=== PATIENT | male | born 1950 | race Caucasian/White ===

== ENCOUNTER → 2016-12-14 | Outpatient (CLI) | payer MEDICARE ==
[2016-12-14 09:12] LABS: ABSOLUTE EOSINOPHILS # (AUTO) 0.2 10^3/uL (0.0-0.6); ABSOLUTE LYMPHOCYTES (AUTO) 0.8 10^3/uL (0.5-4.7); ABSOLUTE MONOCYTES (AUTO) 0.4 10^3/uL (0.1-1.4); ABSOLUTE NEUT (AUTO) 3.1 10^3/uL (1.7-8.2); BASOPHILS % (AUTO) 0.7 % (0-2); EOSINOPHILS % (AUTO) 3.4 % (0-6); HEMATOCRIT 29.7 % (37.9-51.0); HGB HCT DIFFERENCE 0.3; LYMPHOCYTES % (AUTO) 17.4 % (13-45); MEAN CORPUSCULAR HEMOGLOBIN 31.4 pg (27.0-33.4); MEAN CORPUSCULAR HGB CONC 33.8 g/dL (32.0-36.0); MEAN CORPUSCULAR VOLUME 93 fl (80-97); RED BLOOD COUNT 3.19 10^6/uL (4.35-5.55); RED CELL DISTRIBUTION WIDTH 13.6 % (11.5-14.0); SEGMENTED NEUTROPHILS % (AUTO) 69.5 % (42-78); WHITE BLOOD COUNT 4.5 10^3/uL (4.0-10.5)
[2016-12-14 09:20] LABS: APPEARANCE,URINE CLEAR; BILIRUBIN,URINE NEGATIVE (NEGATIVE); GLUCOSE, URINE NEGATIVE (NEGATIVE); KETONES,URINE NEGATIVE (NEGATIVE); LEUKOCYTE ESTERASE,URINE NEGATIVE (NEGATIVE); NITRITE,URINE NEGATIVE (NEGATIVE); PROTEIN,URINE NEGATIVE (NEGATIVE); UROBILINOGEN,URINE NEGATIVE mg/dL (<2.0)
[2016-12-14 09:33] LABS: ANION GAP 12 (5-19); BLOOD UREA NITROGEN 55 mg/dL (7-20); CALCIUM 9.4 mg/dL (8.4-10.2); CARBON DIOXIDE 21 mmol/L (22-30); CHLORIDE 114 mmol/L (98-107); CREATININE RESULT 4.13 mg/dL (0.52-1.25); GLUCOSE 103 mg/dL (75-110); SODIUM 147.1 mmol/L (137-145)
[2016-12-14 10:25] LABS: POTASSIUM 6.1 mmol/L (3.6-5.0)
[2016-12-15 09:39] LABS: CREATININE URINE 65.1 mg/dL (Not Estab.); MICROALBUMIN URINE 61.4 ug/mL (Not Estab.)
[2016-12-15 11:25] LABS: VITAMIN D 25-HYDROXY 45.8 ng/mL (30.0-100.0)
== END ==
LOC: OD 07:45
PROVIDERS: ATTEND Internal Medicine Nephrology
DX: N18.4 Chronic kidney disease, stage 4 (severe) (principal); R80.9 Proteinuria, unspecified; D50.9 Iron deficiency anemia, unspecified; N25.81 Secondary hyperparathyroidism of renal origin
CPT/HCPCS: 36415; 80048; 81001; 82040; 82043; 82306; 82570; 82728; 83540; 83550; 83970; 84100; 85025

== ENCOUNTER → 2016-12-20 | Outpatient (CLI) | payer MEDICARE | LOC: OD 08:23 | PROVIDERS: ATTEND Internal Medicine Nephrology | DX: E87.5 Hyperkalemia (principal) | CPT/HCPCS: 36415; 84132 ==

== ENCOUNTER → 2017-03-02 | Outpatient (CLI) | payer MEDICARE ==
[2017-03-02 08:32] LABS: ANION GAP 14 (5-19); BLOOD UREA NITROGEN 47 mg/dL (7-20); CARBON DIOXIDE 23 mmol/L (22-30); CHLORIDE 112 mmol/L (98-107); CREATININE RESULT 4.22 mg/dL (0.52-1.25); GLUCOSE 111 mg/dL (75-110); POTASSIUM 5.4 mmol/L (3.6-5.0); SODIUM 149.2 mmol/L (137-145)
[2017-03-02 11:01] LABS: ABSOLUTE EOSINOPHILS # (AUTO) 0.1 10^3/uL (0.0-0.6); ABSOLUTE LYMPHOCYTES (AUTO) 0.9 10^3/uL (0.5-4.7); ABSOLUTE MONOCYTES (AUTO) 0.5 10^3/uL (0.1-1.4); ABSOLUTE NEUT (AUTO) 3.3 10^3/uL (1.7-8.2); BASOPHILS % (AUTO) 0.7 % (0-2); EOSINOPHILS % (AUTO) 2.9 % (0-6); HEMATOCRIT 32.5 % (37.9-51.0); HEMOGLOBIN 10.7 g/dL (13.5-17.0); HGB HCT DIFFERENCE -0.4; LYMPHOCYTES % (AUTO) 18.9 % (13-45); MEAN CORPUSCULAR HEMOGLOBIN 31.3 pg (27.0-33.4); MEAN CORPUSCULAR VOLUME 95 fl (80-97); MONOCYTES % (AUTO) 9.9 % (3-13); RED BLOOD COUNT 3.43 10^6/uL (4.35-5.55); RED CELL DISTRIBUTION WIDTH 13.7 % (11.5-14.0); SEGMENTED NEUTROPHILS % (AUTO) 67.6 % (42-78); WHITE BLOOD COUNT 4.9 10^3/uL (4.0-10.5)
== END ==
LOC: OD 07:40
PROVIDERS: ATTEND Internal Medicine Nephrology
DX: N18.4 Chronic kidney disease, stage 4 (severe) (principal); D50.9 Iron deficiency anemia, unspecified; N25.81 Secondary hyperparathyroidism of renal origin
CPT/HCPCS: 36415; 80048; 82728; 83540; 83550; 83970; 84100; 85025

== ENCOUNTER 2017-05-10 07:31 | Day surgery (SDC) | payer MEDICARE ==
[~2017-05-10 07:31] MED LIST: EPINEPHRINE INJ 1 MG/10 ML DISP.SYRIN ONE; FLUMAZENIL INJ 0.5 MG/5 ML VIAL ONE; GLUCAGON,HUMAN RECOMB 1 MG INJ ONE; GLYCOPYRROLATE INJ 0.4 MG/2 ML VIAL ONE; MIDAZOLAM 2 MG/2 ML INJ ONE; NALOXONE HCL INJ/PF 0.4 MG/1 ML SDV ONE; ONDANSETRON HCL INJ/PF 4 MG/2 ML SDV ONE
[2017-05-10] MEDS: MIDAZOLAM 2 MG/2 ML INJ ONE ×3 (08:36→08:51)
[2017-05-10] MEDS: FENTANYL CITRATE INJ/PF 100 MCG/2 ML AMPUL ONE ×2 (08:38→08:46)
--- NOTE | 2017-05-10 09:33 | PDOC DISCHARGE SUMMARY ---
Discharge Summary (SDC) - Discharge Final Diagnosis: colon polyps; diverticuloses Date of Surgery: 05/10/17 Discharge Date: 05/10/17 Condition: Good Treatment or Instructions: [facility] [place] [id number] POST ENDOSCOPY DISCHARGE INSTRUCTIONS 1. Diet: Start clear liquids that a regular diet as tolerated. 2. Resume all preoperative medications. All oral anticoagulants and aspirins can be resumed 24 hours after procedure. 3. If a polypectomy was performed some bleeding per rectum may occur. This should stop within 3 days. If not, please contact the office. 4. If you had a colonoscopy you may experience some bloating and delayed return of normal bowel function for several days, your regular bowel movement pattern should resume within a week. 5. Please contact [facility] at to make an appointment with Dr. Randle for 1 to 3 weeks following procedure. 6. If you have any questions or concerns regarding your care,treatment plan or follow up, please contact our office. 7. Per clinical guidelines we recommend you undergo a repeat colonoscopy in three years. Referrals: ANIRUDH PAINTING MD [Primary Care Provider] - Discharge Diet: As Tolerated Discharge Activity: Activity As Tolerated Home Care Assistance: None Needed Report the Following to Your Physician Immediately: Shortness of Breath, Increase in Pain, Fever over 101 Degrees
[2017-05-10 10:40] VITALS: BP 145/79
--- NOTE | 2017-05-10 11:02 | OPERATIVE REPORT E ---
Operative Report NAME: KATHY BURRELL : 1950 AGE: 67Y DATE OF SURGERY: 05/10/2017 ROOM: PREOPERATIVE DIAGNOSIS: Personal history of colon polyps. POSTOPERATIVE DIAGNOSES: 1. Polyps of the cecum and right colon. 2. Sigmoid and left colon diverticulosis. 3. Prostatic enlargement. PROCEDURE: 1. Total colonoscopy to the cecum with photo documentation. 2. Cecal and right colon polypectomy. SURGEON: JUNIOR VELASQUEZ M.D. ANESTHESIA: Conscious sedation. COMPLICATIONS: None. ESTIMATED BLOOD LOSS: Scant. DRAINS: None. TISSUE REMOVED OR ALTERED: Colon polyps x2. FINDINGS: See below. SUMMARY OF PROCEDURE: The patient was brought from the fifth floor endoscopy waiting area to the endoscopy suite where conscious sedation was induced. The patient was placed in a left lateral decubitus position. Surgical plan and surgical timeout were conducted. Rectal exam revealed no perianal pathology. The posterior surface of the prostate gland was enlarged. The flexible adult colonoscope was advanced through the anorectal canal all the way to the cecum. This was an excellent study on a well prepped bowel. Transillumination of the anterior abdominal wall, the right lower quadrant, and visualization of the ileocecal valve confirmed cecal intubation. Along the wall of the cecum was a sessile polyp photographed and removed with the cold forceps device with 2 bites. Bleeding was minimal. Specimen was sent as cecal polyp. We withdrew the scope further through the right colon and there was another smaller sessile polyp, photographed and retrieved with the cold forceps device. Bleeding was minimal. The remainder of the colon was unremarkable except for a moderate of diverticulosis of the left and sigmoid colon. Photographs were taken. There was no evidence of stenosis or stricture. Scope was withdrawn from the patient's anus. He tolerated the procedure well. He was taken to the recovery room in stable condition. Per surveillance guidelines, patient will be an appropriate candidate for followup colonoscopy in approximately 3 years, or sooner if any symptoms develop. DICTATING PHYSICIAN: JUNIOR VELASQUEZ M.D. [id number] PHY#: [id number] ID: [id number] JOB#: [id number] ACCT: [id number] cc:JUNIOR VELASQUEZ M.D. >
== END 2017-05-10 10:30 | disposition home or self-care (01) ==
LOC: END 07:31
PROVIDERS: ATTEND Surgery
PROC: 0DBF8ZX Excision of Right Large Intestine, Via Natural or Artificial Opening Endoscopic, Diagnostic (ICD-10-PCS; 2017-05-10)
PROC: 0DBH8ZX Excision of Cecum, Via Natural or Artificial Opening Endoscopic, Diagnostic (ICD-10-PCS; principal; 2017-05-10 08:15)
DX: Z12.11 Encounter for screening for malignant neoplasm of colon (principal); D12.0 Benign neoplasm of cecum; D12.2 Benign neoplasm of ascending colon; K57.30 Diverticulosis of large intestine without perforation or abscess without bleeding; N40.0 Benign prostatic hyperplasia without lower urinary tract symptoms; I10 Essential (primary) hypertension; E78.00 Pure hypercholesterolemia, unspecified; E78.1 Pure hyperglyceridemia; M19.90 Unspecified osteoarthritis, unspecified site; D64.9 Anemia, unspecified; Z86.73 Personal history of transient ischemic attack (TIA), and cerebral infarction without residual deficits; Q61.3 Polycystic kidney, unspecified; Z88.0 Allergy status to penicillin
CPT/HCPCS: 45380; 88305 ×2; J2250; J3010; J0171; J1610; J2310; J2405; J3490

== ENCOUNTER → 2017-05-14 | Outpatient (CLI) | payer MEDICARE ==
[2017-05-14 08:36] LABS: ABSOLUTE EOSINOPHILS # (AUTO) 0.2 10^3/uL (0.0-0.6); ABSOLUTE LYMPHOCYTES (AUTO) 0.8 10^3/uL (0.5-4.7); ABSOLUTE MONOCYTES (AUTO) 0.4 10^3/uL (0.1-1.4); ABSOLUTE NEUT (AUTO) 3.5 10^3/uL (1.7-8.2); BASOPHILS % (AUTO) 0.5 % (0-2); EOSINOPHILS % (AUTO) 3.3 % (0-6); HEMATOCRIT 29.5 % (37.9-51.0); HGB HCT DIFFERENCE 0.5; LYMPHOCYTES % (AUTO) 16.3 % (13-45); MEAN CORPUSCULAR HEMOGLOBIN 32.2 pg (27.0-33.4); MEAN CORPUSCULAR HGB CONC 33.8 g/dL (32.0-36.0); MEAN CORPUSCULAR VOLUME 95 fl (80-97); MONOCYTES % (AUTO) 7.6 % (3-13); RED CELL DISTRIBUTION WIDTH 13.1 % (11.5-14.0); SEGMENTED NEUTROPHILS % (AUTO) 72.3 % (42-78); WHITE BLOOD COUNT 4.8 10^3/uL (4.0-10.5)
[2017-05-14 09:17] LABS: ANION GAP 16 (5-19); BLOOD UREA NITROGEN 50 mg/dL (7-20); CALCIUM 9.3 mg/dL (8.4-10.2); CARBON DIOXIDE 19 mmol/L (22-30); CHLORIDE 111 mmol/L (98-107); CREATININE RESULT 4.34 mg/dL (0.52-1.25); GLUCOSE 102 mg/dL (75-110); POTASSIUM 4.5 mmol/L (3.6-5.0); SODIUM 145.8 mmol/L (137-145)
== END ==
LOC: OD 07:52
PROVIDERS: ATTEND Internal Medicine Nephrology
DX: N18.5 Chronic kidney disease, stage 5 (principal); D63.1 Anemia in chronic kidney disease; N25.81 Secondary hyperparathyroidism of renal origin
CPT/HCPCS: 36415; 80048; 83970; 85025

== ENCOUNTER → 2017-07-11 | Outpatient (CLI) | payer MEDICARE ==
[2017-07-11 09:24] LABS: ABSOLUTE EOSINOPHILS # (AUTO) 0.1 10^3/uL (0.0-0.6); ABSOLUTE LYMPHOCYTES (AUTO) 0.8 10^3/uL (0.5-4.7); ABSOLUTE MONOCYTES (AUTO) 0.4 10^3/uL (0.1-1.4); ABSOLUTE NEUT (AUTO) 3.2 10^3/uL (1.7-8.2); BASOPHILS % (AUTO) 0.7 % (0-2); EOSINOPHILS % (AUTO) 2.6 % (0-6); HEMATOCRIT 29.4 % (37.9-51.0); HEMOGLOBIN 10.1 g/dL (13.5-17.0); HGB HCT DIFFERENCE 0.9; MEAN CORPUSCULAR HEMOGLOBIN 32.1 pg (27.0-33.4); MEAN CORPUSCULAR HGB CONC 34.4 g/dL (32.0-36.0); MEAN CORPUSCULAR VOLUME 93 fl (80-97); MONOCYTES % (AUTO) 7.8 % (3-13); RED BLOOD COUNT 3.16 10^6/uL (4.35-5.55); RED CELL DISTRIBUTION WIDTH 12.8 % (11.5-14.0); SEGMENTED NEUTROPHILS % (AUTO) 70.9 % (42-78); WHITE BLOOD COUNT 4.5 10^3/uL (4.0-10.5)
[2017-07-11 09:33] LABS: APPEARANCE,URINE CLEAR; BILIRUBIN,URINE NEGATIVE (NEGATIVE); GLUCOSE, URINE NEGATIVE (NEGATIVE); KETONES,URINE NEGATIVE (NEGATIVE); LEUKOCYTE ESTERASE,URINE NEGATIVE (NEGATIVE); NITRITE,URINE NEGATIVE (NEGATIVE); PROTEIN,URINE NEGATIVE (NEGATIVE); URINE SPECIFIC GRAVITY 1.011; UROBILINOGEN,URINE NEGATIVE mg/dL (<2.0)
[2017-07-11 09:44] LABS: ALBUMIN 4.1 g/dL (3.5-5.0); ANION GAP 16 (5-19); BLOOD UREA NITROGEN 57 mg/dL (7-20); CALCIUM 9.3 mg/dL (8.4-10.2); CARBON DIOXIDE 19 mmol/L (22-30); CHLORIDE 112 mmol/L (98-107); CREATININE RESULT 4.79 mg/dL (0.52-1.25); GLUCOSE 105 mg/dL (75-110); PHOSPHORUS 5.1 mg/dL (2.5-4.5); POTASSIUM 4.9 mmol/L (3.6-5.0); SODIUM 147.1 mmol/L (137-145)
[2017-07-12 11:39] LABS: CREATININE URINE 79.2 mg/dL (Not Estab.); MICROALBUMIN URINE 55.9 ug/mL (Not Estab.)
== END ==
LOC: OD 08:19
PROVIDERS: ATTEND Internal Medicine Nephrology
DX: N18.5 Chronic kidney disease, stage 5 (principal); D50.9 Iron deficiency anemia, unspecified; E83.39 Other disorders of phosphorus metabolism; R80.9 Proteinuria, unspecified
CPT/HCPCS: 36415; 80048; 81001; 82040; 82043; 82306; 82570; 82728; 83540; 83550; 84100; 85025

== ENCOUNTER 2017-08-19 02:12 | Emergency (ER) | payer MEDICARE ==
[2017-08-19] MEDS ORDERED: CALCIUM ACETATE 667 MG CAPSULE PO ONE (04:00)
--- NOTE | 2017-08-19 04:00 | ER Document Report ---
ED Extremity Problem, Lower - General Chief Complaint: Leg Swelling Stated Complaint: LEG SWELLING Time Seen by Provider: 08/19/17 03:43 Notes: The patient is a 67-year-old male, past medical history Stage 5 CKD, Polycystic Kidney Disease, hypertension, peripheral edema, presents with 1 week of increased bilateral lower leg swelling. In addition, he noticed a pruritic erythematous rash over his left ankle. He saw Dr. Ahumada and started on doxycycline 4 days ago. He thinks that it is not getting much better and is slightly enlarged. Patient also has had a diffuse pruritic rash for several weeks and he has tried calamine lotion with only mild relief of his symptoms. Patient is due to have a dialysis graft placed this week and start dialysis next week. He follows with Dr. Painting. Patient denies chest pain, shortness of breath, fevers, nausea, vomiting, numbness, tingling, difficulty walking or headache. TRAVEL OUTSIDE OF THE [place] IN LAST 30 DAYS: No - Related Data Allergies/Adverse Reactions: Penicillins Allergy (Verified 08/19/17 02:15) RASH Past Medical History - General Information source: Patient - Social History Smoking Status: Never Smoker Family History: Reviewed & Not Pertinent Patient has suicidal ideation: No Patient has homicidal ideation: No - Past Medical History Cardiac Medical History: Reports: Hx Hypertension Denies: Hx Coronary Artery Disease, Hx Heart Attack Pulmonary Medical History: Denies: Hx Asthma, Hx Bronchitis, Hx COPD, Hx Pneumonia Neurological Medical History: Denies: Hx Cerebrovascular Accident, Hx Seizures Renal/ Medical History: Denies: Hx Peritoneal Dialysis GI Medical History: Denies: Hx Hepatitis, Hx Hiatal Hernia, Hx Ulcer Musculoskeltal Medical History: Reports Hx Arthritis - RIGHT HAND Infectious Medical History: Denies: Hx Hepatitis Past Surgical History: Denies: Hx Open Heart Surgery, Hx Pacemaker - Immunizations Hx Diphtheria, Pertussis, Tetanus Vaccination: Yes Review of Systems - Review of Systems Notes: REVIEW OF SYSTEMS: CONSTITUTIONAL: -fevers, -chills EENT: -eye pain, -difficulty swallowing, -nasal congestion CARDIOVASCULAR: -chest pain, -syncope. RESPIRATORY: -cough, -SOB GASTROINTESTINAL: -abdominal pain, - nausea, -vomiting, -diarrhea GENITOURINARY: -dysuria, -hematuria MUSCULOSKELETAL: -back pain, -neck pain SKIN: +rash HEMATOLOGIC: -easy bruising or bleeding. LYMPHATIC: -swollen, enlarged glands. NEUROLOGICAL: -altered mental status or loss of consciousness, -headache, - neurologic symptoms PSYCHIATRIC: -anxiety, -depression. ALL OTHER SYSTEMS REVIEWED AND NEGATIVE. Physical Exam - Vital signs Vitals: Temp Pulse Resp BP Pulse Ox 97.6 F 102 H 20 126/84 H 100 08/19/17 02:22 08/19/17 02:22 08/19/17 02:22 08/19/17 02:22 08/19/17 02:22 - Notes Notes: PHYSICAL EXAMINATION: GENERAL: Well-appearing, well-nourished and in no acute distress. HEAD: Atraumatic, normocephalic. EYES: Pupils equal round and reactive to light, extraocular movements intact, sclera anicteric, conjunctiva are normal. ENT: nares patent, oropharynx clear without exudates. Moist mucous membranes. NECK: Normal range of motion, supple without lymphadenopathy LUNGS: Breath sounds clear to auscultation bilaterally and equal. No wheezes rales or rhonchi. HEART: Regular rate and rhythm without murmurs ABDOMEN: Soft, nontender, normoactive bowel sounds. No guarding, no rebound. No masses appreciated. EXTREMITIES: 2+ pitting edema in bilateral lower extremities. No painful ROM of left ankle. NEUROLOGICAL: Cranial nerves grossly intact. Normal speech, normal gait. Normal sensory and motor exams. PSYCH: Normal mood, normal affect. SKIN: Diffuse urticarial rash. Erythematous area in medial left ankle. Course - Re-evaluation Re-evalutation: Pt with B/L lower extremity edema. No calf tenderness or history of blood clots. Suspect peripheral edema from his CKD. No respiratory distress and lungs are clear. His diffuse pruritic rash is most likely from hyperphosphatemia. Will begin low-dose PhosLo and Atarax to help with his pruritus. We will switch his doxycycline over to clindamycin to help with his left medial ankle cellulitis. No fevers or leukocytosis. Also, he is having no painful left ankle range of motion to suggest a septic joint. 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 Given very strict return precautions and he understands. - Vital Signs Vital signs: Temp Pulse Resp BP Pulse Ox 97.6 F 102 H 20 126/84 H 100 08/19/17 02:22 08/19/17 02:22 08/19/17 02:22 08/19/17 02:22 08/19/17 02:22 - Laboratory Result Diagrams: 08/19/17 04:02 08/19/17 04:02 Laboratory results interpreted by me: 08/19/17 08/19/17 04:02 04:02 RBC 3.21 L Hgb 10.5 L Hct 30.2 L Lymphocytes % 10.4 L Eosinophils % 11.7 H Absolute Eosinophils 1.0 H Sodium 148.0 H Chloride 111 H Carbon Dioxide 19 L BUN 55 H Creatinine 5.36 H Est GFR ( Amer) 13 L Est GFR (Non-Af Amer) 11 L Phosphorus 4.8 H AST 14 L Discharge - Discharge Clinical Impression: Urticarial rash Cellulitis Qualifiers: Site of cellulitis: extremity Site of cellulitis of extremity: lower extremity Laterality: left Qualified Code(s): L03.116 - Cellulitis of left lower limb Condition: Stable Disposition: HOME, SELF-CARE Additional Instructions: ANTIHISTAMINES: An antihistamine has been given and/or prescribed to control your symptoms. Antihistamines are used for many reasons, including itching, watering eyes, runny nose, allergic swelling, hives, and insect stings. Antihistamines may cause drowsiness, especially with the first dose. Do not operate machinery or drive while under the effects of the medication. Other common side effects include dry mouth and eyes. In older persons, antihistamines can occasionally cause urinary retention, constipation, and trouble focusing the eyes. Do not combine the medication with alcohol, or with any other medication without talking to your doctor. FOLLOW-UP CARE: If you have been referred to a physician for follow-up care, call the physician s office for an appointment as you were instructed or within the next two days. If you experience worsening or a significant change in your symptoms, notify the physician immediately or return to the Emergency Department at any time for re-evaluation. CELLULITIS: You have an infection of your skin and underlying soft tissues called cellulitis. This is due to bacteria, which can enter through any break in the skin, or even through an irritated hair follicle. Untreated, cellulitis will usually worsen. Antibiotics are required. Usually, warm packs or warm soaks, and elevation of the infected area are recommended. You should start getting better within 24 to 36 hours. Most infections respond quickly to the right medication. Follow-up care is important, however, to check for abscess (boil) formation, unsuspected foreign body, or resistant infection. If you develop fever, chills, or if the area of infection is becoming rapidly more swollen or painful, call the doctor at once. MRSA CELLULITIS: You have an infection of your skin and underlying soft tissues called cellulitis. This is due to bacteria, which can enter through any break in the skin, or even through an irritated hair follicle. Untreated, cellulitis will usually worsen and may form an abscess which requires draining. Although many bacterial organisms can cause cellulitis and abscess formations, the most likely bacteria is Methicillin-Resistant Staph Aureus, or MRSA for short. Antibiotics are required. Usually, warm packs or warm soaks, and elevation of the infected area are recommended. You should start getting better within 24 to 36 hours. Most infections respond quickly to the right medication. Follow-up care is important, however, to check for abscess (boil) formation, unsuspected foreign body, or resistant infection. If you develop fever, chills, or if the area of infection is becoming rapidly more swollen or painful, call the doctor at once. ANTIBIOTIC THERAPY: You have been given an antibiotic prescription. It's important that you take all the medication, unless instructed otherwise by your physician. Failure to complete the entire course can result in relapse of your condition. Common side effects of antibiotics include nausea, intestinal cramping, or diarrhea. Women may develop vaginal yeast infections, and babies can get yeast (thrush) in the mouth following the use of antibiotics. Contact your physician if you develop significant side effects from this medication. Allergy to this antibiotic can result in hives, wheezing, faintness, or itching. If symptoms of allergy occur, stop the medication and call the doctor. CLINDAMYCIN: You have been given a prescription for the antibiotic clindamycin. It is often prescribed for infections in the mouth, such as dental infections or abscesses, and for skin infections due to MRSA. It's important that you take all the medication, unless instructed otherwise by your physician. Failure to complete the entire course can result in relapse of your condition. Common side effects of antibiotics include nausea, intestinal cramping, or diarrhea. Women may develop vaginal yeast infections, and babies can get yeast (thrush) in the mouth following the use of antibiotics. Contact your physician if you develop significant side effects from this medication. Allergy to this antibiotic can result in hives, wheezing, faintness, or itching. If symptoms of allergy occur, stop the medication and call the doctor. FOLLOW-UP CARE: If you have been referred to a physician for follow-up care, call the physician s office for an appointment as you were instructed or within the next two days. If you experience worsening or a significant change in your symptoms, notify the physician immediately or return to the Emergency Department at any time for re-evaluation. Prescriptions: Clindamycin HCl 300 mg PO Q8H #21 capsule Hydroxyzine HCl [Atarax 10 mg Tablet] 10 mg PO TID PRN #30 tablet PRN Reason: Referrals: ALEJANDRO CHIN MD [Primary Care Provider] - Follow up as needed ANIRUDH PAINTING MD [ACTIVE STAFF] - Follow up as needed
[2017-08-19] MEDS ORDERED: HYDROXYZINE HCL 10 MG TABLET PO ONE (04:02)
[2017-08-19] MEDS ORDERED: CLINDAMYCIN HCL 150 MG CAPSULE PO ONE (04:21)
[2017-08-19 04:22] LABS: ABSOLUTE LYMPHOCYTES (AUTO) 0.9 10^3/uL (0.5-4.7); ABSOLUTE MONOCYTES (AUTO) 0.5 10^3/uL (0.1-1.4); ABSOLUTE NEUT (AUTO) 5.9 10^3/uL (1.7-8.2); BASOPHILS % (AUTO) 0.2 % (0-2); EOSINOPHILS % (AUTO) 11.7 % (0-6); HEMATOCRIT 30.2 % (37.9-51.0); HEMOGLOBIN 10.5 g/dL (13.5-17.0); HGB HCT DIFFERENCE 1.3; LYMPHOCYTES % (AUTO) 10.4 % (13-45); MEAN CORPUSCULAR HEMOGLOBIN 32.5 pg (27.0-33.4); MEAN CORPUSCULAR HGB CONC 34.6 g/dL (32.0-36.0); MEAN CORPUSCULAR VOLUME 94 fl (80-97); MONOCYTES % (AUTO) 6.5 % (3-13); RED BLOOD COUNT 3.21 10^6/uL (4.35-5.55); RED CELL DISTRIBUTION WIDTH 13.8 % (11.5-14.0); SEGMENTED NEUTROPHILS % (AUTO) 71.2 % (42-78); WHITE BLOOD COUNT 8.2 10^3/uL (4.0-10.5)
[2017-08-19 04:39] LABS: ALANINE AMINOTRANSFERASE 29 U/L (21-72); ALBUMIN 4.1 g/dL (3.5-5.0); ALKALINE PHOSPHATASE 68 U/L (38-126); ANION GAP 18 (5-19); ASPARTATE AMINO TRANSFERASE 14 U/L (17-59); BILIRUBIN,DIRECT 0.3 mg/dL (0.0-0.4); BILIRUBIN,TOTAL 0.3 mg/dL (0.2-1.3); BLOOD UREA NITROGEN 55 mg/dL (7-20); CARBON DIOXIDE 19 mmol/L (22-30); CHLORIDE 111 mmol/L (98-107); CREATINE KINASE 86 U/L (55-170); CREATININE RESULT 5.36 mg/dL (0.52-1.25); GLUCOSE 106 mg/dL (75-110); PHOSPHORUS 4.8 mg/dL (2.5-4.5); POTASSIUM 4.6 mmol/L (3.6-5.0); TOTAL PROTEIN 6.5 g/dL (6.3-8.2)
--- NOTE | 2017-08-19 05:18 | RADIOLOGY REPORT (SQ) ---
EXAM DESCRIPTION: CHEST SINGLE VIEW COMPLETED DATE/TIME: 08/19/2017 5:06 am REASON FOR STUDY: cough COMPARISON: 11/19/2015. EXAM PARAMETERS: NUMBER OF VIEWS: One view. TECHNIQUE: Single frontal radiographic view of the chest acquired. RADIATION DOSE: NA LIMITATIONS: None. FINDINGS: LUNGS AND PLEURA: No opacities, masses or pneumothorax. No pleural effusion. MEDIASTINUM AND HILAR STRUCTURES: No masses. Contour normal. HEART AND VASCULAR STRUCTURES: Heart normal in size. Normal vasculature. BONES: No acute findings. HARDWARE: None in the chest. OTHER: No other significant finding. IMPRESSION: NO ACUTE RADIOGRAPHIC FINDING IN THE CHEST. TECHNICAL DOCUMENTATION: JOB ID: [id number] [employer]- All Rights Reserved
[2017-08-19] MEDS ORDERED: CALCIUM ACETATE 667 MG CAPSULE ONE (05:25)
[2017-08-19 06:34] VITALS: BP 159/84
== END 2017-08-19 06:20 | disposition home or self-care (01) ==
LOC: ER 02:12
DX: L03.116 Cellulitis of left lower limb (principal); L50.9 Urticaria, unspecified; R21 Rash and other nonspecific skin eruption; Q61.3 Polycystic kidney, unspecified; N18.5 Chronic kidney disease, stage 5; M79.89 Other specified soft tissue disorders
CPT/HCPCS: 99283; 36415; 82550; 84100; 85025; 80053; 83880; 71010; A9270 ×3

== ENCOUNTER 2017-08-20 17:11 | Inpatient (IN) | payer MEDICARE ==
[2017-08-20] MEDS ORDERED: VANCOMYCIN HCL INJ 1000 MG VIAL IV ONE ×2 (19:03→22:15)
[2017-08-20] MEDS ORDERED: NORMAL SALINE 1000 ML 1,000 ML IV ONE (19:03)
--- NOTE | 2017-08-20 19:05 | ER Document Report ---
ED Medical Screen (RME) - General Chief Complaint: Leg Swelling Stated Complaint: KIDNEY PROBLEMS Time Seen by Provider: 08/20/17 19:03 Notes: Patient was sent from the request that the patient be admitted to the hospital. She states she will consult on the patient. She also asked that Dr. Ballard or the hospitalist do the admission. Patient has cellulitis on his leg she stated. She has an IV antibiotics be started for this. She also request that IV fluids be initiated. TRAVEL OUTSIDE OF THE [place] IN LAST 30 DAYS: No - Related Data Allergies/Adverse Reactions: Penicillins Allergy (Verified 08/20/17 17:12) RASH Past Medical History - Social History Chew tobacco use (# tins/day): No Frequency of alcohol use: None Drug Abuse: None - Past Medical History Cardiac Medical History: Reports: Hx Hypertension Denies: Hx Coronary Artery Disease, Hx Heart Attack Pulmonary Medical History: Denies: Hx Asthma, Hx Bronchitis, Hx COPD, Hx Pneumonia Neurological Medical History: Denies: Hx Cerebrovascular Accident, Hx Seizures Renal/ Medical History: Denies: Hx Peritoneal Dialysis GI Medical History: Denies: Hx Hepatitis, Hx Hiatal Hernia, Hx Ulcer Musculoskeltal Medical History: Reports Hx Arthritis - RIGHT HAND Infectious Medical History: Denies: Hx Hepatitis Past Surgical History: Denies: Hx Open Heart Surgery, Hx Pacemaker - Immunizations Hx Diphtheria, Pertussis, Tetanus Vaccination: Yes Physical Exam - Vital signs Vitals: Temp Pulse Resp BP Pulse Ox 97.8 F 105 H 19 150/91 H 100 08/20/17 17:16 08/20/17 17:16 08/20/17 17:16 08/20/17 17:16 08/20/17 17:16 Course - Vital Signs Vital signs: Temp Pulse Resp BP Pulse Ox 97.8 F 105 H 19 150/91 H 100 08/20/17 17:16 08/20/17 17:16 08/20/17 17:16 08/20/17 17:16 08/20/17 17:16
[2017-08-20 20:17] LABS: VENOUS BLOOD BASE EXCESS -5.3 mmol/L; VENOUS BLOOD HCO3 19.9 mmol/L (20-32); VENOUS BLOOD PCO2 37.9 mmHg (35-63); VENOUS BLOOD PH 7.34 (7.30-7.42)
[2017-08-20 20:18] LABS: ABSOLUTE EOSINOPHILS # (AUTO) 1.5 10^3/uL (0.0-0.6); ABSOLUTE LYMPHOCYTES (AUTO) 1.4 10^3/uL (0.5-4.7); ABSOLUTE MONOCYTES (AUTO) 0.6 10^3/uL (0.1-1.4); ABSOLUTE NEUT (AUTO) 5.5 10^3/uL (1.7-8.2); BASOPHILS % (AUTO) 0.4 % (0-2); EOSINOPHILS % (AUTO) 16.1 % (0-6); HEMATOCRIT 32.2 % (37.9-51.0); HGB HCT DIFFERENCE 0.8; LYMPHOCYTES % (AUTO) 15.6 % (13-45); MEAN CORPUSCULAR HEMOGLOBIN 32.4 pg (27.0-33.4); MEAN CORPUSCULAR HGB CONC 34.2 g/dL (32.0-36.0); MEAN CORPUSCULAR VOLUME 95 fl (80-97); MONOCYTES % (AUTO) 7.1 % (3-13); RED BLOOD COUNT 3.41 10^6/uL (4.35-5.55); RED CELL DISTRIBUTION WIDTH 13.9 % (11.5-14.0); SEGMENTED NEUTROPHILS % (AUTO) 60.8 % (42-78); WHITE BLOOD COUNT 9.1 10^3/uL (4.0-10.5)
[2017-08-20 20:37] LABS: ALANINE AMINOTRANSFERASE 25 U/L (21-72); ALBUMIN 4.2 g/dL (3.5-5.0); ALKALINE PHOSPHATASE 73 U/L (38-126); ANION GAP 17 (5-19); ASPARTATE AMINO TRANSFERASE 15 U/L (17-59); BILIRUBIN,DIRECT 0.3 mg/dL (0.0-0.4); BILIRUBIN,TOTAL 0.3 mg/dL (0.2-1.3); BLOOD UREA NITROGEN 53 mg/dL (7-20); CALCIUM 8.9 mg/dL (8.4-10.2); CARBON DIOXIDE 17 mmol/L (22-30); CHLORIDE 109 mmol/L (98-107); CREATININE RESULT 5.16 mg/dL (0.52-1.25); GLUCOSE 97 mg/dL (75-110); POTASSIUM 4.7 mmol/L (3.6-5.0); SODIUM 143.2 mmol/L (137-145); TOTAL PROTEIN 6.5 g/dL (6.3-8.2)
[2017-08-20 20:45] LABS: APPEARANCE,URINE CLEAR; BILIRUBIN,URINE NEGATIVE (NEGATIVE); GLUCOSE, URINE NEGATIVE (NEGATIVE); KETONES,URINE NEGATIVE (NEGATIVE); LEUKOCYTE ESTERASE,URINE NEGATIVE (NEGATIVE); NITRITE,URINE NEGATIVE (NEGATIVE); PROTEIN,URINE 30 mg/dL (NEGATIVE); URINE SPECIFIC GRAVITY 1.013; UROBILINOGEN,URINE NEGATIVE mg/dL (<2.0)
[2017-08-20 20:49] LABS: WBC,URINE 0-1 /HPF
[2017-08-20] MEDS ORDERED: VANCOMYCIN HCL INJ 1000 MG VIAL ONE (22:15)
[2017-08-20] MEDS ORDERED: CEFTRIAXONE 1 GM/D5W RTU 1 GM/50 ML RTUPB IV ONE (22:16)
--- NOTE | 2017-08-20 23:08 | ER Document Report ---
ED General - General Chief Complaint: Leg Swelling Stated Complaint: KIDNEY PROBLEMS Time Seen by Provider: 08/20/17 19:03 Notes: Patient is a 67-year-old male with a past medical history of polycystic kidney disease, plan to start dialysis next week who presents with 4 days of progressive worsening rash over his bilateral lower extremities, bilateral upper extremities and abdomen. He was seen in the emergency department yesterday and informed this may be related to his chronic kidney disease and the need for dialysis. He will follow-up with his electric blanket packer today who referred him back to the emergency department with concerns that this may be an acute cellulitis. Patient was started on doxycycline recently for an area of cellulitis on the left back medial malleolus and states that the rash started shortly thereafter. He does describe it as a dull, constant, burning pain to the affected areas. Nothing improves or worsens the symptoms. He denies any shortness of breath, vomiting, or syncope. No history of similar symptoms in the past. He has not had any fever or constitutional symptoms. TRAVEL OUTSIDE OF THE [place] IN LAST 30 DAYS: No - Related Data Allergies/Adverse Reactions: Penicillins Allergy (Verified 08/20/17 17:12) RASH Past Medical History - General Information source: Patient - Social History Smoking Status: Former Smoker Chew tobacco use (# tins/day): No Frequency of alcohol use: None Drug Abuse: None Family History: Reviewed & Not Pertinent Patient has suicidal ideation: No Patient has homicidal ideation: No - Past Medical History Cardiac Medical History: Reports: Hx Hypercholesterolemia, Hx Hypertension Denies: Hx Coronary Artery Disease, Hx Heart Attack Pulmonary Medical History: Denies: Hx Asthma, Hx Bronchitis, Hx COPD, Hx Pneumonia Neurological Medical History: Denies: Hx Cerebrovascular Accident, Hx Seizures Renal/ Medical History: Denies: Hx Peritoneal Dialysis GI Medical History: Denies: Hx Hepatitis, Hx Hiatal Hernia, Hx Ulcer Musculoskeltal Medical History: Reports Hx Arthritis - RIGHT HAND Infectious Medical History: Denies: Hx Hepatitis Past Surgical History: Denies: Hx Open Heart Surgery, Hx Pacemaker - Immunizations Hx Diphtheria, Pertussis, Tetanus Vaccination: Yes Review of Systems - Review of Systems Notes: Constitutional: Negative for fever. HENT: Negative for sore throat. Eyes: Negative for visual changes. Cardiovascular: Negative for chest pain. Respiratory: Negative for shortness of breath. Gastrointestinal: Negative for abdominal pain, vomiting or diarrhea. Genitourinary: Negative for dysuria. Musculoskeletal: Positive for bilateral lower extremity pain Skin: Positive for rash. Neurological: Negative for headaches, weakness or numbness. 10 point ROS negative except as marked above and in HPI. Physical Exam - Vital signs Vitals: Temp Pulse Resp BP Pulse Ox 97.8 F 105 H 19 150/91 H 100 08/20/17 17:16 08/20/17 17:16 08/20/17 17:16 08/20/17 17:16 08/20/17 17:16 Interpretation: Hypertensive, Tachycardic Notes: PHYSICAL EXAMINATION: GENERAL: Well-appearing, well-nourished and in no acute distress. HEAD: Atraumatic, normocephalic. EYES: Pupils equal round and reactive to light, extraocular movements intact, sclera anicteric, conjunctiva are normal. ENT: nares patent, oropharynx clear without exudates. Moist mucous membranes. NECK: Normal range of motion, supple without lymphadenopathy LUNGS: Breath sounds clear to auscultation bilaterally and equal. No wheezes rales or rhonchi. HEART: Regular rate and rhythm without murmurs ABDOMEN: Soft, nontender, normoactive bowel sounds. No guarding, no rebound. No masses appreciated. EXTREMITIES: Normal range of motion, 1+ pitting edema that is equal and symmetric in the bilateral lower extremities. NEUROLOGICAL: No focal neurological deficits. Moves all extremities spontaneously and on command. PSYCH: Normal mood, normal affect. SKIN: Warm, Dry, normal turgor, diffuse scaling, erythematous rash in the bilateral lower extremity. There is a macular rash over the abdomen. Course - Re-evaluation Re-evalutation: 08/20/17 23:05 Patient presents with bilateral lower extremity plaques, erythema, more consistent with calciphylaxis and hyperphosphatemia as opposed to an acute area of cellulitis although there is a distinct area of silence over the medial malleolus the left lower extremity. Patient was referred by his electric blanket packer for IV antibiotics and admission. No significant leukocytosis although he was mildly tachycardic at time of presentation. Patient is otherwise nontoxic in appearance. I discussed this case with the hospitalist who is agreed to accept the patient for admission given outpatient providers requests and IV vancomycin and itself ceftriaxone have been started. - Vital Signs Vital signs: Temp Pulse Resp BP Pulse Ox 98.2 F 105 H 17 150/95 H 100 08/20/17 22:30 08/20/17 17:16 08/21/17 01:31 08/21/17 01:31 08/21/17 01:31 - Laboratory Result Diagrams: 08/20/17 19:45 08/20/17 19:45 Laboratory results interpreted by me: 08/20/17 08/20/17 08/20/17 19:45 19:45 19:45 RBC 3.41 L Hgb 11.0 L Hct 32.2 L Eosinophils % 16.1 H Absolute Eosinophils 1.5 H VBG HCO3 19.9 L Chloride 109 H Carbon Dioxide 17 L BUN 53 H Creatinine 5.16 H Est GFR ( Amer) 14 L Est GFR (Non-Af Amer) 11 L AST 15 L Urine Protein Urine Ascorbic Acid 08/20/17 19:45 RBC Hgb Hct Eosinophils % Absolute Eosinophils VBG HCO3 Chloride Carbon Dioxide BUN Creatinine Est GFR ( Amer) Est GFR (Non-Af Amer) AST Urine Protein 30 H Urine Ascorbic Acid 20 H Discharge - Discharge Clinical Impression: Cellulitis of left lower extremity Condition: Fair Disposition: ADMITTED OBSERVATION Admitting Provider: Hospitalist - [facility] Unit Admitted: Medical Floor
[2017-08-21] MEDS ORDERED: PREDNISONE 20 MG TABLET PO ONE (00:21)
[2017-08-21] MEDS ORDERED: CALCITRIOL 0.25 MCG CAPSULE PO PRN ×2 (00:24→00:44)
[2017-08-21] MEDS ORDERED: VANCOMYCIN HCL 0 MG in DEXTROSE 5%-WATER 250 ML IV NR (00:45)
[2017-08-21] MEDS ORDERED: PHARMACY COMMUNICATION ORDER MC NR (00:45)
[2017-08-21] MEDS ORDERED: ACETAMINOPHEN 325 MG TABLET PO PRN (00:51)
--- NOTE | 2017-08-21 02:51 | PDOC H&P ---
History of Present Illness Admission Date/PCP: 08/20/17 23:28 History of Present Illness: KATHY BURRELL is a 67 year old male with past medical history of polycystic kidney disease, hypertension, end-stage renal disease not yet on hemodialysis, left ear basal cell carcinoma who presents to the emergency department with complaints of lower extremity rash. Patient reports that he had a small what he thought was a bite on his ankle approximately 2 days after being in the [employer] stands. He reported put Neosporin on it and 2 days later it was 1 from the size of a dime to the size of 11. He denied any central clearing of this lesion. He denied any eschar. Patient reports that he was then started on doxycycline by his primary care provider and subsequently did not improve. He reported the emergency department here and his doxycycline was stopped and he was started on clindamycin and Atarax. He reports that the rash is intensely pruritic. He has a area on the medial aspect of his left ankle that is swollen and erythematous for which patient is to be admitted for IV antibiotics. Past Medical History Cardiac Medical History: Reports: Hyperlipidema, Hypertension Denies: Coronary Artery Disease, Myocardial Infarction Pulmonary Medical History: Denies: Asthma, Bronchitis, Chronic Obstructive Pulmonary Disease (COPD), Pneumonia Neurological Medical History: Denies: Seizures Endocrine Medical History: Reports: Obesity Renal/ Medical History: Reports: Chronic Kidney Disease, End Stage Renal Disease, Other - Polycystic kidney disease GI Medical History: Denies: Hepatitis, Hiatal Hernia Musculoskeltal Medical History: Reports: Arthritis - RIGHT HAND Hematology: Reports: Anemia Denies: Sickle Cell Disease Past Surgical History Past Surgical History: Reports: Orthopedic Surgery - Back surgery Denies: Pacemaker Social History Smoking Status: Former Smoker Cigarettes Packs Per Day: 1.5 Number of Years Smokin Frequency of Alcohol Use: None Hx Recreational Drug Use: No Hx Prescription Drug Abuse: No - Advance Directive Resuscitation Status: Do Not Resuscitate Surrogate healthcare decision maker:: Machelle Gunter, sister Family History Family History: CAD, DM Parental Family History Reviewed: Yes Children Family History Reviewed: Yes Sibling(s) Family History Reviewed.: Yes Medication/Allergy Home Medications: Amlodipine Besylate 1 tab PO DAILY 05/08/17 Aspirin [Ecotrin] 1 tab PO DAILY 05/08/17 Calcitriol 1 tab PO ASDIR PRN 05/08/17 Carvedilol [Coreg] 1 tab PO BID 05/08/17 Fexofenadine/Pseudoephedrine [Anju-D 24 Hour Tablet] 1 tab PO DAILY 05/08/17 Furosemide 1 tab PO DAILY 05/08/17 Iron,Carb/Vit C/Vit B12/Folic [Iron 100 Plus Tablet] 1 tab PO BID 05/08/17 L.acidoph,Paracasei, B.lactis [Probiotic] 1 tab PO DAILY 05/08/17 Lysine 1 tab PO DAILY 05/08/17 Multivit-Min/FA/Lycopen/Lutein [Centrum Silver Men Tablet] 1 tab PO DAILY [place]-3 Fatty Acids/Fish Oil [Fish Oil 1,000 mg Capsule] 1 tab PO DAILY Simvastatin 1 tab PO BID 05/08/17 Sodium Polystyrene Sulfonate [Kalexate] 1 packet PO ASDIR PRN 05/08/17 Clindamycin HCl 300 mg PO Q8H #21 capsule 08/19/17 Hydroxyzine HCl [Atarax 10 mg Tablet] 10 mg PO TID PRN #30 tablet 08/19/17 Allergies/Adverse Reactions: Penicillins Allergy (Verified 08/20/17 17:12) RASH Review of Systems Constitutional: ABSENT: chills, fever(s), headache(s), weight gain, weight loss Eyes: ABSENT: visual disturbances Ears: ABSENT: hearing changes Cardiovascular: ABSENT: chest pain, dyspnea on exertion, edema, orthropnea, palpitations Respiratory: ABSENT: cough, hemoptysis Gastrointestinal: ABSENT: abdominal pain, constipation, diarrhea, hematemesis, hematochezia, nausea, vomiting Genitourinary: ABSENT: dysuria, hematuria Musculoskeletal: ABSENT: joint swelling Integumentary: PRESENT: as per HPI, pruritus, rash. ABSENT: wounds Neurological: ABSENT: abnormal gait, abnormal speech, confusion, dizziness, focal weakness, syncope Psychiatric: ABSENT: anxiety, depression, homidical ideation, suicidal ideation Endocrine: ABSENT: cold intolerance, heat intolerance, polydipsia, polyuria Hematologic/Lymphatic: ABSENT: easy bleeding, easy bruising Physical Exam Vital Signs: Temp Pulse Resp BP Pulse Ox 98.2 F 105 H 17 150/95 H 100 08/20/17 22:30 08/20/17 17:16 08/21/17 01:31 08/21/17 01:31 08/21/17 01:31 General appearance: PRESENT: no acute distress, morbidly obese, well-developed, well-nourished Head exam: PRESENT: atraumatic, normocephalic Eye exam: PRESENT: conjunctiva pink, EOMI, PERRLA. ABSENT: scleral icterus Ear exam: PRESENT: normal external ear exam Mouth exam: PRESENT: moist, tongue midline Neck exam: ABSENT: JVD, lymphadenopathy, thyromegaly, tracheal deviation Respiratory exam: PRESENT: clear to auscultation zander. ABSENT: rales, rhonchi, wheezes Cardiovascular exam: PRESENT: RRR, +S1, +S2. ABSENT: diastolic murmur, rubs, systolic murmur Pulses: PRESENT: normal dorsalis pedis pul Vascular exam: PRESENT: normal capillary refill GI/Abdominal exam: PRESENT: normal bowel sounds, soft. ABSENT: distended, guarding, mass, organolmegaly, rebound, tenderness Rectal exam: PRESENT: deferred Extremities exam: PRESENT: full ROM, +1 edema. ABSENT: calf tenderness, clubbing, pedal edema Neurological exam: PRESENT: alert, awake, oriented to person, oriented to place , oriented to time, oriented to situation, CN II-XII grossly intact. ABSENT: motor sensory deficit Psychiatric exam: PRESENT: appropriate affect, normal mood. ABSENT: homicidal ideation, suicidal ideation Skin exam: PRESENT: dry, rash - 15 cm area of erythema and induration on the medial aspect of his left malleolus, diffuse maculopapular and in some areas petechial rash on his bilateral lower extremities, trunk, and medial aspect of his right forearm, warm. ABSENT: cyanosis Results Laboratory Results: 08/20/17 08/20/17 08/20/17 19:45 19:45 19:45 WBC 9.1 Hgb 11.0 L Eosinophils % 16.1 H Carbon Dioxide 17 L BUN 53 H Creatinine 5.16 H Lactic Acid 1.6 Status: Imported from PACS Assessment & Plan - Diagnosis (1) Cellulitis of left lower extremity Is this a current diagnosis for this admission?: Yes Plan: Place patient on vancomycin and Rocephin pending cultures. (2) Urticarial rash Is this a current diagnosis for this admission?: Yes Plan: Initiate patient on 40 mg of prednisone p.o. daily. He does report adverse reactions in the past as a young man to steroids. (3) Polycystic kidney disease Is this a current diagnosis for this admission?: Yes Plan: Will consult his gamma ray operator as there were apparently preemptive plans to place a dialysis catheter (4) End stage renal disease Is this a current diagnosis for this admission?: Yes Plan: Will consult his gamma ray operator as there were apparently preemptive plans to place a dialysis catheter (5) Hypertension Qualifiers: Hypertension type: essential hypertension Qualified Code(s): I10 - Essential (primary) hypertension Is this a current diagnosis for this admission?: Yes Plan: On Norvasc and Coreg (6) Severe obesity Is this a current diagnosis for this admission?: Yes - Time Time Spent: 50 to 70 Minutes Medications reviewed and adjusted accordingly: Yes Anticipated discharge: Home Within: within 48 hours - Inpatient Certification Based on my medical assessment, after consideration of the patient's comorbidities, presenting symptoms, or acuity I expect that the services needed warrant INPATIENT care.: No I certify that my determination is in accordance with my understanding of Medicare's requirements for reasonable and necessary INPATIENT services [42 CFR 412.3e].: No Medical Necessity: Need for IV Antibiotics Post Hospital Care: D/C Irrigation Pump Installer Documentation
[2017-08-21] MEDS: FAMOTIDINE 20 MG TABLET PO SCH ×2 (09:52→21:49)
[2017-08-21] MEDS: CARVEDILOL 6.25 MG TABLET PO SCH ×2 (09:52→17:43)
[2017-08-21] MEDS: ASPIRIN 81 MG TABLET, ENT COATED PO SCH (09:53)
[2017-08-21] MEDS: MULTIVITAMIN TABLET PO SCH (09:53)
[2017-08-21] MEDS: AMLODIPINE BESYLATE 10 MG TABLET PO SCH (09:54)
[2017-08-21] MEDS: CEFTRIAXONE 1 GM/D5W RTU 1 GM/50 ML RTUPB IV SCH (09:54)
[2017-08-21] MEDS: PREDNISONE 20 MG TABLET PO SCH (09:54)
[2017-08-21] MEDS ORDERED: FATTY ACIDS PO SCH (10:00)
[2017-08-21] MEDS ORDERED: VIT B12 PO SCH (10:00)
[2017-08-21] MEDS ORDERED: OMEGA-3 ACID ETHYL ESTERS 1 GM CAPSULE PO ONE (10:00)
[2017-08-21] MEDS ORDERED: FUROSEMIDE 20 MG TABLET PO SCH ×2 (10:00)
[2017-08-21] MEDS ORDERED: ASPIRIN 81 MG TABLET, ENT COATED PO SCH (10:00)
[2017-08-21] MEDS ORDERED: AMLODIPINE BESYLATE 10 MG TABLET PO SCH (10:00)
[2017-08-21] MEDS ORDERED: CARVEDILOL 6.25 MG TABLET PO SCH (10:00)
[2017-08-21] MEDS ORDERED: FOLIC PO SCH (10:00)
[2017-08-21] MEDS ORDERED: IRON CARB PO SCH (10:00)
[2017-08-21] MEDS ORDERED: (PENDING PHARMACY ID) (Multivit-Min/Fa/Lycopen/Lutein [Centrum Silver Men Tablet] 1 TAB) PO SCH (10:00)
[2017-08-21] MEDS ORDERED: FISH OIL PO SCH (10:00)
[2017-08-21] MEDS ORDERED: OMEGA PO SCH (10:00)
[2017-08-21] MEDS ORDERED: ACIDOPH PARACASEI B LACTIS PO SCH (10:00)
[2017-08-21] MEDS ORDERED: VIT C PO SCH (10:00)
[2017-08-21] MEDS ORDERED: LYSINE PO SCH (10:00)
--- NOTE | 2017-08-21 10:09 | Physician Advisory Note ---
Physician Advisor ProgressNote .: Pursuant to the [facility], I have reviewed the medical record for this patient. Physician Advisor Statement: Please consider documentin. Medical necessity: please specify the ongoing clinical issues requiring continued hospitalization tonight iin this Medicare pt, such as "cellulitis failed outpt tx with doxy, & continues not sufficiently improved for safe d/c, w/continued tachycardia, ..." - if that is accurate, & documented per attending, appropriate to change to Inpatient status. CK
[2017-08-21] MEDS: LACTOBACILLUS ACIDOPHILUS 250 MG TAB PO SCH (10:15)
--- NOTE | 2017-08-21 11:57 | PDOC PROGRESS REPORT ---
Subjective Progress Note for:: 08/21/17 Subjective:: The patient states to feel the same. He still has a diffuse rash on his lower extremities. He states that her hydroxyzine seem to be helping with itching. He is presently awaiting for a PermCath placement for an emergency dialysis to be started. Reason For Visit: CELLULITIS Physical Exam Vital Signs: Temp Pulse Resp BP Pulse Ox 98.9 F 105 H 19 156/82 H 100 08/21/17 07:00 08/20/17 17:16 08/21/17 10:01 08/21/17 10:01 08/21/17 10:01 General appearance: PRESENT: mild distress Head exam: PRESENT: atraumatic Eye exam: PRESENT: conjunctival injection Neck exam: ABSENT: carotid bruit, JVD Respiratory exam: PRESENT: crackles Cardiovascular exam: PRESENT: RRR, +S1, +S2 Pulses: PRESENT: +1 pedal pulses bilateral GI/Abdominal exam: PRESENT: normal bowel sounds, soft Extremities exam: PRESENT: pedal edema, tenderness, other Musculoskeletal exam: PRESENT: full ROM Neurological exam: PRESENT: alert, awake Skin exam: PRESENT: rash Additional comments: Bilateral lower extremities and extending all the way up to the chest Assessment & Plan - Diagnosis (1) End stage renal disease Is this a current diagnosis for this admission?: Yes Plan: An acute worsening of the end-stage renal disease. The patient will require a permacath and an emergency dialysis (2) Hypertension Qualifiers: Hypertension type: essential hypertension Qualified Code(s): I10 - Essential (primary) hypertension Is this a current diagnosis for this admission?: Yes Plan: Continue current medications (3) Polycystic kidney disease Is this a current diagnosis for this admission?: Yes Plan: Patient is in acute on chronic renal failure (4) Cellulitis Qualifiers: Site of cellulitis: extremity Site of cellulitis of extremity: lower extremity Qualified Code(s): L03.116 - Cellulitis of left lower limb Is this a current diagnosis for this admission?: Yes Plan: The patient has failed outpatient treatment. He is requiring 2 IV antibiotics. (5) Urticarial rash Is this a current diagnosis for this admission?: Yes Plan: Possibly related to an acute on chronic renal failure and azothemia
[2017-08-21] MEDS: HEPARIN SOD (PORCINE) 5,000 UNIT/ML 1 ML SYRINGE SUBCUT SCH ×2 (15:05→21:50)
[2017-08-21] MEDS: OMEGA-3 ACID ETHYL ESTERS 1 GM CAPSULE PO SCH (15:05)
--- NOTE | 2017-08-21 15:59 | Operative Report ---
Operative Report DATE OF SURGERY: 08/21/17 PREOPERATIVE DIAGNOSIS: End-stage renal disease. POSTOPERATIVE DIAGNOSIS: End-stage renal disease. OPERATION: 1. Ultrasound evaluation of the right femoral vein. 2. Insertion of temporary hemodialysis catheter via real-time ultrasound access in the right femoral vein. SURGEON: ARTEMIO CARRILLO ELECTRICAL EQUIPMENT TECHNICIAN: None TISSUE REMOVED OR ALTERED: Not applicable. COMPLICATIONS: None. ESTIMATED BLOOD LOSS: 5 mL. INTRAOPERATIVE FINDINGS: Of a satisfactory right femoral vein. Ultrasound of significant benefit in this patient with a thick layer of adiposity. Satisfactory placement with easy egress of blood and ingress of heparinized solution. PROCEDURE: After obtaining informed consent, the patient was positioned supine at bedside. The[ left groin] and adjacent areas were prepared with chlorhexidine and draped out with sterile linen. After the universal timeout the procedure commenced. A steriley sheathed ultrasound probe was used to evaluate the right femoral vein]. Local anesthesia was infiltrated adjacent to the probe. Access into the right femoral was accomplished using a micropuncture needle followed, by micropuncture wire and then with a micropuncture catheter. This was followed by introduction of a 0.035 guidewire, the skin opening was enlarged slightly, serially larger dilators were now placed followed by introduction of a triaysis catheter. All of these transitions were smooth. Each lumen was aspirated of blood and irrigated with heparinized solution. The catheter was now sutured to the skin using 3-0 nylon. A Bio A patch was now applied, followed by sterile dressings. Caps were placed on the end of the each of the lumens. The procedure concluded. Copies dictated operative report to Dr. Artemio Finley MD.
[2017-08-21] MEDS: HYDROXYZINE HCL 10 MG TABLET PO PRN (17:05)
--- NOTE | 2017-08-21 17:18 | PDOC CONSULTATION ---
Consultation Consult Date: 08/21/17 Attending physician:: ALEJANDRO CHIN Consult reason:: I was asked by Dr. Chin to see this patient because of uremic symptoms. History of Present Illness Admission Date/PCP: 08/20/17 23:28 History of Present Illness: KATHY BURRELL is a 67 year old male with past medical history of polycystic kidney disease, hypertension, end-stage renal disease not yet on hemodialysis being evaluated for kidney transplantation, left ear basal cell carcinoma who presents to the emergency department with complaints of lower extremity rash. Patient reports that he had a small what he thought was a bite on his ankle approximately 2 days after being in the [employer]. He reported put Neosporin on it and 2 days later it was 1 from the size of a dime to the size of 11. He denied any central clearing of this lesion. He denied any eschar. Patient reports that he was then started on doxycycline by his primary care provider and subsequently did not improve. He reported the emergency department here and his doxycycline was stopped and he was started on clindamycin and Atarax. He reports that the rash is intensely pruritic. He has a area on the medial aspect of his left ankle that is swollen and erythematous for which patient is to be admitted for IV antibiotics. Patient was sent to my office by Dr. Chin after he had seen him in his office yesterday due to above symptoms and increased swelling. Patient related to me that his rash has just become progressive to involve both lower extremities upper extremities his chest and part of the abdomen. He has also increased lower extremity swelling and upper extremity swelling especially for the last 2 days. He complains of shortness of breath, increasing fatigue, decreased appetite, slight nausea but denies vomiting. He denies any new medications [id number]. I have been preparing the patient for initiation of hemodialysis due to his progressive worsening kidney function for the last few months. In fact he is a scheduled for preop today for AV fistula placement by Dr. Finley. However when I saw him yesterday, considering all the above symptoms which could be a combination of both uremic symptoms and the appearance of his rash, I advised the patient that I think it is time for initiation of renal replacement therapy in the form of hemodialysis. Patient agreed. I then sent him to the emergency room and spoke to the emergency room doctor yesterday. Today the patient said he felt like the swelling is slightly better with decreased redness on his upper and lower extremities after initiation of IV antibiotics. However he is still significantly swollen. I requested consult with Dr. Finley to put a trialysis catheter for initiation of hemodialysis which he had just placed this afternoon. Past Medical History Cardiac Medical History: Reports: Hyperlipidemia, Hypertension-primary Neurological Medical History: Reports: Other - TIA Endocrine Medical History: Reports: Obesity Renal/ Medical History: Reports: End Stage Renal Disease, Hyperkalemia, Hypernatremia, Hyperphosphatemia, Metabolic Acidosis, Proteinuria, Secondary Hyperparathyroidism, Other - Polycystic kidney disease Malignancy Medical History: Reports: Skin Cancer - Left ear basal cell carcinoma GI Medical History: Reports: Other - Diverticulosis Musculoskeltal Medical History: Reports: Arthritis - RIGHT HAND, Other - Spinal stenosis Hematology Medical History: Reports Anemia of Chronic Kidney Disease, Reports Iron Deficiency Anemia Past Surgical History Past Surgical History: Reports: Orthopedic Surgery - Back surgery Social History Information Source: Patient Occupation: Retired Lives with: Alone Smoking Status: Former Smoker Cigarettes Packs Per Day: 1.5 Number of Years Smokin Frequency of Alcohol Use: Rare Hx Recreational Drug Use: No Hx Prescription Drug Abuse: No - Advance Directive Resuscitation Status: Do Not Resuscitate Family History Family History: CAD - Parents and brother, CVA - Monitor, DM - Brother and father Parental Family History Reviewed: Yes Children Family History Reviewed: Yes Sibling(s) Family History Reviewed.: Yes Medication/Allergy Home Medications: Amlodipine Besylate [Norvasc 10 mg Tablet] 10 mg PO DAILY 08/21/17 Aspirin [Ecotrin 81 mg EC Tablet] 81 mg PO DAILY 08/21/17 Calcitriol [Rocaltrol 0.25 mcg Capsule] 0.25 mcg PO .CLARIFY 08/21/17 Carvedilol [Coreg 6.25 mg Tablet] 6.25 mg PO Q12 08/21/17 Doxycycline Hyclate [Vibramycin 100 mg Tablet] 100 mg PO Q12 08/21/17 Ferrous Sulfate [Iron] 325 mg PO DAILY 08/21/17 Fexofenadine/Pseudoephedrine [Anju-D 24 Hour Tablet] 2 tab PO DAILY 08/21/17 Furosemide [Lasix 20 mg Tablet] 20 mg PO DAILY 08/21/17 L.acidoph,Paracasei, B.lactis [Probiotic] 1 cap PO DAILY 08/21/17 Lysine 1 tab PO DAILY 08/21/17 Multivit-Min/FA/Lycopen/Lutein [Centrum Silver Men Tablet] 1 tab PO DAILY [place]-3 Fatty Acids/Fish Oil [[place] 3 Fish Oil Softgel] 1 cap PO DAILY 08/21/17 Allergies/Adverse Reactions: Penicillins Allergy (Verified 08/20/17 17:12) RASH Review of Systems All systems: reviewed and no additional remarkable complaints except as stated Review of Systems: Constitutional: ABSENT: chills, fever(s), headache(s), weight loss; admits fatigue and increased weight gain due to fluid retention Eyes: ABSENT: visual disturbances Ears: ABSENT: hearing changes Cardiovascular: ABSENT: chest pain, dyspnea on exertion, orthropnea, palpitations; admits upper extremity edema and lower extremity edema Respiratory: ABSENT: cough, dyspnea, hemoptysis Gastrointestinal: ABSENT: abdominal pain, constipation, diarrhea, hematemesis, hematochezia, vomiting; admits nausea Genitourinary: ABSENT: dysuria, hematuria Musculoskeletal: ABSENT: joint swelling Integumentary: ABSENT: Wounds; admits diffuse rash with pruritus Neurological: ABSENT: abnormal gait, abnormal speech, confusion, dizziness, focal weakness, numbness, syncope Psychiatric: ABSENT: anxiety, depression Endocrine: ABSENT: cold intolerance, heat intolerance, polydipsia, polyuria Hematologic/Lymphatic: ABSENT: easy bleeding, easy bruising, lymphadenopathy Physical Exam Vital Signs: Temp Pulse Resp BP Pulse Ox 98.1 F 100 18 169/69 H 98 08/21/17 14:34 08/21/17 14:34 08/21/17 14:34 08/21/17 14:34 08/21/17 14:34 Intake & Output 08/20/17 08/21/17 08/22/17 06:59 06:59 06:59 Weight 133.8 kg Exam: General appearance: no acute distress, cooperative, well-developed, well- nourished Head exam: PRESENT: atraumatic, normocephalic Eye exam: PRESENT: Conjunctiva [place], EOMI, PERRLA. ABSENT: conjunctival injection, scleral icterus Mouth exam: PRESENT: moist, neck supple, tongue midline Neck exam: PRESENT: full ROM. ABSENT: carotid bruit, JVD, lymphadenopathy, thyromegaly Respiratory exam: PRESENT: clear to auscultation bilaterally. ABSENT: rales, rhonchi, stridor, wheezes Cardiovascular exam: PRESENT: RRR, +S1, +S2. ABSENT: systolic murmur Pulses: PRESENT: normal radial pulses, normal dorsalis pedis pulses GI/Abdominal exam: PRESENT: normal bowel sounds, soft. ABSENT: guarding, mass, tenderness Rectal exam: deferred Extremities exam: PRESENT: full ROM. ABSENT: calf tenderness, pedal edema Musculoskeletal: PRESENT: full ROM. ABSENT: deformity Neurological exam: PRESENT: alert, Awake, Oriented to person, Oriented to place , Oriented to time, reflexes normal, CN II-XII grossly intact. ABSENT: motor sensory deficit Psychiatric exam: PRESENT: appropriate affect, normal mood. ABSENT: homicidal ideation, suicidal ideation Skin exam: PRESENT: intact, dry, warm. He has diffuse erythematous rash on his lower extremities, upper extremities, chest and upper abdomen there is significant warmth over this lesions, there seems to be also some petechial rash diffusely as well. Results Laboratory Results: Microbiology 08/20/17 19:45 Urine Culture - Preliminary Clean Catch Midstream NO GROWTH IN 1 DAY Laboratory 08/20/17 08/20/17 08/20/17 19:45 19:45 19:45 WBC 9.1 RBC 3.41 L Hgb 11.0 L Hct 32.2 L MCV 95 MCH 32.4 MCHC 34.2 RDW 13.9 Plt Count 318 Seg Neutrophils % 60.8 Lymphocytes % 15.6 Monocytes % 7.1 Eosinophils % 16.1 H Basophils % 0.4 Absolute Neutrophils 5.5 Absolute Lymphocytes 1.4 Absolute Monocytes 0.6 Absolute Eosinophils 1.5 H Absolute Basophils 0.0 VBG pH VBG pCO2 VBG HCO3 VBG Base Excess Sodium 143.2 Potassium 4.7 Chloride 109 H Carbon Dioxide 17 L Anion Gap 17 BUN 53 H Creatinine 5.16 H Est GFR ( Amer) 14 L Est GFR (Non-Af Amer) 11 L Glucose 97 Lactic Acid 1.6 Calcium 8.9 Total Bilirubin 0.3 Direct Bilirubin 0.3 Neonat Total Bilirubin Not Reportable Neonat Direct Bilirubin Not Reportable Neonat Indirect Bili Not Reportable AST 15 L ALT 25 Alkaline Phosphatase 73 Total Protein 6.5 Albumin 4.2 Urine Color Urine Appearance Urine pH Ur Specific [place] Urine Protein Urine Glucose (UA) Urine Ketones Urine Blood Urine Nitrite Urine Bilirubin Urine Urobilinogen Ur Leukocyte Esterase Urine WBC Amorphous Sediment Urine Mucus Urine Ascorbic Acid 08/20/17 08/20/17 19:45 19:45 WBC RBC Hgb Hct MCV MCH MCHC RDW Plt Count Seg Neutrophils % Lymphocytes % Monocytes % Eosinophils % Basophils % Absolute Neutrophils Absolute Lymphocytes Absolute Monocytes Absolute Eosinophils Absolute Basophils VBG pH 7.34 VBG pCO2 37.9 VBG HCO3 19.9 L VBG Base Excess -5.3 Sodium Potassium Chloride Carbon Dioxide Anion Gap BUN Creatinine Est GFR ( Amer) Est GFR (Non-Af Amer) Glucose Lactic Acid Calcium Total Bilirubin Direct Bilirubin Neonat Total Bilirubin Neonat Direct Bilirubin Neonat Indirect Bili AST ALT Alkaline Phosphatase Total Protein Albumin Urine Color STRAW Urine Appearance CLEAR Urine pH 5.0 Ur Specific [place] 1.013 Urine Protein 30 H Urine Glucose (UA) NEGATIVE Urine Ketones NEGATIVE Urine Blood NEGATIVE Urine Nitrite NEGATIVE Urine Bilirubin NEGATIVE Urine Urobilinogen NEGATIVE Ur Leukocyte Esterase NEGATIVE Urine WBC 0-1 Amorphous Sediment TRACE Urine Mucus TRACE Urine Ascorbic Acid 20 H Assessment & Plan - Diagnosis (1) Uremia, acute Is this a current diagnosis for this admission?: Yes Plan: Patient presents with uremic symptoms aside from his diffuse skin rash. I discussed with patient the need for initiation of renal replacement therapy which he agreed. We will initiate renal replacement therapy in the form of hemodialysis using a trialysis catheter tomorrow. Once the patient's rash is improved [place] of plan to have vascular surgeon, Dr. Finley placed PermCath for chronic dialysis treatment. We will ask for case planner consultation to arrange for outpatient hemodialysis once the patient is discharged. (2) End stage renal disease Is this a current diagnosis for this admission?: Yes Plan: Progressively worsening for the last few months and currently now uremic. This is due to polycystic kidney disease. As above we will initiate hemodialysis. For long-term patient will continue evaluation for kidney transplantation. (3) Anemia in chronic kidney disease (CKD) Is this a current diagnosis for this admission?: Yes Plan: We will check iron panel. (4) Hypertension Qualifiers: Hypertension type: essential hypertension Qualified Code(s): I10 - Essential (primary) hypertension Is this a current diagnosis for this admission?: Yes Plan: Resume all home blood pressure medications including diuretics. (5) Polycystic kidney disease Is this a current diagnosis for this admission?: Yes (6) Cellulitis Qualifiers: Site of cellulitis: extremity Site of cellulitis of extremity: lower extremity Laterality: left Qualified Code(s): L03.116 - Cellulitis of left lower limb Is this a current diagnosis for this admission?: Yes Plan: Patient needs IV antibiotics as initiated per primary service. - Notes Notes: Assessment and plan discussed with patient. This is also discussed with Dr. Chin. I will follow the patient with you. Thank you very much for this consultation. - Time Time Spent: Greater than 70 Minutes
[2017-08-21] MEDS ORDERED: FUROSEMIDE 20 MG TABLET PO ONE (18:30)
[2017-08-21] MEDS ORDERED: TUBERCULIN,PURIF.PROT.DERIV. 5 TU/0.1 ML TEST 1 ML VIAL ID ONE (19:00)
[2017-08-21] MEDS ORDERED: FOLIC ACID/VITAMIN B COMP W-C CAPSULE PO ONE (19:00)
[2017-08-22] MEDS ORDERED: NORMAL SALINE 1000 ML 1,000 ML IV PRN (05:00)
[2017-08-22] MEDS ORDERED: HEPARIN SOD (PORCINE) 1,000 UNIT/ML 10 ML VIAL IV PRN (05:00)
[2017-08-22] MEDS: HEPARIN SOD (PORCINE) 5,000 UNIT/ML 1 ML SYRINGE SUBCUT SCH ×2 (05:40→14:45)
[2017-08-22] MEDS: HYDROXYZINE HCL 10 MG TABLET PO PRN ×2 (07:28→14:54)
[2017-08-22] MEDS: OMEGA-3 ACID ETHYL ESTERS 1 GM CAPSULE PO SCH (07:29)
--- NOTE | 2017-08-22 08:08 | PDOC PROGRESS REPORT ---
Subjective Progress Note for:: 08/22/17 Subjective:: The patient states to feel much better. His breathing has improved. The swelling of the lower extremities have improved. He is presently scheduled for hemodialysis. He had a PermCath placed in his right groin. The itching has improved slightly Reason For Visit: CELLULITIS Physical Exam Vital Signs: Temp Pulse Resp BP Pulse Ox 98.1 F 95 18 147/72 H 96 08/22/17 04:14 08/22/17 07:00 08/22/17 04:14 08/22/17 04:14 08/22/17 04:14 Intake & Output 08/21/17 08/22/17 08/23/17 06:59 06:59 06:59 Intake Total 700 Balance 700 Weight 134.2 kg General appearance: PRESENT: mild distress Head exam: PRESENT: atraumatic Eye exam: PRESENT: conjunctiva pink Neck exam: ABSENT: carotid bruit, JVD Respiratory exam: PRESENT: crackles Cardiovascular exam: PRESENT: RRR, +S1, +S2 Pulses: PRESENT: +1 pedal pulses bilateral GI/Abdominal exam: PRESENT: normal bowel sounds, soft Extremities exam: PRESENT: full ROM Musculoskeletal exam: PRESENT: ambulatory Neurological exam: PRESENT: alert, awake Assessment & Plan - Diagnosis (1) End stage renal disease Is this a current diagnosis for this admission?: Yes Plan: PermCath in place. Proceed with hemodialysis (2) Hypertension Qualifiers: Hypertension type: essential hypertension Qualified Code(s): I10 - Essential (primary) hypertension Is this a current diagnosis for this admission?: Yes Plan: Continue current medications (3) Polycystic kidney disease Is this a current diagnosis for this admission?: Yes Plan: Patient is in acute on chronic renal failure (4) Cellulitis Qualifiers: Site of cellulitis: extremity Site of cellulitis of extremity: lower extremity Qualified Code(s): L03.116 - Cellulitis of left lower limb Is this a current diagnosis for this admission?: Yes Plan: The patient has failed outpatient treatment. He is requiring 2 IV antibiotics. (5) Urticarial rash Is this a current diagnosis for this admission?: Yes Plan: Possibly related to an acute on chronic renal failure and azothemia
[2017-08-22 08:11] LABS: HEMOGLOBIN 9.2 g/dL (13.5-17.0); HGB HCT DIFFERENCE 0.6; MEAN CORPUSCULAR VOLUME 94 fl (80-97); RED BLOOD COUNT 2.87 10^6/uL (4.35-5.55); RED CELL DISTRIBUTION WIDTH 14.1 % (11.5-14.0); WHITE BLOOD COUNT 10.4 10^3/uL (4.0-10.5)
[2017-08-22 08:26] LABS: ANION GAP 17 (5-19); BLOOD UREA NITROGEN 57 mg/dL (7-20); CALCIUM 9.1 mg/dL (8.4-10.2); CARBON DIOXIDE 16 mmol/L (22-30); CHLORIDE 111 mmol/L (98-107); CREATININE RESULT 5.23 mg/dL (0.52-1.25); GLUCOSE 133 mg/dL (75-110); PHOSPHORUS 4.7 mg/dL (2.5-4.5); POTASSIUM 4.2 mmol/L (3.6-5.0); SODIUM 144.3 mmol/L (137-145)
[2017-08-22] MEDS: CARVEDILOL 6.25 MG TABLET PO SCH ×2 (11:29→17:40)
[2017-08-22] MEDS: FUROSEMIDE 20 MG TABLET PO SCH (11:30)
[2017-08-22] MEDS: FAMOTIDINE 20 MG TABLET PO SCH (11:30)
[2017-08-22] MEDS: AMLODIPINE BESYLATE 10 MG TABLET PO SCH (11:31)
[2017-08-22] MEDS: MULTIVITAMIN TABLET PO SCH (11:31)
[2017-08-22] MEDS: ASPIRIN 81 MG TABLET, ENT COATED PO SCH (11:31)
[2017-08-22] MEDS: PREDNISONE 20 MG TABLET PO SCH (11:31)
[2017-08-22] MEDS: LACTOBACILLUS ACIDOPHILUS 250 MG TAB PO SCH (11:31)
[2017-08-22] MEDS: CEFTRIAXONE 1 GM/D5W RTU 1 GM/50 ML RTUPB IV SCH (11:32)
--- NOTE | 2017-08-22 17:03 | PDOC PROGRESS REPORT ---
Subjective Progress Note for:: 08/22/17 Subjective:: I saw the patient during dialysis at around 8:30 AM this morning. Patient was tolerating dialysis without any problems or complaints. His blood pressure was initially slightly elevated though. He feels like his rashes and swelling are getting better slowly. He did slept well last night. He denies any other complaints. Reason For Visit: CELLULITIS Physical Exam Vital Signs: Temp Pulse Resp BP Pulse Ox 98.1 F 95 18 147/72 H 96 08/22/17 04:14 08/22/17 07:00 08/22/17 04:14 08/22/17 04:14 08/22/17 04:14 Intake & Output 08/21/17 08/22/17 08/23/17 06:59 06:59 06:59 Intake Total 700 Balance 700 Weight 134.2 kg Vital signs during dialysis: Blood pressure 166/87, heart rate of 80, blood flow rate of 260 mL/min, dialysate flow rate of 500 mL/min. Exam: General appearance: PRESENT: no acute distress, cooperative, well-developed, well-nourished Head exam: PRESENT: atraumatic, normocephalic Eye exam: PRESENT: conjunctiva pale, PERRLA. ABSENT: scleral icterus Neck exam: ABSENT: JVD Respiratory exam: PRESENT: Normal breath sounds. ABSENT: crackles, rales, rhonchi, unlabored, wheezes Cardiovascular exam: PRESENT: Regular rate rhythm -+S1, +S2. ABSENT: diastolic murmur, systolic murmur GI/Abdominal exam: PRESENT: normal bowel sounds, soft. ABSENT: guarding, mass, tenderness Extremities exam: Grade 1 bilateral lower extremity edema and upper extremity edema Neurological exam: PRESENT: alert, awake, oriented to person, place and time. Skin exam: PRESENT: dry, warm, the erythema and warmth over his lower extremities and upper extremities seems to be slowly improving. Results Laboratory Results: 08/22/17 07:37 08/22/17 07:37 08/22/17 08/22/17 08/22/17 07:37 07:37 07:37 WBC 10.4 RBC 2.87 L Hgb 9.2 L Hct 27.0 L MCV 94 MCH 32.0 MCHC 34.0 RDW 14.1 H Plt Count 255 Retic Count (auto) 1.91 Absolute Retic 0.055 Sodium 144.3 Potassium 4.2 Chloride 111 H Carbon Dioxide 16 L Anion Gap 17 BUN 57 H Creatinine 5.23 H Est GFR ( Amer) 13 L Est GFR (Non-Af Amer) 11 L Glucose 133 H Calcium 9.1 Phosphorus 4.7 H Iron 106.5 TIBC 288 % Saturation 37 Ferritin 64.30 Vitamin B12 493.0 Folate 18.80 PTH Intact 175.3 H Assessment & Plan - Diagnosis (1) Uremia, acute Is this a current diagnosis for this admission?: Yes Plan: Patient presents with uremic symptoms aside from his diffuse skin rash. I discussed with patient the need for initiation of renal replacement therapy which he agreed. We will initiate renal replacement therapy in the form of hemodialysis using a trialysis catheter tomorrow. Once the patient's rash is improved we will plan to have vascular surgeon, Dr. Finley placed PermCath for chronic dialysis treatment. We will ask for production control planner consultation to arrange for outpatient hemodialysis once the patient is discharged. We did dialysis today for 2.5 hours, using the patient's right trialysis catheter, with 2 potassium bath, blood flow rate of 250 mL per minute, dialysate flow rate of 500 mL per minute, ultrafiltration 2 L as tolerated, no heparin and no Procrit during dialysis. We will plan to do next dialysis on Sunday. (2) End stage renal disease Is this a current diagnosis for this admission?: Yes Plan: Progressively worsening for the last few months and currently now uremic. This is due to polycystic kidney disease. As above we will initiate hemodialysis. Patient is actually on the da kidney transplant list and potential living donors are being evaluated. (3) Polycystic kidney disease Is this a current diagnosis for this admission?: Yes (4) Anemia in chronic kidney disease (CKD) Is this a current diagnosis for this admission?: Yes Plan: We will check iron panel. His ferritin is mildly low but the rest of the iron indicis are acceptable. (5) Hypertension Qualifiers: Hypertension type: essential hypertension Qualified Code(s): I10 - Essential (primary) hypertension Is this a current diagnosis for this admission?: Yes Plan: Resume all home blood pressure medications including diuretics. (6) Cellulitis Qualifiers: Site of cellulitis: extremity Site of cellulitis of extremity: lower extremity Laterality: left Qualified Code(s): L03.116 - Cellulitis of left lower limb Is this a current diagnosis for this admission?: Yes Plan: Patient needs IV antibiotics as initiated per primary service. This is associated with pruritic rash which could be contributed by acute to uremia. Currently clinically improving. (7) Hyperphosphatemia Is this a current diagnosis for this admission?: Yes Plan: Low phosphorus diet (8) Secondary hyperparathyroidism (of renal origin) Is this a current diagnosis for this admission?: Yes Plan: We will give Zemplar IV during dialysis treatment for the successive dialysis treatments. - Time Time with patient: 15-25 minutes
[2017-08-22] MEDS: FOLIC ACID/VITAMIN B COMP W-C CAPSULE PO SCH (17:39)
[2017-08-22] MEDS: VANCOMYCIN HCL 750 MG in DEXTROSE 5%-WATER 250 ML IV SCH (17:39)
[2017-08-22] MEDS ORDERED: VANCOMYCIN HCL 1,500 MG in DEXTROSE 5%-WATER 250 ML IV SCH (18:00)
[2017-08-23] MEDS: HEPARIN SOD (PORCINE) 5,000 UNIT/ML 1 ML SYRINGE SUBCUT SCH ×4 (00:54→21:50)
[2017-08-23] MEDS: FAMOTIDINE 20 MG TABLET PO SCH ×3 (00:58→21:50)
[2017-08-23] MEDS: HYDROXYZINE HCL 10 MG TABLET PO PRN ×2 (07:15→18:13)
--- NOTE | 2017-08-23 09:27 | PDOC PROGRESS REPORT ---
Subjective Progress Note for:: 08/23/17 Subjective:: The patient states to feel much better. He tolerated hemodialysis well. He is a negative balance of over 2-1/2 L. The rash has improved. The leg swelling has improved Reason For Visit: CELLULITIS Physical Exam Vital Signs: Temp Pulse Resp BP Pulse Ox 98.3 F 79 13 126/72 H 94 08/23/17 04:21 08/23/17 07:00 08/23/17 04:21 08/23/17 04:21 08/23/17 04:21 Intake & Output 08/22/17 08/23/17 08/24/17 06:59 06:59 06:59 Intake Total 700 1044 Output Total 2700 Balance 700 -1656 Weight 134.2 kg 132.8 kg General appearance: PRESENT: mild distress Head exam: PRESENT: atraumatic Eye exam: PRESENT: conjunctiva pink Neck exam: ABSENT: carotid bruit, JVD Respiratory exam: PRESENT: crackles Cardiovascular exam: PRESENT: RRR, +S1, +S2 Pulses: PRESENT: +1 pedal pulses bilateral GI/Abdominal exam: PRESENT: normal bowel sounds, soft Extremities exam: PRESENT: full ROM, pedal edema Musculoskeletal exam: PRESENT: ambulatory Neurological exam: PRESENT: alert, awake Skin exam: PRESENT: rash Results Laboratory Results: 08/22/17 07:37 08/22/17 07:37 08/22/17 07:37 Sodium 144.3 Potassium 4.2 Chloride 111 H Carbon Dioxide 16 L Anion Gap 17 BUN 57 H Creatinine 5.23 H Est GFR ( Amer) 13 L Est GFR (Non-Af Amer) 11 L Glucose 133 H Calcium 9.1 Phosphorus 4.7 H Iron 106.5 TIBC 288 % Saturation 37 Ferritin 64.30 Vitamin B12 493.0 Folate 18.80 Assessment & Plan - Diagnosis (1) End stage renal disease Is this a current diagnosis for this admission?: Yes Plan: PermCath in place. Proceed with hemodialysis (2) Hypertension Qualifiers: Hypertension type: essential hypertension Qualified Code(s): I10 - Essential (primary) hypertension Is this a current diagnosis for this admission?: Yes Plan: Continue current medications (3) Polycystic kidney disease Is this a current diagnosis for this admission?: Yes Plan: Patient is in acute on chronic renal failure (4) Cellulitis Qualifiers: Site of cellulitis: extremity Site of cellulitis of extremity: lower extremity Qualified Code(s): L03.116 - Cellulitis of left lower limb Is this a current diagnosis for this admission?: Yes Plan: Improving we will continue the antibiotics and reevaluate in the morning (5) Urticarial rash Is this a current diagnosis for this admission?: Yes Plan: Improved continue current medications
[2017-08-23 09:47] LABS: TRANSFERRIN 234 mg/dL (200-370)
[2017-08-23] MEDS: PREDNISONE 20 MG TABLET PO SCH (11:11)
[2017-08-23] MEDS: ASPIRIN 81 MG TABLET, ENT COATED PO SCH (11:12)
[2017-08-23] MEDS: FERROUS SULFATE 325 MG TABLET PO SCH (11:12)
[2017-08-23] MEDS: LACTOBACILLUS ACIDOPHILUS 250 MG TAB PO SCH (11:12)
[2017-08-23] MEDS: FUROSEMIDE 20 MG TABLET PO SCH (11:13)
[2017-08-23] MEDS: MULTIVITAMIN TABLET PO SCH (11:13)
[2017-08-23] MEDS: CARVEDILOL 6.25 MG TABLET PO SCH ×2 (11:13→18:13)
[2017-08-23] MEDS: CEFTRIAXONE 1 GM/D5W RTU 1 GM/50 ML RTUPB IV SCH (11:14)
[2017-08-23] MEDS: AMLODIPINE BESYLATE 10 MG TABLET PO SCH (11:14)
[2017-08-23] MEDS: OMEGA-3 ACID ETHYL ESTERS 1 GM CAPSULE PO SCH (11:25)
[2017-08-23] MEDS: FOLIC ACID/VITAMIN B COMP W-C CAPSULE PO SCH (16:02)
--- NOTE | 2017-08-23 21:30 | PDOC PROGRESS REPORT ---
Subjective Progress Note for:: 08/23/17 Subjective:: Patient is doing fine. His rashes are better. He is also less swollen. He tolerated his first hemodialysis yesterday. Reason For Visit: Acute uremia Physical Exam Vital Signs: Temp Pulse Resp BP Pulse Ox 97.8 F 88 20 136/70 H 98 08/23/17 16:31 08/23/17 16:31 08/23/17 16:31 08/23/17 16:31 08/23/17 16:31 Intake & Output 08/22/17 08/23/17 08/24/17 06:59 06:59 06:59 Intake Total 700 1044 480 Output Total 2700 500 Balance 700 -8686 -20 Weight 134.2 kg 132.8 kg Exam: General appearance: PRESENT: no acute distress, cooperative, well-developed, well-nourished Head exam: PRESENT: atraumatic, normocephalic Eye exam: PRESENT: conjunctiva slightly pale, PERRLA. ABSENT: scleral icterus Neck exam: ABSENT: JVD Respiratory exam: PRESENT: Normal breath sounds. ABSENT: crackles, rales, rhonchi, unlabored, wheezes Cardiovascular exam: PRESENT: Regular rate rhythm -+S1, +S2. ABSENT: diastolic murmur, systolic murmur GI/Abdominal exam: PRESENT: normal bowel sounds, soft. ABSENT: guarding, mass, tenderness Extremities exam: Decreased grade 1 bilateral lower extremity edema and bilateral upper extremity edema Neurological exam: PRESENT: alert, awake, oriented to person, place and time. Skin exam: PRESENT: dry, warm, decreased erythema over his bilateral lower extremities and upper extremities, there are some scaling and sloughing of a portion of dry skin in his right inner part of the leg and left foot Results Laboratory Results: 08/22/17 07:37 08/22/17 07:37 08/22/17 07:37 Transferrin 234 Assessment & Plan - Diagnosis (1) Uremia, acute Is this a current diagnosis for this admission?: Yes Plan: Patient presented with uremic symptoms aside from his diffuse skin rash. We will ask for paraplanner consultation to arrange for outpatient hemodialysis once the patient is discharged. We will plan for another hemodialysis treatment tomorrow morning. We will also plan for PermCath placement care of Dr. Finley sometime early part of next week since the patient's rashes is improving. (2) End stage renal disease Is this a current diagnosis for this admission?: Yes Plan: Progressively worsening for the last few months and currently now uremic. This is due to polycystic kidney disease. As above we will initiate hemodialysis. Patient is actually on the [facility] kidney transplant list and potential living donors are being evaluated. (3) Polycystic kidney disease Is this a current diagnosis for this admission?: Yes (4) Anemia in chronic kidney disease (CKD) Is this a current diagnosis for this admission?: Yes Plan: We will check iron panel. His ferritin is mildly low but the rest of the iron indices are acceptable. (5) Hypertension Qualifiers: Hypertension type: essential hypertension Qualified Code(s): I10 - Essential (primary) hypertension Is this a current diagnosis for this admission?: Yes Plan: Resume all home blood pressure medications including diuretics. (6) Cellulitis Qualifiers: Site of cellulitis: extremity Site of cellulitis of extremity: lower extremity Laterality: left Qualified Code(s): L03.116 - Cellulitis of left lower limb Is this a current diagnosis for this admission?: Yes Plan: Patient needs IV antibiotics as initiated per primary service. This is associated with pruritic rash which could be contributed by acute to uremia. Currently clinically improving. (7) Hyperphosphatemia Is this a current diagnosis for this admission?: Yes Plan: Low phosphorus diet (8) Secondary hyperparathyroidism (of renal origin) Is this a current diagnosis for this admission?: Yes Plan: We will give Zemplar IV during dialysis treatment for the successive dialysis treatments. For now we will continue oral calcitriol. - Time Time with patient: 15-25 minutes
[2017-08-24 03:37] LABS: HEPATITIS C QUANTITATION HCV Not Detected IU/mL (.)
[2017-08-24] MEDS ORDERED: NORMAL SALINE 1000 ML 1,000 ML IV PRN (05:00)
[2017-08-24] MEDS ORDERED: EPOETIN ALFA INJ 20000 UNIT/1 ML VIAL (RENAL) IV PRN ×2 (05:00→10:00)
[2017-08-24] MEDS ORDERED: HEPARIN SOD (PORCINE) 1,000 UNIT/ML 10 ML VIAL IV PRN (05:00)
[2017-08-24] MEDS ORDERED: EPOETIN ALFA 10,000 UNIT in SYRINGE, DISPOSABLE, 1 EACH IV PRN (05:00)
[2017-08-24] MEDS: HEPARIN SOD (PORCINE) 5,000 UNIT/ML 1 ML SYRINGE SUBCUT SCH ×3 (05:10→23:03)
[2017-08-24] MEDS: HYDROXYZINE HCL 10 MG TABLET PO PRN (05:11)
[2017-08-24 06:07] LABS: ABSOLUTE EOSINOPHILS # (AUTO) 0.1 10^3/uL (0.0-0.6); ABSOLUTE LYMPHOCYTES (AUTO) 0.9 10^3/uL (0.5-4.7); ABSOLUTE MONOCYTES (AUTO) 0.7 10^3/uL (0.1-1.4); ABSOLUTE NEUT (AUTO) 7.7 10^3/uL (1.7-8.2); BASOPHILS % (AUTO) 0.3 % (0-2); EOSINOPHILS % (AUTO) 1.2 % (0-6); HEMATOCRIT 24.8 % (37.9-51.0); HEMOGLOBIN 8.4 g/dL (13.5-17.0); HGB HCT DIFFERENCE 0.4; LYMPHOCYTES % (AUTO) 9.8 % (13-45); MEAN CORPUSCULAR VOLUME 94 fl (80-97); MONOCYTES % (AUTO) 7.4 % (3-13); RED BLOOD COUNT 2.63 10^6/uL (4.35-5.55); SEGMENTED NEUTROPHILS % (AUTO) 81.3 % (42-78); WHITE BLOOD COUNT 9.5 10^3/uL (4.0-10.5)
[2017-08-24 06:24] LABS: ANION GAP 12 (5-19); BLOOD UREA NITROGEN 59 mg/dL (7-20); CALCIUM 8.6 mg/dL (8.4-10.2); CARBON DIOXIDE 22 mmol/L (22-30); CHLORIDE 106 mmol/L (98-107); CREATININE RESULT 4.62 mg/dL (0.52-1.25); GLUCOSE 105 mg/dL (75-110); POTASSIUM 4.3 mmol/L (3.6-5.0); SODIUM 140.4 mmol/L (137-145)
--- NOTE | 2017-08-24 08:45 | PDOC PROGRESS REPORT ---
Subjective Progress Note for:: 08/24/17 Subjective:: The patient seen today on the rounds. He is in hemodialysis. He is tolerating hemodialysis well. He is going to receive the Procrit. He is scheduled for a PermCath next week. Reason For Visit: CELLULITIS Physical Exam Vital Signs: Temp Pulse Resp BP Pulse Ox 97.7 F 52 L 16 145/72 H 97 08/24/17 04:00 08/24/17 04:00 08/24/17 04:00 08/24/17 04:00 08/24/17 04:00 Intake & Output 08/23/17 08/24/17 08/25/17 06:59 06:59 06:59 Intake Total 1044 921 Output Total 2700 1800 Balance -0736 -879 Weight 132.8 kg 133.2 kg General appearance: PRESENT: no acute distress Head exam: PRESENT: atraumatic Eye exam: PRESENT: conjunctival injection Neck exam: ABSENT: carotid bruit, JVD Respiratory exam: PRESENT: crackles Cardiovascular exam: PRESENT: RRR, +S1, +S2 Pulses: PRESENT: +1 pedal pulses bilateral GI/Abdominal exam: PRESENT: normal bowel sounds, soft Extremities exam: PRESENT: pedal edema Musculoskeletal exam: PRESENT: ambulatory Neurological exam: PRESENT: alert, awake Skin exam: PRESENT: rash Results Laboratory Results: 08/24/17 05:10 08/24/17 05:10 08/22/17 08/24/17 08/24/17 07:37 05:10 05:10 WBC 9.5 RBC 2.63 L Hgb 8.4 L Hct 24.8 L MCV 94 MCH 32.0 MCHC 34.0 RDW 14.0 Plt Count 227 Seg Neutrophils % 81.3 H Lymphocytes % 9.8 L Monocytes % 7.4 Eosinophils % 1.2 Basophils % 0.3 Absolute Neutrophils 7.7 Absolute Lymphocytes 0.9 Absolute Monocytes 0.7 Absolute Eosinophils 0.1 Absolute Basophils 0.0 Sodium 140.4 Potassium 4.3 Chloride 106 Carbon Dioxide 22 Anion Gap 12 BUN 59 H Creatinine 4.62 H Est GFR ( Amer) 15 L Est GFR (Non-Af Amer) 13 L Glucose 105 Calcium 8.6 Transferrin 234 Assessment & Plan - Diagnosis (1) End stage renal disease Is this a current diagnosis for this admission?: Yes Plan: PermCath in place. Proceed with hemodialysis Receiving dialysis. Patient is scheduled for PermCath placement on Sunday (2) Hypertension Qualifiers: Hypertension type: essential hypertension Qualified Code(s): I10 - Essential (primary) hypertension Is this a current diagnosis for this admission?: Yes Plan: Continue current medications (3) Polycystic kidney disease Is this a current diagnosis for this admission?: Yes Plan: Presently being evaluated by the transplant team at [facility] (4) Cellulitis Qualifiers: Site of cellulitis: extremity Site of cellulitis of extremity: lower extremity Qualified Code(s): L03.116 - Cellulitis of left lower limb Is this a current diagnosis for this admission?: Yes Plan: Improving we will continue the antibiotics and reevaluate in the morning (5) Urticarial rash Is this a current diagnosis for this admission?: Yes Plan: Improved continue current medications
[2017-08-24] MEDS: PREDNISONE 20 MG TABLET PO SCH (12:10)
[2017-08-24] MEDS: FERROUS SULFATE 325 MG TABLET PO SCH (12:11)
[2017-08-24] MEDS: LACTOBACILLUS ACIDOPHILUS 250 MG TAB PO SCH (12:11)
[2017-08-24] MEDS: MULTIVITAMIN TABLET PO SCH (12:11)
[2017-08-24] MEDS: CARVEDILOL 6.25 MG TABLET PO SCH ×2 (12:11→17:38)
[2017-08-24] MEDS: ASPIRIN 81 MG TABLET, ENT COATED PO SCH (12:11)
[2017-08-24] MEDS: AMLODIPINE BESYLATE 10 MG TABLET PO SCH (12:12)
[2017-08-24] MEDS: FUROSEMIDE 20 MG TABLET PO SCH (12:12)
[2017-08-24] MEDS: FAMOTIDINE 20 MG TABLET PO SCH ×2 (12:12→23:03)
[2017-08-24] MEDS: CEFTRIAXONE 1 GM/D5W RTU 1 GM/50 ML RTUPB IV SCH (12:13)
[2017-08-24] MEDS: OMEGA-3 ACID ETHYL ESTERS 1 GM CAPSULE PO SCH (12:14)
[2017-08-24] MEDS: FOLIC ACID/VITAMIN B COMP W-C CAPSULE PO SCH (15:20)
[2017-08-24] MEDS: VANCOMYCIN HCL 750 MG in DEXTROSE 5%-WATER 250 ML IV SCH (18:37)
--- NOTE | 2017-08-24 19:57 | PDOC PROGRESS REPORT ---
Subjective Progress Note for:: 08/24/17 Subjective:: I saw the patient during dialysis this morning at around 8:50 AM. He was tolerating dialysis well without any complaints. He admits feeling much better with improvement of lower extremity swelling and rashes. Reason For Visit: CELLULITIS/ NEED FOR VASCULAR ACCESS Physical Exam Vital Signs: Temp Pulse Resp BP Pulse Ox 98.1 F 80 16 138/69 H 97 08/24/17 15:52 08/24/17 15:52 08/24/17 15:52 08/24/17 15:52 08/24/17 15:52 Intake & Output 08/23/17 08/24/17 08/25/17 06:59 06:59 06:59 Intake Total 1044 921 535 Output Total 2700 1800 3000 Balance -9245 -538 -6077 Weight 132.8 kg 133.2 kg Vital signs during dialysis: Blood pressure 197/94, heart rate 72, blood flow rate of 250 mL/min, dialysate flow rate of 500 mL/min. Exam: General appearance: PRESENT: no acute distress, cooperative, well-developed, well-nourished Head exam: PRESENT: atraumatic, normocephalic Eye exam: PRESENT: conjunctiva slightly pale, PERRLA. ABSENT: scleral icterus Neck exam: ABSENT: JVD Respiratory exam: PRESENT: Normal breath sounds. ABSENT: crackles, rales, rhonchi, unlabored, wheezes Cardiovascular exam: PRESENT: Regular rate rhythm -+S1, +S2. ABSENT: diastolic murmur, systolic murmur GI/Abdominal exam: PRESENT: normal bowel sounds, soft. ABSENT: guarding, mass, tenderness Extremities exam: Improved grade 1 lower extremity bilateral edema Neurological exam: PRESENT: alert, awake, oriented to person, place and time. Skin exam: PRESENT: dry, warm, resolving erythema and warmth over the lower extremity and upper extremities. Skin has been peeling off on his legs and foot. No new open lesions. Results Laboratory Results: 08/24/17 05:10 08/24/17 05:10 08/24/17 08/24/17 05:10 05:10 WBC 9.5 RBC 2.63 L Hgb 8.4 L Hct 24.8 L MCV 94 MCH 32.0 MCHC 34.0 RDW 14.0 Plt Count 227 Seg Neutrophils % 81.3 H Lymphocytes % 9.8 L Monocytes % 7.4 Eosinophils % 1.2 Basophils % 0.3 Absolute Neutrophils 7.7 Absolute Lymphocytes 0.9 Absolute Monocytes 0.7 Absolute Eosinophils 0.1 Absolute Basophils 0.0 Sodium 140.4 Potassium 4.3 Chloride 106 Carbon Dioxide 22 Anion Gap 12 BUN 59 H Creatinine 4.62 H Est GFR ( Amer) 15 L Est GFR (Non-Af Amer) 13 L Glucose 105 Calcium 8.6 Assessment & Plan - Diagnosis (1) Uremia, acute Is this a current diagnosis for this admission?: Yes Plan: Patient presented with uremic symptoms aside from his diffuse skin rash. We will ask for material planner consultation to arrange for outpatient hemodialysis once the patient is discharged. Patient symptoms has improved with initiation of hemodialysis. (2) End stage renal disease Is this a current diagnosis for this admission?: Yes Plan: Progressively worsening for the last few months and currently now uremic. This is due to polycystic kidney disease. Patient is actually on the [facility] kidney transplant list and potential living donors are being evaluated. We did dialysis today for 3 hours, using the patient's trialysis catheter, with 2 potassium bath, blood flow rate of 250 mL per minute, dialysate flow rate of 500 mL per minute, ultrafiltration 2 L as tolerated, no heparin and Procrit with 20,000 units during dialysis intravenously. I spoke to Dr. Kathie Finley today and he will schedule the patient for PermCath placement on Sunday. If everything is okay and [facility] accepted the patient he can probably go home midweek next week. (3) Polycystic kidney disease Is this a current diagnosis for this admission?: Yes (4) Anemia in chronic kidney disease (CKD) Is this a current diagnosis for this admission?: Yes Plan: We will check iron panel. His ferritin is mildly low but the rest of the iron indices are acceptable. We will give Procrit during dialysis. (5) Hypertension Qualifiers: Hypertension type: essential hypertension Qualified Code(s): I10 - Essential (primary) hypertension Is this a current diagnosis for this admission?: Yes Plan: Resume all home blood pressure medications including diuretics. (6) Cellulitis Qualifiers: Site of cellulitis: extremity Site of cellulitis of extremity: lower extremity Laterality: left Qualified Code(s): L03.116 - Cellulitis of left lower limb Is this a current diagnosis for this admission?: Yes Plan: Patient needs IV antibiotics as initiated per primary service. This is associated with pruritic rash which could be contributed by acute to uremia. Currently clinically improving. (7) Hyperphosphatemia Is this a current diagnosis for this admission?: Yes Plan: Low phosphorus diet (8) Secondary hyperparathyroidism (of renal origin) Is this a current diagnosis for this admission?: Yes Plan: We will give Zemplar IV during dialysis treatment for the successive dialysis treatments. For now we will continue oral calcitriol. - Time Time with patient: 15-25 minutes
[2017-08-25] MEDS: HEPARIN SOD (PORCINE) 5,000 UNIT/ML 1 ML SYRINGE SUBCUT SCH ×3 (06:05→22:09)
[2017-08-25] MEDS: OMEGA-3 ACID ETHYL ESTERS 1 GM CAPSULE PO SCH (07:49)
[2017-08-25] MEDS: ASPIRIN 81 MG TABLET, ENT COATED PO SCH (09:58)
[2017-08-25] MEDS: AMLODIPINE BESYLATE 10 MG TABLET PO SCH (09:58)
[2017-08-25] MEDS: CARVEDILOL 6.25 MG TABLET PO SCH ×2 (09:58→17:43)
[2017-08-25] MEDS: CEFTRIAXONE 1 GM/D5W RTU 1 GM/50 ML RTUPB IV SCH (09:59)
[2017-08-25] MEDS: FAMOTIDINE 20 MG TABLET PO SCH ×2 (09:59→22:09)
[2017-08-25] MEDS: FUROSEMIDE 20 MG TABLET PO SCH (10:02)
[2017-08-25] MEDS: MULTIVITAMIN TABLET PO SCH (10:02)
[2017-08-25] MEDS: LACTOBACILLUS ACIDOPHILUS 250 MG TAB PO SCH (10:02)
[2017-08-25] MEDS: FERROUS SULFATE 325 MG TABLET PO SCH (10:03)
[2017-08-25] MEDS: PREDNISONE 20 MG TABLET PO SCH (10:03)
--- NOTE | 2017-08-25 12:43 | PDOC PROGRESS REPORT ---
Subjective Progress Note for:: 08/25/17 Subjective:: Patient denies any complaints. Reason For Visit: CELLULITIS/ NEED FOR VASCULAR ACCESS Physical Exam Vital Signs: Temp Pulse Resp BP Pulse Ox 97.7 F 64 18 139/72 H 99 08/25/17 11:36 08/25/17 11:36 08/25/17 11:36 08/25/17 11:36 08/25/17 11:36 Intake & Output 08/24/17 08/25/17 08/26/17 06:59 06:59 06:59 Intake Total 921 535 Output Total 1800 3000 Balance -639 -2619 Weight 133.2 kg 133.2 kg General appearance: PRESENT: no acute distress Eye exam: PRESENT: conjunctiva pink. ABSENT: scleral icterus Mouth exam: PRESENT: moist, tongue midline Neck exam: ABSENT: JVD Respiratory exam: PRESENT: clear to auscultation zander. ABSENT: rales, rhonchi, wheezes Cardiovascular exam: PRESENT: RRR. ABSENT: diastolic murmur, rubs, systolic murmur GI/Abdominal exam: PRESENT: normal bowel sounds, soft. ABSENT: distended, guarding, mass, organolmegaly, rebound, tenderness Extremities exam: ABSENT: calf tenderness, clubbing, pedal edema Neurological exam: PRESENT: alert, awake, oriented to person, oriented to place , oriented to time, oriented to situation, CN II-XII grossly intact. ABSENT: motor sensory deficit Psychiatric exam: PRESENT: appropriate affect Skin exam: PRESENT: dry, intact, warm. ABSENT: cyanosis, rash Results Laboratory Results: 08/24/17 05:10 08/24/17 05:10 Assessment & Plan - Diagnosis (1) End stage renal disease Is this a current diagnosis for this admission?: Yes Plan: Patient has been tolerating dialysis well. Patient will get a PermCath placed on Sunday and hopefully be discharged home after dialysis. (2) Polycystic kidney disease Is this a current diagnosis for this admission?: Yes Plan: This is the cause for his chronic renal failure. (3) Anemia in chronic kidney disease (CKD) Is this a current diagnosis for this admission?: Yes Plan: Patient has received Procrit. (4) Cellulitis of left lower extremity Is this a current diagnosis for this admission?: Yes Plan: This has improved with vancomycin and Rocephin. Cultures are negative so far. - Time Time Spent with patient: 25-34 minutes - Inpatient Certification Medical Necessity: Need Close Monitoring Due to Risk of Patient Decompensation, Need for IV Antibiotics
[2017-08-25] MEDS: FOLIC ACID/VITAMIN B COMP W-C CAPSULE PO SCH (15:58)
[2017-08-26] MEDS: HEPARIN SOD (PORCINE) 5,000 UNIT/ML 1 ML SYRINGE SUBCUT SCH ×3 (06:03→22:14)
[2017-08-26] MEDS: OMEGA-3 ACID ETHYL ESTERS 1 GM CAPSULE PO SCH (07:42)
[2017-08-26] MEDS: ASPIRIN 81 MG TABLET, ENT COATED PO SCH (10:00)
[2017-08-26] MEDS: LACTOBACILLUS ACIDOPHILUS 250 MG TAB PO SCH (10:00)
[2017-08-26] MEDS: FERROUS SULFATE 325 MG TABLET PO SCH (10:01)
[2017-08-26] MEDS: AMLODIPINE BESYLATE 10 MG TABLET PO SCH (10:01)
[2017-08-26] MEDS: MULTIVITAMIN TABLET PO SCH (10:01)
[2017-08-26] MEDS: PREDNISONE 20 MG TABLET PO SCH (10:01)
[2017-08-26] MEDS: FUROSEMIDE 20 MG TABLET PO SCH (10:01)
[2017-08-26] MEDS: FAMOTIDINE 20 MG TABLET PO SCH ×2 (10:02→22:27)
[2017-08-26] MEDS: CARVEDILOL 6.25 MG TABLET PO SCH ×2 (10:02→17:25)
[2017-08-26] MEDS: CEFTRIAXONE 1 GM/D5W RTU 1 GM/50 ML RTUPB IV SCH (10:02)
--- NOTE | 2017-08-26 11:37 | PDOC PROGRESS REPORT ---
Subjective Progress Note for:: 08/26/17 Subjective:: Patient denies any complaints. Reason For Visit: CELLULITIS/ NEED FOR VASCULAR ACCESS Physical Exam Vital Signs: Temp Pulse Resp BP Pulse Ox 98.2 F 83 18 114/74 99 08/26/17 08:13 08/26/17 08:13 08/26/17 08:13 08/26/17 08:13 08/26/17 08:13 Intake & Output 08/25/17 08/26/17 08/27/17 06:59 06:59 06:59 Intake Total 535 1660 Output Total 3000 1600 Balance -2465 60 Weight 133.2 kg 133.4 kg General appearance: PRESENT: no acute distress Eye exam: PRESENT: conjunctiva pink. ABSENT: scleral icterus Mouth exam: PRESENT: moist, tongue midline Neck exam: ABSENT: JVD Respiratory exam: PRESENT: clear to auscultation zander. ABSENT: rales, rhonchi, wheezes Cardiovascular exam: PRESENT: RRR. ABSENT: diastolic murmur, rubs, systolic murmur GI/Abdominal exam: PRESENT: normal bowel sounds, soft. ABSENT: distended, guarding, mass, organolmegaly, rebound, tenderness Extremities exam: ABSENT: calf tenderness, clubbing, pedal edema Neurological exam: PRESENT: alert, awake, oriented to person, oriented to place , oriented to time, oriented to situation, CN II-XII grossly intact. ABSENT: motor sensory deficit Psychiatric exam: PRESENT: appropriate affect Skin exam: PRESENT: dry, intact, warm. ABSENT: cyanosis, rash Results Laboratory Results: 08/24/17 05:10 08/24/17 05:10 Assessment & Plan - Diagnosis (1) End stage renal disease Is this a current diagnosis for this admission?: Yes Plan: Patient has been tolerating dialysis well. Patient will get a PermCath placed on Sunday and hopefully be discharged home after dialysis. (2) Polycystic kidney disease Is this a current diagnosis for this admission?: Yes Plan: This is the cause for his chronic renal failure. (3) Anemia in chronic kidney disease (CKD) Is this a current diagnosis for this admission?: Yes Plan: Patient has received Procrit. (4) Cellulitis of left lower extremity Is this a current diagnosis for this admission?: Yes Plan: This has improved with vancomycin and Rocephin. Cultures are negative so far. - Time Time Spent with patient: 15-24 minutes - Inpatient Certification Medical Necessity: Need Close Monitoring Due to Risk of Patient Decompensation
[2017-08-26] MEDS: FOLIC ACID/VITAMIN B COMP W-C CAPSULE PO SCH (16:28)
[2017-08-27] MEDS ORDERED: HEPARIN SOD (PORCINE) 1,000 UNIT/ML 10 ML VIAL IV PRN ×2 (05:00→17:00)
[2017-08-27] MEDS: HEPARIN SOD (PORCINE) 5,000 UNIT/ML 1 ML SYRINGE SUBCUT SCH ×3 (05:45→21:34)
[2017-08-27] MEDS ORDERED: ACETAMINOPHEN 325 MG TABLET PO PRN (07:17)
[2017-08-27] MEDS ORDERED: HYDROXYZINE HCL 10 MG TABLET PO PRN (07:30)
[2017-08-27 07:41] LABS: HEMATOCRIT 28.8 % (37.9-51.0); HEMOGLOBIN 9.8 g/dL (13.5-17.0); HGB HCT DIFFERENCE 0.6; MEAN CORPUSCULAR HEMOGLOBIN 32.7 pg (27.0-33.4); MEAN CORPUSCULAR VOLUME 96 fl (80-97); WHITE BLOOD COUNT 11.3 10^3/uL (4.0-10.5)
[2017-08-27] MEDS ORDERED: LIDOCAINE 0.5% INJ-PF (5 MG/ML) 50 ML SDV ONE (07:57)
[2017-08-27 08:02] LABS: BASOPHILS % (MANUAL) 0 % (0-2); EOSINOPHILS % (MANUAL) 0 % (0-6); LYMPHOCYTES % (MANUAL) 14 % (13-45); NUCLEATED RED BLOOD CELLS 1 /100 WBC (0); TOTAL CELLS COUNTED 100
[2017-08-27 08:03] LABS: HYPOCHROMASIA 1+; OVALOCYTES 1+; PLATELET CLUMPS PRESENT; POIKILOCYTOSIS 1+; POLYCHROMASIA 2+; TOXIC VACUOLATION PRESENT
[2017-08-27 08:06] LABS: ANION GAP 18 (5-19); BLOOD UREA NITROGEN 73 mg/dL (7-20); CALCIUM 8.8 mg/dL (8.4-10.2); CARBON DIOXIDE 22 mmol/L (22-30); CHLORIDE 103 mmol/L (98-107); CREATININE RESULT 5.29 mg/dL (0.52-1.25); GLUCOSE 95 mg/dL (75-110); POTASSIUM 4.2 mmol/L (3.6-5.0); SODIUM 143.1 mmol/L (137-145)
[2017-08-27] MEDS ORDERED: BACITRACIN INJ 50,000 UNIT VIAL ONE (08:07)
[2017-08-27] MEDS ORDERED: FENTANYL CITRATE INJ/PF 100 MCG/2 ML AMPUL ONE (08:07)
[2017-08-27] MEDS ORDERED: MIDAZOLAM 2 MG/2 ML INJ ONE (08:07)
[2017-08-27] MEDS ORDERED: VANCOMYCIN HCL 500 MG in DEXTROSE 5%-WATER 100 ML IV ONE ×4 (09:00)
--- NOTE | 2017-08-27 09:40 | Operative Report ---
Operative Report DATE OF SURGERY: 08/21/17 PREOPERATIVE DIAGNOSIS: End-stage renal disease. POSTOPERATIVE DIAGNOSIS: End-stage renal disease. OPERATION: 1. Ultrasound evaluation of the right Internal Jugular vein. 2. Insertion of Perm cath hemodialysis catheter via real-time ultrasound access in the right internal jugular vein. 3. Angiogram and interpretation. SURGEON: ARTEMIO CARRILLO NET REPAIRER: None ANESTHESIA: Moderate Sedation TISSUE REMOVED OR ALTERED: Not applicable. ESTIMATED BLOOD LOSS: 5 mL. INTRAOPERATIVE FINDINGS: Of a satisfactory right internal jugular vein. Estimated size about 1.5 cm. Quite deep in this large body habitus patient. Satisfactory placement with easy egress of blood and ingress of heparinized solution. Satisfactory angiogram with tip of the catheter in about the middle of the right atrial pool. Satisfactory flow of contrast through the right atrium, ventricle and pulmonary outflow tract. PROCEDURE: After obtaining informed consent, the patient was taken to the [[facility]] and positioned supine. The [right neck] and chest were prepared with chlorhexidine and draped out with sterile linen. After the " universal timeout", in which it was verified that the patient continued to receive antibiotic, the procedure commenced. A steriley sheathed ultrasound probe was used to evaluate the [ right internal jugular] vein. Local anesthesia was infiltrated adjacent to the probe. Access into the [right internal jugular] vein was obtained using a micropuncture needle, followed by micropuncture wire and then a micropuncture catheter. This was followed by introduction of a 0.035 guidewire the tip of which was placed down into the inferior vena cava . A 27 cm long [Perm catheter ] was now positioned over the chest and an exit site marked and locally anesthetized ,the catheter was placed between the 2 incisions. Proximally, the catheter was now positioned using a peel-away sheath, after dilation. Easy ingress of heparinized solution and egress of blood obtained through both ports. A completion angiogram was done by injecting contrast. The findings were as dictated. The neck incision was now closed using interrupted 3-0 PDS to the subcutaneous tissues, the catheter was anchored at the exit site using 3- 0 PDS. A Biopatch device was now placed adjacent to the catheter. Dressings were applied and the procedure concluded. Exposure time: [0.6 minutes]. Exposure: 15.8 mg/cm. Per centimeters squared. Contrast amount: [5 mL] of [id number] low osmolality. Copies of the dictated operative report for Dr. Artemio Finley MD.concluded. Copies of the dictated operative report for Dr. Artemio Finley MD.
[2017-08-27] MEDS ORDERED: EPOETIN ALFA INJ 20000 UNIT/1 ML VIAL (RENAL) IV SCH (10:00)
[2017-08-27] MEDS ORDERED: IRON SUCROSE COMPLEX INJ/PF 100 MG/5 ML SDV IV SCH (10:00)
[2017-08-27] MEDS ORDERED: NORMAL SALINE 1000 ML 1,000 ML IV SCH (10:00)
[2017-08-27] MEDS: OMEGA-3 ACID ETHYL ESTERS 1 GM CAPSULE PO SCH (10:22)
[2017-08-27] MEDS: PREDNISONE 20 MG TABLET PO SCH (10:22)
[2017-08-27] MEDS: FERROUS SULFATE 325 MG TABLET PO SCH (10:22)
[2017-08-27] MEDS: ASPIRIN 81 MG TABLET, ENT COATED PO SCH (10:22)
[2017-08-27] MEDS: LACTOBACILLUS ACIDOPHILUS 250 MG TAB PO SCH (10:22)
[2017-08-27] MEDS: MULTIVITAMIN TABLET PO SCH (10:22)
[2017-08-27] MEDS: OXYCODONE-ACETAMINOPHEN 5-325 MG TABLET PO PRN ×2 (10:25→21:38)
[2017-08-27] MEDS: CEFTRIAXONE 1 GM/D5W RTU 1 GM/50 ML RTUPB IV SCH (12:24)
[2017-08-27] MEDS: AMLODIPINE BESYLATE 10 MG TABLET PO SCH (12:29)
[2017-08-27] MEDS: FUROSEMIDE 20 MG TABLET PO SCH (12:29)
[2017-08-27] MEDS: CARVEDILOL 6.25 MG TABLET PO SCH ×2 (12:29→21:34)
--- NOTE | 2017-08-27 16:09 | RADIOLOGY REPORT (SQ) ---
EXAM DESCRIPTION: TUNNELED CENTRAL LINE; GUIDANCE FLUOROSCOPIC COMPLETED DATE/TIME: 08/27/2017 3:43 pm; 08/27/2017 3:46 pm REASON FOR STUDY: T82.858A K12.2 CELLULITIS AND ABSCESS OF MOUTH COMPARISON: Chest films 08/19/2017 FLUOROSCOPY TIME: 0.6 minutes 14 images saved to PACS. TECHNIQUE: Intra-operative images acquired during surgical procedure to evaluate progress. NUMBER OF IMAGES: 14 C-arm images saved to pac's LIMITATIONS: None. FINDINGS: Intra procedural imaging and fluoro during placement of a right-sided tunneled central rosy ous dialysis catheter with the tip in the right atrium. Please see Dr. Deniz Finley operative rep ort for further details IMPRESSION: Intra procedural imaging and fluoro COMMENT: Quality ID [id number]: Final reports for procedures using fluoroscopy that document radiation exp osure indices, or exposure time and number of fluorographic images (if radiation exposure indices are not available) Please consult full operative report of the attending physician for description of the procedure. TECHNICAL DOCUMENTATION: JOB ID: [id number] [employer]- All Rights Reserved
--- NOTE | 2017-08-27 17:22 | PDOC PROGRESS REPORT ---
Subjective Progress Note for:: 08/27/17 Subjective:: The patient states to feel better. He is presently scheduled for a PermCath placement. Reason For Visit: CELLULITIS/ NEED FOR VASCULAR ACCESS Physical Exam Vital Signs: Temp Pulse Resp BP Pulse Ox 97.7 F 64 14 121/67 99 08/27/17 12:00 08/27/17 14:00 08/27/17 12:00 08/27/17 12:00 08/27/17 12:00 Intake & Output 08/26/17 08/27/17 08/28/17 06:59 06:59 06:59 Intake Total 1660 890 Output Total 1600 700 Balance 60 190 Weight 133.4 kg 133.1 kg General appearance: PRESENT: no acute distress Head exam: PRESENT: atraumatic Eye exam: PRESENT: conjunctiva pink Neck exam: ABSENT: carotid bruit, JVD Respiratory exam: PRESENT: crackles Cardiovascular exam: PRESENT: RRR, +S1, +S2 Pulses: PRESENT: +1 pedal pulses bilateral GI/Abdominal exam: PRESENT: normal bowel sounds, soft Extremities exam: PRESENT: full ROM Musculoskeletal exam: PRESENT: ambulatory Neurological exam: PRESENT: alert, awake Results Laboratory Results: 08/27/17 07:06 08/27/17 07:06 08/27/17 08/27/17 07:06 07:06 WBC 11.3 H RBC 3.00 L Hgb 9.8 L Hct 28.8 L MCV 96 MCH 32.7 MCHC 34.0 RDW 14.0 Plt Count 227 Seg Neutrophils % Not Reportable Lymphocytes % Not Reportable Monocytes % Not Reportable Eosinophils % Not Reportable Basophils % Not Reportable Absolute Neutrophils Not Reportable Absolute Lymphocytes Not Reportable Absolute Monocytes Not Reportable Absolute Eosinophils Not Reportable Absolute Basophils Not Reportable Sodium 143.1 Potassium 4.2 Chloride 103 Carbon Dioxide 22 Anion Gap 18 BUN 73 H Creatinine 5.29 H Est GFR ( Amer) 13 L Est GFR (Non-Af Amer) 11 L Glucose 95 Calcium 8.8 Impressions: Central Venous Line 08/27/17 00:00 IMPRESSION: Intra procedural imaging and fluoro Guidance Fluoroscopy 08/27/17 00:00 IMPRESSION: Intra procedural imaging and fluoro Assessment & Plan - Diagnosis (1) End stage renal disease Is this a current diagnosis for this admission?: Yes Plan: PermCath in place. Proceed with hemodialysis Receiving dialysis. Patient is scheduled for PermCath placement on Sunday (2) Hypertension Qualifiers: Hypertension type: essential hypertension Qualified Code(s): I10 - Essential (primary) hypertension Is this a current diagnosis for this admission?: Yes Plan: Continue current medications (3) Polycystic kidney disease Is this a current diagnosis for this admission?: Yes Plan: Presently being evaluated by the transplant team at [facility] (4) Cellulitis of left lower extremity Is this a current diagnosis for this admission?: Yes Plan: Continue current medications (5) Uremia, acute Is this a current diagnosis for this admission?: Yes Plan: We will attempt dialysis through a new PermCath
[2017-08-27] MEDS: VANCOMYCIN HCL 750 MG in DEXTROSE 5%-WATER 250 ML IV SCH (19:05)
--- NOTE | 2017-08-27 20:58 | PDOC PROGRESS REPORT ---
Subjective Progress Note for:: 08/27/17 Subjective:: I saw the patient on dialysis at around 6 PM tonight. He underwent right IJ PermCath placement this morning care of Dr. Finley. He was feeling a little bit of soreness because he said that plastic bandage over it is a little bit too tight other than that the procedure went well. He was tolerating dialysis very well when I saw him. His rashes and lower extremity swelling is resolving. Reason For Visit: ESRD Physical Exam Vital Signs: Temp Pulse Resp BP Pulse Ox 97.7 F 73 14 121/67 99 08/27/17 12:00 08/27/17 19:00 08/27/17 12:00 08/27/17 12:00 08/27/17 12:00 Intake & Output 08/26/17 08/27/17 08/28/17 06:59 06:59 06:59 Intake Total 1660 890 638 Output Total 1600 700 Balance 60 190 638 Weight 133.4 kg 133.1 kg Vitals during dialysis: Blood pressure 172/100, heart rate of 75, blood flow rate of 350 mL/min dialysate flow rate of 500 mL/min. Exam: General appearance: PRESENT: no acute distress, cooperative, well-developed, well-nourished Head exam: PRESENT: atraumatic, normocephalic Eye exam: PRESENT: conjunctiva slightly pale, PERRLA. ABSENT: scleral icterus Neck exam: ABSENT: JVD; right IJ PermCath in place and is being used Respiratory exam: PRESENT: Normal breath sounds. ABSENT: crackles, rales, rhonchi, unlabored, wheezes Cardiovascular exam: PRESENT: Regular rate rhythm -+S1, +S2. ABSENT: diastolic murmur, systolic murmur GI/Abdominal exam: PRESENT: normal bowel sounds, soft. ABSENT: guarding, mass, tenderness Extremities exam: Improved trace bilateral lower extremity edema and almost resolved upper extremity edema Neurological exam: PRESENT: alert, awake, oriented to person, place and time. Skin exam: PRESENT: dry, warm,; they are with him and warmth over his bilateral lower extremities is been resolving. There is some peeling of skin. Results Laboratory Results: 08/27/17 07:06 08/27/17 07:06 08/27/17 08/27/17 07:06 07:06 WBC 11.3 H RBC 3.00 L Hgb 9.8 L Hct 28.8 L MCV 96 MCH 32.7 MCHC 34.0 RDW 14.0 Plt Count 227 Seg Neutrophils % Not Reportable Lymphocytes % Not Reportable Monocytes % Not Reportable Eosinophils % Not Reportable Basophils % Not Reportable Absolute Neutrophils Not Reportable Absolute Lymphocytes Not Reportable Absolute Monocytes Not Reportable Absolute Eosinophils Not Reportable Absolute Basophils Not Reportable Sodium 143.1 Potassium 4.2 Chloride 103 Carbon Dioxide 22 Anion Gap 18 BUN 73 H Creatinine 5.29 H Est GFR ( Amer) 13 L Est GFR (Non-Af Amer) 11 L Glucose 95 Calcium 8.8 Impressions: Central Venous Line 08/27/17 00:00 IMPRESSION: Intra procedural imaging and fluoro Guidance Fluoroscopy 08/27/17 00:00 IMPRESSION: Intra procedural imaging and fluoro Assessment & Plan - Diagnosis (1) Uremia, acute Is this a current diagnosis for this admission?: Yes Plan: Patient presented with uremic symptoms aside from his diffuse skin rash. Patient symptoms has improved with initiation of hemodialysis. (2) End stage renal disease Is this a current diagnosis for this admission?: Yes Plan: Progressively worsening for the last few months and currently now uremic. This is due to polycystic kidney disease. Patient is actually on the [facility] kidney transplant list and potential living donors are being evaluated. We did dialysis today for 3 hours, using the patient's trialysis catheter, with 2 potassium bath, blood flow rate of 350 mL per minute, dialysate flow rate of 500 mL per minute, ultrafiltration 2 L as tolerated, no heparin and Procrit with 20,000 units during dialysis intravenously. Patient has been accepted as a patient at [facility] dialysis unit. From nephrology standpoint I think he can be safely discharged home tomorrow morning. Patient's next dialysis will be on Sunday at [facility] unit at [facility]. Patient instructed to be there at 10 AM on Sunday for consents and dialysis afterwards. (3) Polycystic kidney disease Is this a current diagnosis for this admission?: Yes (4) Anemia in chronic kidney disease (CKD) Is this a current diagnosis for this admission?: Yes Plan: We will check iron panel. His ferritin is mildly low but the rest of the iron indices are acceptable. We will give Procrit during dialysis. (5) Hypertension Qualifiers: Hypertension type: essential hypertension Qualified Code(s): I10 - Essential (primary) hypertension Is this a current diagnosis for this admission?: Yes Plan: Resume all home blood pressure medications including diuretics. (6) Cellulitis Qualifiers: Site of cellulitis: extremity Site of cellulitis of extremity: lower extremity Laterality: left Qualified Code(s): L03.116 - Cellulitis of left lower limb Is this a current diagnosis for this admission?: Yes Plan: Patient needs IV antibiotics as initiated per primary service. This is associated with pruritic rash which could be contributed by acute to uremia. Currently clinically improving. Since cultures are negative I would discontinue vancomycin. (7) Hyperphosphatemia Is this a current diagnosis for this admission?: Yes Plan: Low phosphorus diet (8) Secondary hyperparathyroidism (of renal origin) Is this a current diagnosis for this admission?: Yes Plan: We will give Zemplar IV during dialysis treatment for the successive dialysis treatments. For now we will continue oral calcitriol. - Time Time with patient: 15-25 minutes
[2017-08-27] MEDS: FOLIC ACID/VITAMIN B COMP W-C CAPSULE PO SCH (21:28)
[2017-08-27] MEDS ORDERED: FAMOTIDINE 20 MG TABLET PO SCH (22:00)
[2017-08-28] MEDS: HEPARIN SOD (PORCINE) 5,000 UNIT/ML 1 ML SYRINGE SUBCUT SCH ×2 (05:42→14:37)
[2017-08-28] MEDS: OMEGA-3 ACID ETHYL ESTERS 1 GM CAPSULE PO SCH (07:33)
--- NOTE | 2017-08-28 08:05 | PDOC DISCHARGE SUMMARY ---
General - Admit/Disc Date/PCP Admission Date/Primary Care Provider: 08/20/17 23:28 Discharge Date: 08/28/17 - Discharge Diagnosis (1) End stage renal disease Is this a current diagnosis for this admission?: Yes Summary: We will start dialysis as an outpatient (2) Hypertension Is this a current diagnosis for this admission?: Yes Summary: Continue current medications (3) Polycystic kidney disease Is this a current diagnosis for this admission?: Yes Summary: Follow-up with the transplant team in [place] (4) Cellulitis of left lower extremity Is this a current diagnosis for this admission?: Yes Summary: Stop the antibiotics (5) Uremia, acute Is this a current diagnosis for this admission?: Yes Summary: Proceed with dialysis as an outpatient. - Additional Information Resuscitation Status: Do Not Resuscitate Discharge Diet: As Tolerated Discharge Activity: Activity As Tolerated Home Medications: Amlodipine Besylate [Norvasc 10 mg Tablet] 10 mg PO DAILY 08/21/17 Aspirin [Ecotrin 81 mg EC Tablet] 81 mg PO DAILY 08/21/17 Calcitriol [Rocaltrol 0.25 mcg Capsule] 0.25 mcg PO .CLARIFY 08/21/17 Carvedilol [Coreg 6.25 mg Tablet] 6.25 mg PO Q12 08/21/17 Ferrous Sulfate [Iron] 325 mg PO DAILY 08/21/17 Fexofenadine/Pseudoephedrine [Anju-D 24 Hour Tablet] 2 tab PO DAILY 08/21/17 L.acidoph,Paracasei, B.lactis [Probiotic] 1 cap PO DAILY 08/21/17 Lysine 1 tab PO DAILY 08/21/17 Multivit-Min/FA/Lycopen/Lutein [Centrum Silver Men Tablet] 1 tab PO DAILY Meridian-3 Fatty Acids/Fish Oil [Meridian 3 Fish Oil Softgel] 1 cap PO DAILY 08/21/17 History of Present Illness History of Present Illness: KATHY BURRELL is a 67 year old male Hospital Course Hospital Course: The patient was admitted with a uremic syndrome and end-stage renal disease. He had a femoral catheter placed and underwent 3 courses of hemodialysis. He is tolerating antibiotics well. He had a PermCath placed by Dr. Finley which he tolerated well. Is presently scheduled for dialysis as an outpatient. Physical Exam Vital Signs: Temp Pulse Resp BP Pulse Ox 98.2 F 67 17 125/70 96 08/28/17 03:27 08/28/17 03:27 08/28/17 03:27 08/28/17 03:27 08/28/17 03:27 Intake & Output 08/27/17 08/28/17 08/29/17 06:59 06:59 06:59 Intake Total 890 988 Output Total 700 2100 Balance 190 -1112 Weight 133.1 kg 129.2 kg General appearance: PRESENT: no acute distress Head exam: PRESENT: atraumatic Eye exam: PRESENT: conjunctiva pink Neck exam: ABSENT: carotid bruit, JVD Respiratory exam: PRESENT: crackles Cardiovascular exam: PRESENT: RRR, +S1, +S2 Pulses: PRESENT: +1 pedal pulses bilateral GI/Abdominal exam: PRESENT: normal bowel sounds, soft Extremities exam: PRESENT: full ROM Musculoskeletal exam: PRESENT: ambulatory Neurological exam: PRESENT: alert, awake Results Laboratory Results: 08/27/17 07:06 08/27/17 07:06 08/27/17 08/27/17 07:06 07:06 WBC 11.3 H RBC 3.00 L Hgb 9.8 L Hct 28.8 L MCV 96 MCH 32.7 MCHC 34.0 RDW 14.0 Plt Count 227 Sodium 143.1 Potassium 4.2 Chloride 103 Carbon Dioxide 22 Anion Gap 18 BUN 73 H Creatinine 5.29 H Est GFR ( Amer) 13 L Est GFR (Non-Af Amer) 11 L Glucose 95 Calcium 8.8 Impressions: Central Venous Line 08/27/17 00:00 IMPRESSION: Intra procedural imaging and fluoro Guidance Fluoroscopy 08/27/17 00:00
[2017-08-28 09:16] VITALS: BP 131/67
[2017-08-28] MEDS: ASPIRIN 81 MG TABLET, ENT COATED PO SCH (11:35)
[2017-08-28] MEDS: CARVEDILOL 6.25 MG TABLET PO SCH (11:35)
[2017-08-28] MEDS: PREDNISONE 20 MG TABLET PO SCH (11:36)
[2017-08-28] MEDS: LACTOBACILLUS ACIDOPHILUS 250 MG TAB PO SCH (11:36)
[2017-08-28] MEDS: FERROUS SULFATE 325 MG TABLET PO SCH (11:36)
[2017-08-28] MEDS: MULTIVITAMIN TABLET PO SCH (11:37)
[2017-08-28] MEDS: AMLODIPINE BESYLATE 10 MG TABLET PO SCH (11:37)
[2017-08-28] MEDS: FUROSEMIDE 20 MG TABLET PO SCH (11:38)
[2017-08-28] MEDS: FOLIC ACID/VITAMIN B COMP W-C CAPSULE PO SCH (16:18)
== END 2017-08-28 16:26 | disposition home or self-care (01) | DRG 602 ==
LOC: ER 17:11 → EH 23:28 → OBSVTOIN 23:28 → EH 08-21 13:09 → 4S 08-21 14:24
PROVIDERS: ADMIT Internal Medicine; ATTEND Family Medicine
PROC: 06HM33Z Insertion of Infusion Device into Right Femoral Vein, Percutaneous Approach (ICD-10-PCS; 2017-08-21)
PROC: B54BZZA Ultrasonography of Right Lower Extremity Veins, Guidance (ICD-10-PCS; 2017-08-21)
PROC: 5A1D70Z Performance of Urinary Filtration, Intermittent, Less than 6 Hours Per Day (ICD-10-PCS; 2017-08-22)
PROC: 5A1D70Z Performance of Urinary Filtration, Intermittent, Less than 6 Hours Per Day (ICD-10-PCS; 2017-08-24)
PROC: 06H033Z Insertion of Infusion Device into Inferior Vena Cava, Percutaneous Approach (ICD-10-PCS; principal; 2017-08-27)
PROC: B549ZZA Ultrasonography of Inferior Vena Cava, Guidance (ICD-10-PCS; 2017-08-27)
PROC: 5A1D70Z Performance of Urinary Filtration, Intermittent, Less than 6 Hours Per Day (ICD-10-PCS; 2017-08-27)
DX: L03.116 Cellulitis of left lower limb (principal); N18.6 End stage renal disease; Q61.3 Polycystic kidney, unspecified; I12.0 Hypertensive chronic kidney disease with stage 5 chronic kidney disease or end stage renal disease; N25.81 Secondary hyperparathyroidism of renal origin; D63.1 Anemia in chronic kidney disease; L50.9 Urticaria, unspecified; E83.39 Other disorders of phosphorus metabolism; Z66 Do not resuscitate; M19.041 Primary osteoarthritis, right hand; E78.5 Hyperlipidemia, unspecified; Z79.82 Long term (current) use of aspirin; Z79.899 Other long term (current) drug therapy; Z86.73 Personal history of transient ischemic attack (TIA), and cerebral infarction without residual deficits; Z85.828 Personal history of other malignant neoplasm of skin; Z87.891 Personal history of nicotine dependence; Z88.0 Allergy status to penicillin
CPT/HCPCS: 36415; 36558; 71010; 76937; 77001; 80048; 80053; 80202; 81001; 82550; 82607; 82728; 82746; 82803; 83540; 83550; 83605; 83880; 83970; 84100; 84466; 85025; 85027; 85045; 86317; 86704; 87040; 87086; 87340; 87522; 99283; 99284; C1713; C1752; J0696; J1642; J1644; J1756; J2250; J3010; J3370; J3490; J7060; J7512; Q4081

== ENCOUNTER 2017-10-02 05:39 | Day surgery (SDC) | payer MEDICARE ==
[~2017-10-02 05:39] MED LIST changes: -EPINEPHRINE INJ 1 MG/10 ML DISP.SYRIN ONE; -FLUMAZENIL INJ 0.5 MG/5 ML VIAL ONE; -GLUCAGON,HUMAN RECOMB 1 MG INJ ONE; -GLYCOPYRROLATE INJ 0.4 MG/2 ML VIAL ONE; -MIDAZOLAM 2 MG/2 ML INJ ONE; -NALOXONE HCL INJ/PF 0.4 MG/1 ML SDV ONE; -ONDANSETRON HCL INJ/PF 4 MG/2 ML SDV ONE; +VANCOMYCIN HCL 500 MG in DEXTROSE 5%-WATER 100 ML IV SCH
[2017-10-02 06:39] LABS: ABSOLUTE BASOPHILS # (AUTO) 0.1 10^3/uL (0.0-0.2); ABSOLUTE EOSINOPHILS # (AUTO) 0.4 10^3/uL (0.0-0.6); ABSOLUTE LYMPHOCYTES (AUTO) 0.9 10^3/uL (0.5-4.7); ABSOLUTE MONOCYTES (AUTO) 0.6 10^3/uL (0.1-1.4); ABSOLUTE NEUT (AUTO) 2.4 10^3/uL (1.7-8.2); BASOPHILS % (AUTO) 1.5 % (0-2); EOSINOPHILS % (AUTO) 8.8 % (0-6); HEMOGLOBIN 11.4 g/dL (13.5-17.0); LYMPHOCYTES % (AUTO) 21.1 % (13-45); MEAN CORPUSCULAR HEMOGLOBIN 32.3 pg (27.0-33.4); MEAN CORPUSCULAR HGB CONC 33.5 g/dL (32.0-36.0); MEAN CORPUSCULAR VOLUME 97 fl (80-97); MONOCYTES % (AUTO) 14.1 % (3-13); PLATELET COUNT 264 10^3/uL (150-450); RED BLOOD COUNT 3.53 10^6/uL (4.35-5.55); RED CELL DISTRIBUTION WIDTH 15.2 % (11.5-14.0); SEGMENTED NEUTROPHILS % (AUTO) 54.5 % (42-78); TOTAL CELLS COUNTED % (AUTO) 100 %; WHITE BLOOD COUNT 4.3 10^3/uL (4.0-10.5)
[2017-10-02] MEDS ORDERED: LIDOCAINE 0.5% INJ-PF (5 MG/ML) 50 ML SDV ONE (06:45)
[2017-10-02] MEDS ORDERED: HEPARIN SOD (PORCINE) 1,000 UNIT/ML 1 ML VIAL ONE (06:45)
[2017-10-02] MEDS ORDERED: BACITRACIN INJ 50,000 UNIT VIAL ONE (06:45)
[2017-10-02] MEDS ORDERED: BUPIVACAINE HCL 0.25 % INJ/PF (2.5 MG/1 ML) 30 ML VIAL ONE (06:45)
[2017-10-02 06:53] LABS: ANION GAP 14 (5-19); BLOOD UREA NITROGEN 26 mg/dL (7-20); CALCIUM 9.6 mg/dL (8.4-10.2); CARBON DIOXIDE 27 mmol/L (22-30); CHLORIDE 107 mmol/L (98-107); GLUCOSE 106 mg/dL (75-110); POTASSIUM 5.9 mmol/L (3.6-5.0); SODIUM 147.5 mmol/L (137-145)
[2017-10-02] MEDS ORDERED: FENTANYL CITRATE INJ/PF 100 MCG/2 ML AMPUL ONE ×2 (06:57→06:58)
[2017-10-02] MEDS ORDERED: PROPOFOL INJ 200 MG/20 ML VIAL IV ONE (06:58)
[2017-10-02] MEDS ORDERED: MIDAZOLAM 2 MG/2 ML INJ ONE (06:58)
[2017-10-02] MEDS ORDERED: ALBUTEROL SULFATE 0.083% NEB 2.5 MG/3 ML AMPUL NEB ONE (07:43)
[2017-10-02] MEDS ORDERED: INSULIN REG, HUMAN 100 UNIT/ML 3 ML VIAL (PYX) ONE (07:51)
[2017-10-02] MEDS ORDERED: GLYCOPYRROLATE INJ 0.4 MG/2 ML VIAL ONE (08:18)
[2017-10-02] MEDS ORDERED: ONDANSETRON HCL INJ/PF 4 MG/2 ML SDV ONE (08:18)
[2017-10-02] MEDS ORDERED: LIDOCAINE 2% INJ-PF (20 MG/ML) 2 ML AMPUL ONE (08:18)
[2017-10-02] MEDS ORDERED: ROCURONIUM BROMIDE INJ 50 MG/5 ML VIAL IV ONE (08:18)
[2017-10-02] MEDS ORDERED: DEXTROSE 50%-WATER 25 GM/50 ML DISP.SYRIN IV ONE (08:48)
[2017-10-02] MEDS ORDERED: PROMETHAZINE HCL INJ 25 MG/1 ML VIAL IV PRN (09:32)
[2017-10-02] MEDS ORDERED: FENTANYL CITRATE INJ/PF 100 MCG/2 ML AMPUL IV PRN ×3 (09:32)
[2017-10-02] MEDS ORDERED: DIPHENHYDRAMINE HCL 50 MG/ML VIAL IV PRN (09:32)
--- NOTE | 2017-10-02 09:48 | EKG REPORT ---
SEVERITY:- ABNORMAL ECG - SINUS RHYTHM RBBB AND LAFB : Confirmed by: Ольга Son 02-Oct-2017 09:48:05
--- NOTE | 2017-10-02 10:30 | PDOC DISCHARGE SUMMARY ---
Discharge Summary (SDC) - Discharge Final Diagnosis: #1 end-stage renal disease on hemodialysis. 2. PermCath in place. 3. Increased body mass index. 4. History of TIA. 5. Secondary hyperparathyroidism. Date of Surgery: 10/02/17 Discharge Date: 10/02/17 Condition: Good Treatment or Instructions: Discharge home [after recovery per ASU criteria]. Diet , [renal],as tolerated, when fully awake advance as tolerated. Activities within moderation encouraged. Follow up in my office by appointment in about [1 week]. Call for appointment. Leave wounds [covered], [keep clean and dry, until office visit in 1 week]. Meds per med rec. Percocet prescription. Hold of on school/work [until evaluation in office]. May shower [in 48 hrs], [try to keep operated area as dry as possible]. Prescriptions: Oxycodone HCl/Acetaminophen [Percocet 5-325 mg Tablet] 1 tab PO ASDIR PRN #15 tab PRN Reason: Referrals: ALEJANDRO CHIN MD [Primary Care Provider] -
[2017-10-02] MEDS ORDERED: EPHEDRINE SULFATE INJ 50 MG/1 ML AMPULE ONE (10:37)
[2017-10-02 12:25] VITALS: BP 414/80
--- NOTE | 2017-10-02 14:16 | Operative Report ---
Operative Report DATE OF SURGERY: 10/02/17 PREOPERATIVE DIAGNOSIS: #1 end-stage renal disease on hemodialysis. 2. PermCath in place. 3. Increased body mass index. 4. History of TIA. 5. Secondary hyperparathyroidism. POSTOPERATIVE DIAGNOSIS: #1 end-stage renal disease on hemodialysis. 2. PermCath in place. 3. Increased body mass index. 4. History of TIA. 5. Secondary hyperparathyroidism. OPERATION: Laparoscopic insertion of peritoneal dialysis catheter. SURGEON: [employer] SUPERVISOR: JOSE ARMANDO BROCK ANESTHESIA: GA TISSUE REMOVED OR ALTERED: Not applicable. COMPLICATIONS: None. ESTIMATED BLOOD LOSS: 10 mL. INTRAOPERATIVE FINDINGS: Of a satisfactory abdominal cavity no significant adhesions, no obvious hernia. The peritoneal dialysis catheter was placed well down in the pelvis, at about the level of the sigmoid rectum junction. The omentum in this case was not intrusive. 1000 L of heparinized saline were instilled easily and 500 retrieved. The catheter function seems satisfactory and appropriate. PROCEDURE: After obtaining informed consent and going over the procedure with [the patient ], he was taken to the operating room, [he was] anesthetized and intubated. The abdomen was prepped and draped in the usual sterile fashion. After the universal timeout, in which it was verified that the patient received IV antibiotic, the procedure commenced. The topographical location for the peritoneal dialysis catheter was sketched by applying it to the anterior abdominal wall. The reference point was the pubic symphysis the coil of the catheter, just beneath this level. In this way the position for the cuffs and the external catheter exit were ascertained and marked. The catheter was now replaced in antibiotic containing solution. An entry into the abdomen was sketched just to the right of the midline and transversely in the epigastrium. Local anesthesia was infiltrated. A 1 cm, transverse incision was made with a [15 blade scalpel]. Dissection now proceeded to the medial aspect of the right rectus sheath. This was opened and the muscle gently reflected. The posterior rectus sheath and peritoneum were opened between hemostats and entry was gained to the peritoneal cavity. This allowed introduction of a 5 mm laparoscopic port. The abdomen was now insufflated with carbon dioxide up to a maximum pressure of 12 mm of mercury. The camera was inserted and a good view gained of the abdomen. Photographs were taken. Local anesthesia was now infiltrated and an incision made in respect to the curve of the catheter. A 1 cm transverse incision was made at this point and dissection proceeded down to the rectus sheath. This was opened and a Veress needle on a reducing sleeve were were now introduced through the rectus muscle and the manipulated down to about 4 cm inferior to the incision. The peritoneum was now entered and the Veress needle removed. The internal cannula was now placed under direct vision. A swan neck peritoneal dialysis catheter was now placed on a stylette. Great care was taken to keep the orientation in reference to the white line on the catheter. It was now inserted into the peritoneal cavity under direct vision, through the introducer. As the catheter entered the abdomen the stylette was slowly withdrawn allowing it to assume its normal orientation and shape within the peritoneal cavity. Both the stylet and introducer were removed so as to place the internal cuff about 3 cm from the entry point of the peritoneal cavity, and within the rectus sheath. This was verified with respect to the incision. The external curve of the catheter was allowed to form precisely at the level of the incision. Externally the catheter was affixed to a Gwen stylette which was now used to tunnel the catheter in the subcutaneous tissues to its exit site where it was now used to exit the skin. The catheter orientation and position and, particularly the 2 cuffs of the catheter were verified. Once this was done the external portion of the catheter was affixed to a Leur lock adapter and connected to a sterile IV tubing. This allowed introduction of 1 L of heparinized saline into the peritoneal cavity via the catheter. This occurred with brisk and free flow of fluid into the peritoneal cavity. Once the entire liter had been infused, the bag was now placed beneath the level of the patient and very satisfactory outflow was observed. With this in place, the camera and the catheter were removed and abdomen desufflated. The subcutaneous tissue in each incision was closed with interrupted 3-0 PDS. The skin in each incision was closed using interrupted and continuous sutures of 4-0 Monocryl. Once about 800 mils of the Infusaid had been passively removed from the abdomen, the catheter was flushed with 10 mL of heparinized solution and capped. The bio a patch was applied at the exit site. Benzoin was applied and Steri-Strips used to reinforce each of the wounds. It was also used to help anchor the Biopatch. It was also used to anchor the main catheter so that any external pressure would not dislodge the catheter. Dry gauze and tape applied and the procedure concluded The senior executive assistant provided retraction, thus facilitating the operative view. Controlled bleeding. The senior executive assistant also followed the suturing, thus facilitating accurate suture placement. Sutured skin and applied dressings.
== END 2017-10-02 12:40 | disposition home or self-care (01) ==
LOC: OROUT 05:39
PROVIDERS: ATTEND Surgery
PROC: 0WHG43Z Insertion of Infusion Device into Peritoneal Cavity, Percutaneous Endoscopic Approach (ICD-10-PCS; principal; 2017-10-02 08:00)
DX: I12.0 Hypertensive chronic kidney disease with stage 5 chronic kidney disease or end stage renal disease (principal); N18.6 End stage renal disease; Z99.2 Dependence on renal dialysis; Q61.2 Polycystic kidney, adult type; E21.3 Hyperparathyroidism, unspecified; E87.5 Hyperkalemia; E78.5 Hyperlipidemia, unspecified; E87.0 Hyperosmolality and hypernatremia; E87.2 Acidosis; R80.9 Proteinuria, unspecified; N25.81 Secondary hyperparathyroidism of renal origin; E78.1 Pure hyperglyceridemia; E78.00 Pure hypercholesterolemia, unspecified; D63.1 Anemia in chronic kidney disease; M19.90 Unspecified osteoarthritis, unspecified site; C44.91 Basal cell carcinoma of skin, unspecified; Z88.0 Allergy status to penicillin; Z86.73 Personal history of transient ischemic attack (TIA), and cerebral infarction without residual deficits; Z79.82 Long term (current) use of aspirin; Z79.899 Other long term (current) drug therapy
CPT/HCPCS: 36415; 84132; 85025; 80048; 93005; 93010; 94640; 49324; J2250; J3490 ×6; J3010; J1644; A9270 ×2; J2405; J3370 ×2; J2704; J1642; 840; J1815

== ENCOUNTER 2017-10-22 11:13 | Day surgery (SDC) | payer MEDICARE ==
[~2017-10-22 11:13] MED LIST changes: +DIAZEPAM 5 MG TABLET PO PRN; +OXYCODONE-ACETAMINOPHEN 5-325 MG TABLET PO PRN; +VANCOMYCIN HCL 500 MG in DEXTROSE 5%-WATER 100 ML IV PRN; -VANCOMYCIN HCL 500 MG in DEXTROSE 5%-WATER 100 ML IV SCH
--- NOTE | 2017-10-22 12:17 | RADIOLOGY REPORT (SQ) ---
EXAM DESCRIPTION: CHEST SINGLE VIEW COMPLETED DATE/TIME: 10/22/2017 12:08 pm REASON FOR STUDY: PREOP COMPARISON: AP chest 08/19/2017 EXAM PARAMETERS: NUMBER OF VIEWS: One view. TECHNIQUE: Single frontal radiographic view of the chest acquired. RADIATION DOSE: NA LIMITATIONS: None. FINDINGS: LUNGS AND PLEURA: No opacities, masses or pneumothorax. No pleural effusion. MEDIASTINUM AND HILAR STRUCTURES: No masses. Contour normal. HEART AND VASCULAR STRUCTURES: Heart normal in size. Normal vasculature. BONES: No acute findings. HARDWARE: None in the chest. OTHER: No other significant finding. IMPRESSION: NO ACUTE RADIOGRAPHIC FINDING IN THE CHEST. TECHNICAL DOCUMENTATION: JOB ID: [id number] [employer]- All Rights Reserved
[2017-10-22 12:21] LABS: HEMATOCRIT 36.7 % (37.9-51.0); HEMOGLOBIN 12.3 g/dL (13.5-17.0); MEAN CORPUSCULAR HGB CONC 33.4 g/dL (32.0-36.0); MEAN CORPUSCULAR VOLUME 96 fl (80-97); PLATELET COUNT 300 10^3/uL (150-450); RED BLOOD COUNT 3.83 10^6/uL (4.35-5.55); RED CELL DISTRIBUTION WIDTH 14.9 % (11.5-14.0); WHITE BLOOD COUNT 5.5 10^3/uL (4.0-10.5)
[2017-10-22] MEDS ORDERED: LIDOCAINE 0.5% INJ-PF (5 MG/ML) 50 ML SDV ONE ×2 (12:30→13:43)
[2017-10-22] MEDS ORDERED: MIDAZOLAM 2 MG/2 ML INJ ONE (12:30)
[2017-10-22] MEDS ORDERED: BACITRACIN INJ 50,000 UNIT VIAL ONE (12:30)
[2017-10-22] MEDS ORDERED: FENTANYL CITRATE INJ/PF 100 MCG/2 ML AMPUL ONE (12:30)
[2017-10-22 12:49] LABS: ANION GAP 13 (5-19); BLOOD UREA NITROGEN 51 mg/dL (7-20); CALCIUM 10.2 mg/dL (8.4-10.2); CARBON DIOXIDE 22 mmol/L (22-30); CHLORIDE 114 mmol/L (98-107); GLUCOSE 90 mg/dL (75-110); POTASSIUM 5.5 mmol/L (3.6-5.0); SODIUM 149.3 mmol/L (137-145)
--- NOTE | 2017-10-22 13:56 | PDOC DISCHARGE SUMMARY ---
Discharge Summary (SDC) - Discharge Final Diagnosis: #1 end-stage renal disease on hemodialysis. 2. Increased body mass index. 3. Hypertension. Date of Surgery: 10/22/17 Discharge Date: 10/22/17 Condition: Good Treatment or Instructions: Discharge home [after recovery per ASU criteria]. Diet , [renal],as tolerated, when fully awake advance as tolerated. Activities within moderation encouraged. Follow up in my office by appointment in about [1 week]. Call for appointment. Leave wounds [covered], [keep clean and dry, until office visit in 1 week]. Hold of on school/work [until evaluation in office]. Meds per med rec. May shower [in 48 hrs], [try to keep operated area as dry as possible]. Referrals: ALEJANDRO CHIN MD [Primary Care Provider] - Discharge Diet: Other (Comments) - Renal. Respiratory Treatments at Home: Deep Breathing/Coughing Discharge Activity: Activity As Tolerated Report the Following to Your Physician Immediately: Shortness of Breath, Unusual Bleeding
--- NOTE | 2017-10-22 13:59 | Operative Report ---
Operative Report DATE OF SURGERY: 10/22/17 PREOPERATIVE DIAGNOSIS: #1 end-stage renal disease on hemodialysis. 2. Increased body mass index. 3. Hypertension. POSTOPERATIVE DIAGNOSIS: #1 end-stage renal disease on hemodialysis. 2. Increased body mass index. 3. Hypertension. OPERATION: 1. Ultrasound evaluation of the left internal jugular vein. 2. Insertion of PermCath via real-time access in the left internal jugular vein. 3. Angiogram and interpretation. SURGEON: ARTEMIO CARRILLO ASSOCIATE PROFESSOR OF CHEMISTRY: None ANESTHESIA: Moderate Sedation TISSUE REMOVED OR ALTERED: Not applicable. COMPLICATIONS: None. ESTIMATED BLOOD LOSS: 5 mL. INTRAOPERATIVE FINDINGS: Of a satisfactory left internal jugular vein. The angles somewhat challenging in this patient. Satisfactory position with the tip of the catheter just down in the right atrium. Easy egress of blood and ingress of heparinized solution. Smooth flow of contrast through the right atrium ventricle. PROCEDURE: After obtaining informed consent, the patient was taken to the [Bromination Equipment Operator] and positioned supine. The left neck and chest were prepared with chlorhexidine and draped out with sterile linen. After the " universal timeout", in which it was verified that the patient continued to receive antibiotic, the procedure commenced. A steriley sheathed ultrasound probe was used to evaluate the [ right internal jugular] vein. Local anesthesia was infiltrated adjacent to the probe. Access into the [right internal jugular] vein was obtained using a micropuncture needle, followed by micropuncture wire and then a micropuncture catheter. This was followed by introduction of a 0.035 guidewire the tip of which was placed down into the inferior vena cava . A 27 cm long [split catheter] was now positioned over the chest and an exit site marked and locally anesthetized ,the catheter was placed between the 2 incisions. Proximally, the catheter was now positioned using a peel-away sheath, after dilation. Easy ingress of heparinized solution and egress of blood obtained through both ports. A completion angiogram was done by injecting contrast. The findings were as dictated. The neck incision was now closed using interrupted 3-0 PDS to the subcutaneous tissues, the catheter was anchored at the exit site using 3- 0 PDS. A Biopatch device was now placed adjacent to the catheter. Dressings were applied and the procedure concluded. Exposure time: [1.3 minutes]. Exposure: 27.4 Naye khan. Contrast amount: [5 mL] of [id number] low osmolality. Copies of the dictated operative report for Dr. Artemio Finley MD.concluded. Copies of the dictated operative report for Dr. Artemio Finley MD.
--- NOTE | 2017-10-22 15:07 | RADIOLOGY REPORT (SQ) ---
EXAM DESCRIPTION: TUNNELED CENTRAL LINE COMPLETED DATE/TIME: 10/22/2017 1:56 pm REASON FOR STUDY: T82.858A T82.858A STENOSIS OF OTHER VASCULAR PROSTH DEV/GRFT, INIT COMPARISON: 10/22/2017, 08/27/2017, 08/19/2017 FLUOROSCOPY TIME: 1.3 minutes 17 series of digital images saved to PACS. TECHNIQUE: Intra-operative images acquired during surgical procedure to evaluate progress. NUMBER OF IMAGES: 17 series of digital images LIMITATIONS: None. FINDINGS: Intra procedural imaging and fluoro during placement left-sided central venous dialysis ca theter with the tip in the right atrium. Please see operative report for further details IMPRESSION: Intra procedural imaging and fluoro COMMENT: Quality ID [id number]: Final reports for procedures using fluoroscopy that document radiation exp osure indices, or exposure time and number of fluorographic images (if radiation exposure indices are not available) Please consult full operative report of the attending physician for description of the procedure. TECHNICAL DOCUMENTATION: JOB ID: [id number] [employer]- All Rights Reserved
[2017-10-22 15:54] VITALS: BP 142/90
== END 2017-10-22 15:55 | disposition home or self-care (01) ==
LOC: CCL 11:13
PROVIDERS: ATTEND Surgery
PROC: 05HN33Z Insertion of Infusion Device into Left Internal Jugular Vein, Percutaneous Approach (ICD-10-PCS; principal; 2017-10-22)
DX: T82.858A Stenosis of other vascular prosthetic devices, implants and grafts, initial encounter (principal); Y83.2 Surgical operation with anastomosis, bypass or graft as the cause of abnormal reaction of the patient, or of later complication, without mention of misadventure at the time of the procedure; I12.0 Hypertensive chronic kidney disease with stage 5 chronic kidney disease or end stage renal disease; N18.6 End stage renal disease; Z99.2 Dependence on renal dialysis; Z88.0 Allergy status to penicillin; Q61.2 Polycystic kidney, adult type; E87.5 Hyperkalemia; E78.5 Hyperlipidemia, unspecified; E87.0 Hyperosmolality and hypernatremia; E83.39 Other disorders of phosphorus metabolism; E87.2 Acidosis; R80.9 Proteinuria, unspecified; N25.81 Secondary hyperparathyroidism of renal origin; Z86.73 Personal history of transient ischemic attack (TIA), and cerebral infarction without residual deficits; E78.00 Pure hypercholesterolemia, unspecified; M19.90 Unspecified osteoarthritis, unspecified site; D63.1 Anemia in chronic kidney disease; E78.1 Pure hyperglyceridemia; Z85.828 Personal history of other malignant neoplasm of skin; Z79.82 Long term (current) use of aspirin
CPT/HCPCS: 36415; 85027; 80048; 36558; 76937; 77001; 71045; C1752; C1769; Q9967; J2250; J3490 ×2; A9270 ×2; J3010; J3370; J1644

== ENCOUNTER → 2017-11-15 | Outpatient (CLI) | payer MEDICARE ==
--- NOTE | 2017-11-15 13:06 | EKG REPORT ---
SEVERITY:- ABNORMAL ECG - SINUS RHYTHM RBBB AND LAFB : Confirmed by: Gustabo Berumen MD 15-Nov-2017 13:05:09
== END ==
LOC: OD 10:05
PROVIDERS: ATTEND Internal Medicine Nephrology
DX: R07.9 Chest pain, unspecified (principal)
CPT/HCPCS: 93005; 93010

== ENCOUNTER → 2018-05-27 | Outpatient (CLI) | payer MEDICARE ==
--- NOTE | 2018-05-28 08:22 | XCELERA REPORT ---
[address] [address] Lower Extremity Arterial Evaluation Name: KATHY BURRELL Age: 68 yrs Gender: Male : 1950 Patient Status: Outpatient Patient Location: [facility] Study Date: 05/27/2018 03:01 PM Procedure: A color flow and duplex scan of the lower extremity arteries was performed bilaterally with velocity and waveform analysis. Ankle brachial indicies performed. Reason For Study: BLE PAIN Ordering Physician: ANIRUDH PAINTING Performed By: Compa Puri Measurements and Calculations Right Left ASSISTANT GM OF CONTENT & DELIVERY PSV 130.4 157.1 cm/sec Prox PFA PSV -110.3 -102.7cm/sec Prox SFA PSV 115.2 134.4 cm/sec Mid SFA PSV -88.0 -101.3cm/sec Dist SFA PSV -92.6 -85.5 cm/sec Prox Pop A PSV 75.1 91.0 cm/sec Dist SHAUN PSV 91.5 78.1 cm/sec Dist VOICE INTERCEPT TECHNICIAN PSV 96.5 99.8 cm/sec Odilon Pedis PSV -222.3 -243.6cm/sec Right Side Arterial Evaluation Normal velocity and triphasic waveforms noted from the Common Femoral artery to the infrageniculate vessels. Increased velocity, very normal waveform at the Dorsalis Pedis. 0-19% stenosis at the Dorsalis Pedis. or variant of normal. Ankle Brachial index is 1.19. Left Side Arterial Evaluation Normal velocity and triphasic waveforms noted from the Common Femoral artery to the infrageniculate vessels. Increased velocity, very normal waveform at the Dorsalis Pedis. 0-19% stenosis at the Dorsalis Pedis. or variant of normal. Ankle Brachial index is 1.16. Interpretation Summary Mild hemodynamically significant lesions in the bilateral lower extremities, on duplex imaging, at rest. Findings in Dorsalis Pedis may be a variant of normal. : ANIRUDH PAINTING > Deniz Finley
== END ==
LOC: SP 15:19
PROVIDERS: ATTEND Internal Medicine Nephrology
DX: M79.604 Pain in right leg (principal); M79.605 Pain in left leg
CPT/HCPCS: 93925

== ENCOUNTER → 2018-10-28 | Outpatient (CLI) | payer MEDICARE | LOC: DAVITANR 10:02 | PROVIDERS: ATTEND Internal Medicine Nephrology | DX: E87.5 Hyperkalemia (principal) | CPT/HCPCS: 84132 ==

== ENCOUNTER → 2018-11-05 | Outpatient (CLI) | payer MEDICARE ==
--- NOTE | 2018-11-05 10:31 | RADIOLOGY REPORT (SQ) ---
EXAM DESCRIPTION: CHEST PA/LATERAL COMPLETED DATE/TIME: 11/05/2018 10:06 am REASON FOR STUDY: ENCNTR FOR GENERAL ADULT MEDICAL EXAM W/O ABNORMAL FINDINGS COMPARISON: 10/22/2017. EXAM PARAMETERS: NUMBER OF VIEWS: two views TECHNIQUE: Digital Frontal and Lateral radiographic views of the chest acquired. RADIATION DOSE: NA LIMITATIONS: none FINDINGS: LUNGS AND PLEURA: No opacities, masses or pneumothorax. No pleural effusion. MEDIASTINUM AND HILAR STRUCTURES: No masses or contour abnormalities. HEART AND VASCULAR STRUCTURES: Heart normal size. No evidence for failure. BONES: No acute findings. HARDWARE: None in the chest. OTHER: No other significant finding. IMPRESSION: NO SIGNIFICANT RADIOGRAPHIC FINDING IN THE CHEST. TECHNICAL DOCUMENTATION: JOB ID: [id number] [employer]- All Rights Reserved Reading location - IP/workstation name: [email or web address]
== END ==
LOC: OD 09:44
PROVIDERS: ATTEND Internal Medicine
DX: R05 Cough (principal); R06.02 Shortness of breath
CPT/HCPCS: 71046

== ENCOUNTER 2019-07-31 09:27 | Observation (INO) | payer MEDICARE ==
[~2019-07-31 09:27] MED LIST changes: -DIAZEPAM 5 MG TABLET PO PRN; -OXYCODONE-ACETAMINOPHEN 5-325 MG TABLET PO PRN; +PROPOFOL INJ 200 MG/20 ML VIAL IV ONE; -VANCOMYCIN HCL 500 MG in DEXTROSE 5%-WATER 100 ML IV PRN
[2019-07-31 09:46] LABS: HEMATOCRIT 34.2 % (37.9-51.0); HEMOGLOBIN 11.3 g/dL (13.5-17.0); MEAN CORPUSCULAR HEMOGLOBIN 32.7 pg (27.0-33.4); MEAN CORPUSCULAR HGB CONC 33.2 g/dL (32.0-36.0); MEAN CORPUSCULAR VOLUME 99 fl (80-97); PLATELET COUNT 364 10^3/uL (150-450); RED BLOOD COUNT 3.47 10^6/uL (4.35-5.55); RED CELL DISTRIBUTION WIDTH 16.1 % (11.5-14.0)
--- NOTE | 2019-07-31 09:49 | RADIOLOGY REPORT (SQ) ---
EXAM DESCRIPTION: CHEST SINGLE VIEW COMPLETED DATE/TIME: 07/31/2019 9:37 am REASON FOR STUDY: preop COMPARISON: 11/05/2018 EXAM PARAMETERS: NUMBER OF VIEWS: One view. TECHNIQUE: Single frontal radiographic view of the chest acquired. RADIATION DOSE: NA LIMITATIONS: None. FINDINGS: LUNGS AND PLEURA: No opacities, masses or pneumothorax. No pleural effusion. MEDIASTINUM AND HILAR STRUCTURES: No masses. Contour normal. HEART AND VASCULAR STRUCTURES: Heart normal in size. Normal vasculature. BONES: No acute findings. HARDWARE: None in the chest. OTHER: No other significant finding. IMPRESSION: NO ACUTE RADIOGRAPHIC FINDING IN THE CHEST. TECHNICAL DOCUMENTATION: JOB ID: [id number] [employer]- All Rights Reserved Reading location - IP/workstation name: [email or web address]
[2019-07-31 10:03] LABS: ANION GAP 19 (5-19); BLOOD UREA NITROGEN 41 mg/dL (7-20); CALCIUM 9.8 mg/dL (8.4-10.2); CARBON DIOXIDE 22 mmol/L (22-30); CHLORIDE 103 mmol/L (98-107); GLUCOSE 115 mg/dL (75-110); POTASSIUM 5.7 mmol/L (3.6-5.0)
[2019-07-31] MEDS ORDERED: ONDANSETRON HCL INJ/PF 4 MG/2 ML SDV IV PRN ×2 (12:43→15:21)
[2019-07-31] MEDS ORDERED: ONDANSETRON HCL INJ/PF 4 MG/2 ML SDV ONE (13:54)
[2019-07-31] MEDS ORDERED: PROMETHAZINE HCL INJ 25 MG/1 ML VIAL IV PRN (15:21)
[2019-07-31] MEDS ORDERED: NORMAL SALINE 1000 ML 1,000 ML IV PRN (15:21)
[2019-07-31] MEDS ORDERED: ONDANSETRON 4 MG TAB.RAPDIS PO PRN (15:21)
[2019-07-31] MEDS ORDERED: ZOLPIDEM TARTRATE 5 MG TABLET PO PRN (15:21)
[2019-07-31] MEDS ORDERED: ACETAMINOPHEN 325 MG TABLET PO PRN (15:21)
[2019-07-31] MEDS ORDERED: MAG HYDROX/AL HYDROX/SIMETH SUSP 30 ML UDCUP PO PRN ×2 (15:21→20:43)
[2019-07-31] MEDS ORDERED: OXYCODONE-ACETAMINOPHEN 5-325 MG TABLET PO PRN (15:21)
[2019-07-31] MEDS ORDERED: HYDRALAZINE HCL INJ/PF 20 MG/1 ML SDV IV PRN (15:41)
[2019-07-31] MEDS ORDERED: MORPHINE SULFATE 10 MG/ML INJ IV PRN (15:42)
--- NOTE | 2019-07-31 16:08 | PDOC H&P ---
History of Present Illness Admission Date/PCP: ALEJANDRO CHIN MD History of Present Illness: KATHY BURRELL is a 69 year old male we were asked to see for medical management turning persistent vomiting, dehydration, and hypertension. Patient was up in the endoscopy suite when I was consulted, he was initially scheduled for a colonoscopy and EGD however they had difficulty starting an IV on him. This morning around 0 400 he vomited 3 times and then this afternoon he is vom ited 3 times. Also last night during his usual peritoneal dialysis he said he [place] off about 1400 cc of fluid it is felt as though he may be dehydrated this time.. Currently patient's vital signs are stable blood pressure 139/76 O2 sat 100% on 2 L nasal cannula heart rate of 90. Patient appears to be hemodynamically stable. Patient will be put on IMCU, observation status. I think the safest thing for the patient at this time is to postpone the procedure today, putting him in the hospital overnight observation status, hydrate the patient and give him antiemetics. Reschedule the patient for tomorrow morning in the main OR, hopefully discharge the patient following the procedure. I have called Dr. Randle and discussed this with him. He is agreeable to this treatment plan will handle the patient's diet tonight prior to procedure tomorrow morning. We will also reschedule the procedure in the main OR tomorrow morning. I have also called Dr. Chinchilla, who manages the patient's peritoneal dialysis treatments. She is in agreement to assisting with the management. She also feels it would be prudent for the patient to take 1 of his Septra's tonight as prophylaxis the invasive procedure tomorrow morning. Patient took these last night and this morning but due to the peritoneal dialysis last night as well as vomiting today medication is probably no longer effective. Past Medical History Cardiac Medical History: Reports: Hyperlipidema, Hypertension Denies: Coronary Artery Disease, Myocardial Infarction Pulmonary Medical History: Denies: Asthma, Bronchitis, Chronic Obstructive Pulmonary Disease (COPD) - SOB, Pneumonia Neurological Medical History: Denies: Seizures Renal/ Medical History: Reports: End Stage Renal Disease Malignancy Medical History: Reports: Skin Cancer - Left ear basal cell carcinoma GI Medical History: Denies: Hepatitis, Hiatal Hernia Musculoskeltal Medical History: Reports: Other - Back surgery x1 Denies: Arthritis Hematology: Reports: Anemia - HGB 9.3 Denies: Sickle Cell Disease Past Surgical History Past Surgical History: Reports: Orthopedic Surgery - Back surgery Denies: Pacemaker Social History Smoking Status: Unknown if Ever Smoked Frequency of Alcohol Use: Rare Hx Recreational Drug Use: No Hx Prescription Drug Abuse: No - Advance Directive Resuscitation Status: Full Code Family History Family History: Reviewed & Not Pertinent Parental Family History Reviewed: No Children Family History Reviewed: No Sibling(s) Family History Reviewed.: No Medication/Allergy Home Medications: Amlodipine Besylate [Norvasc 10 mg Tablet] 10 mg PO DAILY 08/21/17 Aspirin [Ecotrin 81 mg EC Tablet] 81 mg PO DAILY 08/21/17 Calcitriol [Rocaltrol 0.25 mcg Capsule] 0.25 mcg PO DAILY 08/21/17 Carvedilol [Coreg 6.25 mg Tablet] 6.25 mg PO Q12 08/21/17 L.acidoph,Paracasei, B.lactis [Probiotic] 1 cap PO DAILY 08/21/17 [place]-3 Fatty Acids/Fish Oil [[place] 3 Fish Oil Softgel] 1 cap PO DAILY 08/21/17 Ferric Citrate [Auryxia] 210 mg PO TID 07/31/19 Furosemide [Lasix 40 mg Tablet] 1 tab PO BID 07/31/19 Lysine 1 tab PO DAILY 07/31/19 Magnesium Oxide [Mag-Ox 400 mg Tablet] 400 mg PO DAILY 07/31/19 Simvastatin 20 mg PO DAILY 07/31/19 Allergies/Adverse Reactions: Penicillins Allergy (Verified 08/23/17 11:20) RASH Review of Systems Constitutional: ABSENT: chills, fever(s), headache(s), weight gain, weight loss Respiratory: ABSENT: cough, hemoptysis Gastrointestinal: PRESENT: vomiting. ABSENT: abdominal pain, constipation, diarrhea, hematemesis, hematochezia, nausea Neurological: ABSENT: abnormal gait, abnormal speech, confusion, dizziness, focal weakness, syncope Psychiatric: ABSENT: anxiety, depression, homidical ideation, suicidal ideation Physical Exam Vital Signs: Temp Pulse Resp BP Pulse Ox 97.5 F 78 17 135/78 H 100 07/31/19 08:47 07/31/19 08:47 07/31/19 08:47 07/31/19 08:47 07/31/19 08:47 Intake & Output 11/07/31/19 08/01/19 06:59 06:59 06:59 Weight 132.45 kg 132.45 kg General appearance: PRESENT: no acute distress, other - She had Zofran 1 hour prior to my arrival no further vomiting Respiratory exam: PRESENT: clear to auscultation zander. ABSENT: rales, rhonchi, wheezes Cardiovascular exam: PRESENT: RRR. ABSENT: diastolic murmur, rubs, systolic murmur GI/Abdominal exam: PRESENT: normal bowel sounds, soft. ABSENT: distended, guarding, mass, organolmegaly, rebound, tenderness Neurological exam: PRESENT: alert, awake, oriented to person, oriented to place, oriented to time, oriented to situation, CN II-XII grossly intact. ABSENT: motor sensory deficit Psychiatric exam: PRESENT: appropriate affect, normal mood. ABSENT: homicidal ideation, suicidal ideation Results Laboratory Results: 07/31/19 09:29 07/31/19 09:29 07/31/19 07/31/19 09:29 09:29 WBC 7.0 RBC 3.47 L Hgb 11.3 L Hct 34.2 L MCV 99 H MCH 32.7 MCHC 33.2 RDW 16.1 H Plt Count 364 Sodium 144.1 Potassium 5.7 H Chloride 103 Carbon Dioxide 22 Anion Gap 19 BUN 41 H Creatinine 9.99 H Est GFR ( Amer) 6 L Glucose 115 H Calcium 9.8 Impressions: Chest X-Ray 07/31/19 00:00 IMPRESSION: NO ACUTE RADIOGRAPHIC FINDING IN THE CHEST. Assessment and Plan - Diagnosis (1) Anemia in chronic kidney disease (CKD) Is this a current diagnosis for this admission?: Yes (2) End stage renal disease Is this a current diagnosis for this admission?: Yes (3) Hypertension Qualifiers: Hypertension type: essential hypertension Qualified Code(s): I10 - Essential (primary) hypertension Is this a current diagnosis for this admission?: Yes (4) Polycystic kidney disease Is this a current diagnosis for this admission?: Yes - Plan Summary Summary: Patient will be put in the IMCU, overnight, observation status. Patient will be hydrated given supportive treatment. Patient will be rescheduled for his procedures tomorrow morning. Patient will be maintained with ice chips further direction by general surgery. Patient appears to be medically stable - Time Time Spent with patient: 35 or more minutes
--- NOTE | 2019-07-31 16:32 | RADIOLOGY REPORT (SQ) ---
EXAM DESCRIPTION: CHEST SINGLE VIEW COMPLETED DATE/TIME: 07/31/2019 4:22 pm REASON FOR STUDY: pre op COMPARISON: 07/31/2019 EXAM PARAMETERS: NUMBER OF VIEWS: One view. TECHNIQUE: Single frontal radiographic view of the chest acquired. RADIATION DOSE: NA LIMITATIONS: None. FINDINGS: LUNGS AND PLEURA: No opacities, masses or pneumothorax. No pleural effusion. MEDIASTINUM AND HILAR STRUCTURES: No masses. Contour normal. HEART AND VASCULAR STRUCTURES: Heart normal in size. Normal vasculature. BONES: No acute findings. HARDWARE: None in the chest. OTHER: No other significant finding. IMPRESSION: NO ACUTE RADIOGRAPHIC FINDING IN THE CHEST. TECHNICAL DOCUMENTATION: JOB ID: [id number] [employer]- All Rights Reserved Reading location - IP/workstation name: [email or web address]
[2019-07-31 16:49] LABS: INTERNATIONAL RATION (INR) 1.11; PROTHROMBIN TIME 14.3 SEC (11.4-15.4)
[2019-07-31] MEDS: NORMAL SALINE 1000 ML 1,000 ML IV PRN (18:23)
[2019-07-31] MEDS ORDERED: SULFAMETHOXAZOLE/TRIMETHOPRIM 800-160 MG TABLET PO ONE (19:00)
[2019-07-31] MEDS ORDERED: PANTOPRAZOLE SODIUM 40 MG VIAL IV ONE (21:30)
[2019-07-31] MEDS ORDERED: FAMOTIDINE INJ/PF 20 MG/2 ML SDV IV SCH (22:00)
[2019-08-01 00:32] LABS: APPEARANCE,URINE CLEAR; BILIRUBIN,URINE NEGATIVE (NEGATIVE); COLOR,URINE YELLOW; GLUCOSE, URINE 50 mg/dL (NEGATIVE); KETONES,URINE NEGATIVE (NEGATIVE); LEUKOCYTE ESTERASE,URINE NEGATIVE (NEGATIVE); NITRITE,URINE NEGATIVE (NEGATIVE); PROTEIN,URINE 100 mg/dL (NEGATIVE); URINE SPECIFIC GRAVITY 1.018; UROBILINOGEN,URINE NEGATIVE mg/dL (<2.0)
[2019-08-01 03:24] LABS: C DIFFICILE GDH NEGATIVE (NEGATIVE)
[2019-08-01 07:26] LABS: ABSOLUTE LYMPHOCYTES (AUTO) 0.6 10^3/uL (0.5-4.7); ABSOLUTE MONOCYTES (AUTO) 0.9 10^3/uL (0.1-1.4); ABSOLUTE NEUT (AUTO) 7.3 10^3/uL (1.7-8.2); BASOPHILS % (AUTO) 0.5 % (0-2); EOSINOPHILS % (AUTO) 0.4 % (0-6); HEMATOCRIT 32.4 % (37.9-51.0); HEMOGLOBIN 10.8 g/dL (13.5-17.0); LYMPHOCYTES % (AUTO) 6.4 % (13-45); MEAN CORPUSCULAR HEMOGLOBIN 32.9 pg (27.0-33.4); MEAN CORPUSCULAR HGB CONC 33.4 g/dL (32.0-36.0); MEAN CORPUSCULAR VOLUME 99 fl (80-97); MONOCYTES % (AUTO) 9.7 % (3-13); PLATELET COUNT 329 10^3/uL (150-450); RED BLOOD COUNT 3.28 10^6/uL (4.35-5.55); RED CELL DISTRIBUTION WIDTH 15.7 % (11.5-14.0); TOTAL CELLS COUNTED % (AUTO) 100 %; WHITE BLOOD COUNT 8.8 10^3/uL (4.0-10.5)
[2019-08-01] MEDS: NORMAL SALINE 1000 ML 1,000 ML IV PRN (07:28)
[2019-08-01 07:58] LABS: ALBUMIN 3.9 g/dL (3.5-5.0); ALKALINE PHOSPHATASE 66 U/L (38-126); ANION GAP 18 (5-19); ASPARTATE AMINO TRANSFERASE 16 U/L (17-59); BILIRUBIN,DIRECT 0.2 mg/dL (0.0-0.4); BILIRUBIN,TOTAL 0.3 mg/dL (0.2-1.3); BLOOD UREA NITROGEN 44 mg/dL (7-20); CALCIUM 9.3 mg/dL (8.4-10.2); CARBON DIOXIDE 22 mmol/L (22-30); CHLORIDE 107 mmol/L (98-107); GLUCOSE 109 mg/dL (75-110); PHOSPHORUS 8.4 mg/dL (2.5-4.5); POTASSIUM 5.2 mmol/L (3.6-5.0); TOTAL PROTEIN 6.7 g/dL (6.3-8.2)
[2019-08-01] MEDS ORDERED: PANTOPRAZOLE SODIUM 40 MG VIAL IV SCH (10:00)
[2019-08-01] MEDS ORDERED: FAMOTIDINE INJ/PF 20 MG/2 ML SDV IV SCH (10:00)
[2019-08-01] MEDS ORDERED: DOCUSATE SODIUM 100 MG CAPSULE PO SCH (10:00)
[2019-08-01] MEDS ORDERED: FUROSEMIDE INJ/PF 20 MG/2 ML SDV IV SCH (10:00)
--- NOTE | 2019-08-01 10:20 | PDOC PROGRESS REPORT ---
Subjective Progress Note for:: 08/01/19 Reason For Visit: PERITONEAL DIALYSIS, VOMITING, HYPERTENSION 08/01/2019 Scheduled for upper endoscopy and colonoscopy today Physical Exam Vital Signs: Temp Pulse Resp BP Pulse Ox 97.8 F 94 20 127/68 H 99 08/01/19 08:10 08/01/19 08:10 08/01/19 08:10 08/01/19 08:10 08/01/19 08:10 Intake & Output 07/31/19 08/01/19 08/02/19 06:59 06:59 06:59 Intake Total 5350 3592 Output Total 2630 2650 Balance 2720 942 Weight 125.3 kg 125.3 kg General appearance: PRESENT: no acute distress, other - No further vomiting, patient on ice chips Respiratory exam: PRESENT: clear to auscultation zander. ABSENT: rales, rhonchi, wheezes Cardiovascular exam: PRESENT: RRR. ABSENT: diastolic murmur, rubs, systolic mu rmur Neurological exam: PRESENT: alert, awake, oriented to person, oriented to place, oriented to time, oriented to situation, CN II-XII grossly intact. ABSENT: motor sensory deficit Psychiatric exam: PRESENT: appropriate affect, normal mood. ABSENT: homicidal ideation, suicidal ideation Results Laboratory Results: 08/01/19 07:06 08/01/19 07:06 07/31/19 08/01/19 08/01/19 23:31 07:06 07:06 WBC 8.8 RBC 3.28 L Hgb 10.8 L Hct 32.4 L MCV 99 H MCH 32.9 MCHC 33.4 RDW 15.7 H Plt Count 329 Seg Neutrophils % 83.0 H Sodium 147.2 H Potassium 5.2 H Chloride 107 Carbon Dioxide 22 Anion Gap 18 BUN 44 H Creatinine 10.21 H Est GFR ( Amer) 6 L Glucose 109 Calcium 9.3 Phosphorus 8.4 H Magnesium 2.7 H Total Bilirubin 0.3 AST 16 L Alkaline Phosphatase 66 Total Protein 6.7 Albumin 3.9 Urine Color YELLOW Urine Appearance CLEAR Urine pH 7.0 Ur Specific [place] 1.018 Urine Protein 100 H Urine Glucose (UA) 50 H Urine Ketones NEGATIVE Urine Blood NEGATIVE Urine Nitrite NEGATIVE Ur Leukocyte Esterase NEGATIVE Urine WBC (Auto) 1 Impressions: Chest X-Ray 07/31/19 00:00 IMPRESSION: NO ACUTE RADIOGRAPHIC FINDING IN THE CHEST. Assessment and Plan - Diagnosis (1) Anemia in chronic kidney disease (CKD) Is this a current diagnosis for this admission?: Yes (2) End stage renal disease Is this a current diagnosis for this admission?: Yes (3) Hypertension Qualifiers: Hypertension type: essential hypertension Qualified Code(s): I10 - Essential (primary) hypertension Is this a current diagnosis for this admission?: Yes (4) Polycystic kidney disease Is this a current diagnosis for this admission?: Yes (5) Hyperkalemia Is this a current diagnosis for this admission?: Yes (6) ESRD on peritoneal dialysis Is this a current diagnosis for this admission?: Yes - Plan Summary Summary: Patient will be put in the IMCU, overnight, observation status. Patient will be hydrated given supportive treatment. Patient will be rescheduled for his procedures tomorrow morning. Patient will be maintained with ice chips further direction by general surgery. Patient appears to be medically stable 08/01/2019 Patient's vital signs through the night were good O2 sat 99% on 2 L nasal cannula patient was afebrile Yesterday's potassium was slightly elevated at 5.7 today is 5.2 Recent is on peritoneal dialysis Patient will take necessary medications with a sip of water, meds that are absolutely not necessary will be held until following his procedure No further vomiting, IVF running 75ml/hour NaCl - Time Time Spent with patient: 15-24 minutes
[2019-08-01] MEDS ORDERED: PROPOFOL INJ 200 MG/20 ML VIAL IV ONE (14:14)
[2019-08-01] MEDS ORDERED: FENTANYL CITRATE INJ/PF 100 MCG/2 ML AMPUL ONE (14:19)
[2019-08-01] MEDS ORDERED: MIDAZOLAM 2 MG/2 ML INJ ONE (14:19)
--- NOTE | 2019-08-01 15:21 | Operative Report ---
Nonrecallable Operative Report DATE OF SURGERY: 08/01/19 PREOPERATIVE DIAGNOSIS: Anemia Hemoccult positive stools POSTOPERATIVE DIAGNOSIS: Anemia and Hemoccult-positive stools OPERATION: Esophagogastroduodenoscopy and colonoscopy SURGEON: VENKATESH ALMEIDA ANESTHESIA: LMAC TISSUE REMOVED OR ALTERED: Gastric biopsy COMPLICATIONS: None ESTIMATED BLOOD LOSS: 0 INTRAOPERATIVE FINDINGS: See dictation PROCEDURE: Brought to the operating room and awake alert stable condition given LMAC anesthesia he was placed in a left lateral decubitus position after appropriate timeout and site verification the procedure commenced The Olympus gastroscope was utilized passed into the posterior pharynx past the upper constrictor muscles into the proximal esophagus as we traversed the esophagus we took note of whitish exudate along the abbasi esophagus consistent with candidiasis which the GE junction and passed the scope into the stomach the scope was then passed through the stomach past the antrum through the pylorus into the duodenum. We reached the second portion of the duodenum. As we slowly withdrew the scope we noted that there was some mild duodenitis there is no evidence of any duodenal ulcerations or prepyloric or duodenal bulb ulcerations Examination of the antrum revealed a granular appearance to the body the stomach and this was biopsied. There was some mild to moderate gastritis. We slowly then withdrew the scope to the body the stomach we retroflexed the scope did not note a significant hiatal hernia no mucosal abnormalities of the fundus or the cardia of the stomach the scope was then slowly withdrawn past the GE junction again noted with some mild distal esophagitis candidiasis of the of the esophagus the scope was slowly withdrawn. Then using the Olympus colonoscope the second portion of the procedure commenced. The Olympus colonoscope was passed into the rectum and easily traversed the sigmoid colon into the descending colon there was a moderate amount of firm dry appearing stool that somewhat obscured view but this was eventually washed away we then passed the scope up the descending colon to the splenic flexure transverse colon hepatic flexure ascending colon and then finally reaching the cecum we slowly withdrew the scope as we withdrew the scope we took note of normal mucosa of the ascending colon hepatic flexure transverse colon splenic flexure as the scope came down the descending colon we noted moderate to severe diverticulosis with a number of what appeared to be old blood clots within the diverticula as the scope was slowly withdrawn we noted more severe diverticulosis of the sigmoid colon on retroflexion the scope we noted grade 3 hemorrhoids but no evidence of any bleeding there were no polyps or masses to speak of the entire colonoscopy. Findings 1. Ivonne esophagitis 2. Distal esophagitis 3. Granular appearance of the gastric mucosa biopsies obtained 4. Mild esophagitis 5. Moderate to severe sigmoid diverticulosis 6. Grade 3 hemorrhoids. Patient can be discharged home today and he can follow-up in surgical clinic for the discussion
--- NOTE | 2019-08-01 15:23 | PDOC DISCHARGE SUMMARY ---
General - Admit/Disc Date/PCP Admission Date/Primary Care Provider: 07/31/19 15:21 ALEJANDRO CHIN MD Discharge Date: 08/01/19 - Discharge Diagnosis Final Diagnosis: Anemia and heme positive stools, dehydration - Assessment Summary: Patient will be put in the IMCU, overnight, observation status. Patient will be hydrated given supportive treatment. Patient will be rescheduled for his procedures tomorrow morning. Patient will be maintained with ice chips further direction by general surgery. Patient appears to be medically stable 08/01/2019 Patient's vital signs through the night were good O2 sat 99% on 2 L nasal cannula patient was afebrile Yesterday's potassium was slightly elevated at 5.7 today is 5.2 Recent is on peritoneal dialysis Patient will take necessary medications with a sip of water, meds that are absolutely not necessary will be held until following his procedure No further vomiting, IVF running 75ml/hour NaCl - Additional Information Resuscitation Status: Full Code Discharge Diet: As Tolerated Discharge Activity: Activity As Tolerated - Patient to be given a follow-up appointment in surgery clinic in 10 to 14 days Referrals: ALEJANDRO CHIN MD [Primary Care Provider] - Home Medications: Amlodipine Besylate [Norvasc 10 mg Tablet] 10 mg PO DAILY 08/21/17 Aspirin [Ecotrin 81 mg EC Tablet] 81 mg PO DAILY 08/21/17 Calcitriol [Rocaltrol 0.25 mcg Capsule] 0.25 mcg PO DAILY 08/21/17 Carvedilol [Coreg 6.25 mg Tablet] 6.25 mg PO Q12 08/21/17 L.acidoph,Paracasei, B.lactis [Probiotic] 1 cap PO DAILY 08/21/17 [place]-3 Fatty Acids/Fish Oil [[place] 3 Fish Oil Softgel] 1 cap PO DAILY 08/21/17 Ferric Citrate [Auryxia] 210 mg PO TID 07/31/19 Furosemide [Lasix 40 mg Tablet] 1 tab PO BID 07/31/19 Lysine 1 tab PO DAILY 07/31/19 Magnesium Oxide [Mag-Ox 400 mg Tablet] 400 mg PO DAILY 07/31/19 Simvastatin 20 mg PO DAILY 07/31/19 History of Present Illiness History of Present Illness: KATHY BURRELL is a 69 year old male Physical Exam Vital Signs: Temp Pulse Resp BP Pulse Ox 98.4 F 87 18 134/68 H 99 08/01/19 13:36 08/01/19 13:36 08/01/19 13:36 08/01/19 13:36 08/01/19 13:36 Intake & Output 07/31/19 08/01/19 08/02/19 06:59 06:59 06:59 Intake Total 5350 3592 Output Total 2630 2650 Balance 2720 942 Weight 125.3 kg 125.3 kg Results Laboratory Results: WBC 8.8 10^3/uL (4.0-10.5) 08/01/19 07:06 RBC 3.28 10^6/uL (4.35-5.55) L 08/01/19 07:06 Hgb 10.8 g/dL (13.5-17.0) L 08/01/19 07:06 Hct 32.4 % (37.9-51.0) L 08/01/19 07:06 MCV 99 fl (80-97) H 08/01/19 07:06 MCH 32.9 pg (27.0-33.4) 08/01/19 07:06 MCHC 33.4 g/dL (32.0-36.0) 08/01/19 07:06 RDW 15.7 % (11.5-14.0) H 08/01/19 07:06 Plt Count 329 10^3/uL (150-450) 08/01/19 07:06 Lymph % (Auto) 6.4 % (13-45) L 08/01/19 07:06 [place] % (Auto) 9.7 % (3-13) 08/01/19 07:06 Eos % (Auto) 0.4 % (0-6) 08/01/19 07:06 Baso % (Auto) 0.5 % (0-2) 08/01/19 07:06 Absolute Neuts (auto) 7.3 10^3/uL (1.7-8.2) 08/01/19 07:06 Absolute Lymphs (auto) 0.6 10^3/uL (0.5-4.7) 08/01/19 07:06 Absolute Monos (auto) 0.9 10^3/uL (0.1-1.4) 08/01/19 07:06 Absolute Eos (auto) 0.0 10^3/uL (0.0-0.6) 08/01/19 07:06 Absolute Basos (auto) 0.0 10^3/uL (0.0-0.2) 08/01/19 07:06 Seg Neutrophils % 83.0 % (42-78) H 08/01/19 07:06 PT 14.3 SEC (11.4-15.4) 07/31/19 16:31 INR 1.11 07/31/19 16:31 APTT 36.6 SEC (23.5-35.8) H 08/01/19 07:06 Sodium 147.2 mmol/L (137-145) H 08/01/19 07:06 Potassium 5.2 mmol/L (3.6-5.0) H 08/01/19 07:06 Chloride 107 mmol/L (98-107) 08/01/19 07:06 Carbon Dioxide 22 mmol/L (22-30) 08/01/19 07:06 Anion Gap 18 (5-19) 08/01/19 07:06 BUN 44 mg/dL (7-20) H 08/01/19 07:06 Creatinine 10.21 mg/dL (0.52-1.25) H 08/01/19 07:06 Est GFR ( Amer) 6 (>60) L 08/01/19 07:06 Est GFR (MDRD) Non-Af 5 (>60) L 08/01/19 07:06 Glucose 109 mg/dL (75-110) 08/01/19 07:06 POC Glucose 113 mg/dL (70-110) H 07/31/19 09:59 Calcium 9.3 mg/dL (8.4-10.2) 08/01/19 07:06 Phosphorus 8.4 mg/dL (2.5-4.5) H 08/01/19 07:06 Magnesium 2.7 mg/dL (1.6-2.3) H 08/01/19 07:06 Total Bilirubin 0.3 mg/dL (0.2-1.3) 08/01/19 07:06 Direct Bilirubin 0.2 mg/dL (0.0-0.4) 08/01/19 07:06 Neonat Total Bilirubin Not Reportable 08/01/19 07:06 Neonat Direct Bilirubin Not Reportable 08/01/19 07:06 Neonat Indirect Bili Not Reportable 08/01/19 07:06 AST 16 U/L (17-59) L 08/01/19 07:06 ALT 13 U/L (<50) 08/01/19 07:06 Alkaline Phosphatase 66 U/L (38-126) 08/01/19 07:06 Total Protein 6.7 g/dL (6.3-8.2) 08/01/19 07:06 Albumin 3.9 g/dL (3.5-5.0) 08/01/19 07:06 Urine Color YELLOW 07/31/19 23:31 Urine Appearance CLEAR 07/31/19 23:31 Urine pH 7.0 (5.0-9.0) 07/31/19 23:31 Ur Specific [place] 1.018 07/31/19 23:31 Urine Protein 100 mg/dL (NEGATIVE) H 07/31/19 23:31 Urine Glucose (UA) 50 mg/dL (NEGATIVE) H 07/31/19 23:31 Urine Ketones NEGATIVE mg/dL (NEGATIVE) 07/31/19 23:31 Urine Blood NEGATIVE (NEGATIVE) 07/31/19 23:31 Urine Nitrite NEGATIVE (NEGATIVE) 07/31/19 23:31 Urine Bilirubin NEGATIVE (NEGATIVE) 07/31/19 23:31 Urine Urobilinogen NEGATIVE mg/dL (<2.0) 07/31/19 23:31 Ur Leukocyte Esterase NEGATIVE (NEGATIVE) 07/31/19 23:31 Urine WBC (Auto) 1 /HPF 07/31/19 23:31 Squamous Epi Cells Auto <1 /HPF 07/31/19 23:31 Urine Ascorbic Acid 40 (NEGATIVE) H 07/31/19 23:31 Stl C. Difficile GDH Ag NEGATIVE (NEGATIVE) 08/01/19 01:00 Stl C.difficile Tox A&B NEGATIVE (NEGATIVE) 08/01/19 01:00 Impressions: Chest X-Ray 07/31/19 00:00 IMPRESSION: NO ACUTE RADIOGRAPHIC FINDING IN THE CHEST. Chest X-Ray 07/31/19 00:00
--- NOTE | 2019-08-01 16:56 | PDOC CONSULTATION ---
Consultation Consult Date: 08/01/19 Provider Consulted: ANIRUDH PAINTING Consult reason:: I was asked to see the patient to supervise peritoneal dialysis well patient was admitted for observation. 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 Patient presented yesterday morning for his EGD and colonoscopy, however when he came in he was vomiting and was just fe eling sick. Patient states that he did his prep for his procedure Sunday night. He hooked himself on the cycler machine for his peritoneal dialysis at around 9 PM on Sunday. At around 4 AM he woke up and started vomiting 3 times. He was just not feeling good at that time. He got off about 1400 mL of ultrafiltration from his peritoneal dialysis. However he did still came for his procedure but he did not look good nor did he feel good at that time. He vomited again 3 times while he was in the endoscopy suite. At that time he was deemed to be not at the good condition to do the procedure so he was admitted for observation to have the procedure done today instead. I was then called to manage his peritoneal dialysis while he is here overnight. Since we do not have the cycler machine I started him on CAPD with 2500 fill volume, and using only 1.5% dialysis solution considering possible dehydration. He was also started on very cautious IV fluid hydration with normal saline at 75 mL an hour until the procedure. He has had 2 exchanges prior to the EGD and colonoscopy today and has acceptable ultrafiltration. He underwent his procedure and it seems to be uneventful. When I saw him this afternoon he seems to be pretty stable. He does not feel nauseated and vomiting anymore. He does not have any other complaints otherwise. Past Medical History Cardiac Medical History: Reports: Hyperlipidemia, Hypertension-primary Renal/ Medical History: Reports: End Stage Renal Disease, Hyperphosphatemia, Secondary Hyperparathyroidism, Other - ADPKD Malignancy Medical History: Reports: Skin Cancer - Left ear basal cell carcinoma Hematology Medical History: Reports Anemia of Chronic Kidney Disease Past Surgical History Past Surgical History: Reports: Orthopedic Surgery - Back surgery Social History Information Source: Patient, [facility] Records Smoking Status: Former Smoker Electronic Cigarette use?: No Last Time Smoked: 10 years ago Frequency of Alcohol Use: None Hx Recreational Drug Use: No Drugs: None Hx Prescription Drug Abuse: No - Advance Directive Resuscitation Status: Full Code Family History Family History: CAD - Father and brother, CVA - Mother, DM - Brother and father Parental Family History Reviewed: Yes Children Family History Reviewed: Yes Sibling(s) Family History Reviewed.: Yes Medication/Allergy Home Medications: Amlodipine Besylate [Norvasc 10 mg Tablet] 10 mg PO DAILY 08/21/17 Aspirin [Ecotrin 81 mg EC Tablet] 81 mg PO DAILY 08/21/17 Calcitriol [Rocaltrol 0.25 mcg Capsule] 0.25 mcg PO DAILY 08/21/17 Carvedilol [Coreg 6.25 mg Tablet] 6.25 mg PO Q12 08/21/17 L.acidoph,Paracasei, B.lactis [Probiotic] 1 cap PO DAILY 08/21/17 [place]-3 Fatty Acids/Fish Oil [[place] 3 Fish Oil Softgel] 1 cap PO DAILY 08/21/17 Ferric Citrate [Auryxia] 210 mg PO TID 07/31/19 Furosemide [Lasix 40 mg Tablet] 1 tab PO BID 07/31/19 Lysine 1 tab PO DAILY 07/31/19 Magnesium Oxide [Mag-Ox 400 mg Tablet] 400 mg PO DAILY 07/31/19 Simvastatin 20 mg PO DAILY 07/31/19 Allergies/Adverse Reactions: Penicillins Allergy (Verified 08/23/17 11:20) RASH Review of Systems All systems: reviewed and no additional remarkable complaints except as stated Review of Systems: Constitutional: ABSENT: chills, fatigue, fever(s), headache(s), weight gain, weight loss Eyes: ABSENT: visual disturbances Ears: ABSENT: hearing changes Cardiovascular: ABSENT: chest pain, dyspnea on exertion, edema, orthropnea, palpitations Respiratory: ABSENT: cough, dyspnea, hemoptysis Gastrointestinal: ABSENT: abdominal pain, constipation, diarrhea, hematemesis, hematochezia; admits nausea, and vomiting Genitourinary: ABSENT: dysuria, hematuria Musculoskeletal: ABSENT: joint swelling Integumentary: ABSENT: rash, wounds Neurological: ABSENT: abnormal gait, abnormal speech, confusion, dizziness, focal weakness, numbness, syncope Psychiatric: ABSENT: anxiety, depression Endocrine: ABSENT: cold intolerance, heat intolerance, polydipsia, polyuria Hematologic/Lymphatic: ABSENT: easy bleeding, easy bruising, lymphadenopathy Physical Exam Vital Signs: Temp Pulse Resp BP Pulse Ox 98.3 F 81 16 155/59 H 92 08/01/19 15:14 08/01/19 15:14 08/01/19 15:14 08/01/19 15:14 08/01/19 15:14 Intake & Output 07/31/19 08/01/19 08/02/19 06:59 06:59 06:59 Intake Total 5350 4092 Output Total 2630 2650 Balance 2720 1442 Weight 125.3 kg 125.3 kg Exam: General appearance: No acute distress, cooperative, well-developed, well- nourished Head exam: PRESENT: atraumatic, normocephalic Eye exam: PRESENT: Conjunctiva [place]ora, EOMI, PERRLA. ABSENT: conjunctival injection, scleral icterus Mouth exam: PRESENT: moist, neck supple, tongue midline Neck exam: PRESENT: full ROM. ABSENT: carotid bruit, JVD, lymphadenopathy, thyromegaly Respiratory exam: PRESENT: clear to auscultation bilaterally. ABSENT: rales, rhonchi, stridor, wheezes Cardiovascular exam: PRESENT: RRR, +S1, +S2. ABSENT: systolic murmur Pulses: PRESENT: normal radial pulses, normal dorsalis pedis pulses GI/Abdominal exam: PRESENT: normal bowel sounds, soft. ABSENT: guarding, mass, tenderness Rectal exam: Deferred Extremities exam: PRESENT: full ROM. ABSENT: calf tenderness, pedal edema Musculoskeletal: PRESENT: full ROM. ABSENT: deformity Neurological exam: PRESENT: alert, Awake, Oriented to person, Oriented to place, Oriented to time, reflexes normal, CN II-XII grossly intact. ABSENT: motor sensory deficit Psychiatric exam: PRESENT: appropriate affect, normal mood. ABSENT: homicidal ideation, suicidal ideation Skin exam: PRESENT: intact, dry, warm. ABSENT: rash Results Laboratory Results: 08/01/19 07:06 08/01/19 07:06 07/31/19 08/01/19 08/01/19 23:31 07:06 07:06 WBC 8.8 RBC 3.28 L Hgb 10.8 L Hct 32.4 L MCV 99 H MCH 32.9 MCHC 33.4 RDW 15.7 H Plt Count 329 Seg Neutrophils % 83.0 H Sodium 147.2 H Potassium 5.2 H Chloride 107 Carbon Dioxide 22 Anion Gap 18 BUN 44 H Creatinine 10.21 H Est GFR ( Amer) 6 L Glucose 109 Calcium 9.3 Phosphorus 8.4 H Magnesium 2.7 H Total Bilirubin 0.3 AST 16 L Alkaline Phosphatase 66 Total Protein 6.7 Albumin 3.9 Urine Color YELLOW Urine Appearance CLEAR Urine pH 7.0 Ur Specific [place] 1.018 Urine Protein 100 H Urine Glucose (UA) 50 H Urine Ketones NEGATIVE Urine Blood NEGATIVE Urine Nitrite NEGATIVE Ur Leukocyte Esterase NEGATIVE Urine WBC (Auto) 1 Impressions: Chest X-Ray 07/31/19 00:00 IMPRESSION: NO ACUTE RADIOGRAPHIC FINDING IN THE CHEST. Assessment & Plan - Diagnosis (1) ESRD on peritoneal dialysis Is this a current diagnosis for this admission?: Yes Plan: Patient had CAPD while in the hospital. We used 2500 fill volume using 1.5% dialysis solution. Upon discharge today patient will be drained here in the hospital and will go home without any fluid in. Instructed patient to just use 1.5% solution when he looks himself and that the cycler machine tonight and continue with his usual regimen tomorrow once he is feeling much better. (2) Hypertension Qualifiers: Hypertension type: essential hypertension Qualified Code(s): I10 - Essential (primary) hypertension Is this a current diagnosis for this admission?: Yes (3) Hyperkalemia Is this a current diagnosis for this admission?: Yes Plan: Mild and borderline which could be taken cared of by his peritoneal dialysis. (4) Hyperphosphatemia Is this a current diagnosis for this admission?: Yes - Notes Notes: Thank you very much for this consultation. - Time Time Spent: 50 to 70 Minutes
[2019-08-01 17:16] VITALS: BP 150/79
--- NOTE | 2019-08-02 11:49 | EKG REPORT ---
SEVERITY:- ABNORMAL ECG - SINUS RHYTHM RBBB AND LAFB PROBABLE LEFT VENTRICULAR HYPERTROPHY : Confirmed by: Vandana Cordero MD 02-Aug-2019 11:48:14
== END 2019-08-01 17:00 | disposition home or self-care (01) ==
LOC: END 09:27 → 3S 15:21
PROVIDERS: ADMIT Surgery; ATTEND Surgery
DX: I12.0 Hypertensive chronic kidney disease with stage 5 chronic kidney disease or end stage renal disease (principal); N18.6 End stage renal disease; D63.1 Anemia in chronic kidney disease; R19.5 Other fecal abnormalities; E86.0 Dehydration; E87.5 Hyperkalemia; E83.39 Other disorders of phosphorus metabolism; Z99.2 Dependence on renal dialysis; E78.5 Hyperlipidemia, unspecified; Q61.2 Polycystic kidney, adult type; K29.80 Duodenitis without bleeding; Z01.818 Encounter for other preprocedural examination; K29.50 Unspecified chronic gastritis without bleeding; B37.81 Candidal esophagitis; K20.8 Other esophagitis; K57.10 Diverticulosis of small intestine without perforation or abscess without bleeding; K64.2 Third degree hemorrhoids; K31.7 Polyp of stomach and duodenum; I51.89 Other ill-defined heart diseases; Z86.010 Personal history of colon polyps; N25.81 Secondary hyperparathyroidism of renal origin; K44.9 Diaphragmatic hernia without obstruction or gangrene; Z86.73 Personal history of transient ischemic attack (TIA), and cerebral infarction without residual deficits; Z85.828 Personal history of other malignant neoplasm of skin; Z87.891 Personal history of nicotine dependence; Z79.899 Other long term (current) drug therapy; Z79.82 Long term (current) use of aspirin; Z82.49 Family history of ischemic heart disease and other diseases of the circulatory system
CPT/HCPCS: 43239; 45378; 36415 ×2; 82962; 83735; 84100; 85025; 85027; 85610; 85730; 80048; 80053; 81001; 87324; 87449; 88305 ×2; 71045; 93005; 93010; 00813; 90947; 90945 ×2; J2250; J3010; J1940; A9270 ×3; C9113 ×2; J2405 ×2; J7030 ×2; J2704; S0028; 813

== ENCOUNTER → 2019-08-27 | Outpatient (CLI) | payer MEDICARE | LOC: DAVITANR 14:21 | PROVIDERS: ATTEND Internal Medicine Nephrology | DX: E87.5 Hyperkalemia (principal) | CPT/HCPCS: 84132 ==

== ENCOUNTER 2020-07-25 08:43 | Inpatient (IN) | payer MEDICARE ==
[2020-07-25 09:43] LABS: ABSOLUTE LYMPHOCYTES (AUTO) 0.6 10^3/uL (0.5-4.7); ABSOLUTE MONOCYTES (AUTO) 0.6 10^3/uL (0.1-1.4); BASOPHILS % (AUTO) 0.3 % (0-2); EOSINOPHILS % (AUTO) 0.1 % (0-6); HEMATOCRIT 31.7 % (37.9-51.0); LYMPHOCYTES % (AUTO) 14.2 % (13-45); MEAN CORPUSCULAR HEMOGLOBIN 33.7 pg (27.0-33.4); MEAN CORPUSCULAR HGB CONC 34.8 g/dL (32.0-36.0); MEAN CORPUSCULAR VOLUME 97 fl (80-97); MONOCYTES % (AUTO) 14.6 % (3-13); PLATELET COUNT 468 10^3/uL (150-450); RED BLOOD COUNT 3.27 10^6/uL (4.35-5.55); RED CELL DISTRIBUTION WIDTH 15.1 % (11.5-14.0); SEGMENTED NEUTROPHILS % (AUTO) 70.8 % (42-78); TOTAL CELLS COUNTED % (AUTO) 100 %; WHITE BLOOD COUNT 4.2 10^3/uL (4.0-10.5)
[2020-07-25 09:50] LABS: ALBUMIN 5.2 g/dL (3.5-5.0); ALKALINE PHOSPHATASE 73 U/L (38-126); ASPARTATE AMINO TRANSFERASE 76 U/L (17-59); BILIRUBIN,DIRECT 0.4 mg/dL (0.0-0.4); BILIRUBIN,TOTAL 0.5 mg/dL (0.2-1.3); BLOOD UREA NITROGEN 98 mg/dL (7-20); CALCIUM 9.9 mg/dL (8.4-10.2); GLUCOSE 199 mg/dL (75-110); TOTAL PROTEIN 8.5 g/dL (6.3-8.2)
[2020-07-25 10:05] LABS: CHLORIDE 66 mmol/L (98-107); POTASSIUM 4.9 mmol/L (3.6-5.0)
[2020-07-25 10:06] LABS: CARBON DIOXIDE 32 mmol/L (22-30)
[2020-07-25 10:07] LABS: ANION GAP 45 (5-19)
[2020-07-25] MEDS ORDERED: NORMAL SALINE 500 ML IV ONE (10:25)
--- NOTE | 2020-07-25 10:27 | ER Document Report ---
ED General - General Chief Complaint: Other Stated Complaint: DEHYDRATION Time Seen by Provider: 07/25/20 10:05 Primary Care Provider: ALEJANDRO CHIN MD [Primary Care Provider] - Follow up as needed Notes: 70-year-old man presenting to the emergency department with a history of home peritoneal dialysis. Presents now with complaint of weakness, feeling dehydrated and having some periumbilical and supra pubic abdominal pain. Patient notes he has had some nausea and vomiting denies diarrhea and has felt very fatigued. He perform peritoneal dialysis last night and denies a change in the fluid. He still makes urine, however, has not been able to supply a urine specimen. He denies fever and chills, denies diarrhea. TRAVEL OUTSIDE OF THE [place] IN LAST 30 DAYS: No - Related Data Allergies/Adverse Reactions: Penicillins Allergy (Verified 07/25/20 09:06) RASH Past Medical History - Social History Smoking Status: Former Smoker Chew tobacco use (# tins/day): No Frequency of alcohol use: None Drug Abuse: None Family History: Reviewed & Not Pertinent Patient has homicidal ideation: No - Past Medical History Cardiac Medical History: Reports: Hx Hypercholesterolemia, Hx Hypertension Denies: Hx Coronary Artery Disease, Hx Heart Attack Pulmonary Medical History: Denies: Hx Asthma, Hx Bronchitis, Hx COPD - SOB, Hx Pneumonia Neurological Medical History: Denies: Hx Cerebrovascular Accident, Hx Seizures Renal/ Medical History: Reports: Hx End Stage Renal Disease. Denies: Hx Peritoneal Dialysis Malignancy Medical History: Reports Hx Skin Cancer - Left ear basal cell carcinoma GI Medical History: Denies: Hx Hepatitis, Hx Hiatal Hernia, Hx Ulcer Musculoskeletal Medical History: Denies Hx Arthritis Infectious Medical History: Denies: Hx Hepatitis Past Surgical History: Reports: Hx Orthopedic Surgery - Back surgery. Denies: Hx Open Heart Surgery, Hx Pacemaker - Immunizations Hx Diphtheria, Pertussis, Tetanus Vaccination: No Review of Systems - Review of Systems Notes: Constitutional: See HPI HENT: Negative for sore throat. Eyes: Negative for visual changes. Cardiovascular: Negative for chest pain. Respiratory: Negative for shortness of breath. Gastrointestinal: See HPI Genitourinary: Negative for dysuria. Musculoskeletal: Negative for back pain. Skin: Negative for rash. Neurological: Negative for headaches, weakness or numbness. 10 point ROS negative except as marked above and in HPI. Physical Exam - Vital signs Vitals: Temp 97.5 F 07/25/20 08:49 - Notes Notes: GENERAL: No acute distress, non-toxic appearance. HEAD: Normal with no signs of head trauma. EYES: PERRLA, EOMI, conjunctiva normal, no discharge. EARS: Hearing grossly intact. NOSE: Normal. THROAT: Oropharynx is normal. NECK: Normal range of motion, no tenderness, supple, no lymphadenopathy, No adenopathy, no JVD. CHEST: Clear breath sounds bilaterally. No wheezes, rales, or rhonchi. CARDIAC: Regular rate and rhythm. S1 and S2, without murmurs, gallops, or rubs. VASCULAR: No Edema. Peripheral pulses normal and equal in all extremities. ABDOMEN: Normal and soft with supraumbilical hernia, + tenderness, + reducible, suprapubic tenderness, no guarding, no rebound, no masses or pulsatile masses. GENITOURINARY: + Suprapubic tenderness LYMPATHTIC: No lymphadenopathy noted. MUSCULOSKELETAL: Good range of motion of all major joints. Extremities without clubbing, cyanosis or edema. NEUROLOGICAL: Alert and oriented x 3. No focal sensory or strength deficits. Speech normal. Follows commands appropriately. SKIN: Normal appearance with no rashes or lesions. Course - Re-evaluation Re-evalutation: 07/25/20 13:59 Review of the labs and imaging reveals that patient has a small bowel infarction secondary to incarcerated umbilical hernia. He has a lactic 8.9. I have contacted the general surgeon Dr. Wakefield, he will see the patient in the emergency department and will be taking the patient to the OR this afternoon. I have also informed the patient of the findings and he is aware that he will need to go to the operating suite. - Vital Signs Vital signs: Temp Pulse Resp BP Pulse Ox 97.5 F 110 H 25 H 98/64 L 93 07/25/20 08:49 07/25/20 12:24 07/25/20 12:24 07/25/20 12:24 07/25/20 12:24 - Laboratory Result Diagrams: 07/25/20 08:55 07/25/20 08:55 Laboratory results interpreted by me: 07/25/20 07/25/20 07/25/20 08:55 08:55 08:55 RBC 3.27 L Hgb 11.0 L Hct 31.7 L MCH 33.7 H RDW 15.1 H Plt Count 468 H [place] % (Auto) 14.6 H Carbonic Acid ABG pH ABG pCO2 ABG pO2 ABG HCO3 ABG Total CO2 ABG O2 Saturation Chloride 66 L Carbon Dioxide 32 H Anion Gap 45 H BUN 98 H Creatinine 17.65 H Est GFR ( Amer) 3 L Est GFR (MDRD) Non-Af 3 L Glucose 199 H Lactic Acid 8.3 H AST 76 H Total Protein 8.5 H Albumin 5.2 H 07/25/20 11:00 RBC Hgb Hct MCH RDW Plt Count [place] % (Auto) Carbonic Acid 1.02 L ABG pH 7.54 H ABG pCO2 33.8 L ABG pO2 58.1 L ABG HCO3 28.4 H ABG Total CO2 29.4 H ABG O2 Saturation 93.3 L Chloride Carbon Dioxide Anion Gap BUN Creatinine Est GFR ( Amer) Est GFR (MDRD) Non-Af Glucose Lactic Acid AST Total Protein Albumin I have reviewed laboratory data and used this information for the treatment decisions regarding the patient. 07/25/20 13:57 - Diagnostic Test Radiology reviewed: Image reviewed, Reports reviewed Radiology results interpreted by me: 07/25/20 13:57 Abdomen/Pelvis CT 07/25/20 10:23 IMPRESSION: Small bowel infarction secondary to incarcerated hernia at the umbilicus and proximal dilatation of small bowel loops. Gas in the SMV and portal venous system in the liver. Discharge - Discharge Clinical Impression: Incarcerated umbilical hernia, Small bowel obstruction with strangulation or infarction, Severe obesity, ESRD on peritoneal dialysis Condition: Good Disposition: ADMITTED INPATIENT Admitting Provider: Surgicalist - Dr. Wakefield Unit Admitted: Surgical Floor Referrals: ALEJANDRO CHIN MD [Primary Care Provider] - Follow up as needed
[2020-07-25 11:14] LABS: ARTERIAL BLOOD BASE EXCESS 5.9 mmol/L; ARTERIAL BLOOD H2CO3 1.02 mmol/L (1.05-1.35); ARTERIAL BLOOD HCO3 28.4 mmol/L (20-24); ARTERIAL BLOOD O2 SATURATION 93.3 % (94-98); ARTERIAL BLOOD PCO2 33.8 mmHg (35-45); ARTERIAL BLOOD PH 7.54 (7.35-7.45); ARTERIAL BLOOD PO2 58.1 mmHg (80-100); ARTERIAL BLOOD TOTAL CO2 29.4 mmol/L (23-27)
[2020-07-25 11:27] LABS: ARTERIAL BLOOD FIO2 ROOM AIR
[2020-07-25] MEDS ORDERED: SUCCINYLCHOLINE CHLORIDE INJ 200 MG/10 ML VIAL ONE (11:34)
[2020-07-25] MEDS ORDERED: ONDANSETRON HCL INJ/PF 4 MG/2 ML SDV ONE (11:34)
[2020-07-25] MEDS ORDERED: GLYCOPYRROLATE 1 MG/5 ML VIAL ONE (11:34)
[2020-07-25] MEDS ORDERED: PHENYLEPHRINE HCL INJ/PF 10 MG/1 ML SDV ONE (11:34)
[2020-07-25] MEDS ORDERED: VECURONIUM BROMIDE INJ 10 MG VIAL IV ONE (11:34)
[2020-07-25] MEDS ORDERED: LIDOCAINE 2% INJ-PF (20 MG/ML) 2 ML AMPUL ONE (11:34)
[2020-07-25] MEDS ORDERED: DEXAMETHASONE SOD PHOSPHATE INJ 4 MG/1 ML VIAL ONE (11:34)
[2020-07-25] MEDS ORDERED: NEOSTIGMINE METHYLSULFATE 10 MG/10 ML VIAL ONE (11:34)
[2020-07-25] MEDS ORDERED: ROCURONIUM BROMIDE INJ 50 MG/5 ML VIAL IV ONE (11:34)
[2020-07-25] MEDS ORDERED: NORMAL SALINE INJ/PF 0.9% 10 ML SDV ONE (11:34)
--- NOTE | 2020-07-25 13:55 | RADIOLOGY REPORT (SQ) ---
EXAM DESCRIPTION: CT ABD/PELVIS ORAL ONLY IMAGES COMPLETED DATE/TIME: 07/25/2020 1:16 pm REASON FOR STUDY: abdominal pain COMPARISON: None. TECHNIQUE: CT scan of the abdomen and pelvis performed without intravenous or oral contrast. Images reviewed with lung, soft tissue, and bone windows. Reconstructed coronal and sagittal MPR images revi ewed. All images stored on PACS. All CT scanners at this facility use dose modulation, iterative reconstruction, and/or weight based d osing when appropriate to reduce radiation dose to as low as reasonably achievable (ALARA). [facility]: Dose Right [facility]: CareDose [facility]: Dose Right [facility]: Teradose 4D [facility]: Smart [employer] RADIATION DOSE: CT Rad equipment meets quality standard of care and radiation dose reduction techniq ues were employed. CTDIvol: 16.9 mGy. DLP: 1023 mGy-cm.mGy. LIMITATIONS: None. FINDINGS: LOWER CHEST: No significant findings. No nodules or infiltrates. NON-CONTRASTED LIVER, SPLEEN, ADRENALS: Extensive gas in the portal venous system. No masses. Adren al glands unremarkable. PANCREAS: No masses. No peripancreatic inflammatory changes. GALLBLADDER: No identified stones by CT criteria. No inflammatory changes to suggest cholecystitis. RIGHT KIDNEY AND URETER: Polycystic renal disease No significant calcifications. No hydronephrosi s or hydroureter. LEFT KIDNEY AND URETER: Polycystic renal disease No significant calcifications. No hydronephrosis or hydroureter. AORTA AND RETROPERITONEUM: No aneurysm. No retroperitoneal masses or adenopathy. BOWEL AND PERITONEAL CAVITY: Dilated small bowel loops secondary to a strangulated hernia at the umbi licus. Gas in the small bowel wall proximally. Small bowel infarction. APPENDIX: Not visualized. PELVIS, BLADDER, AND ABDOMINAL WALL:No abnormal masses. No free fluid. Bladder normal. BONES: No significant findings. OTHER: Peritoneal dialysis catheter. IMPRESSION: Small bowel infarction secondary to incarcerated hernia at the umbilicus and proximal di latation of small bowel loops. Gas in the SMV and portal venous system in the liver. COMMENT: Pertinent findings on the imaging study reported as a CRITICAL RESULT to YE MENENDEZ MD at13:43 on 07/25/2020. Category of Critical Result: Small bowel infarction with portal venous gas Quality ID # [id number]: Final reports with documentation of one or more dose reduction techniques (e.g., Au tomated exposure control, adjustment of the mA and/or kV according to patient size, use of iterative reconstruction technique) TECHNICAL DOCUMENTATION: JOB ID: [id number] 2010 [employer]- All Rights Reserved Reading location - IP/workstation name: [email or web address]
[2020-07-25] MEDS ORDERED: METRONIDAZOLE 500 MG/NS RTU 500 MG/100 ML RTUPB IV ONE ×2 (14:00→14:41)
[2020-07-25] MEDS ORDERED: CIPROFLOXACIN 400 MG/D5W RTU 400 MG/200 ML RTUPB IV SCH (14:00)
[2020-07-25] MEDS ORDERED: NORMAL SALINE 1000 ML 1,000 ML IV ONE ×2 (14:01→19:27)
--- NOTE | 2020-07-25 14:23 | PDOC H&P ---
History of Present Illness Admission Date/PCP: ALEJANDRO CHIN MD Patient complains of: Abdominal pain for 1 day History of Present Illness: KATHY BURRELL is a 70 year old male, with history of end-stage renal disease on peritoneal dialysis (last session last night), Hx Hypercholesterolemia, Hx Hypertension, history of back surgery who has a 1 day complaining of mid abdominal pain around the umbilicus. The patient has a known umbilical hernia that he has been following conservatively. A CT scan abdomen pelvis has been done upon arrival in the emergency room today and this is significant for a strangulated umbilical hernia with infarcted small bowel and gas in the portal vein system. Past Medical History Cardiac Medical History: Reports: Hyperlipidema, Hypertension Denies: Coronary Artery Disease, Myocardial Infarction Pulmonary Medical History: Denies: Asthma, Bronchitis, Chronic Obstructive Pulmonary Disease (COPD) - SOB, Pneumonia Neurological Medical History: Denies: Seizures Renal/ Medical History: Reports: End Stage Renal Disease Malignancy Medical History: Reports: Skin Cancer - Left ear basal cell carcinoma GI Medical History: Denies: Hepatitis, Hiatal Hernia Musculoskeltal Medical History: Denies: Arthritis Hematology: Reports: Anemia - HGB 9.3 Denies: Sickle Cell Disease Past Surgical History Past Surgical History: Reports: Orthopedic Surgery - Back surgery Denies: Pacemaker Social History Smoking Status: Former Smoker Electronic Cigarette use?: No Frequency of Alcohol Use: None Hx Recreational Drug Use: No Drugs: None Hx Prescription Drug Abuse: No Family History Family History: Reviewed & Not Pertinent Parental Family History Reviewed: No Children Family History Reviewed: No Sibling(s) Family History Reviewed.: No Medication/Allergy Home Medications: Amlodipine Besylate [Norvasc 10 mg Tablet] 10 mg PO DAILY 08/21/17 Aspirin [Ecotrin 81 mg EC Tablet] 81 mg PO DAILY 08/21/17 Calcitriol [Rocaltrol 0.25 mcg Capsule] 0.25 mcg PO DAILY 08/21/17 Carvedilol [Coreg 6.25 mg Tablet] 6.25 mg PO Q12 08/21/17 L.acidoph,Paracasei, B.lactis [Probiotic] 1 cap PO DAILY 08/21/17 [place]-3 Fatty Acids/Fish Oil [[place] 3 Fish Oil Softgel] 1 cap PO DAILY 08/21/17 Ferric Citrate [Auryxia] 210 mg PO TID 07/31/19 Furosemide [Lasix 40 mg Tablet] 1 tab PO BID 07/31/19 Lysine 1 tab PO DAILY 07/31/19 Magnesium Oxide [Mag-Ox 400 mg Tablet] 400 mg PO DAILY 07/31/19 Simvastatin 20 mg PO DAILY 07/31/19 Allergies/Adverse Reactions: Penicillins Allergy (Verified 07/25/20 09:06) RASH Physical Exam Vital Signs: Temp Pulse Resp BP Pulse Ox 97.5 F 110 H 25 H 98/64 L 93 07/25/20 08:49 07/25/20 12:24 07/25/20 12:24 07/25/20 12:24 07/25/20 12:24 Intake & Output 07/24/20 07/25/20 07/26/20 06:59 06:59 06:59 Intake Total 500 Balance 500 Weight 174.633 kg General appearance: PRESENT: mild distress, obese, well-developed, well- nourished Head exam: PRESENT: atraumatic, normocephalic Eye exam: PRESENT: EOMI Mouth exam: PRESENT: dry mucosa, neck supple Neck exam: PRESENT: full ROM Respiratory exam: PRESENT: clear to auscultation zander Cardiovascular exam: PRESENT: RRR GI/Abdominal exam: PRESENT: distended, hypoactive bowel sounds, rebound - Diffuse, tenderness - Diffuse tenderness, other - Umbilical mass tender measuring approximately 3 inches in diameter appreciated on deep palpation Rectal exam: PRESENT: deferred Extremities exam: PRESENT: full ROM Musculoskeletal exam: PRESENT: full ROM Neurological exam: PRESENT: alert, awake, oriented to situation, CN II-XII grossly intact Psychiatric exam: PRESENT: appropriate affect Skin exam: PRESENT: warm Results Laboratory Results: 07/25/20 08:55 07/25/20 08:55 07/25/20 07/25/20 07/25/20 08:55 08:55 08:55 WBC 4.2 RBC 3.27 L Hgb 11.0 L Hct 31.7 L MCV 97 MCH 33.7 H MCHC 34.8 RDW 15.1 H Plt Count 468 H Seg Neutrophils % 70.8 Carbonic Acid HCO3/H2CO3 Ratio ABG pH ABG pCO2 ABG pO2 ABG HCO3 ABG O2 Saturation ABG Base Excess FiO2 Sodium 143.3 Potassium 4.9 Chloride 66 L Carbon Dioxide 32 H Anion Gap 45 H BUN 98 H Creatinine 17.65 H Est GFR ( Amer) 3 L Glucose 199 H Lactic Acid 8.3 H Calcium 9.9 Total Bilirubin 0.5 AST 76 H Alkaline Phosphatase 73 Total Protein 8.5 H Albumin 5.2 H Lipase 85.8 07/25/20 11:00 WBC RBC Hgb Hct MCV MCH MCHC RDW Plt Count Seg Neutrophils % Carbonic Acid 1.02 L HCO3/H2CO3 Ratio 27:1 ABG pH 7.54 H ABG pCO2 33.8 L ABG pO2 58.1 L ABG HCO3 28.4 H ABG O2 Saturation 93.3 L ABG Base Excess 5.9 FiO2 ROOM AIR Sodium Potassium Chloride Carbon Dioxide Anion Gap BUN Creatinine Est GFR ( Amer) Glucose Lactic Acid Calcium Total Bilirubin AST Alkaline Phosphatase Total Protein Albumin Lipase Impressions: Abdomen/Pelvis CT 07/25/20 10:23 IMPRESSION: Small bowel infarction secondary to incarcerated hernia at the umbilicus and proximal dilatation of small bowel loops. Gas in the SMV and portal venous system in the liver. Assessment & Plan - Diagnosis (1) Strangulated umbilical hernia Is this a current diagnosis for this admission?: Yes (2) ESRD on peritoneal dialysis Is this a current diagnosis for this admission?: Yes (3) Small bowel obstruction with strangulation or infarction Is this a current diagnosis for this admission?: Yes (4) Hypertension Qualifiers: Is this a current diagnosis for this admission?: Yes - Time Anticipated Discharge Disposition: Home with Home Health Anticipated Discharge Timeframe: When medically stable - Plan Summary Plan Summary: Assessment: History of mid abdominal pain at the umbilicus for about [address] scan abdomen pelvis done today which demonstrates a strangulated umbilical hernia with small bowel infarct gas in the portal vein Normal white blood cell count with an H&H of , respectively End-stage renal disease on peritoneal dialysis daily, last session yesterday BUN/creatinine 98 and 17, respectively Lactic acid 8.3 with venous blood pH 7.5 Plan: Plan urgent laparotomy, possible bowel resection, possible ostomy, repair of umbilical hernia with mesh; procedure, risks, benefits, complications, including infection, bleeding, bowel injury, anastomosis leak, removal of peritoneal dialysis catheter, and have been discussed with the patient, he understands all the above, his questions were answered to his satisfaction, and he desires to proceed. N.p.o. EKG Cipro/Flagyl IV preoperatively Rapid COVID-19 test to determine whether the patient was to be transferred to regular floor or to the Covid unit
[2020-07-25] MEDS ORDERED: BUPIVACAINE HCL 0.5%-EPI 1:200000 INJ/PF 30 ML VIAL ONE (14:29)
[2020-07-25] MEDS ORDERED: KETAMINE HCL INJ 500 MG/10 ML VIAL ONE (14:31)
[2020-07-25] MEDS ORDERED: FENTANYL CITRATE INJ/PF 100 MCG/2 ML AMPUL ONE (14:31)
[2020-07-25] MEDS ORDERED: EPHEDRINE SULFATE INJ 50 MG/1 ML AMPULE ONE (14:32)
[2020-07-25] MEDS ORDERED: PROPOFOL INJ 200 MG/20 ML VIAL IV ONE (14:32)
[2020-07-25] MEDS ORDERED: HYDROMORPHONE HCL INJ/PF 2 MG/ML AMPULE ONE (14:32)
[2020-07-25] MEDS ORDERED: DEXMEDETOMIDINE INJ 80 MCG/20 ML VIAL IV ONE (14:32)
[2020-07-25] MEDS ORDERED: MIDAZOLAM 2 MG/2 ML INJ ONE (14:32)
--- NOTE | 2020-07-25 18:09 | EKG REPORT ---
SEVERITY:- ABNORMAL ECG - SINUS TACHYCARDIA RBBB AND LAFB LEFT VENTRICULAR HYPERTROPHY : Confirmed by: Mika Alonzo MD 25-Jul-2020 18:08:47
--- NOTE | 2020-07-25 18:09 | EKG REPORT ---
SEVERITY:- ABNORMAL ECG - SINUS RHYTHM RBBB AND LAFB LEFT VENTRICULAR HYPERTROPHY : Confirmed by: Mika Alonzo MD 25-Jul-2020 18:08:56
[2020-07-25] MEDS ORDERED: MORPHINE SULFATE 10 MG/ML INJ IV PRN ×2 (18:37→19:39)
[2020-07-25] MEDS ORDERED: ONDANSETRON HCL INJ/PF 4 MG/2 ML SDV IV PRN ×2 (18:37→19:18)
[2020-07-25] MEDS ORDERED: FENTANYL CITRATE INJ/PF 100 MCG/2 ML AMPUL IV PRN ×3 (18:37)
[2020-07-25] MEDS ORDERED: OXYCODONE-ACETAMINOPHEN 5-325 MG TABLET PO PRN ×2 (18:37)
[2020-07-25] MEDS ORDERED: ACETAMINOPHEN 1,000 MG/100 ML RTUPB IV ONE ×2 (18:38→19:30)
--- NOTE | 2020-07-25 18:55 | Operative Report ---
Operative Report DATE OF SURGERY: 07/25/20 PREOPERATIVE DIAGNOSIS: Strangulated umbilical hernia POSTOPERATIVE DIAGNOSIS: Same OPERATION: Umbilical herniorrhaphy with absorbable mesh SURGEON: STELLA ALEX ANESTHESIA: GA - 30 mL's of 0.25% Marcaine without epinephrine TISSUE REMOVED OR ALTERED: Plical hernia sac, umbilical skin, umbilical scar COMPLICATIONS: None ESTIMATED BLOOD LOSS: Negligible less than 5 mL INTRAOPERATIVE FINDINGS: Small bowel loop incarcerated and strangulated inside the umbilical hernia sac PROCEDURE: The procedure was done in the operating room, the patient was placed in a supine position, the abdomen prepped and draped in usual fashion. After standard timeo ut, a small incision was made just below the umbilicus, the upper skin flap of the incision was then dissected with Bovie and sharply from the anterior rectus sheath until the umbilicus in the umbilical hernia sac were identified. The dissection was continued laterally on either side of the umbilical sac until this was circumferentially dissected. The skin of the umbilicus was sharply dissected off the hernia sac which was completely identified, circumferential dissection of the neck of the umbilical hernia sac was accomplished with Bovie. The hernia sac was then opened sharply with scissors and the contents were inspected. A single loop of small bowel was identified inside the hernia sac. The ring of the hernia defect was sharply opened with scissors so to allow the content to be further mobilized. The bowel loop was inspected and found to be ischemic. The ischemic loop of bowel underwent warming with laparotomy pads soaked in warm normal saline until the blood flow was restored as proven with the use of handheld Doppler probe. After this was accomplished, the loop of bowel was replaced within the peritoneal cavity. A large piece of biologic absorbable mesh was then sutured in an inlay technique using interrupted 0- Prolene horizontal mattress sutures which were tied against the parietal peritoneum and the posterior rectus sheath. The edges of the absorbable mesh were overlapping the defect for about 1 inches circumferentially. The edges of the hernia defect where sutured together with interrupted [id number] Prolene sutures. The area was irrigated with normal saline until clear. A separate wound was made with a #15 blade and a 10 Japanese Manohar drain was threaded subcutaneously and laid on the surgical field and secured to the skin with a 3-0 nylon suture. This was connected to bulb suction. The deep subcutaneous tissue was closed with running 2-0 PDS/2-0 Vicryl suture, followed by the approximation of the superficial subcutaneous tissue with 3-0 Vicryl running suture, followed by skin closure with 4-0 running PDS subcuticular suture. Dermabond and sterile dressings were applied. The patient tolerated procedure well, the count of instruments and sponges was correct x3, he was then extubated and transferred to recovery room in satisfactory conditions.
[2020-07-25] MEDS ORDERED: DEXTROSE 40% GEL 15 GM TUBE PO PRN ×2 (19:00)
[2020-07-25] MEDS ORDERED: GLUCAGON,HUMAN RECOMB 1 MG INJ SUBCUT PRN (19:00)
[2020-07-25] MEDS ORDERED: DEXTROSE 50%-WATER 25 GM/50 ML DISP.SYRIN IV PRN ×2 (19:00)
[2020-07-25] MEDS ORDERED: OXYCODONE-ACETAMINOPHEN 5-325 MG TABLET ONE (19:15)
[2020-07-25] MEDS ORDERED: NORMAL SALINE 1000 ML 1,000 ML IV PRN (19:18)
[2020-07-25] MEDS ORDERED: PHARMACY COMMUNICATION ORDER MC NR (19:45)
--- NOTE | 2020-07-25 20:17 | PDOC CONSULTATION ---
Consultation Consult Date: 07/25/20 Attending physician:: STELLA ALEX Provider Consulted: SHYANNE RIVERA Consult reason:: ESRD. Hypertension History of Present Illness Admission Date/PCP: 07/25/20 14:09 ALEJANDRO CHIN MD Patient complains of: Abdominal pain History of Present Illness: KATHY BURRELL is a 70 year old male with a history of end-stage renal disease on peritoneal dialysis (last session was last night), hypertension and hyperlipidemia is now admitted to surgical service for strangulated umbilical hernia after he presented with a 1 day duration of abdominal pain around his umbilical area. CT of his abdomen showed small bowel infarction secondary to incarcerated umbilical hernia with dilation of proximal small bowel loops and gas in the portal venous system. Currently he is in immediate postop state after undergoing umbilical herniorrhaphy. Currently apart from mild pain at the surgical wound site patient has no new complaints. He denies shortness of breath, chest pain, palpitation, dizziness, nausea or vomiting. Past Medical History Cardiac Medical History: Reports: Hyperlipidema, Hypertension Denies: Coronary Artery Disease, Myocardial Infarction Pulmonary Medical History: Denies: Asthma, Bronchitis, Chronic Obstructive Pulmonary Disease (COPD) - SOB, Pneumonia Neurological Medical History: Denies: Seizures Renal/ Medical History: Reports: End Stage Renal Disease Malignancy Medical History: Reports: Skin Cancer - Left ear basal cell carcinoma GI Medical History: Denies: Hepatitis, Hiatal Hernia Musculoskeltal Medical History: Denies: Arthritis Hematology: Reports: Anemia - HGB 9.3 Denies: Sickle Cell Disease Past Surgical History Past Surgical History: Reports: Orthopedic Surgery - Back surgery Denies: Pacemaker Social History Information Source: Patient Smoking Status: Former Smoker Electronic Cigarette use?: No Frequency of Alcohol Use: None Hx Recreational Drug Use: No Drugs: None Hx Prescription Drug Abuse: No - Advance Directive Resuscitation Status: Full Code Family History Family History: Reviewed & Not Pertinent Parental Family History Reviewed: Yes Children Family History Reviewed: Yes Sibling(s) Family History Reviewed.: Yes Medication/Allergy Home Medications: Aspirin [Ecotrin 81 mg EC Tablet] 81 mg PO DAILY 08/21/17 L.acidoph,Paracasei, B.lactis [Probiotic] 1 cap PO DAILY 08/21/17 [place]-3 Fatty Acids/Fish Oil [[place] 3 Fish Oil Softgel] 1 cap PO DAILY 08/21/17 Furosemide [Lasix 40 mg Tablet] 40 mg PO BID 07/31/19 Lysine 1 tab PO DAILY 07/31/19 Magnesium Oxide [Mag-Ox 400 mg Tablet] 400 mg PO DAILY 07/31/19 Simvastatin 20 mg PO DAILY 07/31/19 Amlodipine Besylate [Norvasc 5 mg Tablet] 5 mg PO DAILY 07/26/20 Carvedilol [Coreg 3.125 mg Tablet] 3.125 mg PO Q12 07/26/20 Fluticasone Propionate [Flonase Nasal Graham 50 Mcg/Graham 16 gm] 1 spray NAREB DAILY 07/26/20 Hydroxyzine HCl [Atarax 10 mg Tablet] 25 mg PO TIDP PRN 07/26/20 Allergies/Adverse Reactions: Penicillins Allergy (Verified 07/25/20 09:06) RASH Review of Systems Constitutional: PRESENT: as per HPI Eyes: ABSENT: visual disturbances Ears: ABSENT: hearing changes Nose, Mouth, and Throat: ABSENT: as per HPI, headache(s), mouth pain, sore throat, vertigo, other Cardiovascular: ABSENT: chest pain, dyspnea on exertion, edema, orthropnea, palpitations Respiratory: ABSENT: cough, hemoptysis Gastrointestinal: PRESENT: as per HPI Genitourinary: ABSENT: dysuria, hematuria Musculoskeletal: ABSENT: joint swelling Integumentary: ABSENT: rash, wounds Neurological: ABSENT: abnormal gait, abnormal speech, confusion, dizziness, focal weakness, syncope Psychiatric: ABSENT: anxiety, depression, homidical ideation, suicidal ideation Endocrine: ABSENT: cold intolerance, heat intolerance, polydipsia, polyuria Hematologic/Lymphatic: ABSENT: easy bleeding, easy bruising Physical Exam Vital Signs: Temp Pulse Resp BP Pulse Ox 98.2 F 94 25 H 129/53 H 94 07/25/20 17:57 07/25/20 18:12 07/25/20 18:12 07/25/20 18:12 07/25/20 18:12 Intake & Output 07/24/20 07/25/20 07/26/20 06:59 06:59 06:59 Intake Total 600 Output Total 100 Balance 500 Weight 174.633 kg Additional comments: GENERAL APPEARANCE: Alert and oriented x3, no acute distress HEENT: Normocephalic and atraumatic. No scleral icterus. Dry oral mucosa NECK: Supple. No lymphadenopathy or tenderness. No carotid bruit. No JVD CHEST: Symmetric. Nontender to palpation. LUNGS: Has faint scattered wheezes bilaterally HEART: Regular rate and rhythm with normal S1 and S2. No murmurs, gallops, or rubs. ABDOMEN: There is dressing over the surgical wound site Hypoactive bowel sound, mild tenderness around the wound EXTREMITIES: No cyanosis, clubbing, or edema. MUSCULOSKELETAL: No deformity, atrophy or swelling noted PSYCHIATRIC: Recent and remote memory is intact. Appropriate mood and affect. SKIN: Warm, dry, and well perfused. No lesions or rashes are noted. NEUROLOGIC: No focal sensory or motor deficits are noted. Results Laboratory Results: 07/25/20 08:55 07/25/20 08:55 07/25/20 07/25/20 07/25/20 08:55 08:55 08:55 WBC 4.2 RBC 3.27 L Hgb 11.0 L Hct 31.7 L MCV 97 MCH 33.7 H MCHC 34.8 RDW 15.1 H Plt Count 468 H Seg Neutrophils % 70.8 Carbonic Acid HCO3/H2CO3 Ratio ABG pH ABG pCO2 ABG pO2 ABG HCO3 ABG O2 Saturation ABG Base Excess FiO2 Sodium 143.3 Potassium 4.9 Chloride 66 L Carbon Dioxide 32 H Anion Gap 45 H BUN 98 H Creatinine 17.65 H Est GFR ( Amer) 3 L Glucose 199 H Lactic Acid 8.3 H Calcium 9.9 Total Bilirubin 0.5 AST 76 H Alkaline Phosphatase 73 Total Protein 8.5 H Albumin 5.2 H Lipase 85.8 07/25/20 11:00 WBC RBC Hgb Hct MCV MCH MCHC RDW Plt Count Seg Neutrophils % Carbonic Acid 1.02 L HCO3/H2CO3 Ratio 27:1 ABG pH 7.54 H ABG pCO2 33.8 L ABG pO2 58.1 L ABG HCO3 28.4 H ABG O2 Saturation 93.3 L ABG Base Excess 5.9 FiO2 ROOM AIR Sodium Potassium Chloride Carbon Dioxide Anion Gap BUN Creatinine Est GFR ( Amer) Glucose Lactic Acid Calcium Total Bilirubin AST Alkaline Phosphatase Total Protein Albumin Lipase Impressions: Abdomen/Pelvis CT 07/25/20 10:23 IMPRESSION: Small bowel infarction secondary to incarcerated hernia at the umbilicus and proximal dilatation of small bowel loops. Gas in the SMV and portal venous system in the liver. Assessment and Plan - Diagnosis (1) Strangulated umbilical hernia Is this a current diagnosis for this admission?: Yes Plan: Immediately postop period Status post surgery Further care and management to be formulated by surgical team (2) End stage renal disease Is this a current diagnosis for this admission?: Yes Plan: Currently alert and oriented x3 and has no signs of uremia Serum potassium level within the normal limit Patient has anion gap metabolic acidosis with metabolic alkalosis Has no signs of volume overload Currently has no emergent indication for dialysis Per surgery, not peritoneal dialysis for the next 6 weeks Permacath to be inserted by surgical team in the morning Nephrology has been consulted by surgical team Patient to get hemodialysis after obtaining access (3) Hypertension Qualifiers: Is this a current diagnosis for this admission?: Yes Plan: Currently patient has soft blood pressures Likely from anesthetic and sedatives he received during surgery Hold antihypertensive medications for now Closely monitor vital signs (4) Elevated lactic acid level Is this a current diagnosis for this admission?: Yes Plan: Likely due to ischemic bowel from strangulated hernia Per surgery note, strangulated bowel part was viable which was confirmed by Doppler during surgery Continue gentle IV hydration Repeat lactic acid level - Time Time Spent with patient: 35 or more minutes Total Critical Time (Minutes): 40 Medications reviewed and adjusted accordingly: Yes Anticipated Discharge Disposition: Home, Self Care Anticipated Discharge Timeframe: within 72 hours - Inpatient Certification Based on my medical assessment, after consideration of the patient's comorbidities, presenting symptoms, or acuity I expect that the services needed warrant INPATIENT care.: Yes I certify that my determination is in accordance with my understanding of Medicare's requirements for reasonable and necessary INPATIENT services [42 CFR 412.3e].: Yes Medical Necessity: Need Close Monitoring Due to Risk of Patient Decompensation, Need for IV Antibiotics, Need for Surgery, Risk of Complication if Not Cared For in Hospital Post Hospital Care: D/C or Transfer Summary
--- NOTE | 2020-07-25 20:57 | RADIOLOGY REPORT (SQ) ---
EXAM DESCRIPTION: XR CHEST 1 VIEW COMPLETED DATE/TME: 07/25/2020 19:34 CLINICAL HISTORY: 70 years, Male, Check Placement of NG Tube/Centeral line placement COMPARISON: Prior study from 07/31/2019 NUMBER OF VIEWS: One TECHNIQUE: Single frontal view of the chest was obtained portably LIMITATIONS: None. FINDINGS: Enteric drainage tube tip curls within the gastric fundus. Right IJ approach central venous catheter tip is located within the SVC. Cardiac and mediastinal contours are stable. Suspect patchy retrocardiac left basilar opacity. No pleural effusion or pneumothorax. IMPRESSION: Right IJ approach central venous catheter tip is located within the SVC. Enteric drainage tube tip curls within the gastric fundus. Suspect patchy retrocardiac left basilar opacity. Consider atelectasis or pneumonia to include aspiration. copyright 2010 [employer]- All Rights Reserved
[2020-07-25] MEDS ORDERED: DEXTROSE 40% GEL 15 GM TUBE NG PRN ×2 (21:00)
[2020-07-25] MEDS: FAMOTIDINE INJ/PF 20 MG/2 ML SDV IV SCH (21:04)
[2020-07-25] MEDS: METRONIDAZOLE 500 MG/NS RTU 500 MG/100 ML RTUPB IV SCH (21:05)
[2020-07-26] MEDS: ACETAMINOPHEN 500 MG/50 ML IV SCH ×5 (00:06→23:39)
[2020-07-26] MEDS ORDERED: ACETAMINOPHEN 2,000 MG/200 ML RTUPB IV ONE (01:41)
[2020-07-26 02:38] LABS: ARTERIAL BLOOD BASE EXCESS 6.7 mmol/L; ARTERIAL BLOOD H2CO3 1.24 mmol/L (1.05-1.35); ARTERIAL BLOOD HCO3 30.6 mmol/L (20-24); ARTERIAL BLOOD O2 SATURATION 95.7 % (94-98); ARTERIAL BLOOD PCO2 41.3 mmHg (35-45); ARTERIAL BLOOD PH 7.49 (7.35-7.45); ARTERIAL BLOOD TOTAL CO2 31.9 mmol/L (23-27)
[2020-07-26 02:43] LABS: ARTERIAL BLOOD FIO2 100%
--- NOTE | 2020-07-26 02:54 | RADIOLOGY REPORT (SQ) ---
CHEST X-RAY 1 VIEW on 07/26/2020 at 1:58 AM CLINICAL INDICATION: NG tube placement COMPARISON: 07/25/2020 FINDINGS: NG tube extends into the upper stomach. Right IJ catheter tip is in the SVC. There is mild bibasilar atelectasis. Heart is within normal limits for size. Vascular calcification is noted in the aorta. A few wires are noted projecting over the chest. Lungs are otherwise clear. IMPRESSION: No significant change in the appearance of the chest.
[2020-07-26] MEDS: METRONIDAZOLE 500 MG/NS RTU 500 MG/100 ML RTUPB IV SCH ×3 (05:32→21:04)
[2020-07-26 05:50] LABS: ABSOLUTE LYMPHOCYTES (AUTO) 0.4 10^3/uL (0.5-4.7); ABSOLUTE MONOCYTES (AUTO) 0.3 10^3/uL (0.1-1.4); ABSOLUTE NEUT (AUTO) 3.4 10^3/uL (1.7-8.2); BASOPHILS % (AUTO) 0.2 % (0-2); EOSINOPHILS % (AUTO) 0.1 % (0-6); HEMOGLOBIN 9.3 g/dL (13.5-17.0); LYMPHOCYTES % (AUTO) 8.5 % (13-45); MEAN CORPUSCULAR HEMOGLOBIN 33.6 pg (27.0-33.4); MEAN CORPUSCULAR HGB CONC 34.3 g/dL (32.0-36.0); MEAN CORPUSCULAR VOLUME 98 fl (80-97); MONOCYTES % (AUTO) 8.1 % (3-13); PLATELET COUNT 331 10^3/uL (150-450); RED BLOOD COUNT 2.75 10^6/uL (4.35-5.55); RED CELL DISTRIBUTION WIDTH 14.7 % (11.5-14.0); SEGMENTED NEUTROPHILS % (AUTO) 83.1 % (42-78); TOTAL CELLS COUNTED % (AUTO) 100 %; WHITE BLOOD COUNT 4.1 10^3/uL (4.0-10.5)
[2020-07-26 06:22] LABS: ALBUMIN 3.7 g/dL (3.5-5.0); ALKALINE PHOSPHATASE 49 U/L (38-126); ASPARTATE AMINO TRANSFERASE 157 U/L (17-59); BILIRUBIN,DIRECT 0.5 mg/dL (0.0-0.4); BILIRUBIN,TOTAL 0.5 mg/dL (0.2-1.3); BLOOD UREA NITROGEN 110 mg/dL (7-20); CALCIUM 7.3 mg/dL (8.4-10.2); CARBON DIOXIDE 29 mmol/L (22-30); CHLORIDE 74 mmol/L (98-107); GLUCOSE 121 mg/dL (75-110); TOTAL PROTEIN 6.2 g/dL (6.3-8.2)
[2020-07-26 06:41] LABS: ANION GAP 34 (5-19)
[2020-07-26 06:42] LABS: POTASSIUM 6.3 mmol/L (3.6-5.0)
[2020-07-26] MEDS ORDERED: INSULIN REG, HUMAN 100 UNIT/ML 3 ML VIAL (PYX) IV ONE (07:00)
[2020-07-26] MEDS ORDERED: LIDOCAINE 1%/EPINEPHRINE INJ 20 ML VIAL ONE (07:17)
[2020-07-26] MEDS ORDERED: LIDOCAINE 2% INJ-PF (20 MG/ML) 10 ML AMPUL ONE (07:31)
[2020-07-26] MEDS ORDERED: FENTANYL CITRATE INJ/PF 100 MCG/2 ML AMPUL ONE (07:31)
[2020-07-26] MEDS ORDERED: MIDAZOLAM 2 MG/2 ML INJ ONE (07:31)
[2020-07-26] MEDS ORDERED: PROPOFOL INJ 200 MG/20 ML VIAL IV ONE (07:32)
--- NOTE | 2020-07-26 07:51 | EKG REPORT ---
SEVERITY:- ABNORMAL ECG - SINUS TACHYCARDIA RBBB AND LAFB : Confirmed by: Ольга Son 26-Jul-2020 07:51:22
[2020-07-26] MEDS ORDERED: EPHEDRINE SULFATE INJ 50 MG/1 ML AMPULE ONE (08:15)
[2020-07-26] MEDS ORDERED: VASOPRESSIN INJ 20 UNIT/1 ML VIAL ONE ×2 (08:15→14:23)
[2020-07-26] MEDS ORDERED: CEFAZOLIN INJ 1 GM VIAL ONE (08:46)
[2020-07-26] MEDS ORDERED: HEPARIN SOD (PORCINE) 1,000 UNIT/ML 10 ML VIAL ONE (09:39)
[2020-07-26] MEDS ORDERED: EPOETIN ALFA-EPBX 10,000 UNIT in SYRINGE, DISPOSABLE, 1 EACH IV PRN (09:39)
--- NOTE | 2020-07-26 09:50 | Operative Report ---
Operative Report DATE OF SURGERY: 07/26/20 PREOPERATIVE DIAGNOSIS: 1. End-stage renal failure. 2. Status post umbilical herniorrhaphy. 3. CHF. 4. Hyperkalemia POSTOPERATIVE DIAGNOSIS: Same OPERATION: 1. Focused ultrasound of the left neck. 2. Attempted insertion of dual split 32 cm tip to cuff catheter into left internal jugular vein and. 3. Intraoperative fluoroscopy with limited venogram. 4. Successful insertion of a dual split 32 cm tip to cuff permacatheter into left subclavian vein SURGEON: JUNIOR VELASQUEZ ANESTHESIA: GA TISSUE REMOVED OR ALTERED: None COMPLICATIONS: None ESTIMATED BLOOD LOSS: Minimal INTRAOPERATIVE FINDINGS: See below PROCEDURE: The patient was taken from the preop holding area while on BiPAP to operating room for orders placed on the operating table, and underwent general endotracheal intubation by the anesthesia staff without difficulty. He was placed in supine position arms tucked, neck rotated to the right, and chest wall prepped and draped in sterile fashion. Hair was clipped prior to prepping. Patient had a right internal jugular vein triple-lumen catheter placed 24 hours prior. The left neck was scanned with a variable frequency linear transducer. Findings are significant for patent, small left internal jugular vein. The overlying skin was anesthetized with 1% plain lidocaine. Ricardo was made in the skin with 11 blade, micro needle and wire threaded into the left internal jugular vein. A suitable site under the left clavicle was chosen for exit of the permacatheter. Skin was anesthetized with 1% plain lidocaine, opening made in the skin with a 15 blade, and a dual-lumen 32 cm tip to cuff catheter was threaded between the 2 lesions. Under fluoroscopic guidance, the micro wire was switched over to a conventional 0.030 inch guidewire uneventfully. Unfortunately the wire which crossed from the left chest to the right chest would not pass more proximally into either the atrium or the IVC. Therefore the conventional guidewire was removed and a Glidewire was inserted. This wire was advanced into the right atrium and/or the IVC, paralleling the right previously placed internal jugular central venous catheter. Now under fluoroscopic guidance, we dilated up the tract with the small, medium, and large dilators and finally the largest dilator with the introducer sheath was threaded over the Glidewire. We then removed the dilator, advanced to the Glidewire through the distal end of the permacatheter, and removed the strip away sheath, leaving the catheter in the left internal jugular vein. Under fluoroscopic guidance, with multiple manipulations of the catheter, requiring extension of the left neck incision in order to manipulate the catheter, I was eventually able to get the 2 tips of the catheter sitting in a vertical orientation parallel to the right internal jugular vein catheter. Attempts were made to aspirate the catheter from either chamber but were unsuccessful. The catheter seems to flushed easily. I now performed intraoperative vein obviously with full-strength contrast approximately 10 cc. This showed no tentative passage into the venous system, with what appeared to be extravasation. At this point the patient made hemodynamically stable, however I felt that this catheter was not in the appropriate position, and removal so it was removed from the patient's chest uneventfully. Patient remained hemodynamically stable with good sats. I felt it was safe to proceed with an alternative approach. We now had a left subclavian incision so I therefore opted to place a left subclavian permacatheter. Patient was placed back in Trendelenburg, 16-gauge needle threaded into the left subclavian vein without difficulty and the conventional guidewire threaded into position. I made a counterincision below the initial subclavian incision for the exit of the subclavian catheter. The catheter was tunneled between the 2 incisions, then under fluoroscopic guidance, the subclavian vein was dilated up using the small, medium, and large dilators. Eventually the largest dilator with the introducer sheath was threaded into the subclavian vein, dilator and wire removed, and the free end of the 32 cm tip to cuff permacatheter was threaded into the left subclavian vein. Strip away sheath was removed. The tip of the catheter appeared to be in the right atrium. There is no kinking of the catheter. It aspirated and flushed without difficulty. I felt the operation was complete. The patient remained hemodynamically stable with good saturations. Catheter secured to the skin at 3 sites with 2-0 Prolene suture and Biopatch. All wounds closed with 3-0 Vicryl, and sterile dressings applied. Patient tolerated procedure well, taken to the intensive care unit in guarded condition, meaning intubated. Portable upright chest x-ray pending at time dictation. Also catheter will be loaded with concentrated heparin upon arrival in the ICU.
[2020-07-26] MEDS ORDERED: DEXMEDETOMIDINE IN 0.9 % NACL 400 MCG/100 ML RTUPB IV ONE (10:15)
[2020-07-26] MEDS: DEXMEDETOMIDINE IN NS 400 MCG/100 ML RTUPB IV PRN ×3 (10:17→22:45)
[2020-07-26] MEDS ORDERED: HYDROMORPHONE HCL INJ/PF 2 MG/ML AMPULE ONE (10:34)
[2020-07-26] MEDS ORDERED: LORAZEPAM INJ 2 MG/1 ML VIAL ONE (10:35)
[2020-07-26] MEDS: LORAZEPAM INJ 2 MG/1 ML VIAL IV PRN ×3 (10:35→19:30)
[2020-07-26] MEDS: HYDROMORPHONE HCL INJ/PF 2 MG/ML AMPULE IV PRN ×4 (10:35→21:33)
[2020-07-26] MEDS: CIPROFLOXACIN 400 MG/D5W RTU 400 MG/200 ML RTUPB IV SCH (11:04)
[2020-07-26] MEDS ORDERED: NOREPINEPHRINE BITARTRATE INJ/PF 4 MG/4 ML SDV IV ONE (11:21)
[2020-07-26] MEDS: DEXTROSE 5%-WATER 250 ML with NOREPINEPHRINE BITARTRATE 4 MG IV PRN ×4 (11:26→16:17)
--- NOTE | 2020-07-26 11:27 | CRITICAL CARE ADMISSION REPORT ---
HPI Date:: 07/26/20 Time:: 10:00 Reason for ICU Reason:: Intubated post-op and needing HD Admission Date/Time & PCP: Admission Date/Time: 07/25/20 14:09 Primary Care Provider: ALEJANDRO CHIN MD HPI: This patient is a 70 yo man who underwent a hernia repair with mesh yesterday. The loop of SB was strangulated but was not necrotic and there was not a need for a resection. He is a peritoneal dialysis patient and today he had a perma- cath placed in his L subclavian v. He was on bipap overnight and went up to 70%. Because of this and concern for his volume status as he needs HD now, he was left intubated and brought to the ICU. History obtained from:: Old records, Dr. Colmenares and anesthesia - Diagnosis/Plan (1) Hypotension after procedure Is this a current diagnosis for this admission?: Yes Plan: After his perma-cath he will be started on levephed for a MAP , 65. His need for HD also merits this. I anticipate he will be off levophed soon. (2) ESRD on peritoneal dialysis Is this a current diagnosis for this admission?: Yes Plan: His PD catheter will not be used as he recovers from abdominal surgery. (3) Incarcerated umbilical hernia Is this a current diagnosis for this admission?: Yes Plan: Resolved with surgery. No evidence of continued ischemia. (4) Hyperkalemia, diminished renal excretion Is this a current diagnosis for this admission?: Yes Plan: Potassium of 6.3 today requires HD. Plan Summary: After HD we will see if he is extubatable. Past Medical History Cardiac Medical History: Reports: Hyperlipidema, Hypertension Denies: Coronary Artery Disease, Myocardial Infarction Pulmonary Medical History: Denies: Asthma, Bronchitis, Chronic Obstructive Pulmonary Disease (COPD) - SOB, Pneumonia Neurological Medical History: Denies: Seizures Renal/ Medical History: Reports: End Stage Renal Disease Malignancy Medical History: Reports: Skin Cancer - Left ear basal cell carcinoma GI Medical History: Denies: Hepatitis, Hiatal Hernia Musculoskeltal Medical History: Denies: Arthritis Psychiatric Medical History: Denies: Depression Hematology: Reports: Anemia - HGB 9.3 Denies: Sickle Cell Disease Past Surgical History Past Surgical History: Reports: Orthopedic Surgery - Back surgery Denies: Pacemaker Social/Family History - Social History Smoking Status: Former Smoker Frequency of Alcohol Use: None Hx Recreational Drug Use: No Drugs: None Hx Prescription Drug Abuse: No - Medication/Allergies Home Medications: Aspirin [Ecotrin 81 mg EC Tablet] 81 mg PO DAILY 08/21/17 L.acidoph,Paracasei, B.lactis [Probiotic] 1 cap PO DAILY 08/21/17 Perley-3 Fatty Acids/Fish Oil [Perley 3 Fish Oil Softgel] 1 cap PO DAILY 08/21/17 Furosemide [Lasix 40 mg Tablet] 40 mg PO BID 07/31/19 Lysine 1 tab PO DAILY 07/31/19 Magnesium Oxide [Mag-Ox 400 mg Tablet] 400 mg PO DAILY 07/31/19 Simvastatin 20 mg PO DAILY 07/31/19 Amlodipine Besylate [Norvasc 5 mg Tablet] 5 mg PO DAILY 07/26/20 Carvedilol [Coreg 3.125 mg Tablet] 3.125 mg PO Q12 07/26/20 Fluticasone Propionate [Flonase Nasal [place] 50 Mcg/[place] 16 gm] 1 spray NAREB DAILY 07/26/20 Hydroxyzine HCl [Atarax 10 mg Tablet] 25 mg PO TIDP PRN 07/26/20 Allergies/Adverse Reactions: Penicillins Allergy (Verified 07/25/20 09:06) RASH Review of Systems ROS unobtainable: Due to endotracheal tube Physical Exam Vital Signs: Temp Pulse Resp BP Pulse Ox 98.0 F 105 H 22 H 117/49 L 95 07/26/20 07:55 07/26/20 07:55 07/26/20 08:22 07/26/20 07:55 07/26/20 08:22 Intake & Output 07/25/20 07/26/20 07/27/20 06:59 06:59 06:59 Intake Total 3975 Output Total 1994 Balance 1979 Weight 121.3 kg Weight/Height Weight 121.3 kg Height 6 ft 2 in General appearance: PRESENT: no acute distress, obese Head exam: PRESENT: atraumatic, normocephalic Eye exam: PRESENT: conjunctiva pink, EOMI, PERRLA. ABSENT: scleral icterus Ear exam: PRESENT: normal external ear exam Mouth exam: PRESENT: moist, tongue midline Neck exam: ABSENT: carotid bruit, JVD, lymphadenopathy, thyromegaly Respiratory exam: PRESENT: clear to auscultation zander, decreased breath sounds. ABSENT: rales, rhonchi, wheezes Cardiovascular exam: PRESENT: RRR. ABSENT: diastolic murmur, rubs, systolic murmur GI/Abdominal exam: PRESENT: normal bowel sounds, soft, other - PD catheter site clean. ABSENT: distended, guarding, mass, organolmegaly, rebound, tenderness Rectal exam: PRESENT: deferred Gentrourinary exam: PRESENT: indwelling catheter Extremities exam: PRESENT: full ROM. ABSENT: calf tenderness, clubbing, pedal edema Musculoskeletal exam: PRESENT: normal inspection Neurological exam: PRESENT: other - Sedated Tubes/Lines: PRESENT: Endotracheal Tube, Central Line, Dialysis catheter, Nasogastic Tube Laboratory/Radiographs Laboratory Results: 07/26/20 05:00 07/26/20 05:00 07/25/20 07/26/20 07/26/20 11:00 02:05 05:00 WBC 4.1 RBC 2.75 L Hgb 9.3 L Hct 27.0 L MCV 98 H MCH 33.6 H MCHC 34.3 RDW 14.7 H Plt Count 331 Seg Neutrophils % 83.1 H Carbonic Acid 1.02 L 1.24 HCO3/H2CO3 Ratio 27:1 24:1 ABG pH 7.54 H 7.49 H ABG pCO2 33.8 L 41.3 ABG pO2 58.1 L 73.0 L ABG HCO3 28.4 H 30.6 H ABG O2 Saturation 93.3 L 95.7 ABG Base Excess 5.9 6.7 FiO2 ROOM AIR 100% Sodium Potassium Chloride Carbon Dioxide Anion Gap BUN Creatinine Est GFR ( Amer) Glucose Lactic Acid Calcium Total Bilirubin AST Alkaline Phosphatase Total Protein Albumin 07/26/20 07/26/20 05:00 07:52 WBC RBC Hgb Hct MCV MCH MCHC RDW Plt Count Seg Neutrophils % Carbonic Acid HCO3/H2CO3 Ratio ABG pH ABG pCO2 ABG pO2 ABG HCO3 ABG O2 Saturation ABG Base Excess FiO2 Sodium 136.7 L Potassium 6.3 H* D Chloride 74 L Carbon Dioxide 29 Anion Gap 34 H BUN 110 H Creatinine 17.08 H Est GFR ( Amer) 3 L Glucose 121 H Lactic Acid 3.0 H Calcium 7.3 L Total Bilirubin 0.5 AST 157 H Alkaline Phosphatase 49 Total Protein 6.2 L Albumin 3.7 Impressions: Abdomen/Pelvis CT 07/25/20 10:23 IMPRESSION: Small bowel infarction secondary to incarcerated hernia at the umbilicus and proximal dilatation of small bowel loops. Gas in the SMV and portal venous system in the liver. All labs, radiographs, diagnostic studies and EKGs were personally reviewed: Yes In addition, reports of radiographic and diagnostic studies were read: Yes Critical Time Critical Time (minutes): 45 -: The care of a critically ill patient is dynamic. This note represents a static moment in the admission process. Orders and treatments may be given simultaneously and urgently, and time is not territory service representative of the treatment process. This patient requires Critical Care secondary to life threatening organ or limb dysfunction. Without Critical Care services, the patient is at risk for increased mortality and morbidity.
[2020-07-26] MEDS ORDERED: PHENYLEPHRINE HCL INJ/PF 10 MG/1 ML SDV ONE (12:16)
[2020-07-26] MEDS ORDERED: NORMAL SALINE 1000 ML 1,000 ML IV PRN (12:18)
[2020-07-26] MEDS ORDERED: HEPARIN SOD (PORCINE) 1,000 UNIT/ML 10 ML VIAL IV PRN (12:18)
[2020-07-26] MEDS: HEPARIN SOD (PORCINE) 5,000 UNIT/ML 1 ML VIAL SUBCUT SCH ×2 (13:14→21:04)
--- NOTE | 2020-07-26 13:29 | RADIOLOGY REPORT (SQ) ---
EXAM DESCRIPTION: CHEST SINGLE VIEW IMAGES COMPLETED DATE/TIME: 07/26/2020 10:33 am REASON FOR STUDY: Post intubation and line insertion COMPARISON: Chest radiograph 07/26/2020 at 0158 hours EXAM PARAMETERS: NUMBER OF VIEWS: One view. TECHNIQUE: Single frontal radiographic view of the chest acquired. RADIATION DOSE: NA LIMITATIONS: None. FINDINGS: LUNGS AND PLEURA: Trace bilateral pleural effusions with fluid in the right fissure and at the left lung base. No pneumothorax. No focal consolidation. MEDIASTINUM AND HILAR STRUCTURES: No masses. Contour normal. HEART AND VASCULAR STRUCTURES: Heart normal in size. Normal vasculature. BONES: No acute findings. HARDWARE: Esophagogastric tube tip is below the diaphragm unchanged from prior. Endotracheal tube is in the upper trachea about 7.6 cm above the tamela new from prior. Right IJ central venous catheter is unchanged. New left large-bore central venous catheter with tip in the SVC near the cavoatrial j unction. OTHER: No other significant finding. IMPRESSION: Interval placement of an endotracheal tube and left large-bore central venous catheter. Tubes and lines in good position. Trace bilateral pleural effusions. TECHNICAL DOCUMENTATION: JOB ID: [id number] 2010 [employer]- All Rights Reserved Reading location - IP/workstation name: [email or web address]
[2020-07-26 14:11] LABS: ARTERIAL BLOOD BASE EXCESS 2.9 mmol/L; ARTERIAL BLOOD FIO2 60%; ARTERIAL BLOOD H2CO3 1.36 mmol/L (1.05-1.35); ARTERIAL BLOOD HCO3 27.9 mmol/L (20-24); ARTERIAL BLOOD PCO2 45.2 mmHg (35-45); ARTERIAL BLOOD PH 7.41 (7.35-7.45); ARTERIAL BLOOD PO2 74.7 mmHg (80-100); ARTERIAL BLOOD TOTAL CO2 29.3 mmol/L (23-27)
[2020-07-26] MEDS: DEXTROSE 5%-WATER 250 ML with VASOPRESSIN 100 UNIT IV PRN ×2 (14:25)
--- NOTE | 2020-07-26 16:12 | RADIOLOGY REPORT (SQ) ---
EXAM DESCRIPTION: FLUORO/CV PLACEMENT IMAGES COMPLETED DATE/TIME: 07/26/2020 11:33 am REASON FOR STUDY: PERMCATH PLCMT LEFT SIDE ASSISTED WITH FLUORO IN OR COMPARISON: None. FLUOROSCOPY TIME: 6.4 minutes 4 images saved to PACS. TECHNIQUE: Intra-operative images acquired during surgical procedure to evaluate progress. NUMBER OF IMAGES: 4.0 LIMITATIONS: None. FINDINGS: Fluoroscopic images centered over left side central line. Tip overlies SVC. IMPRESSION: IMAGE(S) OBTAINED DURING PROCEDURE. COMMENT: Quality ID [id number]: Final reports for procedures using fluoroscopy that document radiation exp osure indices, or exposure time and number of fluorographic images (if radiation exposure indices are not available) Please consult full operative report of the attending physician for description of the procedure. TECHNICAL DOCUMENTATION: JOB ID: [id number] 2010 [employer]- All Rights Reserved Reading location - IP/workstation name: [email or web address]
[2020-07-26] MEDS: FAMOTIDINE INJ/PF 20 MG/2 ML SDV IV SCH (17:06)
[2020-07-26 22:02] LABS: ARTERIAL BLOOD BASE EXCESS 3.6 mmol/L; ARTERIAL BLOOD H2CO3 1.21 mmol/L (1.05-1.35); ARTERIAL BLOOD HCO3 27.8 mmol/L (20-24); ARTERIAL BLOOD O2 SATURATION 94.7 % (94-98); ARTERIAL BLOOD PCO2 40.2 mmHg (35-45); ARTERIAL BLOOD PH 7.46 (7.35-7.45)
[2020-07-26 22:05] LABS: ARTERIAL BLOOD FIO2 50%
[2020-07-26 22:07] LABS: HEMATOCRIT 23.1 % (37.9-51.0); MEAN CORPUSCULAR HEMOGLOBIN 33.5 pg (27.0-33.4); MEAN CORPUSCULAR HGB CONC 33.7 g/dL (32.0-36.0); MEAN CORPUSCULAR VOLUME 100 fl (80-97); PLATELET COUNT 285 10^3/uL (150-450); RED BLOOD COUNT 2.33 10^6/uL (4.35-5.55); RED CELL DISTRIBUTION WIDTH 14.7 % (11.5-14.0); WHITE BLOOD COUNT 5.8 10^3/uL (4.0-10.5)
[2020-07-26 22:14] LABS: ANION GAP 17 (5-19); CALCIUM 7.5 mg/dL (8.4-10.2); CARBON DIOXIDE 29 mmol/L (22-30); CHLORIDE 88 mmol/L (98-107); GLUCOSE 134 mg/dL (75-110); POTASSIUM 5.9 mmol/L (3.6-5.0)
[2020-07-26 22:35] LABS: ABSOLUTE LYMPHOCYTES# (MANUAL) 0.4 10^3/uL (0.5-4.7); ABSOLUTE MONOCYTES # (MANUAL) 0.3 10^3/uL (0.1-1.4); ANISOCYTOSIS SLIGHT; BAND NEUTROPHILS % (MANUAL) 5 % (3-5); BASOPHILS % (MANUAL) 0 % (0-2); EOSINOPHILS % (MANUAL) 0 % (0-6); LYMPHOCYTES % (MANUAL) 7 % (13-45); METAMYELOCYTES % (MANUAL) 2 % (0-1); MONOCYTES % (MANUAL) 5 % (3-13); OVALOCYTES SLIGHT; PLATELET COMMENT ADEQUATE; POIKILOCYTOSIS SLIGHT; POLYCHROMASIA SLIGHT; SEGMENTED NEUTROPHILS % (MAN) 81 % (42-78); TOTAL CELLS COUNTED 100
[2020-07-26 22:37] LABS: HEMOGLOBIN 7.8 g/dL (13.5-17.0)
--- NOTE | 2020-07-26 22:39 | PDOC CONSULTATION ---
Consultation Consult Date: 07/26/20 Provider Consulted: ANIRUDH PAINTING Consult reason:: ESRD History of Present Illness Admission Date/PCP: 07/25/20 14:09 ALEJANDRO CHIN MD History of Present Illness: KATHY BURRELL is a 70 year old gentleman known to me with history of end-stage renal disease on peritoneal dialysis secondary to polycystic kidney disease, hypertension, hyperlipidemia, and anemia who presented to the ED yesterday with acute 1 day history of abdominal pain. CT scan was done in the ED which showed strangulated umbilical hernia with infarcted small bowel and gas in the portal vein system. Surgery was consulted and Dr. Wakefield immediately brought the patient to the operating room yesterday and he underwent umbilical herniorrhaphy with absorbable mesh. No bowel resection was done and according to Dr. Wakefield who I spoke to yesterday there was immediate perfusion of the bowel after herniorrhaphy. Dr. Wakefield also told me that there was no evidence of infection so we talked about leaving the PD catheter if it is not compromised which is what he did. Nevertheless the patient needs bowel rest and will not be able to do peritoneal dialysis so I als o asked Dr. Wakefield to have the patient scheduled for PermCath this morning which was performed by Dr. Randle. Yesterday postoperatively the patient was actually admitted in the regular floor on BiPAP but towards the morning he has increased oxygen requirement. After the PermCath the patient continues to be intubated and he was hypotensive so he was transferred to intensive care unit. This afternoon I am seeing the patient during dialysis in the intensive care unit. He is intubated and is hypotensive on 2 pressors including Levophed and vasopressin. We are holding any ultrafiltration. His chest x-ray did not really show any pulmonary congestion so I do not think the patient is really fluid overloaded at this point. He is being monitored carefully and continuously throughout dialysis treatment. Past Medical History Cardiac Medical History: Reports: Hyperlipidemia, Hypertension-primary Neurological Medical History: Reports: Other - TIA Renal/ Medical History: Reports: End Stage Renal Disease, Hyperkalemia, Hypernatremia, Hyperphosphatemia, Metabolic Acidosis, Proteinuria, Secondary Hy perparathyroidism, Other - Polycystic kidney disease Malignancy Medical History: Reports: Skin Cancer - Left ear basal cell carcinoma GI Medical History: Reports: Other - Diverticulosis Musculoskeltal Medical History: Reports: Arthritis, Other - Spinal stenosis Hematology Medical History: Reports Anemia of Chronic Kidney Disease Past Surgical History Past Surgical History: Reports: Dialysis Access Surgery PD, Orthopedic Surgery - Back surgery Social History Information Source: Dr. Bahena, [facility] Records Lives with: Alone Smoking Status: Former Smoker Electronic Cigarette use?: No Frequency of Alcohol Use: Occasional Hx Recreational Drug Use: No Drugs: None Hx Prescription Drug Abuse: No - Advance Directive Resuscitation Status: Full Code Family History Family History: CAD - Parents and brother, DM - Brother and father Parental Family History Reviewed: Yes Children Family History Reviewed: Yes Sibling(s) Family History Reviewed.: Yes Medication/Allergy Home Medications: Furosemide [Lasix 40 mg Tablet] 40 mg PO BID 07/31/19 Magnesium Oxide [Mag-Ox 400 mg Tablet] 400 mg PO DAILY 07/31/19 Amlodipine Besylate [Norvasc 5 mg Tablet] 5 mg PO DAILY 07/26/20 B Complex W-C No.20/Folic Acid [Virt-Caps Softgel] 1 mg PO DAILY 07/26/20 Carvedilol [Coreg 3.125 mg Tablet] 3.125 mg PO Q12 07/26/20 Ergocalciferol (Vitamin D2) [Drisdol 50,000 Unit (1.25MG) Capsule] 50,000 unit PO .QWEEKLY 07/26/20 Fluticasone Propionate [Flonase Nasal [place] 50 Mcg/[place] 16 gm] 1 spray NAREB DAILY 07/26/20 Hydroxyzine HCl [Atarax 10 mg Tablet] 25 mg PO TIDP PRN 07/26/20 Allergies/Adverse Reactions: Penicillins Allergy (Verified 07/25/20 09:06) RASH Review of Systems ROS unobtainable: Due to endotracheal tube Physical Exam Vital Signs: Temp Pulse Resp BP Pulse Ox 96.6 F L 105 H 15 123/59 L 92 07/26/20 12:00 07/26/20 07:55 07/26/20 14:31 07/26/20 14:31 07/26/20 14:31 Intake & Output 07/25/20 07/26/20 07/27/20 06:59 06:59 06:59 Intake Total 3975 441 Output Total 1994 0 Balance 1979 441 Weight 121.3 kg Vitals during dialysis: Blood pressure 80/50 on Levophed and about to start vasopressin, heart rate of 97, respiration of 16, oxygen saturation 96%, blood flow rate of 350 mL/min and dialysate flow rate of 800 mL/min. Exam: General appearance: Intubated and sedated Head exam: PRESENT: atraumatic, normocephalic Eye exam: PRESENT: Eyes closed Mouth exam: PRESENT: moist, neck supple, tongue midline Neck exam: PRESENT: full ROM. ABSENT: carotid bruit, JVD, lymphadenopathy, thyromegaly Respiratory exam: PRESENT: clear to auscultation bilaterally. ABSENT: rales, rhonchi, stridor, wheezes Cardiovascular exam: PRESENT: RRR, +S1, +S2. ABSENT: systolic murmur Pulses: PRESENT: normal radial pulses, normal dorsalis pedis pulses GI/Abdominal exam: PRESENT: normal bowel sounds, soft. Dressing in place PD catheter transfer set also in place. ABSENT: guarding, mass, tenderness Rectal exam: Deferred Extremities exam: PRESENT: full ROM. ABSENT: calf tenderness, pedal edema Musculoskeletal: ABSENT: deformity Neurological exam: PRESENT: Sedated Psychiatric exam: PRESENT: Cannot be assessed at this time Skin exam: PRESENT: intact, dry, warm. ABSENT: rash Results Laboratory Results: 07/26/20 05:00 07/26/20 05:00 07/26/20 07/26/20 07/26/20 02:05 05:00 05:00 WBC 4.1 RBC 2.75 L Hgb 9.3 L Hct 27.0 L MCV 98 H MCH 33.6 H MCHC 34.3 RDW 14.7 H Plt Count 331 Seg Neutrophils % 83.1 H Carbonic Acid 1.24 HCO3/H2CO3 Ratio 24:1 ABG pH 7.49 H ABG pCO2 41.3 ABG pO2 73.0 L ABG HCO3 30.6 H ABG O2 Saturation 95.7 ABG Base Excess 6.7 FiO2 100% Sodium 136.7 L Potassium 6.3 H* D Chloride 74 L Carbon Dioxide 29 Anion Gap 34 H BUN 110 H Creatinine 17.08 H Est GFR ( Amer) 3 L Glucose 121 H Lactic Acid Calcium 7.3 L Total Bilirubin 0.5 AST 157 H Alkaline Phosphatase 49 Total Protein 6.2 L Albumin 3.7 07/26/20 07/26/20 07:52 13:25 WBC RBC Hgb Hct MCV MCH MCHC RDW Plt Count Seg Neutrophils % Carbonic Acid 1.36 H HCO3/H2CO3 Ratio 20:1 ABG pH 7.41 ABG pCO2 45.2 H ABG pO2 74.7 L ABG HCO3 27.9 H ABG O2 Saturation 95.0 ABG Base Excess 2.9 FiO2 60% Sodium Potassium Chloride Carbon Dioxide Anion Gap BUN Creatinine Est GFR ( Amer) Glucose Lactic Acid 3.0 H Calcium Total Bilirubin AST Alkaline Phosphatase Total Protein Albumin Impressions: Abdomen/Pelvis CT 07/25/20 10:23 IMPRESSION: Small bowel infarction secondary to incarcerated hernia at the umbilicus and proximal dilatation of small bowel loops. Gas in the SMV and portal venous system in the liver. Chest X-Ray 07/26/20 09:40 IMPRESSION: Interval placement of an endotracheal tube and left large-bore central venous catheter. Tubes and lines in good position. Trace bilateral pleural effusions. Assessment & Plan - Diagnosis (1) End stage renal disease Is this a current diagnosis for this admission?: Yes Plan: We will do dialysis today for 3 hours, using the patient's PermCath, with 1 potassium bath for an hour followed by 2 potassium bath, blood flow rate of 350 mL per minute, dialysate flow rate of 800 mL per minute, ultrafiltration 0 to 1 L as tolerated, no heparin and Procrit with 10,000 units during dialysis intravenously. Since the patient is relatively hypotensive, I think he can do away without ultrafiltration if he is unable to tolerate it. He is currently being monitored closely in ICU. (2) Incarcerated umbilical hernia Is this a current diagnosis for this admission?: Yes Plan: Status post umbilical herniorrhaphy with mesh, 07/25/2020. (3) Hypotension Is this a current diagnosis for this admission?: Yes Plan: Post PermCath procedure. It could be due to anesthesia. Currently on Levophed and vasopressin. (4) Hyperkalemia Is this a current diagnosis for this admission?: Yes Plan: Dialysis today as above. (5) Anemia in chronic kidney disease (CKD) Is this a current diagnosis for this admission?: Yes Plan: Retacrit during dialysis. - Notes Notes: Thank you very much for this consultation.
[2020-07-26 22:49] LABS: BLOOD UREA NITROGEN 59 mg/dL (7-20)
--- NOTE | 2020-07-26 23:54 | RADIOLOGY REPORT (SQ) ---
EXAM DESCRIPTION: XR CHEST 1 VIEW COMPLETED DATE/TME: 07/26/2020 23:28 CLINICAL HISTORY: TLC placement COMPARISON: 07/26/2020 FINDINGS: Single frontal view of the chest. Tubes and lines: Endotracheal tube with tip 3 cm above the tamela. NG tube with tip below the diaphragm. Leads overlie the chest. Right IJ central venous catheter with tip in the SVC. Left subclavian temporary hemodialysis catheter with tip in the high right atrium. Cardiomediastinal silhouette: Stable Lungs: Low lung volumes. Patchy left perihilar and left basilar opacities are stable. Possible small bilateral pleural effusions. No pneumothorax. Bones: Stable. Upper abdomen: Stable. IMPRESSION: 1. Stable appearance of the chest.
[2020-07-27] MEDS: LORAZEPAM INJ 2 MG/1 ML VIAL IV PRN ×3 (00:30→18:24)
[2020-07-27] MEDS ORDERED: NORMAL SALINE 250 ML IV PRN ×2 (00:54)
[2020-07-27] MEDS: HYDROMORPHONE HCL INJ/PF 2 MG/ML AMPULE IV PRN ×4 (01:21→22:03)
[2020-07-27] MEDS: DEXMEDETOMIDINE IN NS 400 MCG/100 ML RTUPB IV PRN ×2 (03:52→08:15)
[2020-07-27 03:59] LABS: ANION GAP 17 (5-19); BLOOD UREA NITROGEN 65 mg/dL (7-20); CALCIUM 7.1 mg/dL (8.4-10.2); CARBON DIOXIDE 29 mmol/L (22-30); CHLORIDE 89 mmol/L (98-107); GLUCOSE 142 mg/dL (75-110)
[2020-07-27] MEDS: METRONIDAZOLE 500 MG/NS RTU 500 MG/100 ML RTUPB IV SCH ×3 (05:52→21:56)
[2020-07-27] MEDS: HEPARIN SOD (PORCINE) 5,000 UNIT/ML 1 ML VIAL SUBCUT SCH ×3 (05:52→21:55)
[2020-07-27] MEDS: ACETAMINOPHEN 500 MG/50 ML IV SCH ×3 (05:53→17:53)
[2020-07-27 08:30] LABS: HEMATOCRIT 23.2 % (37.9-51.0); MEAN CORPUSCULAR HEMOGLOBIN 33.8 pg (27.0-33.4); MEAN CORPUSCULAR HGB CONC 34.6 g/dL (32.0-36.0); MEAN CORPUSCULAR VOLUME 98 fl (80-97); PLATELET COUNT 228 10^3/uL (150-450); RED BLOOD COUNT 2.37 10^6/uL (4.35-5.55); RED CELL DISTRIBUTION WIDTH 15.8 % (11.5-14.0); WHITE BLOOD COUNT 4.9 10^3/uL (4.0-10.5)
[2020-07-27 09:01] LABS: ABSOLUTE LYMPHOCYTES# (MANUAL) 0.5 10^3/uL (0.5-4.7); ABSOLUTE MONOCYTES # (MANUAL) 0.3 10^3/uL (0.1-1.4); ANISOCYTOSIS SLIGHT; BASOPHILS % (MANUAL) 0 % (0-2); EOSINOPHILS % (MANUAL) 1 % (0-6); LYMPHOCYTES % (MANUAL) 11 % (13-45); MONOCYTES % (MANUAL) 7 % (3-13); NUCLEATED RED BLOOD CELLS 2 /100 WBC (0); PLATELET COMMENT ADEQUATE; SEGMENTED NEUTROPHILS % (MAN) 81 % (42-78); TOTAL CELLS COUNTED 100
[2020-07-27 09:02] LABS: PLATELET LARGE PRESENT; RBC MORPHOLOGY COMMENT NORMO-CYTIC/CHROMIC
[2020-07-27] MEDS: FLUTICASONE NASAL SPRAY 50 MCG/SPRY 120 SPRAY/16 GM NAREB SCH (09:30)
[2020-07-27] MEDS: CIPROFLOXACIN 400 MG/D5W RTU 400 MG/200 ML RTUPB IV SCH (09:36)
[2020-07-27] MEDS ORDERED: ENOXAPARIN SODIUM INJ 40 MG/0.4 ML DISP.SYRIN SUBCUT SCH (10:00)
[2020-07-27] MEDS ORDERED: NORMAL SALINE 1000 ML 1,000 ML IV PRN (10:19)
[2020-07-27] MEDS ORDERED: HEPARIN SOD (PORCINE) 1,000 UNIT/ML 10 ML VIAL IV PRN (10:19)
--- NOTE | 2020-07-27 10:31 | PDOC CRITICAL CARE PROG REPORT ---
General Date:: 07/27/20 ICU Day:: 2 Hospital Day:: 2 Resuscitation Status: Full Code Events in the past 12 to 24 Hours:: Extubated and received hemodialysis. Review of systems relevant to events:: Renal, GI Reason for ICU Addmission:: Intubated post-op and needing HD - Medications: Medications reviewed and adjusted accordingly: Yes Vasopressors:: Vasopressin Sedation:: None Physical Exam Vital Signs: Temp Pulse Resp BP Pulse Ox 98.4 F 82 21 H 101/62 98 07/27/20 08:00 07/27/20 08:00 07/27/20 08:00 07/27/20 08:00 07/27/20 08:00 Intake & Output 07/26/20 07/27/20 07/28/20 06:59 06:59 06:59 Intake Total 3975 1730 98 Output Total 1995 5 0 Balance 1980 1725 98 Weight 121.3 kg 122.8 kg Weight/Height Weight 122.8 kg Height 6 ft 2 in General appearance: PRESENT: no acute distress Head exam: PRESENT: atraumatic, normocephalic Eye exam: PRESENT: conjunctiva pink, EOMI, PERRLA. ABSENT: scleral icterus Ear exam: PRESENT: normal external ear exam Mouth exam: PRESENT: moist, tongue midline Respiratory exam: PRESENT: clear to auscultation zander. ABSENT: rales, rhonchi, wheezes Cardiovascular exam: PRESENT: RRR. ABSENT: diastolic murmur, rubs, systolic murmur GI/Abdominal exam: PRESENT: normal bowel sounds, soft. ABSENT: distended, guarding, mass, organolmegaly, rebound, tenderness Rectal exam: PRESENT: deferred Gentrourinary exam: PRESENT: indwelling catheter Extremities exam: PRESENT: full ROM. ABSENT: calf tenderness, clubbing, pedal edema Musculoskeletal exam: PRESENT: normal inspection Neurological exam: PRESENT: alert, awake, CN II-XII grossly intact, other - Sleepy from sedation Skin exam: PRESENT: dry, intact, warm. ABSENT: cyanosis, rash Tubes/Lines: PRESENT: Dialysis catheter Laboratory/Radiographs Laboratory Results: 07/27/20 08:17 07/27/20 03:23 07/25/20 07/26/20 07/26/20 14:05 13:25 21:25 WBC 5.8 RBC 2.33 L Hgb 7.8 L Hct 23.1 L MCV 100 H MCH 33.5 H MCHC 33.7 RDW 14.7 H Plt Count 285 Seg Neutrophils % Not Reportable Carbonic Acid 1.36 H HCO3/H2CO3 Ratio 20:1 ABG pH 7.41 ABG pCO2 45.2 H ABG pO2 74.7 L ABG HCO3 27.9 H ABG O2 Saturation 95.0 ABG Base Excess 2.9 FiO2 60% Sodium Potassium Chloride Carbon Dioxide Anion Gap BUN Creatinine Est GFR ( Amer) Glucose Calcium Magnesium Blood Type A POSITIVE Antibody Screen NEGATIVE 07/26/20 07/26/20 07/27/20 21:25 21:25 03:23 WBC RBC Hgb Hct MCV MCH MCHC RDW Plt Count Seg Neutrophils % Carbonic Acid 1.21 HCO3/H2CO3 Ratio 22:1 ABG pH 7.46 H ABG pCO2 40.2 ABG pO2 69.0 L ABG HCO3 27.8 H ABG O2 Saturation 94.7 ABG Base Excess 3.6 FiO2 50% Sodium 134.4 L 135.3 L Potassium 5.9 H 6.0 H* Chloride 88 L 89 L Carbon Dioxide 29 29 Anion Gap 17 17 BUN 59 H D 65 H Creatinine 9.35 H 10.20 H Est GFR ( Amer) 7 L 6 L Glucose 134 H 142 H Calcium 7.5 L 7.1 L Magnesium 2.1 Blood Type Antibody Screen 07/27/20 08:17 WBC 4.9 RBC 2.37 L Hgb 8.0 L Hct 23.2 L MCV 98 H MCH 33.8 H MCHC 34.6 RDW 15.8 H Plt Count 228 Seg Neutrophils % Not Reportable Carbonic Acid HCO3/H2CO3 Ratio ABG pH ABG pCO2 ABG pO2 ABG HCO3 ABG O2 Saturation ABG Base Excess FiO2 Sodium Potassium Chloride Carbon Dioxide Anion Gap BUN Creatinine Est GFR ( Amer) Glucose Calcium Magnesium Blood Type Antibody Screen Impressions: Abdomen/Pelvis CT 07/25/20 10:23 IMPRESSION: Small bowel infarction secondary to incarcerated hernia at the umbilicus and proximal dilatation of small bowel loops. Gas in the SMV and portal venous system in the liver. Guidance Fluoroscopy 07/26/20 00:00 IMPRESSION: IMAGE(S) OBTAINED DURING PROCEDURE. Chest X-Ray 07/26/20 09:40 IMPRESSION: Interval placement of an endotracheal tube and left large-bore central venous catheter. Tubes and lines in good position. Trace bilateral pleural effusions. All labs, radiographs, diagnostic studies and EKGs were personally reviewed: Yes In addition, reports of radiographic and diagnostic studies were read: Yes Assessment and Plan - Diagnosis (1) Hypotension after procedure Is this a current diagnosis for this admission?: Yes Plan: He is off levophed. On small dose of vasopressin. I anticipate this will be weaned off now that he is off positive pressure. (2) ESRD on peritoneal dialysis Is this a current diagnosis for this admission?: Yes Plan: At this time due to abdominal surgery he cannot use PD at this time. (3) Incarcerated umbilical hernia Is this a current diagnosis for this admission?: Yes Plan: Resolved (4) Hyperkalemia, diminished renal excretion Is this a current diagnosis for this admission?: Yes Plan: Level is 6.0. He may need HD today. Plan Summary: Assess for HD and hope to wean off vasopressin. Critical Time Critical Time (minutes): 35 Level of Care: ICU Anticipated discharge: Home Anticipated DC Timeframe: Other -: 1. The care of a critical patient is a dynamic process. This note is a in store marketing representative synopsis but static in nature. The timeframe for treatments given in order is not necessarily the actual time these treatments may have been done. 2. This patient requires critical care secondary to ongoing requirements for therapy not offered or safe outside the critical care environment. Transfer to a lower level of care will result in altered life or limb morbidity and mortality. 3. Multidisciplinary rounds completed. 4. ABCDE bundle addressed.
--- NOTE | 2020-07-27 16:52 | PDOC PROGRESS REPORT ---
Subjective Date:: 07/27/20 Subjective:: I am seeing the patient during dialysis today. He was extubated earlier today. He is currently awake and answering few questions but he indicates that he feels tired and not saying much. He is currently on the face tent and is doing well. His potassium was elevated again today at 6.0 despite dialysis yesterday so we are dialyzing him again for this reason. So far his tolerating dialysis well with good blood pressures. Reason For Visit: HYPOXIC RESPIRATORY FAILURE, NEEDS DIALYSIS, Physical Exam Vital Signs: Temp Pulse Resp BP Pulse Ox 98.4 F 80 18 93/52 L 95 07/27/20 10:00 07/27/20 10:20 07/27/20 10:20 07/27/20 10:20 07/27/20 10:20 Intake & Output 07/26/20 07/27/20 07/28/20 06:59 06:59 06:59 Intake Total 3975 1730 98 Output Total 1995 5 0 Balance 1980 1725 98 Weight 121.3 kg 122.8 kg Vitals during dialysis: Blood pressure 116/60, heart rate of 92, oxygen saturation of 96%, respiration of 24, blood flow rate of 350 mL/min and d ialysate flow rate of 800 mL/min. Exam: General appearance: PRESENT: no acute distress, tolerating face tent, cooperative, well-developed, well-nourished Head exam: PRESENT: atraumatic, normocephalic Eye exam: PRESENT: conjunctiva pale, PERRLA. ABSENT: scleral icterus Neck exam: ABSENT: JVD Respiratory exam: PRESENT: Normal breath sounds. ABSENT: crackles, rales, rhonchi, unlabored, wheezes Cardiovascular exam: PRESENT: Regular rate rhythm -+S1, +S2. ABSENT: diastolic murmur, systolic murmur GI/Abdominal exam: PRESENT: normal bowel sounds, soft. ABSENT: guarding, mass, tenderness Extremities exam: trace edema Neurological exam: PRESENT: alert, awake, oriented to person, place and time. Skin exam: PRESENT: dry, warm, Results Laboratory Results: 07/27/20 08:17 07/27/20 03:23 07/25/20 07/26/20 07/26/20 14:05 13:25 21:25 WBC 5.8 RBC 2.33 L Hgb 7.8 L Hct 23.1 L MCV 100 H MCH 33.5 H MCHC 33.7 RDW 14.7 H Plt Count 285 Seg Neutrophils % Not Reportable Carbonic Acid 1.36 H HCO3/H2CO3 Ratio 20:1 ABG pH 7.41 ABG pCO2 45.2 H ABG pO2 74.7 L ABG HCO3 27.9 H ABG O2 Saturation 95.0 ABG Base Excess 2.9 FiO2 60% Sodium Potassium Chloride Carbon Dioxide Anion Gap BUN Creatinine Est GFR ( Amer) Glucose Calcium Magnesium Blood Type A POSITIVE Antibody Screen NEGATIVE 07/26/20 07/26/20 07/27/20 21:25 21:25 03:23 WBC RBC Hgb Hct MCV MCH MCHC RDW Plt Count Seg Neutrophils % Carbonic Acid 1.21 HCO3/H2CO3 Ratio 22:1 ABG pH 7.46 H ABG pCO2 40.2 ABG pO2 69.0 L ABG HCO3 27.8 H ABG O2 Saturation 94.7 ABG Base Excess 3.6 FiO2 50% Sodium 134.4 L 135.3 L Potassium 5.9 H 6.0 H* Chloride 88 L 89 L Carbon Dioxide 29 29 Anion Gap 17 17 BUN 59 H D 65 H Creatinine 9.35 H 10.20 H Est GFR ( Amer) 7 L 6 L Glucose 134 H 142 H Calcium 7.5 L 7.1 L Magnesium 2.1 Blood Type Antibody Screen 07/27/20 08:17 WBC 4.9 RBC 2.37 L Hgb 8.0 L Hct 23.2 L MCV 98 H MCH 33.8 H MCHC 34.6 RDW 15.8 H Plt Count 228 Seg Neutrophils % Not Reportable Carbonic Acid HCO3/H2CO3 Ratio ABG pH ABG pCO2 ABG pO2 ABG HCO3 ABG O2 Saturation ABG Base Excess FiO2 Sodium Potassium Chloride Carbon Dioxide Anion Gap BUN Creatinine Est GFR ( Amer) Glucose Calcium Magnesium Blood Type Antibody Screen Impressions: Abdomen/Pelvis CT 07/25/20 10:23 IMPRESSION: Small bowel infarction secondary to incarcerated hernia at the umbilicus and proximal dilatation of small bowel loops. Gas in the SMV and portal venous system in the liver. Guidance Fluoroscopy 07/26/20 00:00 IMPRESSION: IMAGE(S) OBTAINED DURING PROCEDURE. Chest X-Ray 07/26/20 09:40 IMPRESSION: Interval placement of an endotracheal tube and left large-bore central venous catheter. Tubes and lines in good position. Trace bilateral pleural effusions. Assessment & Plan - Diagnosis (1) End stage renal disease Is this a current diagnosis for this admission?: Yes Plan: We will do dialysis today for 3 hours, using the patient's PermCath, with 1 potassium bath for 2 hours followed by 2 potassium bath, blood flow rate of 350 mL per minute, dialysate flow rate of 800 mL per minute, ultrafiltration 0-500 MLS tolerated, no heparin and no Procrit. Patient being monitored closely during dialysis. Due to abdominal surgery, we will continue hemodialysis until patient is cleared to do peritoneal dialysis again by surgery. (2) Incarcerated umbilical hernia Is this a current diagnosis for this admission?: Yes Plan: Status post umbilical herniorrhaphy with mesh, 07/25/2020. (3) Hypotension Is this a current diagnosis for this admission?: Yes Plan: Improve blood pressure with very minimal vasopressin drip. (4) Hyperkalemia Is this a current diagnosis for this admission?: Yes Plan: Dialysis today. (5) Anemia in chronic kidney disease (CKD) Is this a current diagnosis for this admission?: Yes Plan: Retacrit during dialysis as needed. - Time Time with patient: 15-25 minutes
[2020-07-27] MEDS: DEXTROSE 5%-WATER 250 ML with VASOPRESSIN 100 UNIT IV PRN ×2 (17:52)
[2020-07-27] MEDS: FAMOTIDINE INJ/PF 20 MG/2 ML SDV IV SCH (17:53)
[2020-07-27] MEDS ORDERED: HYDROXYZINE HCL 10 MG TABLET PO PRN (17:59)
--- NOTE | 2020-07-27 19:43 | PDOC PROGRESS REPORT ---
Subjective Date:: 07/27/20 Subjective:: Extubated, alert, responsive, appears confused at times, failed a swallowing carmen dy post extubation Reason For Visit: HYPOXIC RESPIRATORY FAILURE, NEEDS DIALYSIS, Physical Exam Vital Signs: Temp Pulse Resp BP Pulse Ox 99.1 F 118 H 27 H 172/134 H 96 07/27/20 16:00 07/27/20 18:00 07/27/20 18:00 07/27/20 18:00 07/27/20 18:00 Intake & Output 07/26/20 07/27/20 07/28/20 06:59 06:59 06:59 Intake Total 3975 1880 311 Output Total 1994 5 555 Balance 1979 1875 -244 Weight 121.3 kg 122.8 kg General appearance: PRESENT: mild distress, obese Respiratory exam: PRESENT: clear to auscultation zander Cardiovascular exam: PRESENT: RRR GI/Abdominal exam: PRESENT: distended, hypoactive bowel sounds, soft, other - Midline incision clean, dry, intact; lower abdominal Manohar drain filled with serosanguineous fluid Results Laboratory Results: 07/27/20 08:17 07/27/20 03:23 07/25/20 07/26/20 07/26/20 14:05 21:25 21:25 WBC 5.8 RBC 2.33 L Hgb 7.8 L Hct 23.1 L MCV 100 H MCH 33.5 H MCHC 33.7 RDW 14.7 H Plt Count 285 Seg Neutrophils % Not Reportable Carbonic Acid 1.21 HCO3/H2CO3 Ratio 22:1 ABG pH 7.46 H ABG pCO2 40.2 ABG pO2 69.0 L ABG HCO3 27.8 H ABG O2 Saturation 94.7 ABG Base Excess 3.6 FiO2 50% Sodium Potassium Chloride Carbon Dioxide Anion Gap BUN Creatinine Est GFR ( Amer) Glucose Calcium Magnesium Blood Type A POSITIVE Antibody Screen NEGATIVE 07/26/20 07/27/20 07/27/20 21:25 03:23 08:17 WBC 4.9 RBC 2.37 L Hgb 8.0 L Hct 23.2 L MCV 98 H MCH 33.8 H MCHC 34.6 RDW 15.8 H Plt Count 228 Seg Neutrophils % Not Reportable Carbonic Acid HCO3/H2CO3 Ratio ABG pH ABG pCO2 ABG pO2 ABG HCO3 ABG O2 Saturation ABG Base Excess FiO2 Sodium 134.4 L 135.3 L Potassium 5.9 H 6.0 H* Chloride 88 L 89 L Carbon Dioxide 29 29 Anion Gap 17 17 BUN 59 H D 65 H Creatinine 9.35 H 10.20 H Est GFR ( Amer) 7 L 6 L Glucose 134 H 142 H Calcium 7.5 L 7.1 L Magnesium 2.1 Blood Type Antibody Screen Impressions: Abdomen/Pelvis CT 07/25/20 10:23 IMPRESSION: Small bowel infarction secondary to incarcerated hernia at the umbilicus and proximal dilatation of small bowel loops. Gas in the SMV and portal venous system in the liver. Guidance Fluoroscopy 07/26/20 00:00 IMPRESSION: IMAGE(S) OBTAINED DURING PROCEDURE. Chest X-Ray 07/26/20 09:40 IMPRESSION: Interval placement of an endotracheal tube and left large-bore central venous catheter. Tubes and lines in good position. Trace bilateral pleural effusions. Assessment & Plan - Diagnosis (1) Strangulated umbilical hernia Is this a current diagnosis for this admission?: Yes (2) ESRD on peritoneal dialysis Is this a current diagnosis for this admission?: Yes (3) Small bowel obstruction with strangulation or infarction Is this a current diagnosis for this admission?: Yes (4) Hypertension Qualifiers: Is this a current diagnosis for this admission?: Yes - Time Anticipated Discharge Disposition: Home with Home Health Anticipated Discharge Timeframe: When patient became stable for discharge - Plan Summary Plan Summary: Assessment: Postoperative day #2 following repair of a strangulated umbilical hernia Patient currently extubated Patient confused and has failed a swallowing study process condition Monitor urine output as the patient has end-stage renal disease Abdomen distended, midline incision clean, Manohar drain with serosanguineous fluid Patient is being dialyzed today as per the nephrology service Plan: No acute general surgery issues identified As soon as the patient is able to swallow, sips of clears and diet will be resumed Other management as per nephrology and ICU team Continue IV antibiotics Continue Manohar drain monitoring
[2020-07-27 23:38] LABS: ALBUMIN 3.5 g/dL (3.5-5.0); ALKALINE PHOSPHATASE 60 U/L (38-126); ANION GAP 15 (5-19); ASPARTATE AMINO TRANSFERASE 78 U/L (17-59); BILIRUBIN,DIRECT 0.5 mg/dL (0.0-0.4); BILIRUBIN,TOTAL 0.6 mg/dL (0.2-1.3); CALCIUM 8.9 mg/dL (8.4-10.2); CARBON DIOXIDE 28 mmol/L (22-30); CHLORIDE 92 mmol/L (98-107); GLUCOSE 118 mg/dL (75-110); TOTAL PROTEIN 6.8 g/dL (6.3-8.2)
--- NOTE | 2020-07-27 23:40 | RADIOLOGY REPORT (SQ) ---
EXAM DESCRIPTION: Site: CHEST SINGLE VIEW RP: XR CHEST 1 VIEW CLINICAL HISTORY: 70 years Male; central line placement ; FINDINGS: Since yesterday, endotracheal tube and enteric tube have been removed. Left subclavian line remains in place, tip in the SVC. Right IJ line tip is in the upper SVC. This is higher than on prior exam. Lungs are unchanged. No pneumothorax or pleural effusion. IMPRESSION: Extubated. Lines as described. No pneumothorax.
--- NOTE | 2020-07-27 23:51 | Operative Report ---
Bedside Procedure - History of Present Illness Indication for Procedure: sepsis with shock requiring pressors Date: 07/27/20 Provider: ALEJANDRO COHEN - Central Line Right Internal jugular Time completed: 23:35 Consent obtained: Yes Central line pre-insertion: Sterile PPE donned, Chloraprep applied, Sterile drapes applied Central line size (Fr.): 7 Central line lumen type: Triple Anesthetic type: 1% Lidocaine mL's of anesthesia: 8 Ultrasound guided: Yes - sterile probe cover used Line secured with sutures: Yes Central line post-insertion: Blood return from lumens, Biopatch applied, Sutured, Sterile dressing applied, Position confirmed w/ CXR Number of attempts: 1 Complications: No Notes: 07/27/20 23:47 removed old central line as nurse was unable to flush or draw blood from lumens. Chest xray obtained central line was extracted from original insertion markings and had kinked off. I removed the line and reinserted a new line without difficulty.
[2020-07-27 23:52] LABS: BLOOD UREA NITROGEN 43 mg/dL (7-20); POTASSIUM 4.4 mmol/L (3.6-5.0)
[2020-07-27 23:55] LABS: HEMATOCRIT 25.4 % (37.9-51.0); HEMOGLOBIN 8.8 g/dL (13.5-17.0); MEAN CORPUSCULAR HGB CONC 34.9 g/dL (32.0-36.0); MEAN CORPUSCULAR VOLUME 97 fl (80-97); PLATELET COUNT 252 10^3/uL (150-450); RED CELL DISTRIBUTION WIDTH 15.9 % (11.5-14.0); WHITE BLOOD COUNT 6.6 10^3/uL (4.0-10.5)
[2020-07-28 00:05] LABS: ABSOLUTE MONOCYTES # (MANUAL) 0.5 10^3/uL (0.1-1.4); BAND NEUTROPHILS % (MANUAL) 1 % (3-5); BASOPHILS % (MANUAL) 0 % (0-2); EOSINOPHILS % (MANUAL) 0 % (0-6); LYMPHOCYTES % (MANUAL) 0 % (13-45); MONOCYTES % (MANUAL) 8 % (3-13); SEGMENTED NEUTROPHILS % (MAN) 91 % (42-78); TOTAL CELLS COUNTED 100
[2020-07-28 00:06] LABS: ANISOCYTOSIS SLIGHT; PLATELET COMMENT ADEQUATE
--- NOTE | 2020-07-28 00:15 | RADIOLOGY REPORT (SQ) ---
EXAM DESCRIPTION: XR CHEST 1 VIEW COMPLETED DATE/TME: 07/27/2020 23:51 CLINICAL HISTORY: line placement COMPARISON: 07/26/2020 FINDINGS: Single frontal view of the chest. Tubes and lines: Leads overlie the chest. Right IJ central venous catheter with tip in the SVC. Left subclavian temporary hemodialysis catheter with tip in the high right atrium. Cardiomediastinal silhouette: Stable Lungs: Low lung volumes. Patchy left perihilar and left basilar opacities are stable. Possible small bilateral pleural effusions. No pneumothorax. Bones: Stable. Upper abdomen: Stable. IMPRESSION: 1. Stable appearance of the chest. Electronically signed by: Haris Sparks 07/27/2020 11:14
[2020-07-28] MEDS: ACETAMINOPHEN 500 MG/50 ML IV SCH ×5 (00:23→18:17)
[2020-07-28] MEDS ORDERED: NORMAL SALINE 1000 ML 1,000 ML IV PRN (05:00)
[2020-07-28] MEDS ORDERED: HEPARIN SOD (PORCINE) 1,000 UNIT/ML 10 ML VIAL IV PRN (05:00)
[2020-07-28] MEDS ORDERED: EPOETIN ALFA-EPBX 2,000 UNIT, EPOETIN ALFA-EPBX 3,000 UNIT, EPOETIN ALFA-EPBX 20,000 UN... IV PRN ×4 (05:00)
[2020-07-28 05:16] LABS: HEMATOCRIT 24.1 % (37.9-51.0); HEMOGLOBIN 8.3 g/dL (13.5-17.0); MEAN CORPUSCULAR HEMOGLOBIN 33.7 pg (27.0-33.4); MEAN CORPUSCULAR HGB CONC 34.5 g/dL (32.0-36.0); MEAN CORPUSCULAR VOLUME 98 fl (80-97); PLATELET COUNT 240 10^3/uL (150-450); RED BLOOD COUNT 2.46 10^6/uL (4.35-5.55); RED CELL DISTRIBUTION WIDTH 16.1 % (11.5-14.0); WHITE BLOOD COUNT 6.7 10^3/uL (4.0-10.5)
[2020-07-28 05:23] LABS: ANION GAP 18 (5-19); BLOOD UREA NITROGEN 46 mg/dL (7-20); CALCIUM 8.2 mg/dL (8.4-10.2); CARBON DIOXIDE 24 mmol/L (22-30); CHLORIDE 93 mmol/L (98-107); GLUCOSE 105 mg/dL (75-110); POTASSIUM 4.3 mmol/L (3.6-5.0)
[2020-07-28] MEDS: HYDROMORPHONE HCL INJ/PF 2 MG/ML AMPULE IV PRN ×3 (05:36→18:16)
[2020-07-28] MEDS: METRONIDAZOLE 500 MG/NS RTU 500 MG/100 ML RTUPB IV SCH ×3 (05:36→21:14)
[2020-07-28] MEDS: HEPARIN SOD (PORCINE) 5,000 UNIT/ML 1 ML VIAL SUBCUT SCH ×3 (05:36→21:13)
[2020-07-28 05:49] LABS: ABSOLUTE LYMPHOCYTES# (MANUAL) 0.2 10^3/uL (0.5-4.7); ABSOLUTE MONOCYTES # (MANUAL) 0.6 10^3/uL (0.1-1.4); ANISOCYTOSIS 1+; BASOPHILS % (MANUAL) 0 % (0-2); EOSINOPHILS % (MANUAL) 0 % (0-6); LYMPHOCYTES % (MANUAL) 3 % (13-45); MONOCYTES % (MANUAL) 9 % (3-13); NUCLEATED RED BLOOD CELLS 1 /100 WBC (0); PLATELET COMMENT ADEQUATE; SEGMENTED NEUTROPHILS % (MAN) 88 % (42-78); TOTAL CELLS COUNTED 100; TOXIC GRANULATION SLIGHT; TOXIC VACUOLATION PRESENT
--- NOTE | 2020-07-28 08:17 | PDOC PROGRESS REPORT ---
Subjective Date:: 07/28/20 Subjective:: Patient is sleepy while he is undergoing hemodialysis, arousable Reason For Visit: HYPOXIC RESPIRATORY FAILURE, NEEDS DIALYSIS, Physical Exam Vital Signs: Temp Pulse Resp BP Pulse Ox 98.5 F 102 H 27 H 172/134 H 96 07/28/20 03:42 07/28/20 07:54 07/27/20 18:00 07/27/20 18:00 07/27/20 18:00 Intake & Output 07/27/20 07/28/20 07/29/20 06:59 06:59 06:59 Intake Total 1880 528 Output Total 5 555 Balance 1875 - Weight 122.8 kg 124.5 kg General appearance: PRESENT: no acute distress, obese Respiratory exam: PRESENT: clear to auscultation zander Cardiovascular exam: PRESENT: RRR GI/Abdominal exam: PRESENT: hypoactive bowel sounds, soft, other - Incision clean, dry, and intact; right abdominal Manohar drain = filled with serous fluid Results Laboratory Results: 07/28/20 04:30 07/28/20 04:30 07/27/20 07/27/20 07/27/20 08:17 22:47 22:47 WBC 4.9 6.6 RBC 2.37 L 2.60 L Hgb 8.0 L 8.8 L Hct 23.2 L 25.4 L MCV 98 H 97 MCH 33.8 H 34.0 H MCHC 34.6 34.9 RDW 15.8 H 15.9 H Plt Count 228 252 Seg Neutrophils % Not Reportable Not Reportable Sodium 135.1 L Potassium 4.4 D Chloride 92 L Carbon Dioxide 28 Anion Gap 15 BUN 43 H D Creatinine 6.77 H Est GFR ( Amer) 10 L Glucose 118 H Calcium 8.9 Total Bilirubin 0.6 AST 78 H Alkaline Phosphatase 60 Total Protein 6.8 Albumin 3.5 07/28/20 07/28/20 04:30 04:30 WBC 6.7 RBC 2.46 L Hgb 8.3 L Hct 24.1 L MCV 98 H MCH 33.7 H MCHC 34.5 RDW 16.1 H Plt Count 240 Seg Neutrophils % Not Reportable Sodium 135.4 L Potassium 4.3 Chloride 93 L Carbon Dioxide 24 Anion Gap 18 BUN 46 H Creatinine 7.16 H Est GFR ( Amer) 9 L Glucose 105 Calcium 8.2 L Total Bilirubin AST Alkaline Phosphatase Total Protein Albumin Impressions: Abdomen/Pelvis CT 07/25/20 10:23 IMPRESSION: Small bowel infarction secondary to incarcerated hernia at the umbilicus and proximal dilatation of small bowel loops. Gas in the SMV and portal venous system in the liver. Guidance Fluoroscopy 07/26/20 00:00 IMPRESSION: IMAGE(S) OBTAINED DURING PROCEDURE. Chest X-Ray 07/27/20 00:00 IMPRESSION: 1. Stable appearance of the chest. Assessment & Plan - Diagnosis (1) Strangulated umbilical hernia Is this a current diagnosis for this admission?: Yes (2) ESRD on peritoneal dialysis Is this a current diagnosis for this admission?: Yes (3) Small bowel obstruction with strangulation or infarction Is this a current diagnosis for this admission?: Yes (4) Hypertension Qualifiers: Is this a current diagnosis for this admission?: Yes - Time Anticipated Discharge Disposition: Home with Home Health Anticipated Discharge Timeframe: When medically stable - Plan Summary Plan Summary: Assessment: Postoperative day #3 following repair of strangulated umbilical hernia absorbable mesh Vital signs stable patient afebrile Blood work within normal limits Abdominal physical exam unremarkable Scant output from the Manohar abdominal drain Yesterday, post extubation the patient failed a swallowing study evaluation Plan: Repeat bedside swallowing evaluation If successful, I will start patient on a clear liquid diet and advance as tolerated
[2020-07-28] MEDS: CIPROFLOXACIN 400 MG/D5W RTU 400 MG/200 ML RTUPB IV SCH (09:55)
[2020-07-28] MEDS: FLUTICASONE NASAL SPRAY 50 MCG/SPRY 120 SPRAY/16 GM NAREB SCH (09:55)
--- NOTE | 2020-07-28 11:33 | PDOC PROGRESS REPORT ---
Subjective Date:: 07/28/20 Reason For Visit: Patient seen on dialysis today in the ICU. Mr Reinoso is 70 old gentleman known to me with history of end-stage renal disease on peritoneal dialysis secondary to polycystic kidney disease, hypertension, hyperlipidemia, and anemia who presented to the ED with acute 1 day history of abdominal pain. CT scan was done in the ED which showed strangulated umbilical hernia with infarcted small bowel and gas in the portal vein system. Surgery was consulted and Dr. Wakefield immediately brought the patient to the operating room yesterday and he underwent umbilical herniorrhaphy with absorbable mesh. No bowel resection was done and according to Dr. Wakefield there was immediate perfusion of the bowel after herniorrhaphy. As per Dr. Wakefield, there was no evidence of infection so the PD catheter did not look compromised and so was left alone. Nevertheless the patient needs bowel rest and will not be able to do peritoneal dialysis and so the patient was scheduled for PermCath which was performed by Dr. Randle. Postoperatively the patient was actually admitted in the regular floor on BiPAP but towards the morning he has increased oxygen requirement. After the PermCath the patient continues to be intubated and he was hypotensive so he was transferred to intensive care unit. Today, I am seeing the patient during dialysis in the intensive care unit. He was extubated yesterday and is hypotensive on 2 pressors including Levophed and vasopressin.Patient is rather sleepy and lethargic but easily arousable and denies any new complaints. Labs and medications were reviewed and dialysis orders were reviewed with the treating dialysis nurse. Physical Exam Vital Signs: Temp Pulse Resp BP Pulse Ox 97.2 F 105 H 19 151/77 H 97 07/28/20 09:02 07/28/20 10:00 07/28/20 10:00 07/28/20 10:00 07/28/20 10:00 Intake & Output 07/27/20 07/28/20 07/29/20 06:59 06:59 06:59 Intake Total 0357 713 8501 Output Total 5 189 1345 Balance 1875 173 -345 Weight 122.8 kg 124.5 kg General appearance: PRESENT: no acute distress Respiratory exam: PRESENT: clear to auscultation zander, decreased breath sounds. ABSENT: crackles Cardiovascular exam: PRESENT: +S1, +S2 Extremities exam: PRESENT: pedal edema Neurological exam: PRESENT: altered Skin exam: ABSENT: erythema, mottled, rash Results Laboratory Results: 07/28/20 04:30 07/28/20 04:30 07/27/20 07/27/20 07/28/20 22:47 22:47 04:30 WBC 6.6 RBC 2.60 L Hgb 8.8 L Hct 25.4 L MCV 97 MCH 34.0 H MCHC 34.9 RDW 15.9 H Plt Count 252 Seg Neutrophils % Not Reportable Sodium 135.1 L 135.4 L Potassium 4.4 D 4.3 Chloride 92 L 93 L Carbon Dioxide 28 24 Anion Gap 15 18 BUN 43 H D 46 H Creatinine 6.77 H 7.16 H Est GFR ( Amer) 10 L 9 L Glucose 118 H 105 Calcium 8.9 8.2 L Total Bilirubin 0.6 AST 78 H Alkaline Phosphatase 60 Total Protein 6.8 Albumin 3.5 07/28/20 04:30 WBC 6.7 RBC 2.46 L Hgb 8.3 L Hct 24.1 L MCV 98 H MCH 33.7 H MCHC 34.5 RDW 16.1 H Plt Count 240 Seg Neutrophils % Not Reportable Sodium Potassium Chloride Carbon Dioxide Anion Gap BUN Creatinine Est GFR ( Amer) Glucose Calcium Total Bilirubin AST Alkaline Phosphatase Total Protein Albumin Impressions: Abdomen/Pelvis CT 07/25/20 10:23 IMPRESSION: Small bowel infarction secondary to incarcerated hernia at the umbilicus and proximal dilatation of small bowel loops. Gas in the SMV and portal venous system in the liver. Guidance Fluoroscopy 07/26/20 00:00 IMPRESSION: IMAGE(S) OBTAINED DURING PROCEDURE. Chest X-Ray 07/27/20 00:00 IMPRESSION: 1. Stable appearance of the chest. 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 Currently on pressor agents. Hemodynamically stable. (2) Incarcerated umbilical hernia Is this a current diagnosis for this admission?: Yes Plan: Status post surgery with no untoward complications. Being managed by surgery. (3) End stage renal disease Is this a current diagnosis for this admission?: Yes Plan: Patient initially on peritoneal dialysis but was converted to back up hemodialysis through a permacath for now given his recent abdominal surgery. PD catheter left behind for later usage. Patient currently being dialyzed. Plan no fluid removal/minimal. Dialysis orders were reviewed with the treating dialysis nurse. (4) Hyperkalemia Is this a current diagnosis for this admission?: Yes Plan: Currently normokalemic. Monitor. (5) Polycystic kidney disease Plan: Status quo. (6) Anemia in chronic kidney disease (CKD) Is this a current diagnosis for this admission?: Yes Plan: Adjust erythropoietin. Monitor.
--- NOTE | 2020-07-28 15:58 | PDOC CRITICAL CARE PROG REPORT ---
General Date:: 07/28/20 ICU Day:: 2 Hospital Day:: 2 Resuscitation Status: Full Code Events in the past 12 to 24 Hours:: 07/28/20: No acute events over the past 24 hours. Patient has been weaned off of all vasoactive medications and is receiving dialysis today. Review of systems relevant to events:: ICU day: 2 Neuro: Patient is awake and alert no neurologic deficits. Pain is well controlled with Dilaudid 1 mg IV every 3 hours. We will discontinue Ativan. Pulmonary: Breathing comfortably. SPO2 remains greater than 96%. Incentive spirometry initiated. Patient was unable to get out of bed today however he was placed in upright position to avoid atelectasis and subsequent pneumonia given his recent surgery. Cardiovascular: Dynamically stable weaned off of all vasoactive medications. Heme: H/H within normal limits. Platelets normal. No signs of bleeding. DVT prophylaxis: Patient currently on heparin 5000 units subcu every 8h. Renal: BUN/creatinine remain significantly elevated. CR today: 7.16. Hemodialysis initiated. Repeat renal panel in a.m. Gastrointestinal: Status post strangulated inguinal hernia repair on 07/25/2020. He is recovering well. 30 mL of serosanguineous fluid out of CHRISTINE drain over the past 2 days. No signs of infection or bleeding from surgical site. Moderate pain controlled with Dilaudid. Incentive spirometer initiated. Plan: GI prophylaxis: Continue Pepcid 10 mg IV at bedtime. Diet: Repeat swallow study and start renal diet as indicated. ID: No current sign of infection. Continue prophylactic Flagyl and Cipro. We will speak to surgery in a.m. for recommendations to discontinue. Barriers to discharge from ICU: Patient is appropriate for transfer to floor if HD is available. Reason for ICU Addmission:: Intubated post-op and needing HD - Medications: Medications reviewed and adjusted accordingly: Yes Physical Exam Vital Signs: Temp Pulse Resp BP Pulse Ox 98.9 F 104 H 18 137/76 H 96 07/28/20 12:00 07/28/20 14:00 07/28/20 14:00 07/28/20 14:00 07/28/20 14:00 Intake & Output 07/27/20 07/28/20 07/29/20 06:59 06:59 06:59 Intake Total 7763 890 9319 Output Total 5 555 1345 Balance 1875 273 -45 Weight 122.8 kg 124.5 kg Weight/Height Weight 124.5 kg Height 6 ft 2 in General appearance: PRESENT: no acute distress Head exam: PRESENT: atraumatic Eye exam: PRESENT: EOMI, PERRLA Ear exam: PRESENT: normal external ear exam Mouth exam: PRESENT: moist Neck exam: PRESENT: full ROM. ABSENT: JVD, tenderness Respiratory exam: PRESENT: clear to auscultation zander, symmetrical, unlabored. ABSENT: accessory muscle use, rales, rhonchi, wheezes Cardiovascular exam: PRESENT: RRR, +S1, +S2 Pulses: PRESENT: +2 pedal pulses bilateral Vascular exam: PRESENT: normal capillary refill GI/Abdominal exam: PRESENT: normal bowel sounds, soft, tenderness Extremities exam: PRESENT: full ROM. ABSENT: pedal edema Musculoskeletal exam: PRESENT: full ROM Neurological exam: PRESENT: alert, altered, awake, oriented to person, oriented to place, oriented to time, oriented to situation, CN II-XII grossly intact Psychiatric exam: PRESENT: appropriate affect Skin exam: PRESENT: normal color, warm Laboratory/Radiographs Laboratory Results: 07/28/20 04:30 07/28/20 04:30 07/27/20 07/27/20 07/28/20 22:47 22:47 04:30 WBC 6.6 RBC 2.60 L Hgb 8.8 L Hct 25.4 L MCV 97 MCH 34.0 H MCHC 34.9 RDW 15.9 H Plt Count 252 Seg Neutrophils % Not Reportable Sodium 135.1 L 135.4 L Potassium 4.4 D 4.3 Chloride 92 L 93 L Carbon Dioxide 28 24 Anion Gap 15 18 BUN 43 H D 46 H Creatinine 6.77 H 7.16 H Est GFR ( Amer) 10 L 9 L Glucose 118 H 105 Calcium 8.9 8.2 L Total Bilirubin 0.6 AST 78 H Alkaline Phosphatase 60 Total Protein 6.8 Albumin 3.5 07/28/20 04:30 WBC 6.7 RBC 2.46 L Hgb 8.3 L Hct 24.1 L MCV 98 H MCH 33.7 H MCHC 34.5 RDW 16.1 H Plt Count 240 Seg Neutrophils % Not Reportable Sodium Potassium Chloride Carbon Dioxide Anion Gap BUN Creatinine Est GFR ( Amer) Glucose Calcium Total Bilirubin AST Alkaline Phosphatase Total Protein Albumin Impressions: Abdomen/Pelvis CT 07/25/20 10:23 IMPRESSION: Small bowel infarction secondary to incarcerated hernia at the umbilicus and proximal dilatation of small bowel loops. Gas in the SMV and portal venous system in the liver. Guidance Fluoroscopy 07/26/20 00:00 IMPRESSION: IMAGE(S) OBTAINED DURING PROCEDURE. Chest X-Ray 07/27/20 00:00 IMPRESSION: 1. Stable appearance of the chest. All labs, radiographs, diagnostic studies and EKGs were personally reviewed: Yes In addition, reports of radiographic and diagnostic studies were read: Yes Assessment and Plan - Diagnosis (1) Small bowel obstruction with strangulation or infarction Is this a current diagnosis for this admission?: Yes Plan: Status post hernia repair. Patient is recovering well. Out of bed to chair as tolerated Continue incentive spirometry Can start p.o. feeds if he tolerates a swallow study. (2) End stage renal disease Is this a current diagnosis for this admission?: Yes Plan: HD today. Follow-up renal panel in a.m. Critical Time Critical Time (minutes): 36 Level of Care: ICU Anticipated discharge: Home Anticipated DC Timeframe: within 72 hours -: 1. The care of a critical patient is a dynamic process. This note is a compliance representative synopsis but static in nature. The timeframe for treatments g iven in order is not necessarily the actual time these treatments may have been done. 2. This patient requires critical care secondary to ongoing requirements for therapy not offered or safe outside the critical care environment. Transfer to a lower level of care will result in altered life or limb morbidity and mortality. 3. Multidisciplinary rounds completed. 4. ABCDE bundle addressed.
[2020-07-28] MEDS: FAMOTIDINE INJ/PF 20 MG/2 ML SDV IV SCH (18:17)
[2020-07-29] MEDS ORDERED: CALCIUM CARBONATE 500 MG TAB.CHEW PO ONE (02:24)
[2020-07-29 04:27] LABS: HEMATOCRIT 24.4 % (37.9-51.0); HEMOGLOBIN 8.4 g/dL (13.5-17.0); MEAN CORPUSCULAR HEMOGLOBIN 33.5 pg (27.0-33.4); MEAN CORPUSCULAR HGB CONC 34.3 g/dL (32.0-36.0); MEAN CORPUSCULAR VOLUME 98 fl (80-97); PLATELET COUNT 239 10^3/uL (150-450); RED BLOOD COUNT 2.49 10^6/uL (4.35-5.55); RED CELL DISTRIBUTION WIDTH 15.6 % (11.5-14.0); WHITE BLOOD COUNT 7.3 10^3/uL (4.0-10.5)
[2020-07-29 04:40] LABS: ANION GAP 18 (5-19); BLOOD UREA NITROGEN 43 mg/dL (7-20); CALCIUM 8.4 mg/dL (8.4-10.2); CARBON DIOXIDE 25 mmol/L (22-30); CHLORIDE 92 mmol/L (98-107); GLUCOSE 85 mg/dL (75-110); POTASSIUM 3.9 mmol/L (3.6-5.0)
[2020-07-29 04:53] LABS: ABSOLUTE LYMPHOCYTES# (MANUAL) 0.2 10^3/uL (0.5-4.7); ABSOLUTE MONOCYTES # (MANUAL) 0.5 10^3/uL (0.1-1.4); BASOPHILS % (MANUAL) 0 % (0-2); EOSINOPHILS % (MANUAL) 3 % (0-6); LYMPHOCYTES % (MANUAL) 3 % (13-45); MONOCYTES % (MANUAL) 7 % (3-13); OVALOCYTES SLIGHT; PLATELET COMMENT ADEQUATE; POIKILOCYTOSIS SLIGHT; POLYCHROMASIA SLIGHT; SEGMENTED NEUTROPHILS % (MAN) 87 % (42-78); TOTAL CELLS COUNTED 100; TOXIC GRANULATION SLIGHT
[2020-07-29] MEDS: ACETAMINOPHEN 500 MG/50 ML IV SCH ×5 (06:11→23:05)
[2020-07-29] MEDS: HEPARIN SOD (PORCINE) 5,000 UNIT/ML 1 ML VIAL SUBCUT SCH ×3 (06:16→21:31)
[2020-07-29] MEDS: METRONIDAZOLE 500 MG/NS RTU 500 MG/100 ML RTUPB IV SCH ×3 (07:13→21:31)
[2020-07-29] MEDS: ONDANSETRON HCL INJ/PF 4 MG/2 ML SDV IV PRN (09:10)
[2020-07-29] MEDS: CIPROFLOXACIN 400 MG/D5W RTU 400 MG/200 ML RTUPB IV SCH (09:10)
[2020-07-29] MEDS: FLUTICASONE NASAL SPRAY 50 MCG/SPRY 120 SPRAY/16 GM NAREB SCH (10:41)
--- NOTE | 2020-07-29 13:29 | PDOC CRITICAL CARE PROG REPORT ---
General Date:: 07/29/20 ICU Day:: 3 Hospital Day:: 3 Resuscitation Status: Full Code Events in the past 12 to 24 Hours:: 07/28/20: No acute events over the past 24 hours. Patient has been weaned off of all vasoactive medications and is receiving dialysis today. 07/29/20: Patient had an episode of vomiting this morning. Zofran did not help his nausea. NG tube placed and several liters of fluid was removed. Patient states that he is feeling better and less nauseous however, he continues to feel weak. Review of systems relevant to events:: ICU day: 3 Neuro: Patient is awake and alert no neurologic deficits. Pain is well controlled with Dilaudid 1 mg IV every 3 hours. Pulmonary: Breathing comfortably. SPO2 remains greater than 96%. Incentive spirometry initiated. Patient was unable to get out of bed today however he was placed in upright position to avoid atelectasis and subsequent pneumonia given his recent surgery. Cardiovascular: Dynamically stable weaned off of all vasoactive medications. José Manuel donis complained of dizziness when sitting upright however he had no orthostatic hypotension. Heme: H/H within normal limits. Platelets normal. No signs of bleeding. DVT prophylaxis: Patient currently on heparin 5000 units subcu every 8h. Renal: BUN/creatinine remain significantly elevated. CR today: 4.09 Hemodialysis yesterday with some improvement in Cr. Repeat renal panel in a.m. Gastrointestinal: Status post strangulated inguinal hernia repair on 07/25/2020. He is recovering well. No signs of infection or bleeding from surgical site. Moderate pain controlled with Dilaudid. Nasogastric tube placed today due to vomiting. It seems to have provided some relief. Multiple liters of bilious drainage.` Plan: GI prophylaxis: Continue Pepcid 10 mg IV at bedtime. Diet: We will keep NPO for now given his Nausea and vomiting. ID: No current sign of infection. Continue prophylactic Flagyl and Cipro. We will speak to surgery in a.m. for recommendations to discontinue. Barriers to discharge from ICU: Patient is appropriate for transfer to floor if HD is available. Reason for ICU Addmission:: Intubated post-op and needing HD - Medications: Medications reviewed and adjusted accordingly: Yes Physical Exam Vital Signs: Temp Pulse Resp BP Pulse Ox 98.3 F 110 H 28 H 136/61 H 94 07/29/20 10:00 07/29/20 10:00 07/29/20 10:39 07/29/20 10:39 07/29/20 10:39 Intake & Output 07/28/20 07/29/20 07/30/20 06:59 06:59 06:59 Intake Total 828 1620 100 Output Total 555 1400 5 Balance 273 220 95 Weight 124.5 kg 124.1 kg Weight/Height Weight 124.1 kg Height 6 ft 2 in General appearance: PRESENT: mild distress, well-developed Head exam: PRESENT: atraumatic, normocephalic Eye exam: PRESENT: EOMI, PERRLA Ear exam: PRESENT: normal external ear exam Neck exam: PRESENT: full ROM. ABSENT: carotid bruit, JVD, lymphadenopathy Respiratory exam: PRESENT: clear to auscultation zander. ABSENT: accessory muscle use, rhonchi, wheezes Cardiovascular exam: PRESENT: RRR, +S1, +S2 Pulses: PRESENT: normal carotid pulses, +2 pedal pulses bilateral Vascular exam: PRESENT: normal capillary refill GI/Abdominal exam: PRESENT: hyperactive bowel sounds, soft, tenderness Musculoskeletal exam: PRESENT: full ROM, normal inspection Neurological exam: PRESENT: alert, altered, awake, oriented to person, oriented to place, oriented to time, oriented to situation, CN II-XII grossly intact Psychiatric exam: PRESENT: appropriate affect Skin exam: PRESENT: intact, normal color. ABSENT: skin tears Tubes/Lines: PRESENT: Nasogastic Tube Laboratory/Radiographs Laboratory Results: 07/29/20 03:30 07/29/20 03:30 07/29/20 07/29/20 03:30 03:30 WBC 7.3 RBC 2.49 L Hgb 8.4 L Hct 24.4 L MCV 98 H MCH 33.5 H MCHC 34.3 RDW 15.6 H Plt Count 239 Seg Neutrophils % Not Reportable Sodium 135.4 L Potassium 3.9 Chloride 92 L Carbon Dioxide 25 Anion Gap 18 BUN 43 H Creatinine 6.07 H Est GFR ( Amer) 11 L Glucose 85 Calcium 8.4 Impressions: Abdomen/Pelvis CT 07/25/20 10:23 IMPRESSION: Small bowel infarction secondary to incarcerated hernia at the umbilicus and proximal dilatation of small bowel loops. Gas in the SMV and portal venous system in the liver. Guidance Fluoroscopy 07/26/20 00:00 IMPRESSION: IMAGE(S) OBTAINED DURING PROCEDURE. Chest X-Ray 07/27/20 00:00 IMPRESSION: 1. Stable appearance of the chest. All labs, radiographs, diagnostic studies and EKGs were personally reviewed: Yes In addition, reports of radiographic and diagnostic studies were read: Yes Assessment and Plan - Diagnosis (1) Small bowel obstruction with strangulation or infarction Is this a current diagnosis for this admission?: Yes Plan: Status post hernia repair. Patient is recovering well. Out of bed to chair as tolerated Continue incentive spirometry Will keep NPO for now given his nausea and vomiting. (2) End stage renal disease Is this a current diagnosis for this admission?: Yes Plan: HD again tomorrow. Follow-up renal panel in a.m. Plan Summary: Patient is recovering well. We will await further instructions from surgery, however, from a critical care standpoint, patient is appropriate to transfer to a medical floor. Critical Time Critical Time (minutes): 62 Level of Care: ICU Anticipated discharge: Home Anticipated DC Timeframe: within 36 hours -: 1. The care of a critical patient is a dynamic process. This note is a practice representative synopsis but static in nature. The timeframe for treatments given in order is not necessarily the actual time these treatments may have been done. 2. This patient requires critical care secondary to ongoing requirements for therapy not offered or safe outside the critical care environment. Transfer to a lower level of care will result in altered life or limb morbidity and mortality. 3. Multidisciplinary rounds completed. 4. ABCDE bundle addressed.
[2020-07-29] MEDS ORDERED: PHARMACY COMMUNICATION ORDER MC NR (13:30)
[2020-07-29] MEDS ORDERED: HYDROXYZINE HCL 10 MG TABLET NG PRN (14:00)
[2020-07-29] MEDS: FAMOTIDINE INJ/PF 20 MG/2 ML SDV IV SCH (17:04)
--- NOTE | 2020-07-29 20:30 | PDOC PROGRESS REPORT ---
Subjective Date:: 07/29/20 Reason For Visit: HYPOXIC RESPIRATORY FAILURE, NEEDS DIALYSIS, Physical Exam Vital Signs: Temp Pulse Resp BP Pulse Ox 98.3 F 110 H 21 H 153/78 H 97 07/29/20 17:00 07/29/20 19:32 07/29/20 19:32 07/29/20 19:32 07/29/20 19:32 Intake & Output 07/28/20 07/29/20 07/30/20 06:59 06:59 06:59 Intake Total 828 1620 500 Output Total 555 1400 2325 Balance 273 220 -1825 Weight 124.5 kg 124.1 kg 124.1 kg Results Laboratory Results: 07/29/20 03:30 07/29/20 03:30 07/29/20 07/29/20 03:30 03:30 WBC 7.3 RBC 2.49 L Hgb 8.4 L Hct 24.4 L MCV 98 H MCH 33.5 H MCHC 34.3 RDW 15.6 H Plt Count 239 Seg Neutrophils % Not Reportable Sodium 135.4 L Potassium 3.9 Chloride 92 L Carbon Dioxide 25 Anion Gap 18 BUN 43 H Creatinine 6.07 H Est GFR ( Amer) 11 L Glucose 85 Calcium 8.4 Impressions: Abdomen/Pelvis CT 07/25/20 10:23 IMPRESSION: Small bowel infarction secondary to incarcerated hernia at the umbilicus and proximal dilatation of small bowel loops. Gas in the SMV and portal venous system in the liver. Guidance Fluoroscopy 07/26/20 00:00 IMPRESSION: IMAGE(S) OBTAINED DURING PROCEDURE. Chest X-Ray 07/27/20 00:00 IMPRESSION: 1. Stable appearance of the chest. Assessment & Plan - Diagnosis (1) Small bowel obstruction with strangulation or infarction Is this a current diagnosis for this admission?: Yes - Time Anticipated Discharge Disposition: Home, Self Care Anticipated Discharge Timeframe: unknown - Plan Summary Plan Summary: 70-year-old male status post repair of a strangulated ventral hernia. The patient has no complaints today. Continue with a clear liquid diet. Out of bed. Okay to transfer to floor, when okay with medical team. Surgery will follow. Ambulate. Aggressive pulmonary toilet.
[2020-07-30 03:55] LABS: HEMATOCRIT 23.9 % (37.9-51.0); MEAN CORPUSCULAR HEMOGLOBIN 32.7 pg (27.0-33.4); MEAN CORPUSCULAR HGB CONC 33.7 g/dL (32.0-36.0); MEAN CORPUSCULAR VOLUME 97 fl (80-97); RED BLOOD COUNT 2.46 10^6/uL (4.35-5.55); RED CELL DISTRIBUTION WIDTH 15.3 % (11.5-14.0)
[2020-07-30 04:12] LABS: ABSOLUTE LYMPHOCYTES# (MANUAL) 0.5 10^3/uL (0.5-4.7); ABSOLUTE MONOCYTES # (MANUAL) 0.7 10^3/uL (0.1-1.4); BASOPHILS % (MANUAL) 0 % (0-2); EOSINOPHILS % (MANUAL) 1 % (0-6); LYMPHOCYTES % (MANUAL) 5 % (13-45); MONOCYTES % (MANUAL) 8 % (3-13); SEGMENTED NEUTROPHILS % (MAN) 86 % (42-78); TOTAL CELLS COUNTED 100
[2020-07-30 04:14] LABS: ANISOCYTOSIS SLIGHT
[2020-07-30 04:15] LABS: PLATELET CLUMPS PRESENT; PLATELET COMMENT ADEQUATE; PLATELET COUNT 237 10^3/uL (150-450); POIKILOCYTOSIS SLIGHT
[2020-07-30 04:16] LABS: TOXIC GRANULATION 1+
[2020-07-30 04:20] LABS: BLOOD UREA NITROGEN 67 mg/dL (7-20); CALCIUM 8.3 mg/dL (8.4-10.2); GLUCOSE 105 mg/dL (75-110)
[2020-07-30 04:26] LABS: CARBON DIOXIDE 23 mmol/L (22-30); CHLORIDE 91 mmol/L (98-107)
[2020-07-30] MEDS ORDERED: HEPARIN SOD (PORCINE) 1,000 UNIT/ML 10 ML VIAL IV PRN (05:00)
[2020-07-30 05:13] LABS: ANION GAP 22 (5-19)
[2020-07-30] MEDS: HEPARIN SOD (PORCINE) 5,000 UNIT/ML 1 ML VIAL SUBCUT SCH ×3 (06:00→21:44)
[2020-07-30] MEDS: ACETAMINOPHEN 500 MG/50 ML IV SCH ×3 (06:00→18:11)
[2020-07-30] MEDS: METRONIDAZOLE 500 MG/NS RTU 500 MG/100 ML RTUPB IV SCH ×4 (06:01→21:43)
[2020-07-30] MEDS: EPOETIN ALFA-EPBX 20,000 UNIT in SYRINGE, DISPOSABLE, 1 EACH IV PRN (08:20)
[2020-07-30] MEDS: HYDROMORPHONE HCL INJ/PF 2 MG/ML AMPULE IV PRN (08:49)
[2020-07-30] MEDS: FLUTICASONE NASAL SPRAY 50 MCG/SPRY 120 SPRAY/16 GM NAREB SCH (10:17)
[2020-07-30] MEDS: CIPROFLOXACIN 400 MG/D5W RTU 400 MG/200 ML RTUPB IV SCH (10:18)
--- NOTE | 2020-07-30 11:38 | PDOC PROGRESS REPORT ---
Subjective Date:: 07/30/20 Reason For Visit: Patient seen in the ICU today on dialysis. He is undergoing dialysis without any issues. However patient was sleeping and easily arousable says he is not feeling so well. Still has some mild abdominal pains and also feels bloated. He is not been passing any flatus for the last many hours. At times has intermittent nausea. Labs and medications were reviewed. Dialysis orders were reviewed with the treating dialysis nurse. He had an NG tube yesterday which apparently aspirated about thousand five hundred cc of bilious fluid as per treating RN and then has been discontinued. Physical Exam Vital Signs: Temp Pulse Resp BP Pulse Ox 97.9 F 103 H 18 133/85 H 97 07/30/20 08:00 07/30/20 10:00 07/30/20 10:00 07/30/20 10:00 07/30/20 10:00 Intake & Output 07/29/20 07/30/20 07/31/20 06:59 06:59 06:59 Intake Total 1620 700 Output Total 1400 2345 653 Balance 220 -1645 -653 Weight 124.1 kg 121.2 kg General appearance: PRESENT: no acute distress, disheveled Respiratory exam: PRESENT: clear to auscultation zander, decreased breath sounds. ABSENT: crackles Cardiovascular exam: PRESENT: +S1, +S2 GI/Abdominal exam: PRESENT: distended, tenderness. ABSENT: guarding, normal bowel sounds, organomegaly Neurological exam: PRESENT: alert, awake, oriented to person, oriented to place Psychiatric exam: PRESENT: depressed Results Laboratory Results: 07/30/20 03:45 07/30/20 03:45 07/30/20 07/30/20 03:45 03:45 WBC 9.0 RBC 2.46 L Hgb 8.0 L Hct 23.9 L MCV 97 MCH 32.7 MCHC 33.7 RDW 15.3 H Plt Count 237 Seg Neutrophils % Not Reportable Sodium 136.0 L Potassium 4.0 Chloride 91 L Carbon Dioxide 23 Anion Gap 22 H BUN 67 H Creatinine 7.37 H Est GFR ( Amer) 9 L Glucose 105 Calcium 8.3 L 07/25/20 08:55 Blood Blood Culture - Final NO GROWTH IN 5 DAYS Impressions: Abdomen/Pelvis CT 07/25/20 10:23 IMPRESSION: Small bowel infarction secondary to incarcerated hernia at the umbilicus and proximal dilatation of small bowel loops. Gas in the SMV and portal venous system in the liver. Guidance Fluoroscopy 07/26/20 00:00 IMPRESSION: IMAGE(S) OBTAINED DURING PROCEDURE. Chest X-Ray 07/27/20 00:00 IMPRESSION: 1. Stable appearance of the chest. Assessment & Plan - Diagnosis (1) End stage renal disease Is this a current diagnosis for this admission?: Yes Plan: Patient initially on peritoneal dialysis but was converted to back up hemodialysis through a permacath for now given his recent abdominal surgery. PD catheter left behind for later usage. Patient currently being dialyzed. Plan 500-1 l fluid removal/minimal. Dialysis orders were reviewed with the treating dialysis nurse. (2) Hypotension Is this a current diagnosis for this admission?: Yes Plan: Being managed by [employer]. Currently off pressor agents. Hemodynamically stable. (3) Incarcerated umbilical hernia Is this a current diagnosis for this admission?: Yes Plan: Status post surgery with no untoward complications. Being managed by surgery.Currently however his abdomen looks rather soft-firm with distention and altered bowel sounds.? Ileus. Potassium was 4.0. Discussed with treating nurse. (4) Polycystic kidney disease Plan: Status quo. (5) Anemia in chronic kidney disease (CKD) Is this a current diagnosis for this admission?: Yes Plan: Adjust erythropoietin. Monitor.
--- NOTE | 2020-07-30 13:09 | PDOC PROGRESS REPORT ---
Subjective Date:: 07/30/20 Reason For Visit: HYPOXIC RESPIRATORY FAILURE, NEEDS DIALYSIS, Physical Exam Vital Signs: Temp Pulse Resp BP Pulse Ox 97.9 F 103 H 20 140/90 H 96 07/30/20 10:00 07/30/20 10:00 07/30/20 11:35 07/30/20 12:05 07/30/20 12:05 Intake & Output 07/29/20 07/30/20 07/31/20 06:59 06:59 06:59 Intake Total 1620 700 Output Total 1400 2345 653 Balance 220 -1645 -653 Weight 124.1 kg 121.2 kg Results Laboratory Results: 07/30/20 03:45 07/30/20 03:45 07/30/20 07/30/20 03:45 03:45 WBC 9.0 RBC 2.46 L Hgb 8.0 L Hct 23.9 L MCV 97 MCH 32.7 MCHC 33.7 RDW 15.3 H Plt Count 237 Seg Neutrophils % Not Reportable Sodium 136.0 L Potassium 4.0 Chloride 91 L Carbon Dioxide 23 Anion Gap 22 H BUN 67 H Creatinine 7.37 H Est GFR ( Amer) 9 L Glucose 105 Calcium 8.3 L 07/25/20 08:55 Blood Blood Culture - Final NO GROWTH IN 5 DAYS Impressions: Abdomen/Pelvis CT 07/25/20 10:23 IMPRESSION: Small bowel infarction secondary to incarcerated hernia at the umbilicus and proximal dilatation of small bowel loops. Gas in the SMV and portal venous system in the liver. Guidance Fluoroscopy 07/26/20 00:00 IMPRESSION: IMAGE(S) OBTAINED DURING PROCEDURE. Chest X-Ray 07/27/20 00:00 IMPRESSION: 1. Stable appearance of the chest. Assessment & Plan - Diagnosis (1) Small bowel obstruction with strangulation or infarction Is this a current diagnosis for this admission?: Yes - Time Anticipated Discharge Disposition: unknown Anticipated Discharge Timeframe: unknown - Plan Summary Plan Summary: 70-year-old male status post repair of a strangulated ventral hernia. The patient has no complaints today. He is not yet passed flatus. Continue with a clear liquid diet for now. Out of bed. Transfer to floor. Surgery will follow. Continue Dale catheter. Ambulate. Aggressive pulmonary toilet.
--- NOTE | 2020-07-30 17:57 | PDOC CRITICAL CARE PROG REPORT ---
General Date:: 07/30/20 ICU Day:: 4 Hospital Day:: 4 Resuscitation Status: Full Code Events in the past 12 to 24 Hours:: 07/28/20: No acute events over the past 24 hours. Patient has been weaned off of all vasoactive medications and is receiving dialysis today. 07/29/20: Patient had an episode of vomiting this morning. Zofran did not help his nausea. NG tube placed and several liters of fluid was removed. Patient states that he is feeling better and less nauseous however, he continues to feel weak. 07/30/2020: Patient's nausea and vomiting have subsided today. He has not required replacement of NG tube. Patient is appropriate for transfer to hospitalist care. Review of systems relevant to events:: ICU day: 4 Neuro: Patient is awake and alert no neurologic deficits. Pain is well controlled with Dilaudid 1 mg IV every 3 hours. Pulmonary: Breathing comfortably. SPO2 remains greater than 96%. Incentive spirometry initiated and encouraged. Patient still has difficulty at times with dizziness when sitting at the side of the bed. We have therefore not gotten him out of bed today. Cardiovascular: Dynamically stable weaned off of all vasoactive medications. Patient complained of dizziness when sitting upright however he had no orthostatic hypotension. Heme: H/H within normal limits. Platelets normal. No signs of bleeding. DVT prophylaxis: Patient currently on heparin 5000 units subcu every 8h. Renal: BUN/creatinine remain significantly elevated. CR today: 7.37. Hemodialysis today. Repeat renal panel in a.m. Gastrointestinal: Status post strangulated inguinal hernia repair on 07/25/2020. He is recovering well. No signs of infection or bleeding from surgical site. Moderate pain controlled with Dilaudid. No vomiting today. Plan: GI prophylaxis: Continue Pepcid 10 mg IV at bedtime. Diet: We will follow surgical recommendations for p.o. feeding. ID: No current sign of infection. Continue prophylactic Flagyl and Cipro. Barriers to discharge from ICU: Patient appropriate for transfer out of ICU. Report given to hospitalist. Reason for ICU Addmission:: Intubated post-op and needing HD - Medications: Medications reviewed and adjusted accordingly: Yes Physical Exam Vital Signs: Temp Pulse Resp BP Pulse Ox 97.9 F 103 H 20 149/80 H 96 07/30/20 10:00 07/30/20 10:00 07/30/20 11:35 07/30/20 14:05 07/30/20 14:05 Intake & Output 07/29/20 07/30/20 07/31/20 06:59 06:59 06:59 Intake Total 1620 700 350 Output Total 1400 4549 653 Balance 220 -7366 -303 Weight 124.1 kg 121.2 kg Weight/Height Weight 121.2 kg Height 6 ft 1 in General appearance: PRESENT: no acute distress Head exam: PRESENT: atraumatic, normocephalic Eye exam: PRESENT: EOMI, PERRLA Ear exam: PRESENT: normal external ear exam Mouth exam: PRESENT: moist Neck exam: PRESENT: full ROM. ABSENT: JVD, lymphadenopathy, tenderness Respiratory exam: PRESENT: clear to auscultation zander, symmetrical, unlabored. ABSENT: accessory muscle use, rhonchi, tachypnea, wheezes Cardiovascular exam: PRESENT: RRR Pulses: PRESENT: normal radial pulses, normal femoral pulses, +1 pedal pulses bilateral Vascular exam: PRESENT: normal capillary refill GI/Abdominal exam: PRESENT: normal bowel sounds, soft Extremities exam: PRESENT: full ROM, +1 edema Musculoskeletal exam: PRESENT: full ROM, normal inspection Neurological exam: PRESENT: alert, altered, awake, oriented to person, oriented to place, oriented to time, oriented to situation, CN II-XII grossly intact Psychiatric exam: PRESENT: appropriate affect, normal mood Laboratory/Radiographs Laboratory Results: 07/30/20 03:45 07/30/20 03:45 07/30/20 07/30/20 03:45 03:45 WBC 9.0 RBC 2.46 L Hgb 8.0 L Hct 23.9 L MCV 97 MCH 32.7 MCHC 33.7 RDW 15.3 H Plt Count 237 Seg Neutrophils % Not Reportable Sodium 136.0 L Potassium 4.0 Chloride 91 L Carbon Dioxide 23 Anion Gap 22 H BUN 67 H Creatinine 7.37 H Est GFR ( Amer) 9 L Glucose 105 Calcium 8.3 L 07/25/20 13:02 Blood Blood Culture - Final NO GROWTH IN 5 DAYS 07/25/20 08:55 Blood Blood Culture - Final NO GROWTH IN 5 DAYS Impressions: Abdomen/Pelvis CT 07/25/20 10:23 IMPRESSION: Small bowel infarction secondary to incarcerated hernia at the umbilicus and proximal dilatation of small bowel loops. Gas in the SMV and portal venous system in the liver. Guidance Fluoroscopy 07/26/20 00:00 IMPRESSION: IMAGE(S) OBTAINED DURING PROCEDURE. Chest X-Ray 07/27/20 00:00 IMPRESSION: 1. Stable appearance of the chest. All labs, radiographs, diagnostic studies and EKGs were personally reviewed: Yes In addition, reports of radiographic and diagnostic studies were read: Yes Assessment and Plan - Diagnosis (1) Small bowel obstruction with strangulation or infarction Is this a current diagnosis for this admission?: Yes Plan: Status post hernia repair. Patient is recovering well. Out of bed to chair as tolerated Continue incentive spirometry Follow surgical recommendations for feeding. (2) End stage renal disease Is this a current diagnosis for this admission?: Yes Plan: Chronic renal failure. Converted from peritoneal dialysis in the past to hemodialysis. HD today. Follow-up renal panel in a.m. Critical Time Critical Time (minutes): 36 Level of Care: ICU Anticipated discharge: Home Anticipated DC Timeframe: within 36 hours -: 1. The care of a critical patient is a dynamic process. This note is a employee representative synopsis but static in nature. The timeframe for treatments given in order is not necessarily the actual time these treatments may have been done. 2. This patient requires critical care secondary to ongoing requirements for therapy not offered or safe outside the critical care environment. Transfer to a lower level of care will result in altered life or limb morbidity and mortality. 3. Multidisciplinary rounds completed. 4. ABCDE bundle addressed.
[2020-07-30] MEDS: FAMOTIDINE INJ/PF 20 MG/2 ML SDV IV SCH (18:10)
[2020-07-31 06:06] LABS: HEMATOCRIT 24.2 % (37.9-51.0); HEMOGLOBIN 8.1 g/dL (13.5-17.0); MEAN CORPUSCULAR HEMOGLOBIN 32.6 pg (27.0-33.4); MEAN CORPUSCULAR HGB CONC 33.4 g/dL (32.0-36.0); MEAN CORPUSCULAR VOLUME 98 fl (80-97); PLATELET COUNT 245 10^3/uL (150-450); RED BLOOD COUNT 2.48 10^6/uL (4.35-5.55); RED CELL DISTRIBUTION WIDTH 15.9 % (11.5-14.0); WHITE BLOOD COUNT 10.2 10^3/uL (4.0-10.5)
[2020-07-31] MEDS: ACETAMINOPHEN 500 MG/50 ML IV SCH ×4 (06:17→17:45)
[2020-07-31] MEDS: METRONIDAZOLE 500 MG/NS RTU 500 MG/100 ML RTUPB IV SCH ×3 (06:18→21:57)
[2020-07-31] MEDS: HEPARIN SOD (PORCINE) 5,000 UNIT/ML 1 ML VIAL SUBCUT SCH ×3 (06:18→21:56)
[2020-07-31 06:26] LABS: ANION GAP 16 (5-19); BLOOD UREA NITROGEN 48 mg/dL (7-20); CALCIUM 7.5 mg/dL (8.4-10.2); CARBON DIOXIDE 22 mmol/L (22-30); CHLORIDE 100 mmol/L (98-107); GLUCOSE 91 mg/dL (75-110); POTASSIUM 3.5 mmol/L (3.6-5.0)
[2020-07-31 06:53] LABS: ABSOLUTE LYMPHOCYTES# (MANUAL) 1.4 10^3/uL (0.5-4.7); ABSOLUTE MONOCYTES # (MANUAL) 0.5 10^3/uL (0.1-1.4); BAND NEUTROPHILS % (MANUAL) 2 % (3-5); BASOPHILS % (MANUAL) 0 % (0-2); EOSINOPHILS % (MANUAL) 2 % (0-6); LYMPHOCYTES % (MANUAL) 14 % (13-45); MONOCYTES % (MANUAL) 5 % (3-13); SEGMENTED NEUTROPHILS % (MAN) 77 % (42-78); TOTAL CELLS COUNTED 100
[2020-07-31 06:55] LABS: ANISOCYTOSIS SLIGHT; OVALOCYTES SLIGHT
[2020-07-31 06:56] LABS: PLATELET COMMENT ADEQUATE; POLYCHROMASIA SLIGHT; TEAR DROP CELLS SLIGHT
[2020-07-31] MEDS: CIPROFLOXACIN 400 MG/D5W RTU 400 MG/200 ML RTUPB IV SCH (09:32)
[2020-07-31] MEDS: FLUTICASONE NASAL SPRAY 50 MCG/SPRY 120 SPRAY/16 GM NAREB SCH (09:32)
--- NOTE | 2020-07-31 11:45 | PDOC PROGRESS REPORT ---
Subjective Date:: 07/31/20 Subjective:: Nasogastric tube has been put back in. Green bilious output at this time. Viki ent is complaining of dizziness. It occurs more with change of position. Reason For Visit: HYPOXIC RESPIRATORY FAILURE, NEEDS DIALYSIS, Physical Exam Vital Signs: Temp Pulse Resp BP Pulse Ox 98.9 F 103 H 18 149/71 H 98 07/31/20 10:00 07/30/20 20:08 07/30/20 20:08 07/30/20 20:08 07/30/20 20:08 Intake & Output 07/30/20 07/31/20 08/01/20 06:59 06:59 06:59 Intake Total 700 600 300 Output Total 2345 1453 700 Balance -0645 -833 -400 Weight 121.2 kg 121.6 kg General appearance: PRESENT: cooperative, mild distress Head exam: PRESENT: atraumatic, normocephalic Eye exam: PRESENT: conjunctiva pale. ABSENT: scleral icterus Ear exam: PRESENT: normal external ear exam. ABSENT: bleeding, drainage Mouth exam: PRESENT: other - Nasogastric tube in place Respiratory exam: PRESENT: clear to auscultation zander - Above the abdominal binder. ABSENT: rales, rhonchi, tachypnea, wheezes Cardiovascular exam: PRESENT: RRR, +S1, +S2. ABSENT: bradycardia, diastolic murmur, irregular rhythm, systolic murmur, tachycardia GI/Abdominal exam: PRESENT: hypoactive bowel sounds, other - Abdominal binder in place Rectal exam: PRESENT: deferred Neurological exam: PRESENT: alert, awake, oriented to person, oriented to place, oriented to time, oriented to situation Psychiatric exam: ABSENT: agitated, anxious Results Laboratory Results: 07/31/20 05:35 07/31/20 05:35 07/31/20 07/31/20 05:35 05:35 WBC 10.2 RBC 2.48 L Hgb 8.1 L Hct 24.2 L MCV 98 H MCH 32.6 MCHC 33.4 RDW 15.9 H Plt Count 245 Seg Neutrophils % Not Reportable Sodium 138.4 Potassium 3.5 L Chloride 100 Carbon Dioxide 22 Anion Gap 16 BUN 48 H Creatinine 5.42 H Est GFR ( Amer) 13 L Glucose 91 Calcium 7.5 L 07/25/20 13:02 Blood Blood Culture - Final NO GROWTH IN 5 DAYS 07/25/20 08:55 Blood Blood Culture - Final NO GROWTH IN 5 DAYS Impressions: Abdomen/Pelvis CT 07/25/20 10:23 IMPRESSION: Small bowel infarction secondary to incarcerated hernia at the umbilicus and proximal dilatation of small bowel loops. Gas in the SMV and portal venous system in the liver. Guidance Fluoroscopy 07/26/20 00:00 IMPRESSION: IMAGE(S) OBTAINED DURING PROCEDURE. Chest X-Ray 07/27/20 00:00 IMPRESSION: 1. Stable appearance of the chest. Assessment and Plan - Diagnosis (1) Ileus, postoperative Is this a current diagnosis for this admission?: Yes Plan: Postop day 6. Patient states that nasogastric tube was briefly out but he developed nausea and vomiting and it was placed back in. NG tube in place. Monitoring output. Hypoactive bowel sounds today. (2) Strangulated umbilical hernia Is this a current diagnosis for this admission?: Yes Plan: Surgical repair completed. (3) ESRD on hemodialysis Is this a current diagnosis for this admission?: Yes Plan: Management per nephrology (4) Anemia in chronic kidney disease (CKD) Qualifiers: Chronic kidney disease stage: on chronic dialysis Qualified Code(s): N18.6 - End stage renal disease; D63.1 - Anemia in chronic kidney disease; Z99.2 - Dependence on renal dialysis Is this a current diagnosis for this admission?: Yes Plan: Continue to monitor CBC (5) Hyperkalemia Is this a current diagnosis for this admission?: Yes Plan: Address with dialysis (6) Hypertension Qualifiers: Hypertension type: essential hypertension Is this a current diagnosis for this admission?: Yes Plan: Patient complains of significant lightheadedness. He is not exhibiting extremely high blood pressure. He may be dry intravascularly. I will give 1 L of fluid gently and monitor. Check orthostatic vitals. (7) Polycystic kidney disease Is this a current diagnosis for this admission?: Yes - Time Time Spent with patient: 15-24 minutes Medications reviewed and adjusted accordingly: Yes Anticipated Discharge Disposition: Home with Home Health Anticipated Discharge Timeframe: Unknown
--- NOTE | 2020-07-31 13:05 | PDOC PROGRESS REPORT ---
Subjective Date:: 07/31/20 Subjective:: weak, dizzy when gets up Reason For Visit: HYPOXIC RESPIRATORY FAILURE, NEEDS DIALYSIS, Physical Exam Vital Signs: Temp Pulse Resp BP Pulse Ox 97.5 F 112 H 18 134/66 H 96 07/31/20 11:43 07/31/20 12:04 07/31/20 11:43 07/31/20 12:04 07/31/20 12:15 Intake & Output 07/30/20 07/31/20 08/01/20 06:59 06:59 06:59 Intake Total 700 600 350 Output Total 2345 1453 700 Balance -1645 -853 -350 Weight 121.2 kg 121.6 kg General appearance: PRESENT: obese Head exam: PRESENT: normocephalic Eye exam: PRESENT: EOMI Mouth exam: PRESENT: moist Neck exam: PRESENT: full ROM Respiratory exam: PRESENT: decreased breath sounds, tachypnea Cardiovascular exam: PRESENT: RRR Pulses: PRESENT: normal radial pulses, normal femoral pulses Vascular exam: PRESENT: normal capillary refill GI/Abdominal exam: PRESENT: soft, other - wound clean Rectal exam: PRESENT: deferred Extremities exam: PRESENT: full ROM Neurological exam: PRESENT: alert, awake, oriented to person, oriented to place Psychiatric exam: PRESENT: appropriate affect Skin exam: PRESENT: dry Results Laboratory Results: 07/31/20 05:35 07/31/20 05:35 07/31/20 07/31/20 05:35 05:35 WBC 10.2 RBC 2.48 L Hgb 8.1 L Hct 24.2 L MCV 98 H MCH 32.6 MCHC 33.4 RDW 15.9 H Plt Count 245 Seg Neutrophils % Not Reportable Sodium 138.4 Potassium 3.5 L Chloride 100 Carbon Dioxide 22 Anion Gap 16 BUN 48 H Creatinine 5.42 H Est GFR ( Amer) 13 L Glucose 91 Calcium 7.5 L 07/25/20 13:02 Blood Blood Culture - Final NO GROWTH IN 5 DAYS 07/25/20 08:55 Blood Blood Culture - Final NO GROWTH IN 5 DAYS Impressions: Abdomen/Pelvis CT 07/25/20 10:23 IMPRESSION: Small bowel infarction secondary to incarcerated hernia at the umbilicus and proximal dilatation of small bowel loops. Gas in the SMV and portal venous system in the liver. Guidance Fluoroscopy 07/26/20 00:00 IMPRESSION: IMAGE(S) OBTAINED DURING PROCEDURE. Chest X-Ray 07/27/20 00:00 IMPRESSION: 1. Stable appearance of the chest. Assessment & Plan - Time Anticipated Discharge Disposition: unk Anticipated Discharge Timeframe: unk - Plan Summary Plan Summary: impression, s/p ventral hernia repair due to strangulation doing ok still no flatus or stool has ng in place getting hemodialysis recommed, increasing activity cont ng for now
[2020-07-31] MEDS: FAMOTIDINE INJ/PF 20 MG/2 ML SDV IV SCH (17:42)
[2020-07-31] MEDS ORDERED: RINGERS SOLUTION,LACTATED 1,000 ML IV PRN (19:48)
[2020-08-01] MEDS: ACETAMINOPHEN 500 MG/50 ML IV SCH ×2 (00:15→06:06)
[2020-08-01] MEDS: METRONIDAZOLE 500 MG/NS RTU 500 MG/100 ML RTUPB IV SCH ×2 (05:01→13:07)
[2020-08-01] MEDS: HEPARIN SOD (PORCINE) 5,000 UNIT/ML 1 ML VIAL SUBCUT SCH ×3 (05:01→21:39)
[2020-08-01 07:54] LABS: HEMATOCRIT 25.5 % (37.9-51.0); HEMOGLOBIN 8.7 g/dL (13.5-17.0); MEAN CORPUSCULAR HEMOGLOBIN 32.9 pg (27.0-33.4); MEAN CORPUSCULAR HGB CONC 34.1 g/dL (32.0-36.0); MEAN CORPUSCULAR VOLUME 97 fl (80-97); PLATELET COUNT 272 10^3/uL (150-450); RED BLOOD COUNT 2.63 10^6/uL (4.35-5.55); RED CELL DISTRIBUTION WIDTH 15.4 % (11.5-14.0); WHITE BLOOD COUNT 10.9 10^3/uL (4.0-10.5)
[2020-08-01 07:54] LABS: ALBUMIN 2.9 g/dL (3.5-5.0); BLOOD UREA NITROGEN 71 mg/dL (7-20); CALCIUM 8.7 mg/dL (8.4-10.2); CARBON DIOXIDE 25 mmol/L (22-30); CHLORIDE 90 mmol/L (98-107); GLUCOSE 113 mg/dL (75-110); PHOSPHORUS 9.1 mg/dL (2.5-4.5); POTASSIUM 4.1 mmol/L (3.6-5.0)
[2020-08-01 07:57] LABS: ANION GAP 21 (5-19)
--- NOTE | 2020-08-01 08:05 | PDOC PROGRESS REPORT ---
Subjective Date:: 08/01/20 Reason For Visit: HYPOXIC RESPIRATORY FAILURE, NEEDS DIALYSIS, Physical Exam Vital Signs: Temp Pulse Resp BP Pulse Ox 98.1 F 104 H 18 122/74 96 08/01/20 03:43 08/01/20 03:43 08/01/20 03:43 08/01/20 03:43 08/01/20 03:43 Intake & Output 07/31/20 08/01/20 08/02/20 06:59 06:59 06:59 Intake Total 600 2216 Output Total 1453 4100 Balance -853 -1884 Weight 121.6 kg 122.7 kg General appearance: PRESENT: mild distress Head exam: PRESENT: normocephalic Eye exam: PRESENT: EOMI Ear exam: PRESENT: normal external ear exam Mouth exam: PRESENT: moist Teeth exam: PRESENT: poor dentation Neck exam: PRESENT: full ROM Respiratory exam: PRESENT: clear to auscultation zander Cardiovascular exam: PRESENT: RRR Pulses: PRESENT: normal radial pulses, normal femoral pulses Breast: PRESENT: Normal GI/Abdominal exam: PRESENT: soft, other - no sig abd pain Rectal exam: PRESENT: deferred Extremities exam: PRESENT: full ROM Musculoskeletal exam: PRESENT: full ROM Neurological exam: PRESENT: alert, awake, oriented to person, oriented to place Skin exam: PRESENT: dry Results Laboratory Results: 08/01/20 06:50 08/01/20 06:50 Sodium 135.9 L Potassium 4.1 Chloride 90 L Carbon Dioxide 25 Anion Gap 21 H BUN 71 H Creatinine 7.91 H Est GFR ( Amer) 8 L Glucose 113 H Calcium 8.7 Phosphorus 9.1 H Albumin 2.9 L Impressions: Abdomen/Pelvis CT 07/25/20 10:23 IMPRESSION: Small bowel infarction secondary to incarcerated hernia at the umbilicus and proximal dilatation of small bowel loops. Gas in the SMV and portal venous system in the liver. Guidance Fluoroscopy 07/26/20 00:00 IMPRESSION: IMAGE(S) OBTAINED DURING PROCEDURE. Chest X-Ray 07/27/20 00:00 IMPRESSION: 1. Stable appearance of the chest. Assessment & Plan - Time Anticipated Discharge Disposition: Home, Self Care Anticipated Discharge Timeframe: unk - Plan Summary Plan Summary: s/p incarcerated umbilical hernia renal failure on dialysis pt has been unable to get out of bed since his surgery has not had any return of bowel function still [facility] ng tube with high output, 2600 yesterday will try physical therapy. dulcolax supp today
[2020-08-01] MEDS ORDERED: BISACODYL 10 MG SUPP.RECT PR ONE ×2 (08:06→11:00)
[2020-08-01] MEDS: CIPROFLOXACIN 400 MG/D5W RTU 400 MG/200 ML RTUPB IV SCH (09:10)
[2020-08-01] MEDS ORDERED: NORMAL SALINE 500 ML IV ONE (11:15)
[2020-08-01] MEDS: FLUTICASONE NASAL SPRAY 50 MCG/SPRY 120 SPRAY/16 GM NAREB SCH (11:17)
--- NOTE | 2020-08-01 13:33 | PDOC PROGRESS REPORT ---
Subjective Date:: 08/01/20 Subjective:: The patient is currently taking clear liquids. He is passing gas but no stool. Physical therapy got him up today he became quite orthostatic. This is despite 1 L of fluid last night. He still feels quite weak. Reason For Visit: HYPOXIC RESPIRATORY FAILURE, NEEDS DIALYSIS, Physical Exam Vital Signs: Temp Pulse Resp BP Pulse Ox 98.0 F 106 H 18 118/63 91 L 08/01/20 11:33 08/01/20 11:33 08/01/20 11:33 08/01/20 11:33 08/01/20 11:33 Intake & Output 07/31/20 08/01/20 08/02/20 06:59 06:59 06:59 Intake Total 600 2216 1750 Output Total 1453 4100 0 Balance -853 -1884 1750 Weight 121.6 kg 122.7 kg General appearance: PRESENT: cooperative, mild distress, well-developed Head exam: PRESENT: atraumatic, normocephalic, other - Nasogastric tube still in place Respiratory exam: PRESENT: decreased breath sounds - at bases, symmetrical, unlabored. ABSENT: prolonged expiratory phas, rales, rhonchi, tachypnea, wheezes Cardiovascular exam: PRESENT: RRR, +S1, +S2. ABSENT: bradycardia, diastolic murmur, irregular rhythm, systolic murmur, tachycardia GI/Abdominal exam: PRESENT: hypoactive bowel sounds, soft, tenderness Rectal exam: PRESENT: deferred Neurological exam: PRESENT: alert, awake, oriented to person, oriented to place, oriented to situation, CN II-XII grossly intact Psychiatric exam: PRESENT: flat affect. ABSENT: agitated, anxious Focused psych exam: ABSENT: delusional, paranoid, restlessness Results Laboratory Results: 08/01/20 07:20 08/01/20 06:50 08/01/20 08/01/20 06:50 07:20 WBC 10.9 H RBC 2.63 L Hgb 8.7 L Hct 25.5 L MCV 97 MCH 32.9 MCHC 34.1 RDW 15.4 H Plt Count 272 Sodium 135.9 L Potassium 4.1 Chloride 90 L Carbon Dioxide 25 Anion Gap 21 H BUN 71 H Creatinine 7.91 H Est GFR ( Amer) 8 L Glucose 113 H Calcium 8.7 Phosphorus 9.1 H Albumin 2.9 L Impressions: Abdomen/Pelvis CT 07/25/20 10:23 IMPRESSION: Small bowel infarction secondary to incarcerated hernia at the umbilicus and proximal dilatation of small bowel loops. Gas in the SMV and portal venous system in the liver. Guidance Fluoroscopy 07/26/20 00:00 IMPRESSION: IMAGE(S) OBTAINED DURING PROCEDURE. Chest X-Ray 07/27/20 00:00 IMPRESSION: 1. Stable appearance of the chest. Assessment and Plan - Diagnosis (1) Ileus, postoperative Is this a current diagnosis for this admission?: Yes Plan: Postop day 6. Patient states that nasogastric tube was briefly out but he developed nausea and vomiting and it was placed back in. NG tube in place. Monitoring output. Hypoactive bowel sounds today. 08/01/2020-tolerating clear liquids. Positive for flatus but no bowel movement. (2) Strangulated umbilical hernia Is this a current diagnosis for this admission?: Yes Plan: Surgical repair completed. Postop care per surgery service (3) ESRD on hemodialysis Is this a current diagnosis for this admission?: Yes Plan: Management per nephrology 08/01/2020-BUN and creatinine are 71 and 7.91 today. Serum potassium is normal. With his orthostasis I am giving intermittent boluses of fluid. He is oliguric and in fact anuric over the last 2 days and this could be related to low volume. He is due for dialysis tomorrow. (4) Anemia in chronic kidney disease (CKD) Qualifiers: Chronic kidney disease stage: on chronic dialysis Qualified Code(s): N18.6 - End stage renal disease; D63.1 - Anemia in chronic kidney disease; Z99.2 - Dependence on renal dialysis Is this a current diagnosis for this admission?: Yes Plan: Continue to monitor CBC 08/01/2020-hemoglobin is 8.7 today. Continue to monitor. (5) Hyperkalemia Is this a current diagnosis for this admission?: Yes Plan: Address with dialysis 08/01/2020-his potassium in fact is normal at 4.1. Continue to monitor. (6) Hypertension Qualifiers: Hypertension type: essential hypertension Qualified Code(s): I10 - [facility] l (primary) hypertension Is this a current diagnosis for this admission?: Yes Plan: Patient complains of significant lightheadedness. He is not exhibiting extremely high blood pressure. He may be dry intravascularly. I will give 1 L of fluid gently and monitor. Check orthostatic vitals. 08/01/2020-positive orthostatic changes. Boluses of fluid as above. Holding any antihypertensive medications. (7) Polycystic kidney disease Is this a current diagnosis for this admission?: Yes - Time Time Spent with patient: 15-24 minutes Medications reviewed and adjusted accordingly: Yes Anticipated Discharge Disposition: Home with Home Health Anticipated Discharge Timeframe: Unknown
[2020-08-01] MEDS: FAMOTIDINE INJ/PF 20 MG/2 ML SDV IV SCH (17:18)
[2020-08-01] MEDS ORDERED: EPOETIN ALFA-EPBX 20,000 UNIT in SYRINGE, DISPOSABLE, 1 EACH IV PRN (17:20)
[2020-08-02] MEDS: NORMAL SALINE INJ/PF 0.9% 10 ML SDV IV PRN ×3 (01:59→22:51)
[2020-08-02] MEDS ORDERED: HEPARIN SOD (PORCINE) 1,000 UNIT/ML 10 ML VIAL IV PRN (05:00)
[2020-08-02] MEDS: HEPARIN SOD (PORCINE) 5,000 UNIT/ML 1 ML VIAL SUBCUT SCH ×3 (06:23→22:51)
[2020-08-02 06:52] LABS: HEMATOCRIT 26.5 % (37.9-51.0); HEMOGLOBIN 9.2 g/dL (13.5-17.0); MEAN CORPUSCULAR HGB CONC 34.6 g/dL (32.0-36.0); MEAN CORPUSCULAR VOLUME 95 fl (80-97); RED BLOOD COUNT 2.78 10^6/uL (4.35-5.55); RED CELL DISTRIBUTION WIDTH 15.3 % (11.5-14.0)
[2020-08-02 07:15] LABS: ABSOLUTE LYMPHOCYTES# (MANUAL) 0.6 10^3/uL (0.5-4.7); ABSOLUTE MONOCYTES # (MANUAL) 0.4 10^3/uL (0.1-1.4); BASOPHILS % (MANUAL) 1 % (0-2); EOSINOPHILS % (MANUAL) 0 % (0-6); LYMPHOCYTES % (MANUAL) 6 % (13-45); MONOCYTES % (MANUAL) 4 % (3-13); NUCLEATED RED BLOOD CELLS 3 /100 WBC (0); SEGMENTED NEUTROPHILS % (MAN) 89 % (42-78); TOTAL CELLS COUNTED 100
[2020-08-02 07:17] LABS: ANISOCYTOSIS SLIGHT; PLATELET CLUMPS PRESENT; PLATELET COMMENT ADEQUATE; POLYCHROMASIA SLIGHT
[2020-08-02 07:18] LABS: PLATELET COUNT 315 10^3/uL (150-450)
[2020-08-02 08:53] LABS: ALKALINE PHOSPHATASE 134 U/L (38-126); ASPARTATE AMINO TRANSFERASE 25 U/L (17-59); BLOOD UREA NITROGEN 85 mg/dL (7-20); CALCIUM 8.7 mg/dL (8.4-10.2); CARBON DIOXIDE 25 mmol/L (22-30); GLUCOSE 123 mg/dL (75-110); POTASSIUM 3.9 mmol/L (3.6-5.0); TOTAL PROTEIN 5.4 g/dL (6.3-8.2)
[2020-08-02 08:59] LABS: CHLORIDE 86 mmol/L (98-107)
[2020-08-02 09:02] LABS: ANION GAP 24 (5-19)
[2020-08-02] MEDS: EPOETIN ALFA-EPBX 20,000 UNIT in SYRINGE, DISPOSABLE, 1 EACH IV PRN (09:04)
[2020-08-02] MEDS: ONDANSETRON HCL INJ/PF 4 MG/2 ML SDV IV PRN (09:17)
--- NOTE | 2020-08-02 13:02 | PDOC PROGRESS REPORT ---
Subjective Date:: 08/02/20 Subjective:: The patient's biggest problem today are the intractable hiccups. He has returned from dialysis and reports that they did not remove any significant amount of fluid. Reason For Visit: HYPOXIC RESPIRATORY FAILURE, NEEDS DIALYSIS, Physical Exam Vital Signs: Temp Pulse Resp BP Pulse Ox 98.4 F 112 H 17 146/67 H 73 L 08/02/20 03:13 08/02/20 07:00 08/02/20 03:13 08/02/20 03:13 08/02/20 03:13 Intake & Output 08/01/20 08/02/20 08/03/20 06:59 06:59 06:59 Intake Total 2216 2780 440 Output Total 4100 4200 540 Balance -1884 -1420 -100 Weight 122.7 kg 119.9 kg General appearance: PRESENT: cooperative, well-developed, other - moderate distress due to hiccups Head exam: PRESENT: atraumatic, normocephalic Ear exam: PRESENT: normal external ear exam. ABSENT: bleeding, drainage Mouth exam: PRESENT: moist, tongue midline, other - Nasogastric tube in place Respiratory exam: PRESENT: clear to auscultation zander - anteriorly, symmetrical, unlabored. ABSENT: rales, rhonchi, tachypnea, wheezes Cardiovascular exam: PRESENT: RRR, +S1, +S2. ABSENT: bradycardia, diastolic murmur, irregular rhythm, systolic murmur, tachycardia GI/Abdominal exam: PRESENT: hypoactive bowel sounds, soft, tenderness Extremities exam: PRESENT: pedal edema - Trace Neurological exam: PRESENT: alert, awake, oriented to person, oriented to place, oriented to time, oriented to situation, CN II-XII grossly intact. ABSENT: altered Psychiatric exam: PRESENT: appropriate affect. ABSENT: agitated, anxious Focused psych exam: ABSENT: delusional, paranoid, restlessness Results Laboratory Results: 08/02/20 06:00 08/02/20 05:30 08/02/20 08/02/20 05:30 06:00 WBC 10.0 RBC 2.78 L Hgb 9.2 L Hct 26.5 L MCV 95 MCH 33.0 MCHC 34.6 RDW 15.3 H Plt Count 315 Seg Neutrophils % Not Reportable Sodium 134.5 L Potassium 3.9 Chloride 86 L Carbon Dioxide 25 Anion Gap 24 H BUN 85 H Creatinine 9.47 H Est GFR ( Amer) 7 L Glucose 123 H Calcium 8.7 Total Bilirubin 1.0 AST 25 Alkaline Phosphatase 134 H Total Protein 5.4 L Albumin 3.0 L Impressions: Abdomen/Pelvis CT 07/25/20 10:23 IMPRESSION: Small bowel infarction secondary to incarcerated hernia at the umbilicus and proximal dilatation of small bowel loops. Gas in the SMV and portal venous system in the liver. Guidance Fluoroscopy 07/26/20 00:00 IMPRESSION: IMAGE(S) OBTAINED DURING PROCEDURE. Chest X-Ray 07/27/20 00:00 IMPRESSION: 1. Stable appearance of the chest. Assessment and Plan - Diagnosis (1) Ileus, postoperative Is this a current diagnosis for this admission?: Yes Plan: Postop day 6. Patient states that nasogastric tube was briefly out but he developed nausea and vomiting and it was placed back in. NG tube in place. Monitoring output. Hypoactive bowel sounds today. 08/01/2020-tolerating clear liquids. Positive for flatus but no bowel movement. 08/02/2020-patient reports bowel movement today. Remains on a clear liquid diet. (2) Strangulated umbilical hernia Is this a current diagnosis for this admission?: Yes Plan: Surgical repair completed. Postop care per surgery service (3) ESRD on hemodialysis Is this a current diagnosis for this admission?: Yes Plan: Management per nephrology 08/01/2020-BUN and creatinine are 71 and 7.91 today. Serum potassium is normal. With his orthostasis I am giving intermittent boluses of fluid. He is oliguric and in fact anuric over the last 2 days and this could be related to low volume. He is due for dialysis tomorrow. 08/02/2020-patient dialyzed today. Minimal fluid removal. (4) Anemia in chronic kidney disease (CKD) Qualifiers: Chronic kidney disease stage: on chronic dialysis Qualified Code(s): N18.6 - End stage renal disease; D63.1 - Anemia in chronic kidney disease; Z99.2 - Dependence on renal dialysis Is this a current diagnosis for this admission?: Yes Plan: Continue to monitor CBC 08/01/2020-hemoglobin is 8.7 today. Continue to monitor. 08/02/2020-hemoglobin improving slowly. 9.2 today. (5) Hyperkalemia Is this a current diagnosis for this admission?: Yes Plan: Address with dialysis 08/01/2020-his potassium in fact is normal at 4.1. Continue to monitor. 08/02/2020-potassium normal again at 3.9 (6) Hypertension Qualifiers: Hypertension type: essential hypertension Qualified Code(s): I10 - Essential (primary) hypertension Is this a current diagnosis for this admission?: Yes Plan: Patient complains of significant lightheadedness. He is not exhibiting extremely high blood pressure. He may be dry intravascularly. I will give 1 L of fluid gently and monitor. Check orthostatic vitals. 08/01/2020-positive orthostatic changes. Boluses of fluid as above. Holding any antihypertensive medications. 08/02/2020-resting blood pressures are better. Patient still reports lightheadedness with any change in position. Patient dialyzed today but no significant fluid removal. Continue to monitor. Patient may still need small boluses of fluid. (7) Polycystic kidney disease Is this a current diagnosis for this admission?: Yes Plan: Stable (8) Intractable hiccups Is this a current diagnosis for this admission?: Yes Plan: 08/02/2020-today his hiccups are worse than any of the day. I will start scheduled Thorazine at 25 mg p.o. every 8 hours. If no improvement will increase to every 6 hours. If no improvement will increase to 50 mg doses. - Time Time Spent with patient: 15-24 minutes Medications reviewed and adjusted accordingly: Yes Anticipated Discharge Disposition: Unknown Anticipated Discharge Timeframe: Unknown
[2020-08-02] MEDS: FLUTICASONE NASAL SPRAY 50 MCG/SPRY 120 SPRAY/16 GM NAREB SCH (13:37)
[2020-08-02] MEDS: CHLORPROMAZINE HCL 25 MG TABLET PO SCH ×2 (13:50→22:51)
--- NOTE | 2020-08-02 15:42 | PDOC PROGRESS REPORT ---
Subjective Date:: 08/02/20 Reason For Visit: HYPOXIC RESPIRATORY FAILURE, NEEDS DIALYSIS, Patient examined on dialysis. Having hiccuping and nausea. Physical Exam Vital Signs: Temp Pulse Resp BP Pulse Ox 97.8 F 120 H 18 124/58 L 95 08/02/20 12:01 08/02/20 12:01 08/02/20 12:01 08/02/20 12:01 08/02/20 12:01 Intake & Output 08/01/20 08/02/20 08/03/20 06:59 06:59 06:59 Intake Total 2216 2780 440 Output Total 4100 4200 540 Balance -1884 -1420 -100 Weight 122.7 kg 119.9 kg 119.9 kg General appearance: PRESENT: other - Mild distress, arouses, follows commands GI/Abdominal exam: PRESENT: tenderness, other - And examined. No peritoneal signs or rigidity. Operative drain removed. Tenckhoff catheter site in good condition. Results Laboratory Results: 08/02/20 06:00 08/02/20 05:30 08/02/20 08/02/20 05:30 06:00 WBC 10.0 RBC 2.78 L Hgb 9.2 L Hct 26.5 L MCV 95 MCH 33.0 MCHC 34.6 RDW 15.3 H Plt Count 315 Seg Neutrophils % Not Reportable Sodium 134.5 L Potassium 3.9 Chloride 86 L Carbon Dioxide 25 Anion Gap 24 H BUN 85 H Creatinine 9.47 H Est GFR ( Amer) 7 L Glucose 123 H Calcium 8.7 Total Bilirubin 1.0 AST 25 Alkaline Phosphatase 134 H Total Protein 5.4 L Albumin 3.0 L Impressions: Abdomen/Pelvis CT 07/25/20 10:23 IMPRESSION: Small bowel infarction secondary to incarcerated hernia at the umbilicus and proximal dilatation of small bowel loops. Gas in the SMV and portal venous system in the liver. Guidance Fluoroscopy 07/26/20 00:00 IMPRESSION: IMAGE(S) OBTAINED DURING PROCEDURE. Chest X-Ray 07/27/20 00:00 IMPRESSION: 1. Stable appearance of the chest. Assessment & Plan - Diagnosis (1) Incarcerated umbilical hernia Is this a current diagnosis for this admission?: Yes Plan: Impression: Patient 9 days status post umbilical hernia repair with mesh, drain out. Complete return of bowel function, presumed ileus, with nasogastric decompression. No formal diagnostic evaluation performed thus far Recommendations: 1. Continue nasogastric tube decompression 2. If patient not improved by tomorrow, will consider CT scan of abdomen and pelvis to rule out occult intra-abdominal pathology. - Time Anticipated Discharge Disposition: [facility] Facility Anticipated Discharge Timeframe: within 48 hours Critical Time spent with patient: Less than 15 minutes Smoking Cessation Education: 3 to 10 minutes
--- NOTE | 2020-08-02 16:08 | PDOC PROGRESS REPORT ---
Subjective Date:: 08/02/20 Reason For Visit: Patient has been transferred from the ICU to the fifth floor and therefore was seen on the fourth floor dialysis unit. He is undergoing dialysis currently without any issues. Having intermittent nausea and persistent hiccups. He denies any history of severe abdominal pains or vomiting. He had been decompressed with an NG tube for the last couple of days. Labs and medications were reviewed. Dialysis orders were reviewed with the treating dialysis nurse. Physical Exam Vital Signs: Temp Pulse Resp BP Pulse Ox 97.8 F 120 H 18 124/58 L 95 08/02/20 12:01 08/02/20 12:01 08/02/20 12:01 08/02/20 12:01 08/02/20 12:01 Intake & Output 08/01/20 08/02/20 08/03/20 06:59 06:59 06:59 Intake Total 2216 2780 440 Output Total 4100 4200 540 Balance -1884 -1420 -100 Weight 122.7 kg 119.9 kg 119.9 kg General appearance: PRESENT: no acute distress Respiratory exam: PRESENT: clear to auscultation zander, decreased breath sounds. ABSENT: crackles Cardiovascular exam: PRESENT: +S1, +S2 GI/Abdominal exam: PRESENT: distended, tenderness. ABSENT: guarding, normal bowel sounds, organomegaly Extremities exam: ABSENT: joint swelling, pedal edema Neurological exam: PRESENT: alert, awake, oriented to person Psychiatric exam: PRESENT: appropriate affect Results Laboratory Results: 08/02/20 06:00 08/02/20 05:30 08/02/20 08/02/20 05:30 06:00 WBC 10.0 RBC 2.78 L Hgb 9.2 L Hct 26.5 L MCV 95 MCH 33.0 MCHC 34.6 RDW 15.3 H Plt Count 315 Seg Neutrophils % Not Reportable Sodium 134.5 L Potassium 3.9 Chloride 86 L Carbon Dioxide 25 Anion Gap 24 H BUN 85 H Creatinine 9.47 H Est GFR ( Amer) 7 L Glucose 123 H Calcium 8.7 Total Bilirubin 1.0 AST 25 Alkaline Phosphatase 134 H Total Protein 5.4 L Albumin 3.0 L Impressions: Abdomen/Pelvis CT 07/25/20 10:23 IMPRESSION: Small bowel infarction secondary to incarcerated hernia at the umbilicus and proximal dilatation of small bowel loops. Gas in the SMV and portal venous system in the liver. Guidance Fluoroscopy 07/26/20 00:00 IMPRESSION: IMAGE(S) OBTAINED DURING PROCEDURE. Chest X-Ray 07/27/20 00:00 IMPRESSION: 1. Stable appearance of the chest. Assessment & Plan - Diagnosis (1) End stage renal disease Is this a current diagnosis for this admission?: Yes Plan: Patient initially on peritoneal dialysis but was converted to back up hemodialysis through a permacath for now given his recent abdominal surgery. PD catheter left behind for later usage. Patient currently being dialyzed. Plan 500-1 l fluid removal/minimal. Dialysis orders were reviewed with the treating dialysis nurse. (2) Hypotension Is this a current diagnosis for this admission?: Yes Plan: Resolved. (3) Incarcerated umbilical hernia Is this a current diagnosis for this admission?: Yes Plan: Status post surgery with no untoward complications. Being managed by surgery. Looks like the patient had possible ileus and he has been decompressed with NG tube with success. (4) Polycystic kidney disease Is this a current diagnosis for this admission?: Yes Plan: Status quo. (5) Anemia in chronic kidney disease (CKD) Qualifiers: Chronic kidney disease stage: on chronic dialysis Qualified Code(s): N18.6 - End stage renal disease; D63.1 - Anemia in chronic kidney disease; Z99.2 - Dependence on renal dialysis Is this a current diagnosis for this admission?: Yes Plan: Adjust erythropoietin. Monitor.
[2020-08-02] MEDS: FAMOTIDINE INJ/PF 20 MG/2 ML SDV IV SCH (18:45)
[2020-08-02] MEDS ORDERED: NORMAL SALINE 500 ML IV ONE (22:30)
[2020-08-03] MEDS: NORMAL SALINE INJ/PF 0.9% 10 ML SDV IV PRN ×2 (06:20→23:42)
[2020-08-03] MEDS: HEPARIN SOD (PORCINE) 5,000 UNIT/ML 1 ML VIAL SUBCUT SCH ×3 (06:20→23:42)
[2020-08-03] MEDS: CHLORPROMAZINE HCL 25 MG TABLET PO SCH (06:20)
--- NOTE | 2020-08-03 09:13 | PDOC PROGRESS REPORT ---
Subjective Date:: 08/03/20 Subjective:: Had a bowel movement over the weekend. Passing gas. Patient has NG tube to suction and has been taking clear liquids with resultant suctioning of the clear liquids out the NG tube. Reason For Visit: HYPOXIC RESPIRATORY FAILURE, NEEDS DIALYSIS, Physical Exam Vital Signs: Temp Pulse Resp BP Pulse Ox 97.8 F 114 H 20 93/64 L 97 08/03/20 03:33 08/03/20 03:33 08/03/20 03:33 08/03/20 03:33 08/03/20 03:33 Intake & Output 08/02/20 08/03/20 08/04/20 06:59 06:59 06:59 Intake Total 2780 940 Output Total 4200 1490 Balance -1420 -550 Weight 119.9 kg 119.2 kg General appearance: PRESENT: no acute distress, cooperative Respiratory exam: PRESENT: clear to auscultation zander Cardiovascular exam: PRESENT: tachycardia GI/Abdominal exam: PRESENT: other - Soft, nondistended, tenderness to palpation in the left upper quadrant without peritoneal signs. Transverse abdominal wound is clean dry and intact with no erythema and no drainage. His drain has been pulled. He has a PD catheter in place. There is active bowel sounds. Extremities exam: PRESENT: other - No swelling and no tenderness. Results Laboratory Results: 08/02/20 06:00 08/02/20 05:30 Impressions: Abdomen/Pelvis CT 07/25/20 10:23 IMPRESSION: Small bowel infarction secondary to incarcerated hernia at the umbilicus and proximal dilatation of small bowel loops. Gas in the SMV and portal venous system in the liver. Guidance Fluoroscopy 07/26/20 00:00 IMPRESSION: IMAGE(S) OBTAINED DURING PROCEDURE. Chest X-Ray 07/27/20 00:00 IMPRESSION: 1. Stable appearance of the chest. Assessment & Plan - Diagnosis (1) Ileus, postoperative Is this a current diagnosis for this admission?: Yes Plan: Appears to have resolved but with his tenderness in the left abdomen along with mild tachycardia, will obtain abdominal pelvic CT scan with oral contrast prior to pulling his NG tube. - Time Anticipated Discharge Disposition: Home with Home Health Anticipated Discharge Timeframe: within 72 hours
[2020-08-03] MEDS ORDERED: RINGERS SOLUTION,LACTATED 1,000 ML IV ONE (12:26)
[2020-08-03] MEDS: FLUTICASONE NASAL SPRAY 50 MCG/SPRY 120 SPRAY/16 GM NAREB SCH (12:30)
--- NOTE | 2020-08-03 12:32 | PDOC PROGRESS REPORT ---
Subjective Date:: 08/03/20 Subjective:: Patient looks washed out. Reviewed intake and output and still with a marked ne gative fluid balance. Preparing for a CT scan with oral contrast. Reason For Visit: HYPOXIC RESPIRATORY FAILURE, NEEDS DIALYSIS, Physical Exam Vital Signs: Temp Pulse Resp BP Pulse Ox 97.5 F 112 H 20 110/58 L 91 L 08/03/20 08:17 08/03/20 08:17 08/03/20 08:17 08/03/20 08:17 08/03/20 08:17 Intake & Output 08/02/20 08/03/20 08/04/20 06:59 06:59 06:59 Intake Total 2780 940 Output Total 4200 1490 Balance -1420 -550 Weight 119.9 kg 119.2 kg General appearance: PRESENT: cooperative, well-developed, other - Moderate distress Head exam: PRESENT: atraumatic, normocephalic Ear exam: PRESENT: normal external ear exam. ABSENT: bleeding, drainage Mouth exam: PRESENT: dry mucosa, tongue midline Respiratory exam: PRESENT: clear to auscultation zander, symmetrical, unlabored. ABSENT: rales, rhonchi, tachypnea, wheezes Cardiovascular exam: PRESENT: RRR, +S1, +S2, tachycardia. ABSENT: bradycardia, diastolic murmur, irregular rhythm, systolic murmur GI/Abdominal exam: PRESENT: hypoactive bowel sounds, soft Neurological exam: PRESENT: alert, awake, oriented to person, oriented to place, oriented to time, oriented to situation, CN II-XII grossly intact Psychiatric exam: PRESENT: flat affect. ABSENT: agitated, anxious Results Laboratory Results: 08/02/20 06:00 08/02/20 05:30 Impressions: Abdomen/Pelvis CT 07/25/20 10:23 IMPRESSION: Small bowel infarction secondary to incarcerated hernia at the umbilicus and proximal dilatation of small bowel loops. Gas in the SMV and portal venous system in the liver. Guidance Fluoroscopy 07/26/20 00:00 IMPRESSION: IMAGE(S) OBTAINED DURING PROCEDURE. Chest X-Ray 07/27/20 00:00 IMPRESSION: 1. Stable appearance of the chest. Assessment and Plan - Diagnosis (1) Ileus, postoperative Is this a current diagnosis for this admission?: Yes Plan: Appears to have resolved but with his tenderness in the left abdomen along with mild tachycardia, will obtain abdominal pelvic CT scan with oral contrast prior to pulling his NG tube. (2) Strangulated umbilical hernia Is this a current diagnosis for this admission?: Yes Plan: Surgical repair completed. Postop care per surgery service (3) ESRD on hemodialysis Is this a current diagnosis for this admission?: Yes Plan: Management per nephrology 08/01/2020-BUN and creatinine are 71 and 7.91 today. Serum potassium is normal. With his orthostasis I am giving intermittent boluses of fluid. He is oliguric and in fact anuric over the last 2 days and this could be related to low volume. He is due for dialysis tomorrow. 08/02/2020-patient dialyzed today. Minimal fluid removal. 08/03/2020-still with negative fluid balance. Therefore will give 1 L of LR bolus. Trying to neutralize orthostasis so that patient can begin getting out of bed. (4) Anemia in chronic kidney disease (CKD) Qualifiers: Chronic kidney disease stage: on chronic dialysis Qualified Code(s): N18.6 - End stage renal disease; D63.1 - Anemia in chronic kidney disease; Z99.2 - Dependence on renal dialysis Is this a current diagnosis for this admission?: Yes Plan: Continue to monitor CBC 08/01/2020-hemoglobin is 8.7 today. Continue to monitor. 08/02/2020-hemoglobin improving slowly. 9.2 today. 08/03/2020-recheck labs tomorrow (5) Hyperkalemia Is this a current diagnosis for this admission?: Yes Plan: Address with dialysis 08/01/2020-his potassium in fact is normal at 4.1. Continue to monitor. 08/02/2020-potassium normal again at 3.9 08/03/2020-potassium normal yesterday. Recheck tomorrow. (6) Hypertension Qualifiers: Hypertension type: essential hypertension Qualified Code(s): I10 - Essential (primary) hypertension Is this a current diagnosis for this admission?: Yes Plan: Patient complains of significant lightheadedness. He is not exhibiting extremely high blood pressure. He may be dry intravascularly. I will give 1 L of fluid gently and monitor. Check orthostatic vitals. 08/01/2020-positive orthostatic changes. Boluses of fluid as above. Holding a ny antihypertensive medications. 08/02/2020-resting blood pressures are better. Patient still reports lightheadedness with any change in position. Patient dialyzed today but no significant fluid removal. Continue to monitor. Patient may still need small boluses of fluid. 08/03/2020-blood pressure still soft. Tachycardia likely indicates hypovolemia. (7) Polycystic kidney disease Is this a current diagnosis for this admission?: Yes Plan: Stable (8) Intractable hiccups Is this a current diagnosis for this admission?: Yes Plan: 08/02/2020-today his hiccups are worse than any of the day. I will start scheduled Thorazine at 25 mg p.o. every 8 hours. If no improvement will increase to every 6 hours. If no improvement will increase to 50 mg doses. 08/03/2020-no hiccups today. Consider stopping Thorazine. - Time Time Spent with patient: 15-24 minutes Medications reviewed and adjusted accordingly: Yes Anticipated Discharge Disposition: Unknown Anticipated Discharge Timeframe: Unknown
--- NOTE | 2020-08-03 16:56 | RADIOLOGY REPORT (SQ) ---
EXAM DESCRIPTION: CT ABD/PELVIS ORAL ONLY IMAGES COMPLETED DATE/TIME: 08/03/2020 1:48 pm REASON FOR STUDY: r/o sbo,r/o post op complication COMPARISON: 07/25/2020. TECHNIQUE: CT scan of the abdomen and pelvis performed without intravenous contrast and with oral co ntrast. Images reviewed with lung, soft tissue, and bone windows. Reconstructed coronal and sagittal MPR images reviewed. All images stored on PACS. All CT scanners at this facility use dose modulation, iterative reconstruction, and/or weight based d osing when appropriate to reduce radiation dose to as low as reasonably achievable (ALARA). [facility]: Dose Right [facility]: CareDose [facility]: Dose Right [facility]: Teradose 4D [facility]: [employer] RADIATION DOSE: mGy. LIMITATIONS: None. FINDINGS: LOWER CHEST: Linear atelectasis in the lung bases. NON-CONTRASTED LIVER, SPLEEN, ADRENALS: Evaluation limited by lack of IV contrast. No identified sign ificant masses. PANCREAS: No masses. No peripancreatic inflammatory changes. GALLBLADDER: No identified stones by CT criteria. No inflammatory changes to suggest cholecystitis. RIGHT KIDNEY AND URETER: Chronic polycystic kidney disease. Assessment limited by lack of IV contrast . No significant calcifications. No hydronephrosis or hydroureter. LEFT KIDNEY AND URETER: Chronic paucity kidney disease. Assessment limited by lack of IV contrast. No significant calcifications. No hydronephrosis or hydroureter. AORTA AND RETROPERITONEUM: No aneurysm. No retroperitoneal masses or adenopathy. BOWEL AND PERITONEAL CAVITY: Nasogastric tube, tip in the stomach. Contrast in the stomach, small jose wel, and proximal colon. Dilated proximal small bowel. Nondistended distal small bowel. No obvious masses or inflammatory changes. No free fluid. APPENDIX: Not visualized. PELVIS, BLADDER, AND ABDOMINAL WALL:Peroneal dialysis catheter, distal end in the pelvis. Small umbi lical hernia. No abnormal masses. No free fluid. Bladder normal. BONES: No significant findings. OTHER: No other significant finding. IMPRESSION: 1. NASOGASTRIC TUBE, TIP IN THE STOMACH. CONTRAST IN THE STOMACH AND THROUGHOUT THE SMALL BOWEL. DI LATED PROXIMAL SMALL BOWEL AND NONDISTENDED DISTAL SMALL BOWEL. PROBABLY PARTIAL SMALL BOWEL OBSTRUC TION. 2. SMALL UMBILICAL HERNIA, CONTAINING A SMALL AMOUNT OF GAS PRESUMED SECONDARY TO RECENT SURGERY. 3. COLONIC DIVERTICULOSIS. NO CT FINDINGS OF ACUTE DIVERTICULITIS. 4. CHRONIC POLYCYSTIC KIDNEY DISEASE. 5. PERITONEAL DIALYSIS CATHETER, DISTAL END IN THE PELVIS. 6. NO OTHER ACUTE OR SIGNIFICANT FINDINGS. COMMENT: Quality ID # [id number]: Final reports with documentation of one or more dose reduction techniques (e.g., Automated exposure control, adjustment of the mA and/or kV according to patient size, use of iterative reconstruction technique) TECHNICAL DOCUMENTATION: JOB ID: [id number] 2010 [employer]- All Rights Reserved Reading location - IP/workstation name: [email or web address]
[2020-08-03] MEDS: FAMOTIDINE INJ/PF 20 MG/2 ML SDV IV SCH (17:39)
[2020-08-03] MEDS ORDERED: ACETAMINOPHEN 325 MG TABLET PO PRN (18:09)
--- NOTE | 2020-08-03 19:53 | PDOC PROGRESS REPORT ---
Subjective Date:: 08/03/20 Subjective:: Short of breath. Bilateral lower extremity discomfort. Reason For Visit: HYPOXIC RESPIRATORY FAILURE, NEEDS DIALYSIS, Physical Exam Vital Signs: Temp Pulse Resp BP Pulse Ox 98.1 F 101 H 17 131/54 H 98 08/03/20 15:53 08/03/20 15:53 08/03/20 15:53 08/03/20 15:53 08/03/20 15:53 Intake & Output 08/02/20 08/03/20 08/04/20 06:59 06:59 06:59 Intake Total 2780 940 480 Output Total 4200 1490 Balance -1420 -550 480 Weight 119.9 kg 119.2 kg General appearance: PRESENT: cooperative Respiratory exam: PRESENT: tachypnea Cardiovascular exam: PRESENT: RRR GI/Abdominal exam: PRESENT: other - Soft, nondistended, mild left-sided abdominal tenderness. Wound clean dry and intact with no erythema. Active bowel sounds. Extremities exam: PRESENT: other - There is no swelling in the lower extremities and his calves feels soft he has palpable dorsalis pedis pulses. Results Laboratory Results: 08/02/20 06:00 08/02/20 05:30 Impressions: Guidance Fluoroscopy 07/26/20 00:00 IMPRESSION: IMAGE(S) OBTAINED DURING PROCEDURE. Chest X-Ray 07/27/20 00:00 IMPRESSION: 1. Stable appearance of the chest. Abdomen/Pelvis CT 08/03/20 00:00 IMPRESSION: 1. NASOGASTRIC TUBE, TIP IN THE STOMACH. CONTRAST IN THE STOMACH AND THROUGHOUT THE SMALL BOWEL. DILATED PROXIMAL SMALL BOWEL AND NONDISTENDED DISTAL SMALL BOWEL. PROBABLY PARTIAL SMALL BOWEL OBSTRUCTION. 2. SMALL UMBILICAL HERNIA, CONTAINING A SMALL AMOUNT OF GAS PRESUMED SECONDARY TO RECENT SURGERY. 3. COLONIC DIVERTICULOSIS. NO CT FINDINGS OF ACUTE DIVERTICULITIS. 4. CHRONIC POLYCYSTIC KIDNEY DISEASE. 5. PERITONEAL DIALYSIS CATHETER, DISTAL END IN THE PELVIS. 6. NO OTHER ACUTE OR SIGNIFICANT FINDINGS. Assessment & Plan - Diagnosis (1) Ileus, postoperative Is this a current diagnosis for this admission?: Yes Plan: Appears to have resolved. There is caliber change of the small bowel noted on CT but contrast is clearly seen in the distal small bowel and I do not think it represents partial small bowel obstruction. Will clamp the NG tube overnight. If residual in the morning is low, will pull the NG and start him on a regular renal diet. (2) Tachypnea Is this a current diagnosis for this admission?: Yes Plan: Patient is short of breath. I do not hear crackles in his lungs to suggest pulmonary edema. His oxygen saturations are 98% on 2 L. He has good pulses in bilateral lower extremity and his lower extremities are not grossly edematous. Unsure of the etiology of this shortness of breath. I have asked hospitalist to reevaluate the patient. - Time Anticipated Discharge Disposition: Home, Self Care Anticipated Discharge Timeframe: within 72 hours
[2020-08-03] MEDS ORDERED: CHLORPROMAZINE HCL 25 MG TABLET PO PRN (20:10)
--- NOTE | 2020-08-03 20:19 | PDOC PROGRESS REPORT ---
Subjective Date:: 08/03/20 Subjective:: I was contacted by surgery. There is significant concern for tachycardia and the patient's overall clinical state. Was asked to reassess the patient. The patient was quite sleepy. He did have a CT scan of the abdomen earlier today. Nasogastric tube is still in place. Reason For Visit: HYPOXIC RESPIRATORY FAILURE, NEEDS DIALYSIS, Physical Exam Vital Signs: Temp Pulse Resp BP Pulse Ox 98.1 F 101 H 17 131/54 H 98 08/03/20 15:53 08/03/20 15:53 08/03/20 15:53 08/03/20 15:53 08/03/20 15:53 Intake & Output 08/02/20 08/03/20 08/04/20 06:59 06:59 06:59 Intake Total 2780 940 480 Output Total 4200 1490 Balance -1420 -550 480 Weight 119.9 kg 119.2 kg General appearance: PRESENT: other - Patient somewhat lethargic. He did open his eyes. Eyes remained open for short while and then he closes them again. Head exam: PRESENT: atraumatic, normocephalic, other - Sunken eye sockets Eye exam: PRESENT: conjunctiva pale, EOMI. ABSENT: nystagmus, scleral icterus Ear exam: PRESENT: normal external ear exam. ABSENT: bleeding, drainage Mouth exam: PRESENT: dry mucosa - Extremely dry oral mucosa, tongue midline Respiratory exam: PRESENT: clear to auscultation zander, symmetrical, unlabored. ABSENT: rales, rhonchi, tachypnea, wheezes Cardiovascular exam: PRESENT: +S1, +S2, tachycardia GI/Abdominal exam: PRESENT: normal bowel sounds, soft. ABSENT: distended, guarding, tenderness Rectal exam: PRESENT: deferred Gentrourinary exam: ABSENT: indwelling catheter Extremities exam: ABSENT: pedal edema Musculoskeletal exam: PRESENT: other - Puffy upper extremities. ABSENT: deformity, dislocation Neurological exam: PRESENT: awake, oriented to person, oriented to place, oriented to situation. ABSENT: alert - Somewhat lethargic Psychiatric exam: PRESENT: flat affect. ABSENT: agitated, anxious Focused psych exam: ABSENT: delusional, paranoid, restlessness Skin exam: PRESENT: other - Positive skin tenting Results Laboratory Results: 08/02/20 06:00 08/02/20 05:30 Impressions: Guidance Fluoroscopy 07/26/20 00:00 IMPRESSION: IMAGE(S) OBTAINED DURING PROCEDURE. Chest X-Ray 07/27/20 00:00 IMPRESSION: 1. Stable appearance of the chest. Abdomen/Pelvis CT 08/03/20 00:00 IMPRESSION: 1. NASOGASTRIC TUBE, TIP IN THE STOMACH. CONTRAST IN THE STOMACH AND THROUGHOUT THE SMALL BOWEL. DILATED PROXIMAL SMALL BOWEL AND NONDISTENDED DISTAL SMALL BOWEL. PROBABLY PARTIAL SMALL BOWEL OBSTRUCTION. 2. SMALL UMBILICAL HERNIA, CONTAINING A SMALL AMOUNT OF GAS PRESUMED SECONDARY TO RECENT SURGERY. 3. COLONIC DIVERTICULOSIS. NO CT FINDINGS OF ACUTE DIVERTICULITIS. 4. CHRONIC POLYCYSTIC KIDNEY DISEASE. 5. PERITONEAL DIALYSIS CATHETER, DISTAL END IN THE PELVIS. 6. NO OTHER ACUTE OR SIGNIFICANT FINDINGS. Assessment and Plan - Diagnosis (1) Ileus, postoperative Is this a current diagnosis for this admission?: Yes (2) Strangulated umbilical hernia Is this a current diagnosis for this admission?: Yes (3) ESRD on hemodialysis Is this a current diagnosis for this admission?: Yes (4) Anemia in chronic kidney disease (CKD) Qualifiers: Chronic kidney disease stage: on chronic dialysis Qualified Code(s): N18.6 - End stage renal disease; D63.1 - Anemia in chronic kidney disease; Z99.2 - Dependence on renal dialysis Is this a current diagnosis for this admission?: Yes (5) Hyperkalemia Is this a current diagnosis for this admission?: Yes (6) Hypertension Qualifiers: Hypertension type: essential hypertension Qualified Code(s): I10 - Essential (primary) hypertension Is this a current diagnosis for this admission?: Yes (7) Polycystic kidney disease Is this a current diagnosis for this admission?: Yes (8) Intractable hiccups Is this a current diagnosis for this admission?: Yes - Plan Summary Summary: 08/03/2020 8:15 PM Critical care visit 40 minutes I assessed the patient and then reviewed the use computer records. I given the patient a liter of fluid earlier today. His blood pressure responded. He admits that he felt better. This was just prior to the CAT scan. He still has a large net negative fluid balance. He has skin tenting and his oral mucosa is extremely dry. He has sunken eye sockets. His lungs are clear. After reviewing all of the data including laboratory studies and imaging I believe the patient is hypovolemic and this is the reason for the tachycardia. In addition, early in his stay he is oliguric. Of late he has been an uric. If you compare the heart rate to the blood pressures his blood pressures have been relatively soft. I believe that the patient's blood pressure and pulse are directly related to his volume status. With the nurse at the bedside we discussed the treatment plan with the patient. IV fluid The patient will receive a 500 mL bolus and then run the remaining fluid at 150 mL an hour for a total of 2 L of fluid overnight. Hiccups The hiccups have responded to the Thorazine. I was decreasing the Thorazine dose. At this point I will discontinue it as a scheduled medication but leave it available as needed every 12 hours for hiccups. This medication is quite sedating and by removing it the patient may have more energy. Cortisol Random cortisol drawn early in this hospitalization was 99. I have ordered a morning cortisol for tomorrow in addition to his normal laboratory studies. I will see if there is any evidence of adrenal insufficiency. - Time Total Critical Time (Minutes): 40 Medications reviewed and adjusted accordingly: Yes Anticipated Discharge Disposition: Home with Home Health Anticipated Discharge Timeframe: Unknown
[2020-08-03] MEDS: NORMAL SALINE 1000 ML 1,000 ML IV PRN (21:49)
[2020-08-03] MEDS ORDERED: CHLORPROMAZINE HCL 25 MG TABLET PO SCH (22:00)
[2020-08-03] MEDS ORDERED: EPOETIN ALFA-EPBX 20,000 UNIT in SYRINGE, DISPOSABLE, 1 EACH IV PRN (23:11)
[2020-08-04] MEDS ORDERED: PHENOL/SODIUM PHENOLATE 100 SPRAY/177 ML BOTTLE PO PRN (02:01)
[2020-08-04] MEDS ORDERED: CHLORPROMAZINE HCL INJ 25 MG/1 ML AMPULE IV ONE (02:10)
[2020-08-04] MEDS ORDERED: PHENOL/SODIUM PHENOLATE 100 SPRAY/177 ML BOTTLE ONE (02:55)
[2020-08-04] MEDS ORDERED: CHLORPROMAZINE HCL INJ 25 MG/1 ML AMPULE ONE (02:56)
[2020-08-04] MEDS: NORMAL SALINE 1000 ML 1,000 ML IV PRN (04:50)
[2020-08-04] MEDS ORDERED: HEPARIN SOD (PORCINE) 1,000 UNIT/ML 10 ML VIAL IV PRN (05:00)
[2020-08-04] MEDS: HEPARIN SOD (PORCINE) 5,000 UNIT/ML 1 ML VIAL SUBCUT SCH ×3 (05:01→21:50)
[2020-08-04 06:43] LABS: HEMATOCRIT 21.8 % (37.9-51.0); MEAN CORPUSCULAR HEMOGLOBIN 32.7 pg (27.0-33.4); MEAN CORPUSCULAR HGB CONC 33.9 g/dL (32.0-36.0); MEAN CORPUSCULAR VOLUME 97 fl (80-97); RED BLOOD COUNT 2.25 10^6/uL (4.35-5.55); RED CELL DISTRIBUTION WIDTH 15.3 % (11.5-14.0); WHITE BLOOD COUNT 6.4 10^3/uL (4.0-10.5)
[2020-08-04 07:01] LABS: ALBUMIN 2.4 g/dL (3.5-5.0); ALKALINE PHOSPHATASE 128 U/L (38-126); ANION GAP 17 (5-19); ASPARTATE AMINO TRANSFERASE 23 U/L (17-59); BILIRUBIN,DIRECT 0.6 mg/dL (0.0-0.4); BILIRUBIN,TOTAL 0.6 mg/dL (0.2-1.3); BLOOD UREA NITROGEN 72 mg/dL (7-20); CALCIUM 7.8 mg/dL (8.4-10.2); CARBON DIOXIDE 23 mmol/L (22-30); CHLORIDE 93 mmol/L (98-107); GLUCOSE 114 mg/dL (75-110); TOTAL PROTEIN 4.7 g/dL (6.3-8.2)
[2020-08-04 07:37] LABS: HEMOGLOBIN 7.4 g/dL (13.5-17.0)
[2020-08-04 07:40] LABS: ABSOLUTE LYMPHOCYTES# (MANUAL) 0.1 10^3/uL (0.5-4.7); ABSOLUTE MONOCYTES # (MANUAL) 0.3 10^3/uL (0.1-1.4); BASOPHILS % (MANUAL) 0 % (0-2); EOSINOPHILS % (MANUAL) 1 % (0-6); LYMPHOCYTES % (MANUAL) 1 % (13-45); METAMYELOCYTES % (MANUAL) 1 % (0-1); MONOCYTES % (MANUAL) 5 % (3-13); NUCLEATED RED BLOOD CELLS 1 /100 WBC (0); SEGMENTED NEUTROPHILS % (MAN) 91 % (42-78); TOTAL CELLS COUNTED 100
[2020-08-04 07:42] LABS: ANISOCYTOSIS SLIGHT; PLATELET CLUMPS PRESENT; PLATELET COMMENT ADEQUATE; PLATELET COUNT 287 10^3/uL (150-450); POLYCHROMASIA 1+
[2020-08-04] MEDS: FLUTICASONE NASAL SPRAY 50 MCG/SPRY 120 SPRAY/16 GM NAREB SCH (11:02)
--- NOTE | 2020-08-04 11:31 | RADIOLOGY REPORT (SQ) ---
EXAM DESCRIPTION: KUB/ABDOMEN (SINGLE VIEW) IMAGES COMPLETED DATE/TIME: 08/04/2020 11:21 am REASON FOR STUDY: ? sbo COMPARISON: None. NUMBER OF VIEWS: One view. TECHNIQUE: Supine radiographic image of the abdomen acquired. LIMITATIONS: None. FINDINGS: BOWEL GAS PATTERN: Dilated large and small bowel. This could represent ileus or partial s mall bowel obstruction. NG tube is in place. There is contrast throughout the colon from prior CT. CALCIFICATIONS: No suspicious calcifications. SOFT TISSUES: No gross mass or suggestion of organomegaly. HARDWARE: None in the abdomen. BONES: No acute fracture. No worrisome bone lesions. OTHER: No other significant finding. IMPRESSION: Persistent dilated at least proximal small bowel. There is air and stool as well as con trast throughout the colon. Findings are consistent with partial small bowel obstruction. TECHNICAL DOCUMENTATION: JOB ID: [id number] 2010 [employer]- All Rights Reserved Reading location - IP/workstation name: [email or web address]
--- NOTE | 2020-08-04 12:07 | PDOC PROGRESS REPORT ---
Subjective Date:: 08/04/20 Reason For Visit: Patient seen today on dialysis. He still does not look very good. He has had his NG tube clamped and patient still got abdominal pains and feeling uncomfortable. He looks very depressed. Labs and medications were reviewed. Dialysis orders were reviewed with the treating dialysis nurse.Has had a KUB done which showed dilated small bowel with air and contrast. Suggestive of partial small bowel obstruction. Physical Exam Vital Signs: Temp Pulse Resp BP Pulse Ox 98.3 F 109 H 20 110/52 L 93 08/04/20 03:51 08/04/20 10:00 08/04/20 10:00 08/04/20 10:00 08/04/20 10:00 Intake & Output 08/03/20 08/04/20 08/05/20 06:59 06:59 06:59 Intake Total 940 2680 Output Total 1490 Balance -550 2680 Weight 119.2 kg 122.5 kg General appearance: PRESENT: disheveled, mild distress, obese Respiratory exam: PRESENT: clear to auscultation zander, decreased breath sounds. ABSENT: crackles Cardiovascular exam: PRESENT: +S1, +S2 GI/Abdominal exam: PRESENT: distended, tenderness. ABSENT: guarding, normal bowel sounds, organomegaly Extremities exam: PRESENT: pedal edema Neurological exam: PRESENT: alert, awake, oriented to person, oriented to place Psychiatric exam: PRESENT: depressed Focused psych exam: ABSENT: psychomotor agitation Skin exam: ABSENT: cyanosis, jaundice, rash Results Laboratory Results: 08/04/20 05:05 08/04/20 05:05 08/04/20 08/04/20 05:05 05:05 WBC 6.4 RBC 2.25 L Hgb 7.4 L Hct 21.8 L MCV 97 MCH 32.7 MCHC 33.9 RDW 15.3 H Plt Count 287 Seg Neutrophils % Not Reportable Sodium 133.0 L Potassium 4.0 Chloride 93 L Carbon Dioxide 23 Anion Gap 17 BUN 72 H Creatinine 8.09 H Est GFR ( Amer) 8 L Glucose 114 H Calcium 7.8 L Magnesium 2.3 Total Bilirubin 0.6 AST 23 Alkaline Phosphatase 128 H Total Protein 4.7 L Albumin 2.4 L Impressions: Guidance Fluoroscopy 07/26/20 00:00 IMPRESSION: IMAGE(S) OBTAINED DURING PROCEDURE. Chest X-Ray 07/27/20 00:00 IMPRESSION: 1. Stable appearance of the chest. Abdomen/Pelvis CT 08/03/20 00:00 IMPRESSION: 1. NASOGASTRIC TUBE, TIP IN THE STOMACH. CONTRAST IN THE STOMACH AND THROUGHOUT THE SMALL BOWEL. DILATED PROXIMAL SMALL BOWEL AND NONDISTENDED DISTAL SMALL BOWEL. PROBABLY PARTIAL SMALL BOWEL OBSTRUCTION. 2. SMALL UMBILICAL HERNIA, CONTAINING A SMALL AMOUNT OF GAS PRESUMED SECONDARY TO RECENT SURGERY. 3. COLONIC DIVERTICULOSIS. NO CT FINDINGS OF ACUTE DIVERTICULITIS. 4. CHRONIC POLYCYSTIC KIDNEY DISEASE. 5. PERITONEAL DIALYSIS CATHETER, DISTAL END IN THE PELVIS. 6. NO OTHER ACUTE OR SIGNIFICANT FINDINGS. KUB X-Ray 08/04/20 00:00 IMPRESSION: Persistent dilated at least proximal small bowel. There is air and stool as well as contrast throughout the colon. Findings are consistent with partial small bowel obstruction. Assessment & Plan - Diagnosis (1) End stage renal disease Is this a current diagnosis for this admission?: Yes Plan: Patient initially on peritoneal dialysis but was converted to back up hemodialysis through a permacath for now given his recent abdominal surgery. PD catheter left behind for later usage. Patient currently being dialyzed. Plan 500-1 l fluid removal/minimal. His blood pressure is rather tenuous. Monitor closely. Dialysis orders were reviewed with the treating dialysis nurse. (2) Hypotension Is this a current diagnosis for this admission?: Yes Plan: Stable but rather tenuous. Monitor closely. (3) Incarcerated umbilical hernia Is this a current diagnosis for this admission?: Yes Plan: Status post surgery with no untoward complications. Being managed by surgery. Unfortunately the patient still has not made meaningful recovery of his partial bowel obstruction. (4) Polycystic kidney disease Is this a current diagnosis for this admission?: Yes Plan: Status quo. (5) Anemia in chronic kidney disease (CKD) Qualifiers: Chronic kidney disease stage: on chronic dialysis Qualified Code(s): N18.6 - End stage renal disease; D63.1 - Anemia in chronic kidney disease; Z99.2 - Dependence on renal dialysis Is this a current diagnosis for this admission?: Yes Plan: Adjust erythropoietin. Monitor.
--- NOTE | 2020-08-04 12:35 | PDOC PROGRESS REPORT ---
Subjective Date:: 08/04/20 Subjective:: 08/04/20-KUB was done this morning it indicated of persistent partial small jah l obstruction. Patient still have NG tube. No acute events in the last 24 hours. pt completed his dialysis session this morning. Reason For Visit: HYPOXIC RESPIRATORY FAILURE, NEEDS DIALYSIS, Physical Exam Vital Signs: Temp Pulse Resp BP Pulse Ox 98.3 F 109 H 20 110/52 L 93 08/04/20 03:51 08/04/20 10:00 08/04/20 10:00 08/04/20 10:00 08/04/20 10:00 Intake & Output 08/03/20 08/04/20 08/05/20 06:59 06:59 06:59 Intake Total 940 2680 Output Total 1490 Balance -550 2680 Weight 119.2 kg 122.5 kg General appearance: PRESENT: no acute distress, cooperative, morbidly obese Head exam: PRESENT: atraumatic Eye exam: PRESENT: PERRLA Ear exam: PRESENT: normal external ear exam Mouth exam: PRESENT: neck supple Teeth exam: PRESENT: poor dentation Neck exam: PRESENT: other - Nasogastric tube in place.. ABSENT: carotid bruit, JVD, lymphadenopathy, thyromegaly Respiratory exam: PRESENT: decreased breath sounds Cardiovascular exam: PRESENT: RRR. ABSENT: diastolic murmur, rubs, systolic murmur GI/Abdominal exam: PRESENT: normal bowel sounds, soft. ABSENT: distended, guarding, mass, organolmegaly, rebound, tenderness Rectal exam: PRESENT: deferred Extremities exam: PRESENT: full ROM. ABSENT: calf tenderness, clubbing, pedal edema Neurological exam: PRESENT: alert, awake, oriented to person, oriented to place, oriented to time, oriented to situation, CN II-XII grossly intact. ABSENT: motor sensory deficit Psychiatric exam: PRESENT: appropriate affect, normal mood. ABSENT: homicidal ideation, suicidal ideation Results Laboratory Results: 08/04/20 05:05 08/04/20 05:05 08/04/20 08/04/20 05:05 05:05 WBC 6.4 RBC 2.25 L Hgb 7.4 L Hct 21.8 L MCV 97 MCH 32.7 MCHC 33.9 RDW 15.3 H Plt Count 287 Seg Neutrophils % Not Reportable Sodium 133.0 L Potassium 4.0 Chloride 93 L Carbon Dioxide 23 Anion Gap 17 BUN 72 H Creatinine 8.09 H Est GFR ( Amer) 8 L Glucose 114 H Calcium 7.8 L Magnesium 2.3 Total Bilirubin 0.6 AST 23 Alkaline Phosphatase 128 H Total Protein 4.7 L Albumin 2.4 L Impressions: Guidance Fluoroscopy 07/26/20 00:00 IMPRESSION: IMAGE(S) OBTAINED DURING PROCEDURE. Chest X-Ray 07/27/20 00:00 IMPRESSION: 1. Stable appearance of the chest. Abdomen/Pelvis CT 08/03/20 00:00 IMPRESSION: 1. NASOGASTRIC TUBE, TIP IN THE STOMACH. CONTRAST IN THE STOMACH AND THROUGHOUT THE SMALL BOWEL. DILATED PROXIMAL SMALL BOWEL AND NONDISTENDED DISTAL SMALL BOWEL. PROBABLY PARTIAL SMALL BOWEL OBSTRUCTION. 2. SMALL UMBILICAL HERNIA, CONTAINING A SMALL AMOUNT OF GAS PRESUMED SECONDARY TO RECENT SURGERY. 3. COLONIC DIVERTICULOSIS. NO CT FINDINGS OF ACUTE DIVERTICULITIS. 4. CHRONIC POLYCYSTIC KIDNEY DISEASE. 5. PERITONEAL DIALYSIS CATHETER, DISTAL END IN THE PELVIS. 6. NO OTHER ACUTE OR SIGNIFICANT FINDINGS. KUB X-Ray 08/04/20 00:00 IMPRESSION: Persistent dilated at least proximal small bowel. There is air and stool as well as contrast throughout the colon. Findings are consistent with partial small bowel obstruction. Assessment and Plan - Diagnosis (1) Ileus, postoperative Is this a current diagnosis for this admission?: Yes Plan: Appears to have resolved. There is caliber change of the small bowel noted on CT but contrast is clearly seen in the distal small bowel and I do not think it represents partial small bowel obstruction. Will clamp the NG tube overnight. If residual in the morning is low, will pull the NG and start him on a regular renal diet. 08/04/2020-KUB this morning indicated of a partial small bowel obstruction. Patient still has the NG tube. Further management as per the surgical team. (2) Strangulated umbilical hernia Is this a current diagnosis for this admission?: Yes Plan: Surgical repair completed. Postop care per surgery service 08/04/2020-patient admitted with strangulated umbilical hernia status post surgery. Further management as per surgical team. (3) ESRD on peritoneal dialysis Is this a current diagnosis for this admission?: No Plan: At this time due to abdominal surgery he cannot use PD at this time. 08/04/2020-patient gets a peritoneal dialysis at home. Here in this hospital he is receiving hemodialysis. pt Completed hemodialysis session this morning without any complications. (4) Hypertension Qualifiers: Hypertension type: essential hypertension Qualified Code(s): I10 - Essential (primary) hypertension Is this a current diagnosis for this admission?: No Plan: Patient complains of significant lightheadedness. He is not exhibiting extremely high blood pressure. He may be dry intravascularly. I will give 1 L of fluid gently and monitor. Check orthostatic vitals. 08/01/2020-positive orthostatic changes. Boluses of fluid as above. Holding any antihypertensive medications. 08/02/2020-resting blood pressures are better. Patient still reports lightheadedness with any change in position. Patient dialyzed today but no significant fluid removal. Continue to monitor. Patient may still need small boluses of fluid. 08/03/2020-blood pressure still soft. Tachycardia likely indicates hypovolemia. 08/04/2020-blood pressure this morning is 110/60. Stable. (5) Anemia in chronic kidney disease (CKD) Qualifiers: Chronic kidney disease stage: on chronic dialysis Qualified Code(s): N18.6 - End stage renal disease; D63.1 - Anemia in chronic kidney disease; Z99.2 - Dep endence on renal dialysis Is this a current diagnosis for this admission?: No Plan: Continue to monitor CBC 08/01/2020-hemoglobin is 8.7 today. Continue to monitor. 08/02/2020-hemoglobin improving slowly. 9.2 today. 08/03/2020-recheck labs tomorrow 08/04/2020-patient's hemoglobin today is 7.4. Plan is to transfuse , 1 unit tomorrow during dialysis session. - Plan Summary Summary: 08/03/2020 8:15 PM Critical care visit 40 minutes I assessed the patient and then reviewed the use computer records. I given the patient a liter of fluid earlier today. His blood pressure responded. He admits that he felt better. This was just prior to the CAT scan. He still has a large net negative fluid balance. He has skin tenting and his oral mucosa is extremely dry. He has sunken eye sockets. His lungs are clear. After reviewing all of the data including laboratory studies and imaging I believe the patient is hypovolemic and this is the reason for the tachycardia. In addition, early in his stay he is oliguric. Of late he has been an uric. If you compare the heart rate to the blood pressures his blood pressures have been relatively soft. I believe that the patient's blood pressure and pulse are directly related to his volume status. With the nurse at the bedside we discussed the treatment plan with the patient. IV fluid The patient will receive a 500 mL bolus and then run the remaining fluid at 150 mL an hour for a total of 2 L of fluid overnight. Hiccups The hiccups have responded to the Thorazine. I was decreasing the Thorazine dose. At this point I will discontinue it as a scheduled medication but leave it available as needed every 12 hours for hiccups. This medication is quite sedating and by removing it the patient may have more energy. Cortisol Random cortisol drawn early in this hospitalization was 99. I have ordered a morning cortisol for tomorrow in addition to his normal laboratory studies. I will see if there is any evidence of adrenal insufficiency. - Time Anticipated Discharge Disposition: Home, Self Care Anticipated Discharge Timeframe: within 72 hours
[2020-08-04] MEDS: NORMAL SALINE INJ/PF 0.9% 10 ML SDV IV PRN (15:35)
--- NOTE | 2020-08-04 17:07 | PDOC PROGRESS REPORT ---
Subjective Date:: 08/04/20 Reason For Visit: HYPOXIC RESPIRATORY FAILURE, NEEDS DIALYSIS, Physical Exam Vital Signs: Temp Pulse Resp BP Pulse Ox 98.7 F 112 H 20 111/43 L 88 L 08/04/20 15:36 08/04/20 15:36 08/04/20 15:36 08/04/20 15:36 08/04/20 15:36 Intake & Output 08/03/20 08/04/20 08/05/20 06:59 06:59 06:59 Intake Total 940 2680 Output Total 1490 Balance -550 2680 Weight 119.2 kg 122.5 kg 122.5 kg Results Laboratory Results: 08/04/20 05:05 08/04/20 05:05 08/04/20 08/04/20 05:05 05:05 WBC 6.4 RBC 2.25 L Hgb 7.4 L Hct 21.8 L MCV 97 MCH 32.7 MCHC 33.9 RDW 15.3 H Plt Count 287 Seg Neutrophils % Not Reportable Sodium 133.0 L Potassium 4.0 Chloride 93 L Carbon Dioxide 23 Anion Gap 17 BUN 72 H Creatinine 8.09 H Est GFR ( Amer) 8 L Glucose 114 H Calcium 7.8 L Magnesium 2.3 Total Bilirubin 0.6 AST 23 Alkaline Phosphatase 128 H Total Protein 4.7 L Albumin 2.4 L Impressions: Guidance Fluoroscopy 07/26/20 00:00 IMPRESSION: IMAGE(S) OBTAINED DURING PROCEDURE. Chest X-Ray 07/27/20 00:00 IMPRESSION: 1. Stable appearance of the chest. Abdomen/Pelvis CT 08/03/20 00:00 IMPRESSION: 1. NASOGASTRIC TUBE, TIP IN THE STOMACH. CONTRAST IN THE STOMACH AND THROUGHOUT THE SMALL BOWEL. DILATED PROXIMAL SMALL BOWEL AND NONDISTENDED DISTAL SMALL BOWEL. PROBABLY PARTIAL SMALL BOWEL OBSTRUCTION. 2. SMALL UMBILICAL HERNIA, CONTAINING A SMALL AMOUNT OF GAS PRESUMED SECONDARY TO RECENT SURGERY. 3. COLONIC DIVERTICULOSIS. NO CT FINDINGS OF ACUTE DIVERTICULITIS. 4. CHRONIC POLYCYSTIC KIDNEY DISEASE. 5. PERITONEAL DIALYSIS CATHETER, DISTAL END IN THE PELVIS. 6. NO OTHER ACUTE OR SIGNIFICANT FINDINGS. KUB X-Ray 08/04/20 00:00 IMPRESSION: Persistent dilated at least proximal small bowel. There is air and stool as well as contrast throughout the colon. Findings are consistent with partial small bowel obstruction. Assessment & Plan - Diagnosis (1) Small bowel obstruction with strangulation or infarction Is this a current diagnosis for this admission?: Yes - Time Anticipated Discharge Disposition: Unknown Anticipated Discharge Timeframe: Unknown - Plan Summary Plan Summary: 70-year-old male admitted with an incarcerated umbilical hernia. He is status post reduction of his hernia, and repair of the abdominal wall. He reports passing flatus, and having a bowel movement today. He denies any nausea or vomiting. X-rays show air and liquid in the colon, with continued mild dilation of his small intestine. I will remove his NG tube today. Okay for clear liquids. We will monitor closely for signs of continued ileus. Surgery will follow.
[2020-08-04] MEDS: FAMOTIDINE INJ/PF 20 MG/2 ML SDV IV SCH (17:17)
[2020-08-05] MEDS: HEPARIN SOD (PORCINE) 5,000 UNIT/ML 1 ML VIAL SUBCUT SCH ×3 (06:39→22:29)
[2020-08-05 08:00] LABS: ABSOLUTE EOSINOPHILS # (AUTO) 0.1 10^3/uL (0.0-0.6); ABSOLUTE LYMPHOCYTES (AUTO) 0.3 10^3/uL (0.5-4.7); ABSOLUTE MONOCYTES (AUTO) 0.6 10^3/uL (0.1-1.4); BASOPHILS % (AUTO) 0.4 % (0-2); EOSINOPHILS % (AUTO) 1.1 % (0-6); HEMATOCRIT 22.5 % (37.9-51.0); LYMPHOCYTES % (AUTO) 5.5 % (13-45); MEAN CORPUSCULAR HEMOGLOBIN 32.3 pg (27.0-33.4); MEAN CORPUSCULAR HGB CONC 33.5 g/dL (32.0-36.0); MEAN CORPUSCULAR VOLUME 97 fl (80-97); MONOCYTES % (AUTO) 9.3 % (3-13); PLATELET COUNT 306 10^3/uL (150-450); RED BLOOD COUNT 2.32 10^6/uL (4.35-5.55); RED CELL DISTRIBUTION WIDTH 15.1 % (11.5-14.0); SEGMENTED NEUTROPHILS % (AUTO) 83.7 % (42-78); TOTAL CELLS COUNTED % (AUTO) 100 %; WHITE BLOOD COUNT 5.9 10^3/uL (4.0-10.5)
[2020-08-05 08:13] LABS: HEMOGLOBIN 7.5 g/dL (13.5-17.0)
[2020-08-05 08:21] LABS: ALBUMIN 2.4 g/dL (3.5-5.0); ALKALINE PHOSPHATASE 172 U/L (38-126); ANION GAP 11 (5-19); ASPARTATE AMINO TRANSFERASE 34 U/L (17-59); BILIRUBIN,DIRECT 0.6 mg/dL (0.0-0.4); BILIRUBIN,TOTAL 0.6 mg/dL (0.2-1.3); BLOOD UREA NITROGEN 41 mg/dL (7-20); CALCIUM 7.9 mg/dL (8.4-10.2); CARBON DIOXIDE 27 mmol/L (22-30); CHLORIDE 96 mmol/L (98-107); GLUCOSE 108 mg/dL (75-110); TOTAL PROTEIN 4.8 g/dL (6.3-8.2)
[2020-08-05] MEDS ORDERED: NORMAL SALINE 250 ML IV PRN ×2 (10:13)
--- NOTE | 2020-08-05 10:44 | PDOC PROGRESS REPORT ---
Subjective Date:: 08/05/20 Subjective:: Had bowel movements. No nausea or vomiting. Tolerating liquid diet well. Feel s much better. Reason For Visit: HYPOXIC RESPIRATORY FAILURE, NEEDS DIALYSIS, Physical Exam Vital Signs: Temp Pulse Resp BP Pulse Ox 98.0 F 95 20 118/51 L 89 L 08/05/20 07:50 08/05/20 07:50 08/05/20 07:50 08/05/20 07:50 08/05/20 07:50 Intake & Output 08/04/20 08/05/20 08/06/20 06:59 06:59 06:59 Intake Total 2680 100 Output Total 400 Balance 2680 -300 Weight 122.5 kg 124.2 kg General appearance: PRESENT: no acute distress, cooperative Respiratory exam: PRESENT: clear to auscultation zander Cardiovascular exam: PRESENT: RRR GI/Abdominal exam: PRESENT: other - Soft, nondistended, nontender to palpation. Wound clean dry and intact. Active bowel sounds. Results Laboratory Results: 08/05/20 06:30 08/05/20 06:30 08/05/20 08/05/20 06:30 06:30 WBC 5.9 RBC 2.32 L Hgb 7.5 L Hct 22.5 L MCV 97 MCH 32.3 MCHC 33.5 RDW 15.1 H Plt Count 306 Seg Neutrophils % 83.7 H Sodium 133.7 L Potassium 4.0 Chloride 96 L Carbon Dioxide 27 Anion Gap 11 BUN 41 H Creatinine 5.85 H Est GFR ( Amer) 12 L Glucose 108 Calcium 7.9 L Magnesium 2.1 Total Bilirubin 0.6 AST 34 Alkaline Phosphatase 172 H Total Protein 4.8 L Albumin 2.4 L Impressions: Guidance Fluoroscopy 07/26/20 00:00 IMPRESSION: IMAGE(S) OBTAINED DURING PROCEDURE. Chest X-Ray 07/27/20 00:00 IMPRESSION: 1. Stable appearance of the chest. Abdomen/Pelvis CT 08/03/20 00:00 IMPRESSION: 1. NASOGASTRIC TUBE, TIP IN THE STOMACH. CONTRAST IN THE STOMACH AND THROUGHOUT THE SMALL BOWEL. DILATED PROXIMAL SMALL BOWEL AND NONDISTENDED DISTAL SMALL BOW EL. PROBABLY PARTIAL SMALL BOWEL OBSTRUCTION. 2. SMALL UMBILICAL HERNIA, CONTAINING A SMALL AMOUNT OF GAS PRESUMED SECONDARY TO RECENT SURGERY. 3. COLONIC DIVERTICULOSIS. NO CT FINDINGS OF ACUTE DIVERTICULITIS. 4. CHRONIC POLYCYSTIC KIDNEY DISEASE. 5. PERITONEAL DIALYSIS CATHETER, DISTAL END IN THE PELVIS. 6. NO OTHER ACUTE OR SIGNIFICANT FINDINGS. KUB X-Ray 08/04/20 00:00 IMPRESSION: Persistent dilated at least proximal small bowel. There is air and stool as well as contrast throughout the colon. Findings are consistent with partial small bowel obstruction. Assessment & Plan - Diagnosis (1) Ileus, postoperative Is this a current diagnosis for this admission?: Yes Plan: resolved. Will advance diet to a dialysis diet. Surgery service signing off. Please call us for any problems or concerns. Will defer to nephrology for when to resume his peritoneal dialysis. Would wait at least a couple more weeks to allow sufficient wound healing however. - Time Anticipated Discharge Disposition: Home with Home Health Anticipated Discharge Timeframe: within 72 hours
--- NOTE | 2020-08-05 11:21 | PDOC PROGRESS REPORT ---
Subjective Date:: 08/05/20 Subjective:: 08/04/20-KUB was done this morning it indicated of persistent partial small jah l obstruction. Patient still have NG tube. No acute events in the last 24 hours. pt completed his dialysis session this morning. 08/05/2020-patient is signed off by surgical team. NG tube was removed. Patient is admitted with incarcerated umbilical hernia status post reduction and repair of the abdominal wall. Patient is presently on clear liquids. To advance the diet as tolerated. Hemoglobin is 7.5 because the patient is on transplant list to hold off on transfusion. Reason For Visit: HYPOXIC RESPIRATORY FAILURE, NEEDS DIALYSIS, Physical Exam Vital Signs: Temp Pulse Resp BP Pulse Ox 98.0 F 95 20 118/51 L 89 L 08/05/20 07:50 08/05/20 07:50 08/05/20 07:50 08/05/20 07:50 08/05/20 07:50 Intake & Output 08/04/20 08/05/20 08/06/20 06:59 06:59 06:59 Intake Total 2680 100 Output Total 400 Balance 2680 -300 Weight 122.5 kg 124.2 kg General appearance: PRESENT: no acute distress, morbidly obese Head exam: PRESENT: atraumatic Eye exam: PRESENT: PERRLA Mouth exam: PRESENT: moist, neck supple, tongue midline Teeth exam: PRESENT: poor dentation Neck exam: ABSENT: carotid bruit, JVD, lymphadenopathy, thyromegaly Respiratory exam: PRESENT: decreased breath sounds Cardiovascular exam: PRESENT: RRR. ABSENT: diastolic murmur, rubs, systolic murmur GI/Abdominal exam: PRESENT: normal bowel sounds, soft. ABSENT: distended, guarding, mass, organolmegaly, rebound, tenderness Rectal exam: PRESENT: deferred Extremities exam: PRESENT: full ROM. ABSENT: calf tenderness, clubbing, pedal edema Neurological exam: PRESENT: alert, awake, oriented to person, oriented to place, oriented to time, oriented to situation, CN II-XII grossly intact. ABSENT: motor sensory deficit Psychiatric exam: PRESENT: appropriate affect, normal mood. ABSENT: homicidal ideation, suicidal ideation Results Laboratory Results: 08/05/20 06:30 08/05/20 06:30 08/05/20 08/05/20 06:30 06:30 WBC 5.9 RBC 2.32 L Hgb 7.5 L Hct 22.5 L MCV 97 MCH 32.3 MCHC 33.5 RDW 15.1 H Plt Count 306 Seg Neutrophils % 83.7 H Sodium 133.7 L Potassium 4.0 Chloride 96 L Carbon Dioxide 27 Anion Gap 11 BUN 41 H Creatinine 5.85 H Est GFR ( Amer) 12 L Glucose 108 Calcium 7.9 L Magnesium 2.1 Total Bilirubin 0.6 AST 34 Alkaline Phosphatase 172 H Total Protein 4.8 L Albumin 2.4 L Impressions: Guidance Fluoroscopy 07/26/20 00:00 IMPRESSION: IMAGE(S) OBTAINED DURING PROCEDURE. Chest X-Ray 07/27/20 00:00 IMPRESSION: 1. Stable appearance of the chest. Abdomen/Pelvis CT 08/03/20 00:00 IMPRESSION: 1. NASOGASTRIC TUBE, TIP IN THE STOMACH. CONTRAST IN THE STOMACH AND THROUGHOUT THE SMALL BOWEL. DILATED PROXIMAL SMALL BOWEL AND NONDISTENDED DISTAL SMALL BOWEL. PROBABLY PARTIAL SMALL BOWEL OBSTRUCTION. 2. SMALL UMBILICAL HERNIA, CONTAINING A SMALL AMOUNT OF GAS PRESUMED SECONDARY TO RECENT SURGERY. 3. COLONIC DIVERTICULOSIS. NO CT FINDINGS OF ACUTE DIVERTICULITIS. 4. CHRONIC POLYCYSTIC KIDNEY DISEASE. 5. PERITONEAL DIALYSIS CATHETER, DISTAL END IN THE PELVIS. 6. NO OTHER ACUTE OR SIGNIFICANT FINDINGS. KUB X-Ray 08/04/20 00:00 IMPRESSION: Persistent dilated at least proximal small bowel. There is air and stool as well as contrast throughout the colon. Findings are consistent with partial small bowel obstruction. Assessment and Plan - Diagnosis (1) Ileus, postoperative Is this a current diagnosis for this admission?: Yes Plan: resolved. Will advance diet to a dialysis diet. Surgery service signing off. Please call us for any problems or concerns. Will defer to nephrology for when to resume his peritoneal dialysis. Would wait at least a couple more weeks to allow sufficient wound healing however. 08/05/20-patient admitted for incarcerated inguinal hernia status post reduction and abdominal wall repair. Surgery signed off for today. Patient is without NG tube and is on clear liquids. To continue to closely monitor the patient condition advance the diet if needed. (2) Strangulated umbilical hernia Is this a current diagnosis for this admission?: Yes Plan: Surgical repair completed. Postop care per surgery service 08/04/2020-patient admitted with strangulated umbilical hernia status post surgery. Further management as per surgical team. 08/05/2020-patient admitted with a strangulated umbilical hernia, status post reduction, abdominal wall repair. Surgery signed off . (3) ESRD on peritoneal dialysis Is this a current diagnosis for this admission?: No Plan: At this time due to abdominal surgery he cannot use PD at this time. 08/04/2020-patient gets a peritoneal dialysis at home. Here in this hospital he is receiving hemodialysis. pt Completed hemodialysis session this morning without any complications. (4) Hypertension Qualifiers: Hypertension type: essential hypertension Qualified Code(s): I10 - Essential (primary) hypertension Is this a current diagnosis for this admission?: No Plan: Patient complains of significant lightheadedness. He is not exhibiting extremely high blood pressure. He may be dry intravascularly. I will give 1 L of fluid gently and monitor. Check orthostatic vitals. 08/01/2020-positive orthostatic changes. Boluses of fluid as above. Holding any antihypertensive medications. 08/02/2020-resting blood pressures are better. Patient still reports lightheadedness with any change in position. Patient dialyzed today but no significant fluid removal. Continue to monitor. Patient may still need small boluses of fluid. 08/03/2020-blood pressure still soft. Tachycardia likely indicates hypovolemia. 08/04/2020-blood pressure this morning is 110/60. Stable. 08/05/2020-blood pressure today is 100/50. Stable. (5) Anemia in chronic kidney disease (CKD) Qualifiers: Chronic kidney disease stage: on chronic dialysis Qualified Code(s): N18.6 - End stage renal disease; D63.1 - Anemia in chronic kidney disease; Z99.2 - Dependence on renal dialysis Is this a current diagnosis for this admission?: No Plan: Continue to monitor CBC 08/01/2020-hemoglobin is 8.7 today. Continue to monitor. 08/02/2020-hemoglobin improving slowly. 9.2 today. 08/03/2020-recheck labs tomorrow 08/04/2020-patient's hemoglobin today is 7.4. Plan is to transfuse , 1 unit tomorrow during dialysis session. 08/05/2020-hemoglobin 7.5. To hold off on blood transfusions because patient is on transplantation list. - Plan Summary Summary: 08/03/2020 8:15 PM Critical care visit 40 minutes I assessed the patient and then reviewed the use computer records. I given the patient a liter of fluid earlier today. His blood pressure responded. He admits that he felt better. This was just prior to the CAT scan. He still has a large net negative fluid balance. He has skin tenting and his oral mucosa is extremely dry. He has sunken eye sockets. His lungs are clear. After reviewing all of the data including laboratory studies and imaging I believe the patient is hypovolemic and this is the reason for the tachycardia. In addition, early in his stay he is oliguric. Of late he has been an uric. If you compare the heart rate to the blood pressures his blood pressures have been relatively soft. I believe that the patient's blood pressure and pulse are directly related to his volume status. With the nurse at the bedside we discussed the treatment plan with the patient. IV fluid The patient will receive a 500 mL bolus and then run the remaining fluid at 150 mL an hour for a total of 2 L of fluid overnight. Hiccups The hiccups have responded to the Thorazine. I was decreasing the Thorazine dose. At this point I will discontinue it as a scheduled medication but leave it available as needed every 12 hours for hiccups. This medication is quite sedating and by removing it the patient may have more energy. Cortisol Random cortisol drawn early in this hospitalization was 99. I have ordered a morning cortisol for tomorrow in addition to his normal laboratory studies. I will see if there is any evidence of adrenal insufficiency. - Time Anticipated Discharge Disposition: Home, Self Care Anticipated Discharge Timeframe: within 48 hours
[2020-08-05] MEDS: FLUTICASONE NASAL SPRAY 50 MCG/SPRY 120 SPRAY/16 GM NAREB SCH (12:55)
[2020-08-05] MEDS ORDERED: ACETAMINOPHEN 325 MG TABLET PO ONE (14:00)
[2020-08-05] MEDS ORDERED: IPRATROPIUM/ALBUTEROL 0.5-2.5 MG/3 ML AMPUL NEB PRN (17:29)
--- NOTE | 2020-08-05 18:16 | RADIOLOGY REPORT (SQ) ---
EXAM DESCRIPTION: CHEST SINGLE VIEW IMAGES COMPLETED DATE/TIME: 08/05/2020 6:09 pm REASON FOR STUDY: resp distress COMPARISON: 07/27/2020 EXAM PARAMETERS: NUMBER OF VIEWS: One view. TECHNIQUE: Single frontal radiographic view of the chest acquired. RADIATION DOSE: NA LIMITATIONS: None. FINDINGS: LUNGS AND PLEURA: No opacities, masses or pneumothorax. No pleural effusion. MEDIASTINUM AND HILAR STRUCTURES: No masses. Contour normal. HEART AND VASCULAR STRUCTURES: Heart normal in size. Normal vasculature. BONES: No acute findings. HARDWARE: Right-sided central line and dialysis catheter remain in place. OTHER: No other significant finding. IMPRESSION: NO ACUTE RADIOGRAPHIC FINDING IN THE CHEST. TECHNICAL DOCUMENTATION: JOB ID: [id number] 2010 [employer]- All Rights Reserved Reading location - IP/workstation name: [email or web address]
[2020-08-05] MEDS: FAMOTIDINE INJ/PF 20 MG/2 ML SDV IV SCH (18:39)
[2020-08-05] MEDS ORDERED: EPOETIN ALFA-EPBX 30,000 UNIT in SYRINGE, DISPOSABLE, 1 EACH IV PRN (18:45)
[2020-08-05] MEDS: CARVEDILOL 3.125 MG TABLET PO SCH (22:29)
[2020-08-06] MEDS ORDERED: HEPARIN SOD (PORCINE) 1,000 UNIT/ML 10 ML VIAL IV PRN (05:00)
[2020-08-06] MEDS: HEPARIN SOD (PORCINE) 5,000 UNIT/ML 1 ML VIAL SUBCUT SCH ×3 (05:07→22:04)
[2020-08-06] MEDS: ACETAMINOPHEN 325 MG TABLET PO PRN (06:25)
[2020-08-06 06:36] LABS: ABSOLUTE BASOPHILS # (AUTO) 0.1 10^3/uL (0.0-0.2); ABSOLUTE EOSINOPHILS # (AUTO) 0.1 10^3/uL (0.0-0.6); ABSOLUTE LYMPHOCYTES (AUTO) 0.4 10^3/uL (0.5-4.7); ABSOLUTE MONOCYTES (AUTO) 0.5 10^3/uL (0.1-1.4); ABSOLUTE NEUT (AUTO) 4.5 10^3/uL (1.7-8.2); EOSINOPHILS % (AUTO) 1.5 % (0-6); HEMATOCRIT 22.2 % (37.9-51.0); LYMPHOCYTES % (AUTO) 7.5 % (13-45); MEAN CORPUSCULAR HEMOGLOBIN 32.3 pg (27.0-33.4); MEAN CORPUSCULAR HGB CONC 33.7 g/dL (32.0-36.0); MEAN CORPUSCULAR VOLUME 96 fl (80-97); MONOCYTES % (AUTO) 8.9 % (3-13); PLATELET COUNT 340 10^3/uL (150-450); RED BLOOD COUNT 2.31 10^6/uL (4.35-5.55); RED CELL DISTRIBUTION WIDTH 15.2 % (11.5-14.0); SEGMENTED NEUTROPHILS % (AUTO) 81.1 % (42-78); TOTAL CELLS COUNTED % (AUTO) 100 %; WHITE BLOOD COUNT 5.5 10^3/uL (4.0-10.5)
[2020-08-06 06:41] LABS: HEMOGLOBIN 7.5 g/dL (13.5-17.0)
[2020-08-06 06:57] LABS: ALBUMIN 2.4 g/dL (3.5-5.0); ALKALINE PHOSPHATASE 173 U/L (38-126); ANION GAP 12 (5-19); ASPARTATE AMINO TRANSFERASE 40 U/L (17-59); BILIRUBIN,DIRECT 0.6 mg/dL (0.0-0.4); BILIRUBIN,TOTAL 0.6 mg/dL (0.2-1.3); BLOOD UREA NITROGEN 56 mg/dL (7-20); CALCIUM 7.7 mg/dL (8.4-10.2); CARBON DIOXIDE 26 mmol/L (22-30); CHLORIDE 95 mmol/L (98-107); GLUCOSE 111 mg/dL (75-110); POTASSIUM 4.6 mmol/L (3.6-5.0); TOTAL PROTEIN 4.7 g/dL (6.3-8.2)
--- NOTE | 2020-08-06 10:13 | PDOC PROGRESS REPORT ---
Subjective Date:: 08/06/20 Subjective:: 08/04/20-KUB was done this morning it indicated of persistent partial small jah l obstruction. Patient still have NG tube. No acute events in the last 24 hours. pt completed his dialysis session this morning. 08/05/2020-patient is signed off by surgical team. NG tube was removed. Patient is admitted with incarcerated umbilical hernia status post reduction and repair of the abdominal wall. Patient is presently on clear liquids. To advance the diet as tolerated. Hemoglobin is 7.5 because the patient is on transplant list to hold off on transfusion. 08/06/2020-patient is in the dialysis unit tolerating the dialysis very well. Complaining of leg cramps. Yesterday complaints of shortness of breath started on neb treatments and chest x-ray was normal. Reason For Visit: HYPOXIC RESPIRATORY FAILURE, NEEDS DIALYSIS, Physical Exam Vital Signs: Temp Pulse Resp BP Pulse Ox 98.1 F 99 14 130/65 H 99 08/05/20 22:46 08/06/20 07:00 08/05/20 22:46 08/05/20 22:46 08/05/20 22:46 Intake & Output 08/05/20 08/06/20 08/07/20 06:59 06:59 06:59 Intake Total 100 240 Output Total 400 Balance -300 240 Weight 124.2 kg 124.2 kg General appearance: PRESENT: no acute distress, morbidly obese Head exam: PRESENT: atraumatic Eye exam: PRESENT: PERRLA Mouth exam: PRESENT: moist, tongue midline Teeth exam: PRESENT: poor dentation Neck exam: ABSENT: carotid bruit, JVD, lymphadenopathy, thyromegaly Respiratory exam: PRESENT: decreased breath sounds Cardiovascular exam: PRESENT: RRR. ABSENT: diastolic murmur, rubs, systolic murmur GI/Abdominal exam: PRESENT: normal bowel sounds, soft. ABSENT: distended, guarding, mass, organolmegaly, rebound, tenderness Rectal exam: PRESENT: deferred Extremities exam: PRESENT: full ROM. ABSENT: calf tenderness, clubbing, pedal edema Neurological exam: PRESENT: alert, awake, oriented to person, oriented to place, oriented to time, oriented to situation, CN II-XII grossly intact. ABSENT: motor sensory deficit Psychiatric exam: PRESENT: appropriate affect, normal mood. ABSENT: homicidal ideation, suicidal ideation Results Laboratory Results: 08/06/20 05:13 08/06/20 05:13 08/06/20 08/06/20 05:13 05:13 WBC 5.5 RBC 2.31 L Hgb 7.5 L Hct 22.2 L MCV 96 MCH 32.3 MCHC 33.7 RDW 15.2 H Plt Count 340 Seg Neutrophils % 81.1 H Sodium 132.8 L Potassium 4.6 Chloride 95 L Carbon Dioxide 26 Anion Gap 12 BUN 56 H Creatinine 7.68 H Est GFR ( Amer) 9 L Glucose 111 H Calcium 7.7 L Magnesium 2.1 Total Bilirubin 0.6 AST 40 Alkaline Phosphatase 173 H Total Protein 4.7 L Albumin 2.4 L 08/05/20 08/05/20 20:10 20:10 Creatine Kinase 39 L Troponin I 0.050 Impressions: Guidance Fluoroscopy 07/26/20 00:00 IMPRESSION: IMAGE(S) OBTAINED DURING PROCEDURE. Abdomen/Pelvis CT 08/03/20 00:00 IMPRESSION: 1. NASOGASTRIC TUBE, TIP IN THE STOMACH. CONTRAST IN THE STOMACH AND THROUGHOUT THE SMALL BOWEL. DILATED PROXIMAL SMALL BOWEL AND NONDISTENDED DISTAL SMALL BOWEL. PROBABLY PARTIAL SMALL BOWEL OBSTRUCTION. 2. SMALL UMBILICAL HERNIA, CONTAINING A SMALL AMOUNT OF GAS PRESUMED SECONDARY TO RECENT SURGERY. 3. COLONIC DIVERTICULOSIS. NO CT FINDINGS OF ACUTE DIVERTICULITIS. 4. CHRONIC POLYCYSTIC KIDNEY DISEASE. 5. PERITONEAL DIALYSIS CATHETER, DISTAL END IN THE PELVIS. 6. NO OTHER ACUTE OR SIGNIFICANT FINDINGS. KUB X-Ray 08/04/20 00:00 IMPRESSION: Persistent dilated at least proximal small bowel. There is air and stool as well as contrast throughout the colon. Findings are consistent with pa rtial small bowel obstruction. Chest X-Ray 08/05/20 00:00 IMPRESSION: NO ACUTE RADIOGRAPHIC FINDING IN THE CHEST. Assessment and Plan - Diagnosis (1) Ileus, postoperative Is this a current diagnosis for this admission?: Yes Plan: resolved. Will advance diet to a dialysis diet. Surgery service signing off. Please call us for any problems or concerns. Will defer to nephrology for when to resume his peritoneal dialysis. Would wait at least a couple more weeks to allow sufficient wound healing however. 08/05/20-patient admitted for incarcerated inguinal hernia status post reduction and abdominal wall repair. Surgery signed off for today. Patient is without NG tube and is on clear liquids. To continue to closely monitor the patient condition advance the diet if needed. 08/06/2020-patient admitted with incarcerated inguinal hernia status post reduction, abdominal wall repair. Surgery signed off on him. Patient is receiving successful dialysis. I talked to him about snf placement he got very upset and he said he can hire a nurse to help him at home. (2) Strangulated umbilical hernia Is this a current diagnosis for this admission?: Yes Plan: Surgical repair completed. Postop care per surgery service 08/04/2020-patient admitted with strangulated umbilical hernia status post surgery. Further management as per surgical team. 08/05/2020-patient admitted with a strangulated umbilical hernia, status post reduction, abdominal wall repair. Surgery signed off . 08/06/2020-patient admitted with strangulated umbilical hernia, status post reduction, abdominal wall repair. Doing well. (3) ESRD on peritoneal dialysis Is this a current diagnosis for this admission?: No Plan: At this time due to abdominal surgery he cannot use PD at this time. 08/04/2020-patient gets a peritoneal dialysis at home. Here in this hospital he is receiving hemodialysis. pt Completed hemodialysis session this morning without any complications. 08/05/2020-patient is receiving dialysis at this time. Usually he does peritoneal dialysis at home. Receiving Procrit injections. Latest hemoglobin is 7.5. (4) Hypertension Qualifiers: Hypertension type: essential hypertension Qualified Code(s): I10 - Essential (primary) hypertension Is this a current diagnosis for this admission?: No Plan: Patient complains of significant lightheadedness. He is not exhibiting ext remely high blood pressure. He may be dry intravascularly. I will give 1 L of fluid gently and monitor. Check orthostatic vitals. 08/01/2020-positive orthostatic changes. Boluses of fluid as above. Holding any antihypertensive medications. 08/02/2020-resting blood pressures are better. Patient still reports lightheadedness with any change in position. Patient dialyzed today but no significant fluid removal. Continue to monitor. Patient may still need small boluses of fluid. 08/03/2020-blood pressure still soft. Tachycardia likely indicates hypovolemia. 08/04/2020-blood pressure this morning is 110/60. Stable. 08/05/2020-blood pressure today is 100/50. Stable. (5) Anemia in chronic kidney disease (CKD) Qualifiers: Chronic kidney disease stage: on chronic dialysis Qualified Code(s): N18.6 - End stage renal disease; D63.1 - Anemia in chronic kidney disease; Z99.2 - Dependence on renal dialysis Is this a current diagnosis for this admission?: No Plan: Continue to monitor CBC 08/01/2020-hemoglobin is 8.7 today. Continue to monitor. 08/02/2020-hemoglobin improving slowly. 9.2 today. 08/03/2020-recheck labs tomorrow 08/04/2020-patient's hemoglobin today is 7.4. Plan is to transfuse , 1 unit tomorrow during dialysis session. 08/05/2020-hemoglobin 7.5. To hold off on blood transfusions because patient is on transplantation list. 08/06/2020-latest hemoglobin 7.5. Receiving Procrit injections during the dialysis. Patient is in the list for heart transplant and [place] so it is always better to hold off on blood transfusions unless is an emergency. - Plan Summary Summary: 08/03/2020 8:15 PM Critical care visit 40 minutes I assessed the patient and then reviewed the use computer records. I given the patient a liter of fluid earlier today. His blood pressure responded. He admits that he felt better. This was just prior to the CAT scan. He still has a large net negative fluid balance. He has skin tenting and his oral mucosa is extremely dry. He has sunken eye sockets. His lungs are clear. After reviewing all of the data including laboratory studies and imaging I believe the patient is hypovolemic and this is the reason for the tachycardia. In addition, early in his stay he is oliguric. Of late he has been an uric. If you compare the heart rate to the blood pressures his blood pressures have been relatively soft. I believe that the patient's blood pressure and pulse are directly related to his volume status. With the nurse at the bedside we discussed the treatment plan with the patient. IV fluid The patient will receive a 500 mL bolus and then run the remaining fluid at 150 mL an hour for a total of 2 L of fluid overnight. Hiccups The hiccups have responded to the Thorazine. I was decreasing the Thorazine dose. At this point I will discontinue it as a scheduled medication but leave it available as needed every 12 hours for hiccups. This medication is quite sedating and by removing it the patient may have more energy. Cortisol Random cortisol drawn early in this hospitalization was 99. I have ordered a morning cortisol for tomorrow in addition to his normal laboratory studies. I will see if there is any evidence of adrenal insufficiency. - Time Anticipated Discharge Disposition: Home with Home Health Anticipated Discharge Timeframe: within 48 hours
[2020-08-06] MEDS: CARVEDILOL 3.125 MG TABLET PO SCH ×2 (10:54→22:04)
[2020-08-06] MEDS: FLUTICASONE NASAL SPRAY 50 MCG/SPRY 120 SPRAY/16 GM NAREB SCH (10:55)
[2020-08-06] MEDS ORDERED: MORPHINE SULFATE 10 MG/ML INJ IV ONE (12:00)
--- NOTE | 2020-08-06 12:29 | PDOC PROGRESS REPORT ---
Subjective Date:: 08/06/20 Reason For Visit: Patient was seen today while undergoing dialysis. He is undergoing dialysis but is complaining of severe leg cramps which started yesterday. His abdominal pains is a whole lot better and his NG tube is out and he has been begun on clear fluids which he seems to be tolerating. No complaints of any nausea vomiting. He says overall he feels better but for the fact that his cramps are really bad and would like to get some immediate treatment. He is undergoing dialysis without any issues through his left IJ catheter/permacath. He said to me today that he has had a lot of time to think about and he has come to the realization that he wants to stop peritoneal dialysis as he cannot keep on doing this at home given his current situation and circumstances. Therefore, he would like to have his PD catheter removed prior to discharge. He would like to be referred for AV fistula once he is discharged and converted to permanent hemodialysis and have his IJ PermCath removed at a later date. Labs and medications were reviewed. Dialysis orders were reviewed with the [facility] hand dialysis nurse. Physical Exam Vital Signs: Temp Pulse Resp BP Pulse Ox 98.1 F 99 14 130/65 H 99 08/06/20 10:00 08/06/20 07:00 08/05/20 22:46 08/05/20 22:46 08/05/20 22:46 Intake & Output 08/05/20 08/06/20 08/07/20 06:59 06:59 06:59 Intake Total 100 240 Output Total 400 Balance -300 240 Weight 124.2 kg 124.2 kg General appearance: PRESENT: no acute distress, disheveled Respiratory exam: PRESENT: clear to auscultation zander, decreased breath sounds. ABSENT: crackles Cardiovascular exam: PRESENT: +S1, +S2 GI/Abdominal exam: PRESENT: distended, normal bowel sounds, tenderness. ABSENT: guarding, organomegaly Extremities exam: ABSENT: pedal edema Neurological exam: PRESENT: alert, awake, oriented to person, oriented to place Psychiatric exam: PRESENT: anxious Skin exam: ABSENT: jaundice, mottled, rash Results Laboratory Results: 08/06/20 05:13 08/06/20 05:13 08/06/20 08/06/20 05:13 05:13 WBC 5.5 RBC 2.31 L Hgb 7.5 L Hct 22.2 L MCV 96 MCH 32.3 MCHC 33.7 RDW 15.2 H Plt Count 340 Seg Neutrophils % 81.1 H Sodium 132.8 L Potassium 4.6 Chloride 95 L Carbon Dioxide 26 Anion Gap 12 BUN 56 H Creatinine 7.68 H Est GFR ( Amer) 9 L Glucose 111 H Calcium 7.7 L Magnesium 2.1 Total Bilirubin 0.6 AST 40 Alkaline Phosphatase 173 H Total Protein 4.7 L Albumin 2.4 L 08/05/20 08/05/20 20:10 20:10 Creatine Kinase 39 L Troponin I 0.050 Impressions: Guidance Fluoroscopy 07/26/20 00:00 IMPRESSION: IMAGE(S) OBTAINED DURING PROCEDURE. Abdomen/Pelvis CT 08/03/20 00:00 IMPRESSION: 1. NASOGASTRIC TUBE, TIP IN THE STOMACH. CONTRAST IN THE STOMACH AND THROUGHOUT THE SMALL BOWEL. DILATED PROXIMAL SMALL BOWEL AND NONDISTENDED DISTAL SMALL BOWEL. PROBABLY PARTIAL SMALL BOWEL OBSTRUCTION. 2. SMALL UMBILICAL HERNIA, CONTAINING A SMALL AMOUNT OF GAS PRESUMED SECONDARY TO RECENT SURGERY. 3. COLONIC DIVERTICULOSIS. NO CT FINDINGS OF ACUTE DIVERTICULITIS. 4. CHRONIC POLYCYSTIC KIDNEY DISEASE. 5. PERITONEAL DIALYSIS CATHETER, DISTAL END IN THE PELVIS. 6. NO OTHER ACUTE OR SIGNIFICANT FINDINGS. KUB X-Ray 08/04/20 00:00 IMPRESSION: Persistent dilated at least proximal small bowel. There is air and stool as well as contrast throughout the colon. Findings are consistent with partial small bowel obstruction. Chest X-Ray 08/05/20 00:00 IMPRESSION: NO ACUTE RADIOGRAPHIC FINDING IN THE CHEST. Assessment & Plan - Diagnosis (1) End stage renal disease Is this a current diagnosis for this admission?: Yes Plan: Patient initially on peritoneal dialysis but was converted to back up hemodialysis through a permacath for now given his recent abdominal surgery. PD catheter left behind for later usage. Patient currently being dialyzed. Plan 500-1 l fluid removal/minimal. Monitor closely. Dialysis orders were reviewed with the treating dialysis nurse. As mentioned earlier patient after long thoughts, has come to the realization he does not want to continue peritoneal dialysis at home and wants to be converted to permanent hemodialysis. However I convinced him that he should think about this further before removing his PD catheter as he is requesting as I think he might not enjoy hemodialysis as an outpatient especially if he is going to be cramping while undergoing dialysis. Therefore I suggested that he leave his PD catheter alone for now and continue getting hemodialysis through his left IJ catheter over the next month or so and then make a more thoughtful decision at that time to which option he would like to pursue. He seems to accept that line of thinking and agreeable to leave his PD catheter alone. (2) Hypotension Is this a current diagnosis for this admission?: Yes Plan: Resolved. Monitor. (3) Incarcerated umbilical hernia Is this a current diagnosis for this admission?: Yes Plan: Status post surgery . Complicated by postop ileus and he seems to have recovered from that as he seems to be tolerating clear liquids for now. (4) Polycystic kidney disease Is this a current diagnosis for this admission?: Yes Plan: Status quo. (5) Anemia in chronic kidney disease (CKD) Qualifiers: Chronic kidney disease stage: on chronic dialysis Qualified Code(s): N18.6 - End stage renal disease; D63.1 - Anemia in chronic kidney disease; Z99.2 - Dependence on renal dialysis Is this a current diagnosis for this admission?: No Plan: Adjust erythropoietin.At this point if his hemoglobin stays below 8 I would recommend he getting a pint of blood transfusion Monitor. (6) Leg cramps Plan: Has not responded to conservative measures including Tylenol. Will order 1 mg of IV morphine. Orders placed.
[2020-08-06] MEDS: FAMOTIDINE INJ/PF 20 MG/2 ML SDV IV SCH (17:35)
[2020-08-06] MEDS: ONDANSETRON HCL INJ/PF 4 MG/2 ML SDV IV PRN (17:38)
[2020-08-06] MEDS: GABAPENTIN 300 MG CAPSULE PO SCH (22:04)
[2020-08-07] MEDS: HEPARIN SOD (PORCINE) 5,000 UNIT/ML 1 ML VIAL SUBCUT SCH ×3 (05:35→21:19)
[2020-08-07 06:23] LABS: HEMATOCRIT 21.1 % (37.9-51.0); MEAN CORPUSCULAR HEMOGLOBIN 32.2 pg (27.0-33.4); MEAN CORPUSCULAR HGB CONC 33.6 g/dL (32.0-36.0); MEAN CORPUSCULAR VOLUME 96 fl (80-97); PLATELET COUNT 340 10^3/uL (150-450); RED BLOOD COUNT 2.19 10^6/uL (4.35-5.55); RED CELL DISTRIBUTION WIDTH 15.2 % (11.5-14.0); WHITE BLOOD COUNT 4.2 10^3/uL (4.0-10.5)
[2020-08-07 06:28] LABS: HEMOGLOBIN 7.1 g/dL (13.5-17.0)
[2020-08-07 06:49] LABS: ANION GAP 10 (5-19); BLOOD UREA NITROGEN 36 mg/dL (7-20); CALCIUM 7.7 mg/dL (8.4-10.2); CARBON DIOXIDE 28 mmol/L (22-30); CHLORIDE 97 mmol/L (98-107); GLUCOSE 107 mg/dL (75-110); POTASSIUM 4.2 mmol/L (3.6-5.0)
[2020-08-07] MEDS: CARVEDILOL 3.125 MG TABLET PO SCH (09:27)
[2020-08-07] MEDS: FLUTICASONE NASAL SPRAY 50 MCG/SPRY 120 SPRAY/16 GM NAREB SCH (09:27)
[2020-08-07] MEDS: GABAPENTIN 300 MG CAPSULE PO SCH ×2 (09:27→21:20)
[2020-08-07] MEDS ORDERED: LIDOCAINE 2% VISCOUS SOLN 15 ML UDCUP PO PRN (10:48)
[2020-08-07] MEDS ORDERED: MAG HYDROX/AL HYDROX/SIMETH SUSP 30 ML UDCUP PO PRN (10:48)
[2020-08-07] MEDS ORDERED: METOCLOPRAMIDE HCL ORAL SOLN 10 MG/10 ML UDCUP PO PRN (10:48)
[2020-08-07] MEDS ORDERED: NORMAL SALINE 1000 ML 500 ML IV ONE (11:15)
[2020-08-07] MEDS: PANTOPRAZOLE SODIUM 40 MG VIAL IV SCH ×2 (11:25→21:20)
[2020-08-07] MEDS ORDERED: LIDOCAINE 2% VISCOUS SOLN 15 ML UDCUP PO ONE (11:30)
[2020-08-07] MEDS ORDERED: MAG HYDROX/AL HYDROX/SIMETH SUSP 30 ML UDCUP PO ONE (11:30)
[2020-08-07] MEDS ORDERED: METOCLOPRAMIDE HCL ORAL SOLN 10 MG/10 ML UDCUP PO ONE (11:30)
--- NOTE | 2020-08-07 15:29 | PDOC PROGRESS REPORT ---
Subjective Date:: 08/07/20 Subjective:: As per admitting physician's note KATHY BURRELL is a 70 year old male, with history of end-stage renal disease on peritoneal dialysis (last session last night), Hx Hypercholesterolemia, Hx Hypertension, history of back surgery who has a 1 day complaining of mid abdominal pain around the umbilicus. The patient has a known umbilical hernia that he has been following conservatively. A CT scan abdomen pelvis has been done upon arrival in the emergency room today and this is significant for a strangulated umbilical hernia with infarcted small bowel and gas in the portal vein system. 08/07/2020. No acute events overnight. Patient awake and alert and cooperative with physical examination. Stating that he is avoiding eating or drinking as he has odynophagia due to prolonged NG tube placement, patient was noted to be hypotensive and is stating that when he was trying to get up to do his physical therapy he was feeling lightheaded, denies any chest pain, nausea, vomiting, diarrhea, constipation or any urinary symptoms. Reason For Visit: HYPOXIC RESPIRATORY FAILURE, NEEDS DIALYSIS, Physical Exam Vital Signs: Temp Pulse Resp BP Pulse Ox 98.3 F 100 19 115/51 L 93 08/07/20 09:58 08/07/20 08:30 08/07/20 08:30 08/07/20 08:30 08/07/20 08:30 Intake & Output 08/06/20 08/07/20 08/08/20 06:59 06:59 06:59 Intake Total 240 475 Output Total 500 Balance 240 -25 Weight 124.2 kg 121.6 kg General appearance: PRESENT: no acute distress, obese, well-developed, well- nourished Head exam: PRESENT: atraumatic, normocephalic Respiratory exam: PRESENT: clear to auscultation zander. ABSENT: rales, rhonchi, wheezes Cardiovascular exam: PRESENT: RRR. ABSENT: diastolic murmur, rubs, systolic murmur GI/Abdominal exam: PRESENT: normal bowel sounds, soft, other - Surgical wound looks clean, no sign of discharge.. ABSENT: distended, guarding, mass, organolmegaly, rebound, tenderness Neurological exam: PRESENT: alert, awake, oriented to person, oriented to place, oriented to time, oriented to situation, CN II-XII grossly intact. ABSENT: motor sensory deficit Results Laboratory Results: 08/07/20 05:35 08/07/20 05:35 08/07/20 08/07/20 05:35 05:35 WBC 4.2 RBC 2.19 L Hgb 7.1 L Hct 21.1 L MCV 96 MCH 32.2 MCHC 33.6 RDW 15.2 H Plt Count 340 Sodium 134.8 L Potassium 4.2 Chloride 97 L Carbon Dioxide 28 Anion Gap 10 BUN 36 H Creatinine 5.55 H Est GFR ( Amer) 12 L Glucose 107 Calcium 7.7 L Magnesium 2.0 08/05/20 08/05/20 20:10 20:10 Creatine Kinase 39 L Troponin I 0.050 Impressions: Guidance Fluoroscopy 07/26/20 00:00 IMPRESSION: IMAGE(S) OBTAINED DURING PROCEDURE. Abdomen/Pelvis CT 08/03/20 00:00 IMPRESSION: 1. NASOGASTRIC TUBE, TIP IN THE STOMACH. CONTRAST IN THE STOMACH AND THROUGHOUT THE SMALL BOWEL. DILATED PROXIMAL SMALL BOWEL AND NONDISTENDED DISTAL SMALL BOWEL. PROBABLY PARTIAL SMALL BOWEL OBSTRUCTION. 2. SMALL UMBILICAL HERNIA, CONTAINING A SMALL AMOUNT OF GAS PRESUMED SECONDARY TO RECENT SURGERY. 3. COLONIC DIVERTICULOSIS. NO CT FINDINGS OF ACUTE DIVERTICULITIS. 4. CHRONIC POLYCYSTIC KIDNEY DISEASE. 5. PERITONEAL DIALYSIS CATHETER, DISTAL END IN THE PELVIS. 6. NO OTHER ACUTE OR SIGNIFICANT FINDINGS. KUB X-Ray 08/04/20 00:00 IMPRESSION: Persistent dilated at least proximal small bowel. There is air and stool as well as contrast throughout the colon. Findings are consistent with partial small bowel obstruction. Chest X-Ray 08/05/20 00:00 IMPRESSION: NO ACUTE RADIOGRAPHIC FINDING IN THE CHEST. Assessment and Plan - Diagnosis (1) Small bowel obstruction with strangulation or infarction Is this a current diagnosis for this admission?: Yes Plan: Status post hernia repair. P.o. tolerant, having normal bowel and bladder movements. Continue wound care, out of bed to chair as tolerated (2) ESRD on hemodialysis Is this a current diagnosis for this admission?: Yes Plan: Receiving hemodialysis Sunday. He has a Luis catheter on the right IJ. Monitor electrolytes and volume status. (3) ESRD on peritoneal dialysis Is this a current diagnosis for this admission?: No Plan: End-stage renal disease due to polycystic kidneys. On chronic PD dialysis. Currently patient receiving hemodialysis through Luis catheter on the right IJ. Outpatient PCP and nephrology follow-up. (4) Ileus, postoperative Is this a current diagnosis for this admission?: Yes Plan: Resolved. Having normal bowel movements. (5) Incarcerated umbilical hernia Is this a current diagnosis for this admission?: Yes Plan: Status post surgical repair of umbilical hernia repair with mesh. Having normal bowel movement. Nasogastric tube is removed. (6) Anemia in chronic kidney disease (CKD) Qualifiers: Chronic kidney disease stage: on chronic dialysis Qualified Code(s): N18.6 - End stage renal disease; D63.1 - Anemia in chronic kidney disease; Z99.2 - Dependence on renal dialysis Is this a current diagnosis for this admission?: No Plan: H&H stable. Receiving Procrit during hemodialysis. (7) Hypertension Qualifiers: Hypertension type: essential hypertension Qualified Code(s): I10 - Essential (primary) hypertension Is this a current diagnosis for this admission?: No Plan: Noted to have orthostatic hypotension. Hold antihypertensives. Monitor vitals. Resume once appropriate. (8) Polycystic kidney disease Is this a current diagnosis for this admission?: Yes Plan: Stable - Plan Summary Summary: 08/03/2020 8:15 PM Critical care visit 40 minutes I assessed the patient and then reviewed the use computer records. I given the patient a liter of fluid earlier today. His blood pressure responded. He admits that he felt better. This was just prior to the CAT scan. He still has a large net negative fluid balance. He has skin tenting and his oral mucosa is extremely dry. He has sunken eye sockets. His lungs are clear. After reviewing all of the data including laboratory studies and imaging I believe the patient is hypovolemic and this is the reason for the tachycardia. In addition, early in his stay he is oliguric. Of late he has been an uric. If you compare the heart rate to the blood pressures his blood pressures have been relatively soft. I believe that the patient's blood pressure and pulse are directly related to his volume status. With the nurse at the bedside we discussed the treatment plan with the patient. IV fluid The patient will receive a 500 mL bolus and then run the remaining fluid at 150 mL an hour for a total of 2 L of fluid overnight. Hiccups The hiccups have responded to the Thorazine. I was decreasing the Thorazine dose. At this point I will discontinue it as a scheduled medication but leave it available as needed every 12 hours for hiccups. This medication is quite sedating and by removing it the patient may have more energy. Cortisol Random cortisol drawn early in this hospitalization was 99. I have ordered a morning cortisol for tomorrow in addition to his normal laboratory studies. I will see if there is any evidence of adrenal insufficiency. - Time Time Spent with patient: 35 or more minutes Medications reviewed and adjusted accordingly: Yes Anticipated Discharge Disposition: Home with Home Health Anticipated Discharge Timeframe: within 72 hours
[2020-08-07 17:56] LABS: ABSOLUTE BASOPHILS # (AUTO) 0.1 10^3/uL (0.0-0.2); ABSOLUTE EOSINOPHILS # (AUTO) 0.1 10^3/uL (0.0-0.6); ABSOLUTE LYMPHOCYTES (AUTO) 0.6 10^3/uL (0.5-4.7); ABSOLUTE MONOCYTES (AUTO) 0.5 10^3/uL (0.1-1.4); ABSOLUTE NEUT (AUTO) 3.9 10^3/uL (1.7-8.2); BASOPHILS % (AUTO) 1.3 % (0-2); EOSINOPHILS % (AUTO) 1.7 % (0-6); LYMPHOCYTES % (AUTO) 11.5 % (13-45); MEAN CORPUSCULAR HEMOGLOBIN 32.5 pg (27.0-33.4); MEAN CORPUSCULAR HGB CONC 33.7 g/dL (32.0-36.0); MEAN CORPUSCULAR VOLUME 96 fl (80-97); MONOCYTES % (AUTO) 9.9 % (3-13); PLATELET COUNT 393 10^3/uL (150-450); RED BLOOD COUNT 2.28 10^6/uL (4.35-5.55); RED CELL DISTRIBUTION WIDTH 15.1 % (11.5-14.0); SEGMENTED NEUTROPHILS % (AUTO) 75.6 % (42-78); TOTAL CELLS COUNTED % (AUTO) 100 %; WHITE BLOOD COUNT 5.2 10^3/uL (4.0-10.5)
[2020-08-07 17:58] LABS: HEMOGLOBIN 7.4 g/dL (13.5-17.0)
[2020-08-07 18:01] LABS: ARTERIAL BLOOD BASE EXCESS -0.2 mmol/L; ARTERIAL BLOOD FIO2 2L; ARTERIAL BLOOD H2CO3 1.02 mmol/L (1.05-1.35); ARTERIAL BLOOD HCO3 23.5 mmol/L (20-24); ARTERIAL BLOOD O2 SATURATION 92.3 % (94-98); ARTERIAL BLOOD PCO2 33.9 mmHg (35-45); ARTERIAL BLOOD PH 7.46 (7.35-7.45); ARTERIAL BLOOD PO2 59.5 mmHg (80-100); ARTERIAL BLOOD TOTAL CO2 24.5 mmol/L (23-27)
--- NOTE | 2020-08-07 18:11 | RADIOLOGY REPORT (SQ) ---
EXAM DESCRIPTION: CT HEAD WITHOUT IMAGES COMPLETED DATE/TIME: 08/07/2020 5:53 pm REASON FOR STUDY: AMS COMPARISON: None. TECHNIQUE: Axial images acquired through the brain without intravenous contrast. Images reviewed wit h bone, brain and subdural windows. Images stored on PACS. All CT scanners at this facility use dose modulation, iterative reconstruction, and/or weight based d osing when appropriate to reduce radiation dose to as low as reasonably achievable (ALARA). [facility]: Dose Right [facility]: CareDose [facility]: Dose Right [facility]: Teradose 4D [facility]: Smart Hidden Radio RADIATION DOSE: CT Rad equipment meets quality standard of care and radiation dose reduction techniq ues were employed. CTDIvol: 53.2 mGy. DLP: 1124 mGy-cm.. LIMITATIONS: None. FINDINGS: VENTRICLES: Normal size and contour. CEREBRUM: No masses. No hemorrhage. No midline shift. Age appropriate white matter. No evidence for a cute infarction. CEREBELLUM: No masses. No hemorrhage. No alteration of density. No evidence for acute infarction. EXTRA-AXIAL SPACES: No fluid collections. ORBITS AND GLOBE: No intra- or extraconal masses. Normal contour of globe without masses. CALVARIUM: No fracture. PARANASAL SINUSES: No fluid or mucosal thickening. SOFT TISSUES: No mass or hematoma. OTHER: No other significant finding. IMPRESSION: NO ACUTE INTRACRANIAL FINDINGS. EVIDENCE OF ACUTE STROKE: NO. COMMENT: The findings were sent to the Radiology Results Communication Center at 18:05 on 0 to be communicated to a licensed caregiver. TECHNICAL DOCUMENTATION: JOB ID: [id number] [place]-72 Quality ID # [id number]: Final reports with documentation of one or more dose reduction techniques (e.g., Au tomated exposure control, adjustment of the mA and/or kV according to patient size, use of iterative reconstruction technique) 2010 [employer]- All Rights Reserved Reading location - IP/workstation name: [email or web address]
[2020-08-07] MEDS ORDERED: NALOXONE HCL INJ/PF 0.4 MG/1 ML SDV ONE (18:26)
[2020-08-07] MEDS ORDERED: FUROSEMIDE INJ/PF 20 MG/2 ML SDV IV ONE (18:55)
[2020-08-07] MEDS: ASPIRIN 81 MG TABLET, CHEWABLE NG SCH (19:13)
[2020-08-07] MEDS ORDERED: NALOXONE HCL INJ/PF 0.4 MG/1 ML SDV IV ONE (19:15)
--- NOTE | 2020-08-07 19:35 | RADIOLOGY REPORT (SQ) ---
EXAM DESCRIPTION: CHEST SINGLE VIEW IMAGES COMPLETED DATE/TIME: 08/07/2020 6:42 pm REASON FOR STUDY: STROKE ALERT COMPARISON: 08/05/2020 TECHNIQUE: Single frontal radiographic view of the chest acquired. NUMBER OF VIEWS: One view. LIMITATIONS: Mild RPO positioning FINDINGS: LUNGS AND PLEURA: No pneumothorax. No consolidation or pleural effusion. MEDIASTINUM AND HILAR STRUCTURES: Stable. HEART AND VASCULAR STRUCTURES: Stable. BONES: No acute findings. HARDWARE: Left subclavian and right IJ central venous catheters appear in stable position. OTHER: No other significant finding. IMPRESSION: NO ACUTE FINDINGS. TECHNICAL DOCUMENTATION: JOB ID: [id number] [place]-72 2010 [employer]- All Rights Reserved Reading location - IP/workstation name: [email or web address]
[2020-08-07] MEDS: IPRATROPIUM/ALBUTEROL 0.5-2.5 MG/3 ML AMPUL NEB SCH (21:02)
[2020-08-07] MEDS: ATORVASTATIN CALCIUM 40 MG TABLET NG SCH (21:20)
[2020-08-08] MEDS: IPRATROPIUM/ALBUTEROL 0.5-2.5 MG/3 ML AMPUL NEB SCH ×4 (02:23→21:00)
[2020-08-08] MEDS: ACETAMINOPHEN 325 MG TABLET PO PRN (05:08)
[2020-08-08] MEDS: HEPARIN SOD (PORCINE) 5,000 UNIT/ML 1 ML VIAL SUBCUT SCH ×3 (05:08→23:00)
[2020-08-08 06:14] LABS: ALBUMIN 2.4 g/dL (3.5-5.0); ALKALINE PHOSPHATASE 198 U/L (38-126); ANION GAP 10 (5-19); ASPARTATE AMINO TRANSFERASE 51 U/L (17-59); BILIRUBIN,DIRECT 0.4 mg/dL (0.0-0.4); BILIRUBIN,TOTAL 0.5 mg/dL (0.2-1.3); BLOOD UREA NITROGEN 53 mg/dL (7-20); CALCIUM 7.5 mg/dL (8.4-10.2); CARBON DIOXIDE 26 mmol/L (22-30); CHLORIDE 96 mmol/L (98-107); GLUCOSE 114 mg/dL (75-110); PHOSPHORUS 4.3 mg/dL (2.5-4.5); POTASSIUM 4.8 mmol/L (3.6-5.0); TOTAL PROTEIN 4.8 g/dL (6.3-8.2)
[2020-08-08] MEDS ORDERED: DIPHENHYDRAMINE HCL 50 MG/ML VIAL IV ONE (09:30)
[2020-08-08] MEDS: GABAPENTIN 300 MG CAPSULE PO SCH ×2 (09:45→23:00)
[2020-08-08] MEDS: ASPIRIN 81 MG TABLET, CHEWABLE NG SCH (09:45)
[2020-08-08] MEDS ORDERED: MIDODRINE HCL 5 MG TABLET PO SCH (10:00)
[2020-08-08] MEDS ORDERED: CEFEPIME 1 GM/D5W RTU 1 GM/50 ML RTUPB IV SCH (10:00)
--- NOTE | 2020-08-08 12:56 | RADIOLOGY REPORT (SQ) ---
EXAM DESCRIPTION: MRI HEAD WITHOUT IMAGES COMPLETED DATE/TIME: 08/08/2020 12:25 pm REASON FOR STUDY: Stroke COMPARISON: CT dated 08/07/2020. TECHNIQUE: Multiplanar imaging includes non-contrasted T1, T2, FLAIR, and Diffusion with ADC map seq uences. Images stored on PACS. LIMITATIONS: None. FINDINGS: ANATOMY: No anomalies. Normal vascular flow voids. Pituitary fossa normal. CSF SPACES: Normal in size and contour. No hemorrhage. CEREBRUM: A few high-signal intensity lesions scattered throughout the white matter on FLAIR imaging with distribution suggesting chronic micro-vascular ischemic change. Sulci and gyri normal in size a nd contour. No evidence of hemorrhage, mass or extraaxial fluid collection. POSTERIOR FOSSA: No signal alteration. No hemorrhage. No edema, masses or mass effect. Internal chiki tory canals, cerebello-pontine angles, mastoids normal. DIFFUSION: There are small focal areas of restricted diffusion in the posterior right parietal lobe ( axial images 17 and 18 on diffusion and ADC sequences). ORBITS: No masses. Globes normal. PARANASAL SINUSES: No fluid levels. Mucosa normal. OTHER: No other significant finding. IMPRESSION: MINIMAL MICROVASCULAR ISCHEMIC CHANGE. SMALL FOCAL ACUTE LACUNAR INFARCTS IN THE APPLICATIONS SUPPORT ANALYST IOR RIGHT PARIETAL LOBE. EVIDENCE OF ACUTE STROKE: YES. RIGHT MCA. COMMENT: The findings were sent to the Radiology Results Communication Center at 12:50 on 0 to be communicated to a licensed caregiver. TECHNICAL DOCUMENTATION: JOB ID: [id number] 2010 [employer]- All Rights Reserved Reading location - IP/workstation name: [email or web address]
--- NOTE | 2020-08-08 12:59 | RADIOLOGY REPORT (SQ) ---
EXAM DESCRIPTION: MRA HEAD WITHOUT IMAGES COMPLETED DATE/TIME: 08/08/2020 12:25 pm REASON FOR STUDY: Stroke COMPARISON: None. TECHNIQUE: Axial 3-D [id number] acquisition imaging performed through the brain in the area of t he [place] of [place]. Images reformatted using 3-D MIPS. LIMITATIONS: Motion artifact on the axial source images. FINDINGS: SOURCE IMAGES: No unexpected findings on source images. No large masses. 3-D MIP: No aneurysm. No occlusions. No significant stenosis. OTHER: No other significant finding. IMPRESSION: NORMAL MRA OF THE [place] OF [place]. TECHNICAL DOCUMENTATION: JOB ID: [id number] 2010 [employer]- All Rights Reserved Reading location - IP/workstation name: [email or web address]
[2020-08-08] MEDS ORDERED: MAG HYDROX/AL HYDROX/SIMETH SUSP 30 ML UDCUP PO ONE (13:47)
[2020-08-08] MEDS ORDERED: LIDOCAINE 2% VISCOUS SOLN 15 ML UDCUP PO ONE (13:47)
[2020-08-08] MEDS: FLUTICASONE NASAL SPRAY 50 MCG/SPRY 120 SPRAY/16 GM NAREB SCH (14:20)
[2020-08-08 14:29] LABS: CHOLESTEROL 165.14 mg/dL (0-200); TRIGLYCERIDES 387 mg/dL (<150)
[2020-08-08] MEDS: PANTOPRAZOLE SODIUM 40 MG VIAL IV SCH ×2 (14:30→23:00)
[2020-08-08] MEDS: CEFEPIME 1 GM/D5W RTU 1 GM/50 ML RTUPB IV SCH (14:30)
[2020-08-08] MEDS: MIDODRINE HCL 5 MG TABLET PO SCH ×2 (14:31→18:14)
[2020-08-08 14:39] LABS: DIRECT LDL 60 mg/dL (<100)
[2020-08-08 14:43] LABS: VLDL CHOLESTEROL 77.4 mg/dL (10-31)
--- NOTE | 2020-08-08 15:11 | PDOC PROGRESS REPORT ---
Subjective Date:: 08/08/20 Subjective:: As per admitting physician's note KATHY BURRELL is a 70 year old male, with history of end-stage renal disease on peritoneal dialysis (last session last night), Hx Hypercholesterolemia, Hx Hypertension, history of back surgery who has a 1 day complaining of mid abdominal pain around the umbilicus. The patient has a known umbilical hernia that he has been following conservatively. A CT scan abdomen pelvis has been done upon arrival in the emergency room today and this is significant for a strangulated umbilical hernia with infarcted small bowel and gas in the portal vein system. 08/07/2020. No acute events overnight. Patient awake and alert and cooperative with physical examination. Stating that he is avoiding eating or drinking as he has odynophagia due to prolonged NG tube placement, patient was noted to be hypotensive and is stating that when he was trying to get up to do his physical therapy he was feeling lightheaded, denies any chest pain, nausea, vomiting, diarrhea, constipation or any urinary symptoms. 08/08/2020. Assumed care on 08/07/2020. On my first encounter patient was reporting to me that he was having odynophagia due to prolonged NG tube placement and as a result he was not eating much and not taking any fluid, he was also mentioning to me that whenever he tries to stand up or when he tries to get physical therapy he feels lightheaded and dizzy, upon reviewing his vitals I noted that patient has been having soft is BPs and once a while his systolic blood pressure has been in the high 80s and low 90s, I noted the patient has history of hypertension, and is on low-dose beta-blockers, I also noted that patient had been checked for random cortisol and a.m. cortisol which have been WNL. I figured patient could be orthostatic due to low p.o. intake, held his antihypertensives and gave him 500 cc NS and also started him on GI cocktail which includes Reglan in it. Patient was able to tolerate his p.o. intake without any problem, but unfortunately towards the evening patient was noted to be less responsive with slurred speech and code stroke was called. When code stroke was called patient vitals were WNL, a stat CT was negative for any acute stroke, and patient was not deemed suitable for TPA due to recent abdominal s urgery. Stroke protocol was initiated and patient was started on statins and antiplatelets. An ABG showed mild hypoxemia, his fluids were held and he was given 1 dose of IV Lasix. Patient was also given 1 dose of Narcan as he had received 1 dose of IV morphine, with no significant improvement. This morning patient did not appear to be in acute distress but unfortunately neurologically he was unchanged, still drowsy but easily arousable, and having some expressive aphasia, bilateral lower extremity clonus and twitching of bilateral upper extremities and bilateral nystagmus. Yesterday patient had received Reglan in his GI cocktail yesterday, so I gave him IV Benadryl to see if his clonus and twitching was related to Reglan side effects, unfortunately no significant improvement noted, stat MRI/MRI head ordered which came back positive for small focal acute lacunar infarct in the posterior right parietal lobe. Patient and family notified about the results. Patient is stating that he has had similar symptoms 2 years ago in [place] and was diagnosed with TIA. Patient is stating that he was taking statin but it was stopped by his PCP, unfortunately patient is noted not to have been on antiplatelets however he has been receiving his subcutaneous heparin while inpatient. Patient and family has agreed to be transition to short-term rehab if needed. Reason For Visit: HYPOXIC RESPIRATORY FAILURE, NEEDS DIALYSIS, Physical Exam Vital Signs: Temp Pulse Resp BP Pulse Ox 98.6 F 112 H 20 94/51 L 98 08/08/20 10:00 08/08/20 12:00 08/08/20 12:00 08/08/20 12:00 08/08/20 12:00 Intake & Output 08/07/20 08/08/20 08/09/20 06:59 06:59 06:59 Intake Total 475 760 Output Total 500 0 Balance -25 760 Weight 121.6 kg 123.7 kg General appearance: PRESENT: no acute distress, well-developed, well-nourished Head exam: PRESENT: atraumatic, normocephalic Respiratory exam: PRESENT: clear to auscultation zander. ABSENT: rales, rhonchi, wheezes Cardiovascular exam: PRESENT: RRR. ABSENT: diastolic murmur, rubs, systolic murmur GI/Abdominal exam: PRESENT: normal bowel sounds, soft. ABSENT: distended, guarding, mass, organolmegaly, rebound, tenderness Neurological exam: PRESENT: alert, awake, oriented to person, oriented to place, oriented to time, oriented to situation, CN II-XII grossly intact, motor sensory deficit - Acute bilateral lower extremity weakness, strength 3/5. Bilateral upper extremity strength 5/5, aphasic, other - Nystagmus, upper extremity twitching, bilateral ankle clonus. Results Laboratory Results: 08/07/20 17:29 08/08/20 05:15 08/07/20 08/07/20 08/08/20 17:29 17:29 05:15 WBC 5.2 RBC 2.28 L Hgb 7.4 L Hct 22.0 L MCV 96 MCH 32.5 MCHC 33.7 RDW 15.1 H Plt Count 393 Seg Neutrophils % 75.6 Carbonic Acid 1.02 L HCO3/H2CO3 Ratio 23:1 ABG pH 7.46 H ABG pCO2 33.9 L ABG pO2 59.5 L ABG HCO3 23.5 ABG O2 Saturation 92.3 L ABG Base Excess -0.2 FiO2 2L Sodium 131.9 L Potassium 4.8 Chloride 96 L Carbon Dioxide 26 Anion Gap 10 BUN 53 H Creatinine 7.15 H Est GFR ( Amer) 9 L Glucose 114 H Calcium 7.5 L Phosphorus 4.3 Magnesium 2.1 Total Bilirubin 0.5 AST 51 Alkaline Phosphatase 198 H Total Protein 4.8 L Albumin 2.4 L 08/05/20 08/05/20 08/08/20 20:10 20:10 05:15 Creatine Kinase 39 L 29 L Troponin I 0.050 Impressions: Guidance Fluoroscopy 07/26/20 00:00 IMPRESSION: IMAGE(S) OBTAINED DURING PROCEDURE. Abdomen/Pelvis CT 08/03/20 00:00 IMPRESSION: 1. NASOGASTRIC TUBE, TIP IN THE STOMACH. CONTRAST IN THE STOMACH AND THROUGHOUT THE SMALL BOWEL. DILATED PROXIMAL SMALL BOWEL AND NONDISTENDED DISTAL SMALL BOWEL. PROBABLY PARTIAL SMALL BOWEL OBSTRUCTION. 2. SMALL UMBILICAL HERNIA, CONTAINING A SMALL AMOUNT OF GAS PRESUMED SECONDARY TO RECENT SURGERY. 3. COLONIC DIVERTICULOSIS. NO CT FINDINGS OF ACUTE DIVERTICULITIS. 4. CHRONIC POLYCYSTIC KIDNEY DISEASE. 5. PERITONEAL DIALYSIS CATHETER, DISTAL END IN THE PELVIS. 6. NO OTHER ACUTE OR SIGNIFICANT FINDINGS. KUB X-Ray 08/04/20 00:00 IMPRESSION: Persistent dilated at least proximal small bowel. There is air and stool as well as contrast throughout the colon. Findings are consistent with partial small bowel obstruction. Chest X-Ray 08/07/20 00:00 IMPRESSION: NO ACUTE FINDINGS. Head CT 08/07/20 17:32 IMPRESSION: NO ACUTE INTRACRANIAL FINDINGS. EVIDENCE OF ACUTE STROKE: NO. Brain MRI with MRA 08/08/20 00:00 IMPRESSION: NORMAL MRA OF [place]. Head MRI 08/08/20 00:00 IMPRESSION: MINIMAL MICROVASCULAR ISCHEMIC CHANGE. SMALL FOCAL ACUTE LACUNAR INFARCTS IN THE POSTERIOR RIGHT PARIETAL LOBE. EVIDENCE OF ACUTE STROKE: YES. RIGHT MCA. Assessment and Plan - Diagnosis (1) Orthostatic hypotension Is this a current diagnosis for this admission?: Yes Plan: Patient has history of hypertension however noted to be hypotensive on this admission. Been complaining of lightheadedness. Patient is end-stage renal disease on hemodialysis. Denies any history of cirrhosis or any CAD. No sign of any acute infection. Random cortisol and free cortisol in a.m. has been within normal limits. We will check TSH, T3-T4. Hold antihypertensives. Unfortunately not a candidate for volume cessation due to end-stage renal dise ase. We will start on midodrine, 5 mg p.o. 3 times daily, monitor vitals, fall precautions. (2) Acute ischemic right MCA stroke Is this a current diagnosis for this admission?: Yes Plan: MRI head positive for small focal acute lacunar infarct in the posterior right parietal lobe. Right MCA. Transfer to [facility], neurochecks every 4, statins, antiplatelets, fall, seizure and aspiration precaution. PT/OT/ST. Monitor vitals. (3) Small bowel obstruction with strangulation or infarction Is this a current diagnosis for this admission?: Yes Plan: Status post hernia repair. P.o. tolerant, having normal bowel and bladder movements. Continue wound care, out of bed to chair as tolerated (4) ESRD on hemodialysis Is this a current diagnosis for this admission?: Yes Plan: Receiving hemodialysis Sunday. He has a Luis catheter on the right IJ. Monitor electrolytes and volume status. (5) ESRD on peritoneal dialysis Is this a current diagnosis for this admission?: No Plan: End-stage renal disease due to polycystic kidneys. On chronic PD dialysis. Currently patient receiving hemodialysis through Luis catheter on the right IJ. Outpatient PCP and nephrology follow-up. (6) Ileus, postoperative Is this a current diagnosis for this admission?: Yes Plan: Resolved. Having normal bowel movements. (7) Incarcerated umbilical hernia Is this a current diagnosis for this admission?: Yes Plan: Status post surgical repair of umbilical hernia repair with mesh. Having normal bowel movement. Nasogastric tube is removed. (8) Anemia in chronic kidney disease (CKD) Qualifiers: Chronic kidney disease stage: on chronic dialysis Qualified Code(s): N18.6 - End stage renal disease; D63.1 - Anemia in chronic kidney disease; Z99.2 - Dependence on renal dialysis Is this a current diagnosis for this admission?: No Plan: H&H stable. Receiving Procrit during hemodialysis. (9) Hypertension Qualifiers: Hypertension type: essential hypertension Qualified Code(s): I10 - Essential (primary) hypertension Is this a current diagnosis for this admission?: No Plan: Noted to have orthostatic hypotension. Hold antihypertensives. Monitor vitals. Resume once appropriate. (10) Polycystic kidney disease Is this a current diagnosis for this admission?: Yes Plan: Stable - Plan Summary Summary: 08/03/2020 8:15 PM Critical care visit 40 minutes I assessed the patient and then reviewed the use computer records. I given the patient a liter of fluid earlier today. His blood pressure responded. He admits that he felt better. This was just prior to the CAT scan. He still has a large net negative fluid balance. He has skin tenting and his oral mucosa is extremely dry. He has sunken eye sockets. His lungs are clear. After reviewing all of the data including laboratory studies and imaging I believe the patient is hypovolemic and this is the reason for the tachycardia. In addition, early in his stay he is oliguric. Of late he has been an uric. If you compare the heart rate to the blood pressures his blood pressures have been relatively soft. I believe that the patient's blood pressure and pulse are directly related to his volume status. With the nurse at the bedside we discussed the treatment plan with the patient. IV fluid The patient will receive a 500 mL bolus and then run the remaining fluid at 150 mL an hour for a total of 2 L of fluid overnight. Hiccups The hiccups have responded to the Thorazine. I was decreasing the Thorazine dose. At this point I will discontinue it as a scheduled medication but leave it available as needed every 12 hours for hiccups. This medication is quite sedating and by removing it the patient may have more energy. Cortisol Random cortisol drawn early in this hospitalization was 99. I have ordered a morning cortisol for tomorrow in addition to his normal laboratory studies. I will see if there is any evidence of adrenal insufficiency. - Time Time Spent with patient: 35 or more minutes Medications reviewed and adjusted accordingly: Yes Anticipated Discharge Disposition: [facility] Anticipated Discharge Timeframe: within 72 hours
[2020-08-08 15:43] LABS: FREE T3 2.64 pg/mL (2.77-5.27); FREE T4 (FREE THYROXINE) 1.05 ng/dL (0.78-2.19)
[2020-08-08 15:56] LABS: THYROID STIMULATING HORMONE 2.1 uIU/mL (0.47-4.68)
[2020-08-08] MEDS: MAG HYDROX/AL HYDROX/SIMETH SUSP 30 ML UDCUP PO PRN ×2 (18:13→23:57)
[2020-08-08] MEDS: LIDOCAINE 2% VISCOUS SOLN 15 ML UDCUP PO PRN (18:14)
[2020-08-08] MEDS: FLUDROCORTISONE ACETATE 0.1 MG TABLET PO SCH (18:14)
[2020-08-08] MEDS ORDERED: EPOETIN ALFA-EPBX 2,000 UNIT, EPOETIN ALFA-EPBX 3,000 UNIT, EPOETIN ALFA-EPBX 20,000 UN... IV PRN ×4 (19:42)
[2020-08-08] MEDS: ATORVASTATIN CALCIUM 40 MG TABLET NG SCH (23:00)
[2020-08-09] MEDS: IPRATROPIUM/ALBUTEROL 0.5-2.5 MG/3 ML AMPUL NEB SCH ×4 (02:29→20:07)
[2020-08-09] MEDS ORDERED: HEPARIN SOD (PORCINE) 1,000 UNIT/ML 10 ML VIAL IV PRN (05:00)
[2020-08-09] MEDS ORDERED: NORMAL SALINE 1000 ML 1,000 ML IV PRN (05:00)
[2020-08-09 06:01] LABS: ABSOLUTE BASOPHILS # (AUTO) 0.1 10^3/uL (0.0-0.2); ABSOLUTE EOSINOPHILS # (AUTO) 0.1 10^3/uL (0.0-0.6); ABSOLUTE LYMPHOCYTES (AUTO) 0.7 10^3/uL (0.5-4.7); ABSOLUTE MONOCYTES (AUTO) 0.8 10^3/uL (0.1-1.4); ABSOLUTE NEUT (AUTO) 4.7 10^3/uL (1.7-8.2); BASOPHILS % (AUTO) 1.1 % (0-2); EOSINOPHILS % (AUTO) 1.3 % (0-6); LYMPHOCYTES % (AUTO) 11.5 % (13-45); MEAN CORPUSCULAR HEMOGLOBIN 31.1 pg (27.0-33.4); MEAN CORPUSCULAR HGB CONC 32.9 g/dL (32.0-36.0); MEAN CORPUSCULAR VOLUME 95 fl (80-97); MONOCYTES % (AUTO) 12.4 % (3-13); PLATELET COUNT 398 10^3/uL (150-450); RED BLOOD COUNT 2.33 10^6/uL (4.35-5.55); RED CELL DISTRIBUTION WIDTH 14.9 % (11.5-14.0); SEGMENTED NEUTROPHILS % (AUTO) 73.7 % (42-78); TOTAL CELLS COUNTED % (AUTO) 100 %; WHITE BLOOD COUNT 6.4 10^3/uL (4.0-10.5)
[2020-08-09] MEDS: HEPARIN SOD (PORCINE) 5,000 UNIT/ML 1 ML VIAL SUBCUT SCH ×3 (06:08→22:09)
[2020-08-09 06:11] LABS: HEMOGLOBIN 7.2 g/dL (13.5-17.0)
[2020-08-09 07:25] LABS: ANION GAP 14 (5-19); BLOOD UREA NITROGEN 67 mg/dL (7-20); CALCIUM 7.4 mg/dL (8.4-10.2); CARBON DIOXIDE 24 mmol/L (22-30); CHLORIDE 94 mmol/L (98-107); GLUCOSE 114 mg/dL (75-110); PHOSPHORUS 5.4 mg/dL (2.5-4.5); POTASSIUM 5.2 mmol/L (3.6-5.0)
[2020-08-09] MEDS ORDERED: EPOETIN ALFA-EPBX 2,000 UNIT, EPOETIN ALFA-EPBX 3,000 UNIT, EPOETIN ALFA-EPBX 20,000 UN... IV PRN ×4 (08:29)
[2020-08-09] MEDS: ASPIRIN 81 MG TABLET, CHEWABLE NG SCH (10:15)
[2020-08-09] MEDS: MIDODRINE HCL 5 MG TABLET PO SCH ×3 (10:15→17:11)
[2020-08-09] MEDS: GABAPENTIN 300 MG CAPSULE PO SCH ×2 (10:16→22:09)
[2020-08-09] MEDS: PANTOPRAZOLE SODIUM 40 MG VIAL IV SCH ×2 (10:16→22:09)
[2020-08-09] MEDS ORDERED: ALTEPLASE INJ 2 MG VIAL (CATH CLEARANCE) IV ONE (10:30)
[2020-08-09] MEDS: FLUTICASONE NASAL SPRAY 50 MCG/SPRY 120 SPRAY/16 GM NAREB SCH (10:34)
[2020-08-09] MEDS: FLUDROCORTISONE ACETATE 0.1 MG TABLET PO SCH (10:34)
--- NOTE | 2020-08-09 12:06 | PDOC PROGRESS REPORT ---
Subjective Date:: 08/09/20 Subjective:: As per admitting physician's note KATHY BURRELL is a 70 year old male, with history of end-stage renal disease on peritoneal dialysis (last session last night), Hx Hypercholesterolemia, Hx Hypertension, history of back surgery who has a 1 day complaining of mid abdominal pain around the umbilicus. The patient has a known umbilical hernia that he has been following conservatively. A CT scan abdomen pelvis has been done upon arrival in the emergency room today and this is significant for a strangulated umbilical hernia with infarcted small bowel and gas in the portal vein system. 08/07/2020. No acute events overnight. Patient awake and alert and cooperative with physical examination. Stating that he is avoiding eating or drinking as he has odynophagia due to prolonged NG tube placement, patient was noted to be hypotensive and is stating that when he was trying to get up to do his physical therapy he was feeling lightheaded, denies any chest pain, nausea, vomiting, diarrhea, constipation or any urinary symptoms. 08/08/2020. Assumed care on 08/07/2020. On my first encounter patient was reporting to me that he was having odynophagia due to prolonged NG tube placement and as a result he was not eating much and not taking any fluid, he was also mentioning to me that whenever he tries to stand up or when he tries to get physical therapy he feels lightheaded and dizzy, upon reviewing his vitals I noted that patient has been having soft is BPs and once a while his systolic blood pressure has been in the high 80s and low 90s, I noted the patient has history of hypertension, and is on low-dose beta-blockers, I also noted that patient had been checked for random cortisol and a.m. cortisol which have been WNL. I figured patient could be orthostatic due to low p.o. intake, held his antihypertensives and gave him 500 cc NS and also started him on GI cocktail which includes Reglan in it. Patient was able to tolerate his p.o. intake without any problem, but unfortunately towards the evening patient was noted to be less responsive with slurred speech and code stroke was called. When code stroke was called patient vitals were WNL, a stat CT was negative for any acute stroke, and patient was not deemed suitable for TPA due to recent abdominal s urgery. Stroke protocol was initiated and patient was started on statins and antiplatelets. An ABG showed mild hypoxemia, his fluids were held and he was given 1 dose of IV Lasix. Patient was also given 1 dose of Narcan as he had received 1 dose of IV morphine, with no significant improvement. This morning patient did not appear to be in acute distress but unfortunately neurologically he was unchanged, still drowsy but easily arousable, and having some expressive aphasia, bilateral lower extremity clonus and twitching of bilateral upper extremities and bilateral nystagmus. Yesterday patient had received Reglan in his GI cocktail yesterday, so I gave him IV Benadryl to see if his clonus and twitching was related to Reglan side effects, unfortunately no significant improvement noted, stat MRI/MRI head ordered which came back positive for small focal acute lacunar infarct in the posterior right parietal lobe. Patient and family notified about the results. Patient is stating that he has had similar symptoms 2 years ago in [place] and was diagnosed with TIA. Patient is stating that he was taking statin but it was stopped by his PCP, unfortunately patient is noted not to have been on antiplatelets however he has been receiving his subcutaneous heparin while inpatient. Patient and family has agreed to be transition to short-term rehab if needed. 08/09/2020. Saw patient this morning while waiting to receive hemodialysis in the hemodialysis unit, unfortunately patient has not improved neurologically, overnight patient was not started on dopamine drip as his pressure was consi dered to be within normal limits, patient is still somnolent but easily arousable, has twitching of upper extremities, mild aphasia and bilateral lower extremity clonus more on the right side, upper extremity strength improvement, lower extremity strength has not changed, patient is alert and oriented, denies any fever, chills, nausea, vomiting. Reason For Visit: HYPOXIC RESPIRATORY FAILURE, NEEDS DIALYSIS, Physical Exam Vital Signs: Temp Pulse Resp BP Pulse Ox 98.1 F 104 H 17 95/57 L 94 08/09/20 11:10 08/09/20 11:10 08/09/20 11:10 08/09/20 11:10 08/09/20 11:10 Intake & Output 08/08/20 08/09/20 08/10/20 06:59 06:59 06:59 Intake Total 760 150 Output Total 0 Balance 760 150 Weight 123.7 kg 123.9 kg General appearance: PRESENT: no acute distress, well-developed, well-nourished, other - Somnolent but easily arousable Head exam: PRESENT: atraumatic, normocephalic Respiratory exam: PRESENT: clear to auscultation zander, tachypnea. ABSENT: rales, rhonchi, wheezes Cardiovascular exam: PRESENT: RRR. ABSENT: diastolic murmur, rubs, systolic murmur GI/Abdominal exam: PRESENT: normal bowel sounds, soft. ABSENT: distended, guarding, mass, organolmegaly, rebound, tenderness Extremities exam: PRESENT: full ROM. ABSENT: calf tenderness, clubbing, pedal edema Neurological exam: PRESENT: alert, awake, oriented to person, oriented to place, CN II-XII grossly intact, motor sensory deficit - Bilateral upper extremity strength 5/5. Significant twitching. Left lower symmetry strength 3/5. Right lower extremities 2/5. Right ankle clonus. Results Laboratory Results: 08/09/20 05:02 08/09/20 06:00 08/08/20 08/08/20 08/09/20 05:15 05:15 05:02 WBC 6.4 RBC 2.33 L Hgb 7.2 L Hct 22.0 L MCV 95 MCH 31.1 MCHC 32.9 RDW 14.9 H Plt Count 398 Seg Neutrophils % 73.7 Sodium Potassium Chloride Carbon Dioxide Anion Gap BUN Creatinine Est GFR ( Amer) Glucose Calcium Phosphorus Magnesium Triglycerides 387 H Cholesterol 165.14 LDL Cholesterol Direct 60 VLDL Cholesterol 77.4 H HDL Cholesterol 19 L TSH 2.10 Free T4 1.05 Free T3 pg/mL 2.64 L 08/09/20 06:00 WBC RBC Hgb Hct MCV MCH MCHC RDW Plt Count Seg Neutrophils % Sodium 132.0 L Potassium 5.2 H Chloride 94 L Carbon Dioxide 24 Anion Gap 14 BUN 67 H Creatinine 8.83 H Est GFR ( Amer) 7 L Glucose 114 H Calcium 7.4 L Phosphorus 5.4 H Magnesium 2.2 Triglycerides Cholesterol LDL Cholesterol Direct VLDL Cholesterol HDL Cholesterol TSH Free T4 Free T3 pg/mL 08/05/20 08/05/20 08/08/20 20:10 20:10 05:15 Creatine Kinase 39 L 29 L Troponin I 0.050 Impressions: Guidance Fluoroscopy 07/26/20 00:00 IMPRESSION: IMAGE(S) OBTAINED DURING PROCEDURE. Abdomen/Pelvis CT 08/03/20 00:00 IMPRESSION: 1. NASOGASTRIC TUBE, TIP IN THE STOMACH. CONTRAST IN THE STOMACH AND THROUGHOUT THE SMALL BOWEL. DILATED PROXIMAL SMALL BOWEL AND NONDISTENDED DISTAL SMALL BOWEL. PROBABLY PARTIAL SMALL BOWEL OBSTRUCTION. 2. SMALL UMBILICAL HERNIA, CONTAINING A SMALL AMOUNT OF GAS PRESUMED SECONDARY TO RECENT SURGERY. 3. COLONIC DIVERTICULOSIS. NO CT FINDINGS OF ACUTE DIVERTICULITIS. 4. CHRONIC POLYCYSTIC KIDNEY DISEASE. 5. PERITONEAL DIALYSIS CATHETER, DISTAL END IN THE PELVIS. 6. NO OTHER ACUTE OR SIGNIFICANT FINDINGS. KUB X-Ray 08/04/20 00:00 IMPRESSION: Persistent dilated at least proximal small bowel. There is air and stool as well as contrast throughout the colon. Findings are consistent with partial small bowel obstruction. Chest X-Ray 08/07/20 00:00 IMPRESSION: NO ACUTE FINDINGS. Head CT 08/07/20 17:32 IMPRESSION: NO ACUTE INTRACRANIAL FINDINGS. EVIDENCE OF ACUTE STROKE: NO. Brain MRI with MRA 08/08/20 00:00 IMPRESSION: NORMAL MRA OF THE [place]. Head MRI 08/08/20 00:00 IMPRESSION: MINIMAL MICROVASCULAR ISCHEMIC CHANGE. SMALL FOCAL ACUTE LACUNAR INFARCTS IN THE POSTERIOR RIGHT PARIETAL LOBE. EVIDENCE OF ACUTE STROKE: YES. RIGHT MCA. Assessment and Plan - Diagnosis (1) Orthostatic hypotension Is this a current diagnosis for this admission?: Yes Plan: Patient has history of hypertension however noted to be hypotensive on this admission. Been complaining of lightheadedness. Patient is end-stage renal disease on hemodialysis. Denies any history of cirrhosis or any CAD. No sign of any acute infection. Noted to have 1 episode of fever on 08/09/2020 and has been on cefepime since then. Repeat blood cultures pending. Random cortisol and free cortisol in a.m. has been within normal limits. TSH, T3, T4 WNL. Hold antihypertensives. Unfortunately not a candidate for volume resuscitation due to end-stage renal disease. Continue midodrine 5 mg p.o. 3 times daily, fludrocortisone 1 mg p.o. daily. Dopamine drip on hold, will restart if MAP drops less than 65 or patient becomes symptomatic. (2) Acute ischemic right MCA stroke Is this a current diagnosis for this admission?: Yes Plan: MRI head positive for small focal acute lacunar infarct in the posterior right parietal lobe. Right MCA. Mild aphasia, bilateral upper extremity twitching, bilateral lower extremity weakness and clonus of the right ankle. Continue telemetry, neurochecks every 4, statins, antiplatelets, fall, seizure and aspiration precaution. PT/OT/ST. Monitor vitals. (3) Small bowel obstruction with strangulation or infarction Is this a current diagnosis for this admission?: Yes Plan: Status post hernia repair. P.o. tolerant, having normal bowel and bladder movements. Continue wound care, out of bed to chair as tolerated (4) ESRD on hemodialysis Is this a current diagnosis for this admission?: Yes Plan: Receiving hemodialysis Sunday. He has a Luis catheter on the right IJ. Monitor electrolytes and volume status. (5) ESRD on peritoneal dialysis Is this a current diagnosis for this admission?: No Plan: End-stage renal disease due to polycystic kidneys. On chronic PD dialysis. Currently patient receiving hemodialysis through Luis catheter on the right IJ. Outpatient PCP and nephrology follow-up. (6) Ileus, postoperative Is this a current diagnosis for this admission?: Yes Plan: Resolved. Having normal bowel movements. (7) Incarcerated umbilical hernia Is this a current diagnosis for this admission?: Yes Plan: Status post surgical repair of umbilical hernia repair with mesh. Having normal bowel movement. Nasogastric tube is removed. (8) Anemia in chronic kidney disease (CKD) Qualifiers: Chronic kidney disease stage: on chronic dialysis Qualified Code(s): N18.6 - End stage renal disease; D63.1 - Anemia in chronic kidney disease; Z99.2 - Dependence on renal dialysis Is this a current diagnosis for this admission?: No Plan: Hemoglobin slowly dropping, no evidence of acute bleeding. Not a candidate for blood transfusion as patient is considering kidney transpl antation in the future. Also patient noted to have very brittle volume status, he is end-stage renal disease and on 08/09/2020 after receiving 500 mg bolus for his hypotension patient became hypoxic. Monitor H&H, supportive transfusion if hemoglobin drops below 7 or acutely or becomes symptomatic. He is receiving Procrit administered by nephrology during hemodialysis. (9) Hypertension Qualifiers: Hypertension type: essential hypertension Qualified Code(s): I10 - Essential (primary) hypertension Is this a current diagnosis for this admission?: No Plan: Noted to have orthostatic hypotension. Hold antihypertensives. Monitor vitals. Resume once appropriate. (10) Polycystic kidney disease Is this a current diagnosis for this admission?: Yes Plan: Stable - Plan Summary Summary: 08/03/2020 8:15 PM Critical care visit 40 minutes I assessed the patient and then reviewed the use computer records. I given the patient a liter of fluid earlier today. His blood pressure responded. He admits that he felt better. This was just prior to the CAT scan. He still has a large net negative fluid balance. He has skin tenting and his oral mucosa is extremely dry. He has sunken eye sockets. His lungs are clear. After reviewing all of the data including laboratory studies and imaging I believe the patient is hypovolemic and this is the reason for the tachycardia. In addition, early in his stay he is oliguric. Of late he has been an uric. If you compare the heart rate to the blood pressures his blood pressures have been relatively soft. I believe that the patient's blood pressure and pulse are directly related to his volume status. With the nurse at the bedside we discussed the treatment plan with the patient. IV fluid The patient will receive a 500 mL bolus and then run the remaining fluid at 150 mL an hour for a total of 2 L of fluid overnight. Hiccups The hiccups have responded to the Thorazine. I was decreasing the Thorazine dose. At this point I will discontinue it as a scheduled medication but leave it available as needed every 12 hours for hiccups. This medication is quite sedating and by removing it the patient may have more energy. Cortisol Random cortisol drawn early in this hospitalization was 99. I have ordered a morning cortisol for tomorrow in addition to his normal laboratory studies. I will see if there is any evidence of adrenal insufficiency. - Time Time Spent with patient: 35 or more minutes Anticipated Discharge Disposition: [facility] Anticipated Discharge Timeframe: within 72 hours
--- NOTE | 2020-08-09 14:36 | PDOC PROGRESS REPORT ---
Subjective Date:: 08/09/20 Reason For Visit: HYPOXIC RESPIRATORY FAILURE, NEEDS DIALYSIS, Physical Exam Vital Signs: Temp Pulse Resp BP Pulse Ox 98.1 F 104 H 17 95/57 L 94 08/09/20 11:10 08/09/20 11:10 08/09/20 11:10 08/09/20 11:10 08/09/20 11:10 Intake & Output 08/08/20 08/09/20 08/10/20 06:59 06:59 06:59 Intake Total 760 150 Output Total 0 Balance 760 150 Weight 123.7 kg 123.9 kg Results Laboratory Results: 08/09/20 05:02 08/09/20 06:00 08/08/20 08/08/20 08/09/20 05:15 05:15 05:02 WBC 6.4 RBC 2.33 L Hgb 7.2 L Hct 22.0 L MCV 95 MCH 31.1 MCHC 32.9 RDW 14.9 H Plt Count 398 Seg Neutrophils % 73.7 Sodium Potassium Chloride Carbon Dioxide Anion Gap BUN Creatinine Est GFR ( Amer) Glucose Calcium Phosphorus Magnesium Triglycerides 387 H Cholesterol 165.14 LDL Cholesterol Direct 60 VLDL Cholesterol 77.4 H HDL Cholesterol 19 L TSH 2.10 Free T4 1.05 Free T3 pg/mL 2.64 L 08/09/20 06:00 WBC RBC Hgb Hct MCV MCH MCHC RDW Plt Count Seg Neutrophils % Sodium 132.0 L Potassium 5.2 H Chloride 94 L Carbon Dioxide 24 Anion Gap 14 BUN 67 H Creatinine 8.83 H Est GFR ( Amer) 7 L Glucose 114 H Calcium 7.4 L Phosphorus 5.4 H Magnesium 2.2 Triglycerides Cholesterol LDL Cholesterol Direct VLDL Cholesterol HDL Cholesterol TSH Free T4 Free T3 pg/mL 08/05/20 08/05/20 08/08/20 20:10 20:10 05:15 Creatine Kinase 39 L 29 L Troponin I 0.050 Impressions: Guidance Fluoroscopy 07/26/20 00:00 IMPRESSION: IMAGE(S) OBTAINED DURING PROCEDURE. Abdomen/Pelvis CT 08/03/20 00:00 IMPRESSION: 1. NASOGASTRIC TUBE, TIP IN THE STOMACH. CONTRAST IN THE STOMACH AND THROUGHOUT THE SMALL BOWEL. DILATED PROXIMAL SMALL BOWEL AND NONDISTENDED DISTAL SMALL BOWEL. PROBABLY PARTIAL SMALL BOWEL OBSTRUCTION. 2. SMALL UMBILICAL HERNIA, CONTAINING A SMALL AMOUNT OF GAS PRESUMED SECONDARY TO RECENT SURGERY. 3. COLONIC DIVERTICULOSIS. NO CT FINDINGS OF ACUTE DIVERTICULITIS. 4. CHRONIC POLYCYSTIC KIDNEY DISEASE. 5. PERITONEAL DIALYSIS CATHETER, DISTAL END IN THE PELVIS. 6. NO OTHER ACUTE OR SIGNIFICANT FINDINGS. KUB X-Ray 08/04/20 00:00 IMPRESSION: Persistent dilated at least proximal small bowel. There is air and stool as well as contrast throughout the colon. Findings are consistent with partial small bowel obstruction. Chest X-Ray 08/07/20 00:00 IMPRESSION: NO ACUTE FINDINGS. Head CT 08/07/20 17:32 IMPRESSION: NO ACUTE INTRACRANIAL FINDINGS. EVIDENCE OF ACUTE STROKE: NO. Brain MRI with MRA 08/08/20 00:00 IMPRESSION: NORMAL MRA OF THE [place]. Head MRI 08/08/20 00:00 IMPRESSION: MINIMAL MICROVASCULAR ISCHEMIC CHANGE. SMALL FOCAL ACUTE LACUNAR INFARCTS IN THE POSTERIOR RIGHT PARIETAL LOBE. EVIDENCE OF ACUTE STROKE: YES. RIGHT MCA. Assessment & Plan - Diagnosis (1) Small bowel obstruction with strangulation or infarction Is this a current diagnosis for this admission?: Yes - Time Anticipated Discharge Disposition: Unknown Anticipated Discharge Timeframe: Unknown - Plan Summary Plan Summary: 70-year-old male with an indwelling permacath in the left subclavian vein. The permacath is sluggish today, and the dialysis nurses were unable to complete dialysis. The patient has an acute angulation where the innominate vein meets the superior vena cava. This may be limiting the flow within the catheter. I will place a right femoral temporary dialysis catheter today. Will discontinue the right internal jugular vein central line. In 48 hours, will plan to place a right IJ permacath, to avoid the angulation of the innominate vein. Surgery will follow.
--- NOTE | 2020-08-09 14:40 | Operative Report ---
Nonrecallable Operative Report PREOPERATIVE DIAGNOSIS: Dysfunctional left subclavian permacath, urgent need for dialysis today POSTOPERATIVE DIAGNOSIS: Same as above OPERATION: 1. Ultrasound-guided central venous puncture. 2. Right femoral Vas-Cath placement SURGEON: JOEL BERTRAND ANESTHESIA: Local TISSUE REMOVED OR ALTERED: None COMPLICATIONS: None apparent ESTIMATED BLOOD LOSS: Minimal PROCEDURE: Drains/implants: Right femoral Vas-Cath placement. Procedure in detail: After informed consent was obtained from the patient, he was laid in the supine position in the hospital room. The ultrasound was used to identify the right femoral vein. It was compressible with normal flow. The right femoral vein was then cannulated using the supplied access needle. Dark venous, nonpulsatile blood was returned in the syringe. The wire was inserted into the vein easily. The wire was confirmed to be within the lumen of the vein using the ultrasound device. Picture documentation was obtained, and placed on the chart. The catheter was then slid over the wire using a modified Seldinger technique. The catheter was then aspirated and flushed x3. The catheter was then sutured to the skin. A dressing was placed, and the procedure was concluded. All sponge, instrument, and needle counts were correct. Condition: Fair.
[2020-08-09] MEDS: CEFEPIME 1 GM/D5W RTU 1 GM/50 ML RTUPB IV SCH (17:09)
--- NOTE | 2020-08-09 19:13 | PDOC PROGRESS REPORT ---
Subjective Date:: 08/09/20 Subjective:: I am seeing the patient during initiation of dialysis this morning. Patient's P ermCath was not working so we placed Activase for 30 minutes but after that it continues to be nonfunctional. I then called Dr. Irwin, surgeon on-call to place a temporary dialysis catheter and possibly replace his PermCath at a later time. This morning the patient seems to be lethargic and has obviously been having this involuntary jerking movements of upper extremities. He is arousable but does not verbalize much. Events over the weekend noted. Apparently the patient had hypotensive episodes with feeling of dizziness and drowsiness. Subsequently the patient developed some stroke symptoms including aphasia and starting involuntary jerking movements. Head CT was negative but brain MRI showed an acute lacunar infarct at the posterior lobe of the right MCA territory. He was given IV fluids, 500 mL bolus for the hypotension but became hypoxic. He was also given Reglan which was discontinued. Patient was started on midodrine and Florinef. 4:[address] Irwin has successfully place a temporary dialysis catheter. We took the patient back and started him on his dialysis. Unfortunately the patient is still hypotensive with very minimal ultrafiltration so we had to turn off ultrafiltration. Patient woke up a little bit more this afternoon for me but still looks tired and lethargic but continues episodic upper extremity tremors. He is being monitored throughout dialysis treatment. Reason For Visit: HYPOXIC RESPIRATORY FAILURE, NEEDS DIALYSIS, Physical Exam Vital Signs: Temp Pulse Resp BP Pulse Ox 98.3 F 108 H 20 97/54 L 92 08/09/20 03:40 08/09/20 08:50 08/09/20 08:50 08/09/20 04:00 08/09/20 08:50 Intake & Output 08/08/20 08/09/20 08/10/20 06:59 06:59 06:59 Intake Total 760 150 Output Total 0 Balance 760 150 Weight 123.7 kg 123.9 kg Vitals during dialysis this afternoon: Blood pressure 114/58, heart rate of 108, blood flow rate of 350 mL/min and dialysate flow rate of 800 mL/min. Exam: General appearance: PRESENT: no acute distress, cooperative, well-developed, well-nourished Head exam: PRESENT: atraumatic, normocephalic Eye exam: PRESENT: conjunctiva pale, PERRLA. ABSENT: scleral icterus Neck exam: ABSENT: JVD Respiratory exam: PRESENT: Diminished breath sounds. ABSENT: crackles, rales, rhonchi, unlabored, wheezes Cardiovascular exam: PRESENT: Regular rate rhythm -+S1, +S2. ABSENT: diastolic murmur, systolic murmur GI/Abdominal exam: PRESENT: normal bowel sounds, soft. ABSENT: guarding, mass, tenderness Extremities exam: ABSENT: No edema Neurological exam: PRESENT: Lethargic but arousable and mumbles few words, upper extremities cysts this involuntary movements. Skin exam: PRESENT: dry, warm, Cardiovascular exam: PRESENT: +S1, +S2 GI/Abdominal exam: PRESENT: distended, normal bowel sounds, tenderness. ABSENT: guarding, organomegaly Results Laboratory Results: 08/09/20 05:02 08/09/20 06:00 08/08/20 08/08/20 08/09/20 05:15 05:15 05:02 WBC 6.4 RBC 2.33 L Hgb 7.2 L Hct 22.0 L MCV 95 MCH 31.1 MCHC 32.9 RDW 14.9 H Plt Count 398 Seg Neutrophils % 73.7 Sodium Potassium Chloride Carbon Dioxide Anion Gap BUN Creatinine Est GFR ( Amer) Glucose Calcium Phosphorus Magnesium Triglycerides 387 H Cholesterol 165.14 LDL Cholesterol Direct 60 VLDL Cholesterol 77.4 H HDL Cholesterol 19 L TSH 2.10 Free T4 1.05 Free T3 pg/mL 2.64 L 08/09/20 06:00 WBC RBC Hgb Hct MCV MCH MCHC RDW Plt Count Seg Neutrophils % Sodium 132.0 L Potassium 5.2 H Chloride 94 L Carbon Dioxide 24 Anion Gap 14 BUN 67 H Creatinine 8.83 H Est GFR ( Amer) 7 L Glucose 114 H Calcium 7.4 L Phosphorus 5.4 H Magnesium 2.2 Triglycerides Cholesterol LDL Cholesterol Direct VLDL Cholesterol HDL Cholesterol TSH Free T4 Free T3 pg/mL 08/05/20 08/05/20 08/08/20 20:10 20:10 05:15 Creatine Kinase 39 L 29 L Troponin I 0.050 Impressions: Guidance Fluoroscopy 07/26/20 00:00 IMPRESSION: IMAGE(S) OBTAINED DURING PROCEDURE. Abdomen/Pelvis CT 08/03/20 00:00 IMPRESSION: 1. NASOGASTRIC TUBE, TIP IN THE STOMACH. CONTRAST IN THE STOMACH AND THROUGHOUT THE SMALL BOWEL. DILATED PROXIMAL SMALL BOWEL AND NONDISTENDED DISTAL SMALL BOWEL. PROBABLY PARTIAL SMALL BOWEL OBSTRUCTION. 2. SMALL UMBILICAL HERNIA, CONTAINING A SMALL AMOUNT OF GAS PRESUMED SECONDARY TO RECENT SURGERY. 3. COLONIC DIVERTICULOSIS. NO CT FINDINGS OF ACUTE DIVERTICULITIS. 4. CHRONIC POLYCYSTIC KIDNEY DISEASE. 5. PERITONEAL DIALYSIS CATHETER, DISTAL END IN THE PELVIS. 6. NO OTHER ACUTE OR SIGNIFICANT FINDINGS. KUB X-Ray 08/04/20 00:00 IMPRESSION: Persistent dilated at least proximal small bowel. There is air and stool as well as contrast throughout the colon. Findings are consistent with partial small bowel obstruction. Chest X-Ray 08/07/20 00:00 IMPRESSION: NO ACUTE FINDINGS. Head CT 08/07/20 17:32 IMPRESSION: NO ACUTE INTRACRANIAL FINDINGS. EVIDENCE OF ACUTE STROKE: NO. Brain MRI with MRA 08/08/20 00:00 IMPRESSION: NORMAL MRA OF THE [place]. Head MRI 08/08/20 00:00 IMPRESSION: MINIMAL MICROVASCULAR ISCHEMIC CHANGE. SMALL FOCAL ACUTE LACUNAR INFARCTS IN THE POSTERIOR RIGHT PARIETAL LOBE. EVIDENCE OF ACUTE STROKE: YES. RIGHT MCA. Assessment & Plan - Diagnosis (1) End stage renal disease Is this a current diagnosis for this admission?: Yes Plan: We will do dialysis today for 3 hours, using the patient's newly placed temporary dialysis catheter, with 2 potassium bath, blood flow rate of 350 mL per minute, dialysate flow rate of 800 mL per minute, ultrafiltration 0 to 0.5 L as tolerated but unlikely to get any ultrafiltration due to hypotension, no heparin and Retacrit of 25,000 units during dialysis intravenously. Patient is being monitored very closely especially with hypotension. Although the patient is lethargic he was able to tell me in that he is thinking of staying on hemodialysis rather than going back to peritoneal dialysis. He will keep his PD catheter for now until he is really decided when he is clinically better. Dr. Irwin plans to do the PermCath on the right IJ on Sunday. (2) Acute ischemic right MCA stroke Is this a current diagnosis for this admission?: Yes Plan: Acute small lacunar infarct on the posterior lobe. Currently more lethargic and observed myoclonic jerks. (3) Hypotension Is this a current diagnosis for this admission?: Yes Plan: Does not appear to have any evidence of sepsis at this point. No evidence of adrenal insufficiency. Discussed with Dr. Nicholson to increase midodrine to 10 mg twice daily to 3 times daily. May continue Florinef for now. (4) Hyperkalemia Is this a current diagnosis for this admission?: Yes Plan: Dialysis today. (5) Anemia in chronic kidney disease (CKD) Qualifiers: Chronic kidney disease stage: on chronic dialysis Qualified Code(s): N18.6 - End stage renal disease; D63.1 - Anemia in chronic kidney disease; Z99.2 - Dependence on renal dialysis Is this a current diagnosis for this admission?: No Plan: Retacrit during dialysis as needed. Patient refused blood transfusion as this may cause sensitization and may cause less chance of having kidney transplant as he is on the list. However if the patient's hemoglobin drops down below 7 we will revisit this and discuss this again with him. (6) Hyponatremia Is this a current diagnosis for this admission?: Yes Plan: Mild. (7) Incarcerated umbilical hernia Is this a current diagnosis for this admission?: Yes Plan: Status post umbilical herniorrhaphy with mesh, 07/25/2020. - Time Time with patient: 15-25 minutes
[2020-08-09] MEDS: ATORVASTATIN CALCIUM 40 MG TABLET NG SCH (22:09)
[2020-08-10] MEDS: DOPAMINE HCL 800 MG/D5W 250 ML IV PRN ×2 (00:38→15:09)
[2020-08-10] MEDS: IPRATROPIUM/ALBUTEROL 0.5-2.5 MG/3 ML AMPUL NEB SCH ×4 (02:21→20:04)
[2020-08-10 03:43] LABS: HEMATOCRIT 22.6 % (37.9-51.0); MEAN CORPUSCULAR HEMOGLOBIN 31.5 pg (27.0-33.4); MEAN CORPUSCULAR HGB CONC 33.4 g/dL (32.0-36.0); MEAN CORPUSCULAR VOLUME 94 fl (80-97); PLATELET COUNT 449 10^3/uL (150-450); RED CELL DISTRIBUTION WIDTH 15.5 % (11.5-14.0); WHITE BLOOD COUNT 8.4 10^3/uL (4.0-10.5)
[2020-08-10 03:45] LABS: HEMOGLOBIN 7.6 g/dL (13.5-17.0)
[2020-08-10 03:49] LABS: VENOUS BLOOD BASE EXCESS 2.6 mmol/L; VENOUS BLOOD HCO3 28.1 mmol/L (20-32); VENOUS BLOOD PCO2 48.2 mmHg (35-63); VENOUS BLOOD PH 7.38 (7.30-7.42)
[2020-08-10 04:21] LABS: ALBUMIN 2.9 g/dL (3.5-5.0); ALKALINE PHOSPHATASE 237 U/L (38-126); ANION GAP 12 (5-19); ASPARTATE AMINO TRANSFERASE 45 U/L (17-59); BILIRUBIN,DIRECT 0.4 mg/dL (0.0-0.4); BILIRUBIN,TOTAL 0.5 mg/dL (0.2-1.3); CALCIUM 7.9 mg/dL (8.4-10.2); CARBON DIOXIDE 28 mmol/L (22-30); CHLORIDE 96 mmol/L (98-107); GLUCOSE 146 mg/dL (75-110); PHOSPHORUS 4.1 mg/dL (2.5-4.5)
[2020-08-10 04:32] LABS: BLOOD UREA NITROGEN 43 mg/dL (7-20); POTASSIUM 4.2 mmol/L (3.6-5.0)
[2020-08-10] MEDS: HEPARIN SOD (PORCINE) 5,000 UNIT/ML 1 ML VIAL SUBCUT SCH ×2 (05:36→13:32)
[2020-08-10] MEDS: LIDOCAINE 2% VISCOUS SOLN 15 ML UDCUP PO PRN (08:12)
[2020-08-10] MEDS: MAG HYDROX/AL HYDROX/SIMETH SUSP 30 ML UDCUP PO PRN (08:12)
[2020-08-10] MEDS: ASPIRIN 81 MG TABLET, CHEWABLE NG SCH (09:27)
[2020-08-10] MEDS: GABAPENTIN 300 MG CAPSULE PO SCH ×2 (09:27→21:08)
[2020-08-10] MEDS: PANTOPRAZOLE SODIUM 40 MG VIAL IV SCH (09:27)
[2020-08-10] MEDS: FLUDROCORTISONE ACETATE 0.1 MG TABLET PO SCH (09:27)
[2020-08-10] MEDS: FLUTICASONE NASAL SPRAY 50 MCG/SPRY 120 SPRAY/16 GM NAREB SCH (09:27)
[2020-08-10] MEDS ORDERED: MIDODRINE HCL 5 MG TABLET PO SCH (10:00)
--- NOTE | 2020-08-10 10:26 | PDOC PROGRESS REPORT ---
Subjective Date:: 08/10/20 Reason For Visit: HYPOXIC RESPIRATORY FAILURE, NEEDS DIALYSIS, Patient confused this morning. Temporary right groin Vas-Cath functioning satisfactorily at dialysis yesterday. Patient hemodynamically stable. Patient with low blood pressure now on low-dose dopamine drip. Physical Exam Vital Signs: Temp Pulse Resp BP Pulse Ox 98.0 F 101 H 18 114/63 95 08/10/20 03:36 08/10/20 09:00 08/10/20 08:18 08/10/20 09:00 08/10/20 08:18 Intake & Output 08/09/20 08/10/20 08/11/20 06:59 06:59 06:59 Intake Total 150 1164 42 Output Total 1000 Balance 150 164 42 Weight 123.9 kg 124.3 kg General appearance: PRESENT: other - Confused sleepy. Neck exam: PRESENT: other GI/Abdominal exam: PRESENT: other - Abdomen soft, nontender; operative site closed; Tenckhoff catheter site clean Results Laboratory Results: 08/10/20 03:31 08/10/20 03:31 08/10/20 08/10/20 08/10/20 02:46 03:31 03:31 WBC 8.4 RBC 2.40 L Hgb 7.6 L Hct 22.6 L MCV 94 MCH 31.5 MCHC 33.4 RDW 15.5 H Plt Count 449 VBG pH Cancelled VBG pCO2 Cancelled VBG HCO3 Cancelled VBG Base Excess Cancelled Sodium 136.4 L Potassium 4.2 D Chloride 96 L Carbon Dioxide 28 Anion Gap 12 BUN 43 H D Creatinine 6.01 H Est GFR ( Amer) 11 L Glucose 146 H Calcium 7.9 L Phosphorus 4.1 Magnesium 2.2 Total Bilirubin 0.5 AST 45 Alkaline Phosphatase 237 H Total Protein 6.0 L Albumin 2.9 L 08/10/20 03:31 WBC RBC Hgb Hct MCV MCH MCHC RDW Plt Count VBG pH 7.38 VBG pCO2 48.2 VBG HCO3 28.1 VBG Base Excess 2.6 Sodium Potassium Chloride Carbon Dioxide Anion Gap BUN Creatinine Est GFR ( Amer) Glucose Calcium Phosphorus Magnesium Total Bilirubin AST Alkaline Phosphatase Total Protein Albumin 08/05/20 08/05/20 08/08/20 20:10 20:10 05:15 Creatine Kinase 39 L 29 L Troponin I 0.050 Impressions: Guidance Fluoroscopy 07/26/20 00:00 IMPRESSION: IMAGE(S) OBTAINED DURING PROCEDURE. Abdomen/Pelvis CT 08/03/20 00:00 IMPRESSION: 1. NASOGASTRIC TUBE, TIP IN THE STOMACH. CONTRAST IN THE STOMACH AND THROUGHOUT THE SMALL BOWEL. DILATED PROXIMAL SMALL BOWEL AND NONDISTENDED DISTAL SMALL BOWEL. PROBABLY PARTIAL SMALL BOWEL OBSTRUCTION. 2. SMALL UMBILICAL HERNIA, CONTAINING A SMALL AMOUNT OF GAS PRESUMED SECONDARY TO RECENT SURGERY. 3. COLONIC DIVERTICULOSIS. NO CT FINDINGS OF ACUTE DIVERTICULITIS. 4. CHRONIC POLYCYSTIC KIDNEY DISEASE. 5. PERITONEAL DIALYSIS CATHETER, DISTAL END IN THE PELVIS. 6. NO OTHER ACUTE OR SIGNIFICANT FINDINGS. KUB X-Ray 08/04/20 00:00 IMPRESSION: Persistent dilated at least proximal small bowel. There is air and stool as well as contrast throughout the colon. Findings are consistent with partial small bowel obstruction. Chest X-Ray 08/07/20 00:00 IMPRESSION: NO ACUTE FINDINGS. Head CT 08/07/20 17:32 IMPRESSION: NO ACUTE INTRACRANIAL FINDINGS. EVIDENCE OF ACUTE STROKE: NO. Brain MRI with MRA 08/08/20 00:00 IMPRESSION: NORMAL MRA OF THE [place]. Head MRI 08/08/20 00:00 IMPRESSION: MINIMAL MICROVASCULAR ISCHEMIC CHANGE. SMALL FOCAL ACUTE LACUNAR INFARCTS IN THE POSTERIOR RIGHT PARIETAL LOBE. EVIDENCE OF ACUTE STROKE: YES. RIGHT MCA. Assessment & Plan - Diagnosis (1) Hemodialysis catheter malfunction Is this a current diagnosis for this admission?: Yes Plan: Impression: Patient had right central line removed, and left subclavian perm catheter removed yesterday. Patient currently dialyzing through right groin temporary access catheter. Patient with hemodynamic instability now on dopamine and receiving echocardiogram. Recommendations: 1. Assuming patient stabilizes hemodynamically, will plan for permacatheter replacement right neck in the next 24 hours. 2. I have asked the nurse to hold heparin and aspirin. 3. The above plan discussed with hospitalist service. (2) Incarcerated umbilical hernia Is this a current diagnosis for this admission?: Yes - Time Anticipated Discharge Disposition: Home, Self Care Anticipated Discharge Timeframe: within 24 hours Time Spent: 30 to 50 Minutes Smoking Cessation Education: 3 to 10 minutes Medications reviewed and adjusted accordingly: Yes
--- NOTE | 2020-08-10 12:07 | PDOC PROGRESS REPORT ---
Subjective Date:: 08/10/20 Subjective:: As per admitting physician's note KATHY BURRELL is a 70 year old male, with history of end-stage renal disease on peritoneal dialysis (last session last night), Hx Hypercholesterolemia, Hx Hypertension, history of back surgery who has a 1 day complaining of mid abdominal pain around the umbilicus. The patient has a known umbilical hernia that he has been following conservatively. A CT scan abdomen pelvis has been done upon arrival in the emergency room today and this is significant for a strangulated umbilical hernia with infarcted small bowel and gas in the portal vein system. 08/07/2020. No acute events overnight. Patient awake and alert and cooperative with physical examination. Stating that he is avoiding eating or drinking as he has odynophagia due to prolonged NG tube placement, patient was noted to be hypotensive and is stating that when he was trying to get up to do his physical therapy he was feeling lightheaded, denies any chest pain, nausea, vomiting, diarrhea, constipation or any urinary symptoms. 08/08/2020. Assumed care on 08/07/2020. On my first encounter patient was reporting to me that he was having odynophagia due to prolonged NG tube placement and as a result he was not eating much and not taking any fluid, he was also mentioning to me that whenever he tries to stand up or when he tries to get physical therapy he feels lightheaded and dizzy, upon reviewing his vitals I noted that patient has been having soft is BPs and once a while his systolic blood pressure has been in the high 80s and low 90s, I noted the patient has history of hypertension, and is on low-dose beta-blockers, I also noted that patient had been checked for random cortisol and a.m. cortisol which have been WNL. I figured patient could be orthostatic due to low p.o. intake, held his antihypertensives and gave him 500 cc NS and also started him on GI cocktail which includes Reglan in it. Patient was able to tolerate his p.o. intake without any problem, but unfortunately towards the evening patient was noted to be less responsive with slurred speech and code stroke was called. When code stroke was called patient vitals were WNL, a stat CT was negative for any acute stroke, and patient was not deemed suitable for TPA due to recent abdominal s urgery. Stroke protocol was initiated and patient was started on statins and antiplatelets. An ABG showed mild hypoxemia, his fluids were held and he was given 1 dose of IV Lasix. Patient was also given 1 dose of Narcan as he had received 1 dose of IV morphine, with no significant improvement. This morning patient did not appear to be in acute distress but unfortunately neurologically he was unchanged, still drowsy but easily arousable, and having some expressive aphasia, bilateral lower extremity clonus and twitching of bilateral upper extremities and bilateral nystagmus. Yesterday patient had received Reglan in his GI cocktail yesterday, so I gave him IV Benadryl to see if his clonus and twitching was related to Reglan side effects, unfortunately no significant improvement noted, stat MRI/MRI head ordered which came back positive for small focal acute lacunar infarct in the posterior right parietal lobe. Patient and family notified about the results. Patient is stating that he has had similar symptoms 2 years ago in [place] and was diagnosed with TIA. Patient is stating that he was taking statin but it was stopped by his PCP, unfortunately patient is noted not to have been on antiplatelets however he has been receiving his subcutaneous heparin while inpatient. Patient and family has agreed to be transition to short-term rehab if needed. 08/09/2020. Saw patient this morning while waiting to receive hemodialysis in the hemodialysis unit, unfortunately patient has not improved neurologically, overnight patient was not started on dopamine drip as his pressure was consi dered to be within normal limits, patient is still somnolent but easily arousable, has twitching of upper extremities, mild aphasia and bilateral lower extremity clonus more on the right side, upper extremity strength improvement, lower extremity strength has not changed, patient is alert and oriented, denies any fever, chills, nausea, vomiting. 08/10/2020. No acute events overnight. Patient overnight was noted to be hypotensive, started on dopamine drip, patient was maintained in 140s overnight, this morning dopamine drip has been weaned down and currently pressure is in 110s, unfortunately patient still seems a little confused, complaining of dizziness, mild dysarthria, bilateral upper extremity twitching, and lower extremity weakness, patient is p.o. tolerant, having normal bowel and bladder movements. Denies any fever, chills, nausea, vomiting. Reason For Visit: HYPOXIC RESPIRATORY FAILURE, NEEDS DIALYSIS, Physical Exam Vital Signs: Temp Pulse Resp BP Pulse Ox 98.0 F 101 H 18 114/63 95 08/10/20 03:36 08/10/20 09:00 08/10/20 08:18 08/10/20 09:00 08/10/20 08:18 Intake & Output 08/09/20 08/10/20 08/11/20 06:59 06:59 06:59 Intake Total 150 1164 42 Output Total 1000 Balance 150 164 42 Weight 123.9 kg 124.3 kg General appearance: PRESENT: no acute distress, obese, well-developed, well- nourished Head exam: PRESENT: atraumatic, normocephalic Respiratory exam: PRESENT: clear to auscultation zander. ABSENT: rales, rhonchi, wheezes Cardiovascular exam: PRESENT: RRR. ABSENT: diastolic murmur, rubs, systolic murmur GI/Abdominal exam: PRESENT: normal bowel sounds, soft. ABSENT: distended, guarding, mass, organolmegaly, rebound, tenderness Extremities exam: PRESENT: full ROM. ABSENT: calf tenderness, clubbing, pedal edema Neurological exam: PRESENT: alert, awake, oriented to person, oriented to place, oriented to time, CN II-XII grossly intact - Right lateral gaze nystagmus. Mild dysarthria.. ABSENT: motor sensory deficit Skin exam: PRESENT: dry, intact, warm. ABSENT: cyanosis, rash Results Laboratory Results: 08/10/20 03:31 08/10/20 03:31 08/10/20 08/10/20 08/10/20 02:46 03:31 03:31 WBC 8.4 RBC 2.40 L Hgb 7.6 L Hct 22.6 L MCV 94 MCH 31.5 MCHC 33.4 RDW 15.5 H Plt Count 449 VBG pH Cancelled VBG pCO2 Cancelled VBG HCO3 Cancelled VBG Base Excess Cancelled Sodium 136.4 L Potassium 4.2 D Chloride 96 L Carbon Dioxide 28 Anion Gap 12 BUN 43 H D Creatinine 6.01 H Est GFR ( Amer) 11 L Glucose 146 H Calcium 7.9 L Phosphorus 4.1 Magnesium 2.2 Total Bilirubin 0.5 AST 45 Alkaline Phosphatase 237 H Total Protein 6.0 L Albumin 2.9 L 08/10/20 03:31 WBC RBC Hgb Hct MCV MCH MCHC RDW Plt Count VBG pH 7.38 VBG pCO2 48.2 VBG HCO3 28.1 VBG Base Excess 2.6 Sodium Potassium Chloride Carbon Dioxide Anion Gap BUN Creatinine Est GFR ( Amer) Glucose Calcium Phosphorus Magnesium Total Bilirubin AST Alkaline Phosphatase Total Protein Albumin 08/05/20 08/05/20 08/08/20 20:10 20:10 05:15 Creatine Kinase 39 L 29 L Troponin I 0.050 Impressions: Guidance Fluoroscopy 07/26/20 00:00 IMPRESSION: IMAGE(S) OBTAINED DURING PROCEDURE. Abdomen/Pelvis CT 08/03/20 00:00 IMPRESSION: 1. NASOGASTRIC TUBE, TIP IN THE STOMACH. CONTRAST IN THE STOMACH AND THROUGHOUT THE SMALL BOWEL. DILATED PROXIMAL SMALL BOWEL AND NONDISTENDED DISTAL SMALL BOWEL. PROBABLY PARTIAL SMALL BOWEL OBSTRUCTION. 2. SMALL UMBILICAL HERNIA, CONTAINING A SMALL AMOUNT OF GAS PRESUMED SECONDARY TO RECENT SURGERY. 3. COLONIC DIVERTICULOSIS. NO CT FINDINGS OF ACUTE DIVERTICULITIS. 4. CHRONIC POLYCYSTIC KIDNEY DISEASE. 5. PERITONEAL DIALYSIS CATHETER, DISTAL END IN THE PELVIS. 6. NO OTHER ACUTE OR SIGNIFICANT FINDINGS. KUB X-Ray 08/04/20 00:00 IMPRESSION: Persistent dilated at least proximal small bowel. There is air and stool as well as contrast throughout the colon. Findings are consistent with partial small bowel obstruction. Chest X-Ray 08/07/20 00:00 IMPRESSION: NO ACUTE FINDINGS. Head CT 08/07/20 17:32 IMPRESSION: NO ACUTE INTRACRANIAL FINDINGS. EVIDENCE OF ACUTE STROKE: NO. Brain MRI with MRA 08/08/20 00:00 IMPRESSION: NORMAL MRA OF THE [place]. Head MRI 08/08/20 00:00 IMPRESSION: MINIMAL MICROVASCULAR ISCHEMIC CHANGE. SMALL FOCAL ACUTE LACUNAR INFARCTS IN THE POSTERIOR RIGHT PARIETAL LOBE. EVIDENCE OF ACUTE STROKE: YES. RIGHT MCA. Assessment and Plan - Diagnosis (1) Orthostatic hypotension Is this a current diagnosis for this admission?: Yes Plan: BP currently maintained on dopamine drip and midodrine. Patient has history of hypertension however noted to be hypotensive on this admission. Been complaining of lightheadedness. Patient is end-stage renal disease on hemodialysis. Denies any history of cirrhosis or any CAD. No sign of any acute infection. Noted to have 1 episode of fever on 08/09/2020 and has been on cefepime since then. Repeat blood cultures no growth so far. P.o. tolerant and having normal bowel movements. Random cortisol and free cortisol in a.m. has been within normal limits. TSH, T3, T4 WNL. Hold antihypertensives. Unfortunately not a candidate for volume resuscitation due to end-stage renal disease. 2D echo ordered. Pending results. Continue midodrine 10 mg p.o. 2 times daily, fludrocortisone 1 mg p.o. daily. Wean down dopamine and restart if MAP drops less than 65 or patient becomes symptomatic. (2) Acute ischemic right MCA stroke Is this a current diagnosis for this admission?: Yes Plan: MRI head positive for small focal acute lacunar infarct in the posterior right parietal lobe. Right MCA. Mild dysarthria, right lateral gaze nystagmus, bilateral upper extremity twitching, bilateral lower extremity weakness. Continue telemetry, neurochecks every 4, statins, antiplatelets, fall, seizure and aspiration precaution. PT/OT/ST. Monitor vitals. (3) Small bowel obstruction with strangulation or infarction Is this a current diagnosis for this admission?: Yes Plan: Status post hernia repair. P.o. tolerant, having normal bowel and bladder movements. Continue wound care, out of bed to chair as tolerated (4) ESRD on hemodialysis Is this a current diagnosis for this admission?: Yes Plan: Receiving hemodialysis Sunday. Right permacath removed due to blockage. Currently right femoral catheter in place for hemodialysis Surgery consulted for reinsertion permacath. Monitor electrolytes and volume status. (5) ESRD on peritoneal dialysis Is this a current diagnosis for this admission?: No Plan: End-stage renal disease due to polycystic kidneys. On chronic PD dialysis. Currently patient receiving hemodialysis through Luis catheter on the right IJ. Outpatient PCP and nephrology follow-up. (6) Ileus, postoperative Is this a current diagnosis for this admission?: Yes Plan: Resolved. Having normal bowel movements. (7) Incarcerated umbilical hernia Is this a current diagnosis for this admission?: Yes Plan: Status post surgical repair of umbilical hernia repair with mesh. Having normal bowel movement. Nasogastric tube is removed. (8) Anemia in chronic kidney disease (CKD) Qualifiers: Chronic kidney disease stage: on chronic dialysis Qualified Code(s): N18.6 - End stage renal disease; D63.1 - Anemia in chronic kidney disease; Z99.2 - Dependence on renal dialysis Is this a current diagnosis for this admission?: No Plan: Hemoglobin slowly dropping, no evidence of acute bleeding. Not a candidate for blood transfusion as patient is considering kidney transplantation in the future. Also patient noted to have very brittle volume status, he is end-stage renal disease and on 08/09/2020 after receiving 500 mg bolus for his hypotension patient became hypoxic. Monitor H&H, supportive transfusion if hemoglobin drops below 7 or acutely or becomes symptomatic. He is receiving Procrit administered by nephrology during hemodialysis. (9) Hypertension Qualifiers: Hypertension type: essential hypertension Qualified Code(s): I10 - Essential (primary) hypertension Is this a current diagnosis for this admission?: No Plan: Noted to have orthostatic hypotension. Hold antihypertensives. Monitor vitals. Resume once appropriate. (10) Polycystic kidney disease Is this a current diagnosis for this admission?: Yes Plan: Stable (11) Anemia in CKD (chronic kidney disease) Qualifiers: Chronic kidney disease stage: on chronic dialysis Qualified Code(s): N18.6 - End stage renal disease; D63.1 - Anemia in chronic kidney disease; Z99.2 - Dependence on renal dialysis Is this a current diagnosis for this admission?: Yes Plan: Hemoglobin slowly dropping, no evidence of acute bleeding. Not a candidate for blood transfusion as patient is considering kidney transplantation in the future. Also patient noted to have very brittle volume status, he is end-stage renal disease and on 08/09/2020 after receiving 500 mg bolus for his hypotension patient became hypoxic. Monitor H&H, supportive transfusion if hemoglobin drops below 7 or acutely or becomes symptomatic. He is receiving Procrit administered by nephrology during hemodialysis. - Plan Summary Summary: 08/03/2020 8:15 PM Critical care visit 40 minutes I assessed the patient and then reviewed the use computer records. I given the patient a liter of fluid earlier today. His blood pressure responded. He admits that he felt better. This was just prior to the CAT scan. He still has a large net negative fluid balance. He has skin tenting and his oral mucosa is extremely dry. He has sunken eye sockets. His lungs are clear. After reviewing all of the data including laboratory studies and imaging I believe the patient is hypovolemic and this is the reason for the tachycardia. In addition, early in his stay he is oliguric. Of late he has been an uric. If you compare the heart rate to the blood pressures his blood pressures have been relatively soft. I believe that the patient's blood pressure and pulse are directly related to his volume status. With the nurse at the bedside we discussed the treatment plan with the patient. IV fluid The patient will receive a 500 mL bolus and then run the remaining fluid at 150 mL an hour for a total of 2 L of fluid overnight. Hiccups The hiccups have responded to the Thorazine. I was decreasing the Thorazine dose. At this point I will discontinue it as a scheduled medication but leave it available as needed every 12 hours for hiccups. This medication is quite sedating and by removing it the patient may have more energy. Cortisol Random cortisol drawn early in this hospitalization was 99. I have ordered a morning cortisol for tomorrow in addition to his normal laboratory studies. I will see if there is any evidence of adrenal insufficiency. - Time Time Spent with patient: 25-34 minutes Anticipated Discharge Disposition: Alf Facility Anticipated Discharge Timeframe: within 72 hours
--- NOTE | 2020-08-10 12:54 | EKG REPORT ---
SEVERITY:- ABNORMAL ECG - SINUS TACHYCARDIA RBBB AND LAFB : Confirmed by: Gustabo Berumen MD 10-Aug-2020 12:54:06
[2020-08-10] MEDS ORDERED: EPINEPHRINE INJ 1 MG/10 ML DISP.SYRIN IV ONE (15:21)
[2020-08-10 17:17] LABS: ARTERIAL BLOOD BASE EXCESS 3.1 mmol/L; ARTERIAL BLOOD FIO2 4L; ARTERIAL BLOOD H2CO3 1.09 mmol/L (1.05-1.35); ARTERIAL BLOOD HCO3 26.7 mmol/L (20-24); ARTERIAL BLOOD O2 SATURATION 94.4 % (94-98); ARTERIAL BLOOD PCO2 36.2 mmHg (35-45); ARTERIAL BLOOD PH 7.49 (7.35-7.45); ARTERIAL BLOOD PO2 65.6 mmHg (80-100); ARTERIAL BLOOD TOTAL CO2 27.8 mmol/L (23-27)
[2020-08-10] MEDS: MIDODRINE HCL 5 MG TABLET PO SCH ×2 (18:56→18:57)
[2020-08-10] MEDS: CEFEPIME 1 GM/D5W RTU 1 GM/50 ML RTUPB IV SCH (19:00)
[2020-08-10] MEDS: ACETAMINOPHEN 325 MG TABLET PO PRN (19:15)
[2020-08-10] MEDS ORDERED: KETOROLAC TROMETHAMINE INJ/PF 30 MG/1 ML SDV IV PRN (19:30)
[2020-08-10] MEDS: ATORVASTATIN CALCIUM 40 MG TABLET NG SCH (21:08)
--- NOTE | 2020-08-10 23:23 | XCELERA REPORT ---
[address] [address] Transthoracic Echocardiogram Report Name: KATHY BURRELL Age: 70 yrs Gender: Male : 1950 Patient Status: Inpatient Patient Location: [address] [place] [address] Study Date: 08/10/2020 10:05 AM Height: 73 in Weight: 274 lb BSA: 2.5 m2 Procedure: A two-dimensional transthoracic echocardiogram with color flow and Doppler was performed. Study Quality: Poor. Images were not obtained from all of the standard acoustic windows due to the limited scope of the study. Reason For Study: hypotension History: hypotension. Ordering Physician: DUNCAN YANG Performed By: Ingrid Fisher Interpretation Summary PROBABLY NORMAL LV SIZE, AND NO LVH.'NO 'TRUE APICAL 2 CHAMBER' VIEWS OBTAINED.hENCE CANNOT ASSESS THE iAPICAL INFERIOR ,,BASAL INFERIOR WALL,,APICAL ANTERIOR AND BASAL ANTERIOR JIANG.. PROBABLY THE MID INFERIOR JIANG ,AND THE REST OF THE LV JIANG PROBABLY CONTRACTNORMALLY.IN THESE VIEWS LVEF IS NORMAL AND GRETAER THAN 70%. The RV,RA and LA not well visualised to comment. Probably no or AR.Probably trace TR and normal RVSP.Cannot comment on the mitral and pulmonic valves.No defenite pericardial effusion. MMode/2D Measurements & Calculations RVDd: 2.5 cm LVIDd: 4.8 cm FS: 51.7 % Ao root diam: 2.3 cm IVSd: 1.1 cm LVIDs: 2.3 cm EDV(Teich): 108.0 ml Ao root area: 4.3 cm2 LVPWd: 1.1 cm ESV(Teich): 18.5 ml LA dimension: 3.6 cm EF(Teich): 82.8 % LVOT diam: 2.0 cm LVOT area: 3.0 cm2 Doppler Measurements & Calculations MV E max faisal: MV dec slope: Ao V2 max: LV V1 max P.3 cm/sec 353.4 cm/sec2 199.0 cm/sec 4.8 mmHg MV A max faisal: MV dec time: Ao max PG: LV V1 mean P.5 cm/sec 0.17 sec 15.9 mmHg 2.1 mmHg MV E/A: 0.77 Ao V2 mean: LV V1 max: 126.5 cm/sec 109.5 cm/sec Ao mean PG: LV V1 mean: 7.6 mmHg 65.5 cm/sec Ao V2 VTI: 23.1 cm LV V1 VTI: 14.0 cm PARAS(I,D): 1.8 cm2 PARAS(V,D): 1.7 cm2 MR max faisal: SV(LVOT): 42.5 ml PA V2 max: TR max faisal: 204.7 cm/sec 116.0 cm/sec 123.2 cm/sec MR max PG: PA max PG: TR max P.8 mmHg 5.4 mmHg 6.1 mmHg Left Ventricle PROBABLY NORMAL LV SIZE, AND NO LVH.'NO 'TRUE APICAL 2 CHAMBER' VIEWS OBTAINED.hENCE CANNOT ASSESS THE iAPICAL INFERIOR ,,BASAL INFERIOR WALL,,APICAL ANTERIOR AND BASAL ANTERIOR JIANG.. PROBABLY THE MID INFERIOR JIANG ,AND THE REST OF THE LV JIANG PROBABLY CONTRACTNORMALLY.IN THESE VIEWS LVEF IS NORMAL AND GRETAER THAN 70%. Right Ventricle The right ventricle is not well visualized secondary to technical limitations. Atria The RV,RA and LA not well visualised to comment. Probably no or AR.Probably trace TR and normal RVSP.Cannot comment on the mitral and pulmonic valves.No defenite pericardial effusion. : DUNCAN YANG Lakshmi
[2020-08-11] MEDS: IPRATROPIUM/ALBUTEROL 0.5-2.5 MG/3 ML AMPUL NEB SCH ×2 (02:08→08:15)
[2020-08-11] MEDS: DOPAMINE HCL 800 MG/D5W 250 ML IV PRN (02:11)
[2020-08-11 06:13] LABS: ABSOLUTE BASOPHILS # (AUTO) 0.1 10^3/uL (0.0-0.2); ABSOLUTE EOSINOPHILS # (AUTO) 0.2 10^3/uL (0.0-0.6); ABSOLUTE LYMPHOCYTES (AUTO) 0.5 10^3/uL (0.5-4.7); ABSOLUTE MONOCYTES (AUTO) 0.6 10^3/uL (0.1-1.4); BASOPHILS % (AUTO) 1.2 % (0-2); EOSINOPHILS % (AUTO) 3.5 % (0-6); HEMATOCRIT 20.1 % (37.9-51.0); LYMPHOCYTES % (AUTO) 7.9 % (13-45); MEAN CORPUSCULAR HEMOGLOBIN 32.1 pg (27.0-33.4); MEAN CORPUSCULAR VOLUME 95 fl (80-97); MONOCYTES % (AUTO) 9.8 % (3-13); PLATELET COUNT 528 10^3/uL (150-450); RED BLOOD COUNT 2.13 10^6/uL (4.35-5.55); RED CELL DISTRIBUTION WIDTH 15.9 % (11.5-14.0); SEGMENTED NEUTROPHILS % (AUTO) 77.6 % (42-78); TOTAL CELLS COUNTED % (AUTO) 100 %; WHITE BLOOD COUNT 6.5 10^3/uL (4.0-10.5)
[2020-08-11 06:15] LABS: HEMOGLOBIN 6.8 g/dL (13.5-17.0)
[2020-08-11 06:41] LABS: ANION GAP 13 (5-19); BLOOD UREA NITROGEN 58 mg/dL (7-20); CALCIUM 7.9 mg/dL (8.4-10.2); CARBON DIOXIDE 26 mmol/L (22-30); CHLORIDE 94 mmol/L (98-107); GLUCOSE 121 mg/dL (75-110); POTASSIUM 4.7 mmol/L (3.6-5.0)
--- NOTE | 2020-08-11 11:01 | PDOC PROGRESS REPORT ---
Subjective Date:: 08/11/20 Reason For Visit: HYPOXIC RESPIRATORY FAILURE, NEEDS DIALYSIS, Physical Exam Vital Signs: Temp Pulse Resp BP Pulse Ox 98.0 F 100 20 110/53 L 96 08/10/20 22:00 08/11/20 08:17 08/11/20 08:17 08/11/20 06:00 08/11/20 08:17 Intake & Output 08/10/20 08/11/20 08/12/20 06:59 06:59 06:59 Intake Total 1164 751 Output Total 1000 Balance 164 751 Weight 124.3 kg 126 kg Results Laboratory Results: 08/11/20 05:45 08/11/20 05:45 08/10/20 08/11/20 08/11/20 15:35 05:45 05:45 WBC 6.5 RBC 2.13 L Hgb 6.8 L Hct 20.1 L MCV 95 MCH 32.1 MCHC 34.0 RDW 15.9 H Plt Count 528 H Seg Neutrophils % 77.6 Carbonic Acid 1.09 HCO3/H2CO3 Ratio 24:1 ABG pH 7.49 H ABG pCO2 36.2 ABG pO2 65.6 L ABG HCO3 26.7 H ABG O2 Saturation 94.4 ABG Base Excess 3.1 FiO2 4L Sodium 132.6 L Potassium 4.7 Chloride 94 L Carbon Dioxide 26 Anion Gap 13 BUN 58 H Creatinine 7.72 H Est GFR ( Amer) 8 L Glucose 121 H Calcium 7.9 L Blood Type Antibody Screen 08/11/20 07:45 WBC RBC Hgb Hct MCV MCH MCHC RDW Plt Count Seg Neutrophils % Carbonic Acid HCO3/H2CO3 Ratio ABG pH ABG pCO2 ABG pO2 ABG HCO3 ABG O2 Saturation ABG Base Excess FiO2 Sodium Potassium Chloride Carbon Dioxide Anion Gap BUN Creatinine Est GFR ( Amer) Glucose Calcium Blood Type A POSITIVE Antibody Screen NEGATIVE 08/05/20 08/05/20 08/08/20 20:10 20:10 05:15 Creatine Kinase 39 L 29 L Troponin I 0.050 Impressions: Guidance Fluoroscopy 07/26/20 00:00 IMPRESSION: IMAGE(S) OBTAINED DURING PROCEDURE. Abdomen/Pelvis CT 08/03/20 00:00 IMPRESSION: 1. NASOGASTRIC TUBE, TIP IN THE STOMACH. CONTRAST IN THE STOMACH AND THROUGHOUT THE SMALL BOWEL. DILATED PROXIMAL SMALL BOWEL AND NONDISTENDED DISTAL SMALL BOWEL. PROBABLY PARTIAL SMALL BOWEL OBSTRUCTION. 2. SMALL UMBILICAL HERNIA, CONTAINING A SMALL AMOUNT OF GAS PRESUMED SECONDARY TO RECENT SURGERY. 3. COLONIC DIVERTICULOSIS. NO CT FINDINGS OF ACUTE DIVERTICULITIS. 4. CHRONIC POLYCYSTIC KIDNEY DISEASE. 5. PERITONEAL DIALYSIS CATHETER, DISTAL END IN THE PELVIS. 6. NO OTHER ACUTE OR SIGNIFICANT FINDINGS. KUB X-Ray 08/04/20 00:00 IMPRESSION: Persistent dilated at least proximal small bowel. There is air and stool as well as contrast throughout the colon. Findings are consistent with partial small bowel obstruction. Chest X-Ray 08/07/20 00:00 IMPRESSION: NO ACUTE FINDINGS. Head CT 08/07/20 17:32 IMPRESSION: NO ACUTE INTRACRANIAL FINDINGS. EVIDENCE OF ACUTE STROKE: NO. Brain MRI with MRA 08/08/20 00:00 IMPRESSION: NORMAL MRA OF THE [place]. Head MRI 08/08/20 00:00 IMPRESSION: MINIMAL MICROVASCULAR ISCHEMIC CHANGE. SMALL FOCAL ACUTE LACUNAR INFARCTS IN THE POSTERIOR RIGHT PARIETAL LOBE. EVIDENCE OF ACUTE STROKE: YES. RIGHT MCA. Assessment & Plan - Diagnosis (1) Small bowel obstruction with strangulation or infarction Is this a current diagnosis for this admission?: Yes - Time Anticipated Discharge Disposition: unknown Anticipated Discharge Timeframe: unknown - Plan Summary Plan Summary: 70-year-old male with a dysfunctional left subclavian permacath. The patient is currently refusing dialysis and all interventions. He has requested comfort measures. As I understand it, his medical doctors are discussing this with him today. If he declines further dialysis, and wishes for comfort care, I will not plan on further interventions (new permacath). If the patient changes his mind, and request permacath, please renotify me. If necessary, permacath can be placed as early as Sunday. Surgery will sign off at this time.
[2020-08-11] MEDS ORDERED: LORAZEPAM INJ 2 MG/1 ML VIAL IV PRN (12:14)
[2020-08-11] MEDS: MORPHINE SULFATE 10 MG/ML INJ IV PRN ×4 (13:47→22:49)
[2020-08-11] MEDS: FLUDROCORTISONE ACETATE 0.1 MG TABLET PO SCH (13:51)
[2020-08-11] MEDS: FLUTICASONE NASAL SPRAY 50 MCG/SPRY 120 SPRAY/16 GM NAREB SCH (13:51)
--- NOTE | 2020-08-11 17:00 | PDOC PROGRESS REPORT ---
Subjective Date:: 08/11/20 Subjective:: As per admitting physician's note KATHY BURRELL is a 70 year old male, with history of end-stage renal disease on peritoneal dialysis (last session last night), Hx Hypercholesterolemia, Hx Hypertension, history of back surgery who has a 1 day complaining of mid abdominal pain around the umbilicus. The patient has a known umbilical hernia that he has been following conservatively. A CT scan abdomen pelvis has been done upon arrival in the emergency room today and this is significant for a strangulated umbilical hernia with infarcted small bowel and gas in the portal vein system. 08/07/2020. No acute events overnight. Patient awake and alert and cooperative with physical examination. Stating that he is avoiding eating or drinking as he has odynophagia due to prolonged NG tube placement, patient was noted to be hypotensive and is stating that when he was trying to get up to do his physical therapy he was feeling lightheaded, denies any chest pain, nausea, vomiting, diarrhea, constipation or any urinary symptoms. 08/08/2020. Assumed care on 08/07/2020. On my first encounter patient was reporting to me that he was having odynophagia due to prolonged NG tube placement and as a result he was not eating much and not taking any fluid, he was also mentioning to me that whenever he tries to stand up or when he tries to get physical therapy he feels lightheaded and dizzy, upon reviewing his vitals I noted that patient has been having soft is BPs and once a while his systolic blood pressure has been in the high 80s and low 90s, I noted the patient has history of hypertension, and is on low-dose beta-blockers, I also noted that patient had been checked for random cortisol and a.m. cortisol which have been WNL. I figured patient could be orthostatic due to low p.o. intake, held his antihypertensives and gave him 500 cc NS and also started him on GI cocktail which includes Reglan in it. Patient was able to tolerate his p.o. intake without any problem, but unfortunately towards the evening patient was noted to be less responsive with slurred speech and code stroke was called. When code stroke was called patient vitals were WNL, a stat CT was negative for any acute stroke, and patient was not deemed suitable for TPA due to recent abdominal s urgery. Stroke protocol was initiated and patient was started on statins and antiplatelets. An ABG showed mild hypoxemia, his fluids were held and he was given 1 dose of IV Lasix. Patient was also given 1 dose of Narcan as he had received 1 dose of IV morphine, with no significant improvement. This morning patient did not appear to be in acute distress but unfortunately neurologically he was unchanged, still drowsy but easily arousable, and having some expressive aphasia, bilateral lower extremity clonus and twitching of bilateral upper extremities and bilateral nystagmus. Yesterday patient had received Reglan in his GI cocktail yesterday, so I gave him IV Benadryl to see if his clonus and twitching was related to Reglan side effects, unfortunately no significant improvement noted, stat MRI/MRI head ordered which came back positive for small focal acute lacunar infarct in the posterior right parietal lobe. Patient and family notified about the results. Patient is stating that he has had similar symptoms 2 years ago in [place] and was diagnosed with TIA. Patient is stating that he was taking statin but it was stopped by his PCP, unfortunately patient is noted not to have been on antiplatelets however he has been receiving his subcutaneous heparin while inpatient. Patient and family has agreed to be transition to short-term rehab if needed. 08/09/2020. Saw patient this morning while waiting to receive hemodialysis in the hemodialysis unit, unfortunately patient has not improved neurologically, overnight patient was not started on dopamine drip as his pressure was consi dered to be within normal limits, patient is still somnolent but easily arousable, has twitching of upper extremities, mild aphasia and bilateral lower extremity clonus more on the right side, upper extremity strength improvement, lower extremity strength has not changed, patient is alert and oriented, denies any fever, chills, nausea, vomiting. 08/10/2020. No acute events overnight. Patient overnight was noted to be hypotensive, started on dopamine drip, patient was maintained in 140s overnight, this morning dopamine drip has been weaned down and currently pressure is in 110s, unfortunately patient still seems a little confused, complaining of dizziness, mild dysarthria, bilateral upper extremity twitching, and lower extremity weakness, patient is p.o. tolerant, having normal bowel and bladder movements. Denies any fever, chills, nausea, vomiting. 08/11/2020. Has been having extensive discussion with patient and family since 07/2020. Patient was made DNR/DNI as per patient and family request on 08/10/2020. Saw patient twice on 08/11/2020, once in the morning when he was by himself and and once when accompanied by his sister who is is only next of kin present in the room. Patient is and does not have any biological children. On both of my encounters patient is alert and oriented x4, only complaining of lower back pain. He has refused blood transfusion and hemodialysis today. He is stating that he does not want any life prolonging measures including pressors, hemodialysis, transfusions, or any medications which would prolong his life. He is stating that he clearly understands his underlying medical conditions and his prognosis and does not wish to continue any of his medications. Patient and family were counseled on CODE STATUS including DNR/DNI and AUTOMOTIVE PRODUCT ENGINEER. He clearly does not want to be intubated or resuscitated, and he does not want to continue his pressors, antibiotics, or any medical intervention to prolong his life. He wishes to be transitioned to comfort measures only. He is stating if after stopping all his medication and any medical intervention he is still around he would like to be transitioned to hospice care either home hospice or inpatient hospice. He also conveyed this patient is to his primary nurse. Please nursing refer to note. Reason For Visit: HYPOXIC RESPIRATORY FAILURE, NEEDS DIALYSIS, Physical Exam Vital Signs: Temp Pulse Resp BP Pulse Ox 98.0 F 93 20 119/56 L 86 L 08/11/20 10:00 08/11/20 14:00 08/11/20 08:17 08/11/20 13:00 08/11/20 09:02 Intake & Output 08/10/20 08/11/20 08/12/20 06:59 06:59 06:59 Intake Total 1164 751 Output Total 1000 Balance 164 751 Weight 124.3 kg 126 kg General appearance: PRESENT: no acute distress, well-developed, well-nourished Head exam: PRESENT: atraumatic, normocephalic Respiratory exam: PRESENT: clear to auscultation zander. ABSENT: rales, rhonchi, wheezes Cardiovascular exam: PRESENT: RRR. ABSENT: diastolic murmur, rubs, systolic murmur GI/Abdominal exam: PRESENT: normal bowel sounds, soft. ABSENT: distended, guarding, mass, organolmegaly, rebound, tenderness Neurological exam: PRESENT: alert, awake, oriented to person, oriented to place, oriented to time, oriented to situation, CN II-XII grossly intact - Mild dysarthria Bilateral upper extremity twitching. Results Laboratory Results: 08/11/20 05:45 08/11/20 05:45 08/10/20 08/11/20 08/11/20 15:35 05:45 05:45 WBC 6.5 RBC 2.13 L Hgb 6.8 L Hct 20.1 L MCV 95 MCH 32.1 MCHC 34.0 RDW 15.9 H Plt Count 528 H Seg Neutrophils % 77.6 Carbonic Acid 1.09 HCO3/H2CO3 Ratio 24:1 ABG pH 7.49 H ABG pCO2 36.2 ABG pO2 65.6 L ABG HCO3 26.7 H ABG O2 Saturation 94.4 ABG Base Excess 3.1 FiO2 4L Sodium 132.6 L Potassium 4.7 Chloride 94 L Carbon Dioxide 26 Anion Gap 13 BUN 58 H Creatinine 7.72 H Est GFR ( Amer) 8 L Glucose 121 H Calcium 7.9 L Blood Type Antibody Screen 08/11/20 07:45 WBC RBC Hgb Hct MCV MCH MCHC RDW Plt Count Seg Neutrophils % Carbonic Acid HCO3/H2CO3 Ratio ABG pH ABG pCO2 ABG pO2 ABG HCO3 ABG O2 Saturation ABG Base Excess FiO2 Sodium Potassium Chloride Carbon Dioxide Anion Gap BUN Creatinine Est GFR ( Amer) Glucose Calcium Blood Type A POSITIVE Antibody Screen NEGATIVE 08/05/20 08/05/20 08/08/20 20:10 20:10 05:15 Creatine Kinase 39 L 29 L Troponin I 0.050 Impressions: Guidance Fluoroscopy 07/26/20 00:00 IMPRESSION: IMAGE(S) OBTAINED DURING PROCEDURE. Abdomen/Pelvis CT 08/03/20 00:00 IMPRESSION: 1. NASOGASTRIC TUBE, TIP IN THE STOMACH. CONTRAST IN THE STOMACH AND THROUGHOUT THE SMALL BOWEL. DILATED PROXIMAL SMALL BOWEL AND NONDISTENDED DISTAL SMALL BOWEL. PROBABLY PARTIAL SMALL BOWEL OBSTRUCTION. 2. SMALL UMBILICAL HERNIA, CONTAINING A SMALL AMOUNT OF GAS PRESUMED SECONDARY TO RECENT SURGERY. 3. COLONIC DIVERTICULOSIS. NO CT FINDINGS OF ACUTE DIVERTICULITIS. 4. CHRONIC POLYCYSTIC KIDNEY DISEASE. 5. PERITONEAL DIALYSIS CATHETER, DISTAL END IN THE PELVIS. 6. NO OTHER ACUTE OR SIGNIFICANT FINDINGS. KUB X-Ray 08/04/20 00:00 IMPRESSION: Persistent dilated at least proximal small bowel. There is air and stool as well as contrast throughout the colon. Findings are consistent with partial small bowel obstruction. Chest X-Ray 08/07/20 00:00 IMPRESSION: NO ACUTE FINDINGS. Head CT 08/07/20 17:32 IMPRESSION: NO ACUTE INTRACRANIAL FINDINGS. EVIDENCE OF ACUTE STROKE: NO. Brain MRI with MRA 08/08/20 00:00 IMPRESSION: NORMAL MRA OF THE [place]. Head MRI 08/08/20 00:00 IMPRESSION: MINIMAL MICROVASCULAR ISCHEMIC CHANGE. SMALL FOCAL ACUTE LACUNAR INFARCTS IN THE POSTERIOR RIGHT PARIETAL LOBE. EVIDENCE OF ACUTE STROKE: YES. RIGHT MCA. Assessment and Plan - Diagnosis (1) Comfort measures only status Is this a current diagnosis for this admission?: Yes Plan: 08/11/2020. Patient was made DNR/DNI as per patient and family request on 08/10/2020. Saw patient twice today, once in the morning when he was by himself and and once when his sister who is is only next of kin present in the room. Patient is and does not have any biological children. On both of my encounters patient is alert and oriented x4, only complaining of lower back pain. He has refused blood transfusion and hemodialysis today. He is stating that he does not want any life prolonging measures including pressors, hemodialysis, transfusions, or any medications which would prolong his life. He is stating that he clearly understands his underlying medical conditions and his prognosis and does not wish to continue any of his medications. Patient and family were counseled on CODE STATUS including DNR/DNI and AUTOMOTIVE PRODUCT ENGINEER. He clearly does not want to be intubated or resuscitated, and he does not want to continue his pressors, ant ibiotics, or any medical intervention to prolong his life. He wishes to be transitioned to comfort measures only. He is stating if after stopping all his medication and any medical intervention he is still around he would like to be transitioned to hospice care either home hospice or inpatient hospice. He also conveyed this patient is to his primary nurse. Please nursing refer to note. (2) Orthostatic hypotension Is this a current diagnosis for this admission?: Yes (3) Acute ischemic right MCA stroke Is this a current diagnosis for this admission?: Yes (4) Small bowel obstruction with strangulation or infarction Is this a current diagnosis for this admission?: Yes (5) ESRD on hemodialysis Is this a current diagnosis for this admission?: Yes (6) ESRD on peritoneal dialysis Is this a current diagnosis for this admission?: No (7) Ileus, postoperative Is this a current diagnosis for this admission?: Yes (8) Incarcerated umbilical hernia Is this a current diagnosis for this admission?: Yes (9) Anemia in chronic kidney disease (CKD) Qualifiers: Chronic kidney disease stage: on chronic dialysis Qualified Code(s): N18.6 - End stage renal disease; D63.1 - Anemia in chronic kidney disease; Z99.2 - Dependence on renal dialysis Is this a current diagnosis for this admission?: No (10) Hypertension Qualifiers: Hypertension type: essential hypertension Qualified Code(s): I10 - Essential (primary) hypertension Is this a current diagnosis for this admission?: No (11) Polycystic kidney disease Is this a current diagnosis for this admission?: Yes (12) Anemia in CKD (chronic kidney disease) Qualifiers: Chronic kidney disease stage: on chronic dialysis Qualified Code(s): N18.6 - End stage renal disease; D63.1 - Anemia in chronic kidney disease; Z99.2 - Dependence on renal dialysis Is this a current diagnosis for this admission?: Yes - Plan Summary Summary: 08/03/2020 8:15 PM Critical care visit 40 minutes I assessed the patient and then reviewed the use computer records. I given the patient a liter of fluid earlier today. His blood pressure responded. He admits that he felt better. This was just prior to the CAT scan. He still has a large net negative fluid balance. He has skin tenting and his oral mucosa is extremely dry. He has sunken eye sockets. His lungs are clear. After reviewing all of the data including laboratory studies and imaging I believe the patient is hypovolemic and this is the reason for the tachycardia. In addition, early in his stay he is oliguric. Of late he has been an uric. If you compare the heart rate to the blood pressures his blood pressures have been relatively soft. I believe that the patient's blood pressure and pulse are directly related to his volume status. With the nurse at the bedside we discussed the treatment plan with the patient. IV fluid The patient will receive a 500 mL bolus and then run the remaining fluid at 150 mL an hour for a total of 2 L of fluid overnight. Hiccups The hiccups have responded to the Thorazine. I was decreasing the Thorazine dose. At this point I will discontinue it as a scheduled medication but leave it available as needed every 12 hours for hiccups. This medication is quite sedating and by removing it the patient may have more energy. Cortisol Random cortisol drawn early in this hospitalization was 99. I have ordered a morning cortisol for tomorrow in addition to his normal laboratory studies. I w ill see if there is any evidence of adrenal insufficiency. - Time Time Spent with patient: 35 or more minutes Medications reviewed and adjusted accordingly: Yes Anticipated Discharge Disposition: Hospice Center Anticipated Discharge Timeframe: AUTOMOTIVE PRODUCT ENGINEER
--- NOTE | 2020-08-11 17:02 | ADVANCED CARE ---
- Diagnosis (1) Comfort measures only status Diagnosis Current: Yes (2) Orthostatic hypotension Diagnosis Current: Yes (3) Acute ischemic right MCA stroke Diagnosis Current: Yes (4) Small bowel obstruction with strangulation or infarction Diagnosis Current: Yes (5) ESRD on hemodialysis Diagnosis Current: Yes (6) ESRD on peritoneal dialysis Diagnosis Current: Yes (7) Ileus, postoperative Diagnosis Current: Yes (8) Incarcerated umbilical hernia Diagnosis Current: Yes (9) Anemia in chronic kidney disease (CKD) Diagnosis Current: Yes (10) Hypertension Diagnosis Current: Yes (11) Polycystic kidney disease Diagnosis Current: Yes (12) Anemia in CKD (chronic kidney disease) Diagnosis Current: Yes Resuscitation Status: Comfort Measures Only Discussion: 08/11/2020. Has been having extensive discussion with patient and family since 07/2020. Patient was made DNR/DNI as per patient and family request on 08/10/2020. Saw patient twice on 08/11/2020, once in the morning when he was by himself and and once when accompanied by his sister who is is only next of kin present in the room. Patient is and does not have any biological children. On both of my encounters patient is alert and oriented x4, only complaining of lower back pain. He has refused blood transfusion and hemodialysis today. He is stating that he does not want any life prolonging measures including pressors, hemodialysis, transfusions, or any medications which would prolong his life. He is stating that he clearly understands his underlying medical conditions and his prognosis and does not wish to continue any of his medications. Patient and family were counseled on CODE STATUS including DNR/DNI and J2EE DEVELOPER. He clearly does not want to be intubated or resuscitated, and he does not want to continue his pressors, antibiotics, or any medical intervention to prolong his life. He wishes to be transitioned to comfort measures only. He is stating if after stopping all his medication and any medical intervention he is still around he would like to be transitioned to hospice care either home hospice or inpatient hospice. He also conveyed this patient is to his primary nurse. Please nursing refer to note. Care Planning Goals: J2EE DEVELOPER Document(s) Completed: DNR/DNI followed by J2EE DEVELOPER Time Spent: 60
--- NOTE | 2020-08-11 21:23 | PDOC PROGRESS REPORT ---
Subjective Date:: 08/11/20 Subjective:: Patient's CODE STATUS was changed to DNR/DNI yesterday per patient's wishes. Was also told the night that the patient has been refusing treatment including dialysis as he indicated to the hospitalist, Dr. Killian and also his nurses on multiple shifts. I went to see the patient with his treating nurse present this morning. Patient is awake and oriented x3 and has been responding to my questions appropriately although he has a little bit of dysarthria. I again asked him what his wishes are concerning his dialysis treatments. He told me that he tried doing dialysis every day pertaining to his peritoneal dialysis for years and has just come to the point that he is tired and he just wants to sleep away. He is very much aware that refusing treatments including dialysis will lead to his demise. I explained to him how the toxin and fluid building up on his body without dialysis treatment will finally lead to his in the next few days or so. Patient reiterated that he understands and he is just tired and does not want any further treatments. He states that he just wants to be comfortable. He did say sorry but he does not want to go on anymore. At that point I told him that we will respect his wishes. Reason For Visit: HYPOXIC RESPIRATORY FAILURE, NEEDS DIALYSIS, Physical Exam Vital Signs: Temp Pulse Resp BP Pulse Ox 98.0 F 100 20 110/53 L 96 08/10/20 22:00 08/11/20 08:17 08/11/20 08:17 08/11/20 06:00 08/11/20 08:17 Intake & Output 08/10/20 08/11/20 08/12/20 06:59 06:59 06:59 Intake Total 1164 751 Output Total 1000 Balance 164 751 Weight 124.3 kg 126 kg Exam: General appearance: PRESENT: no acute distress, cooperative, well-developed, well-nourished Head exam: PRESENT: atraumatic, normocephalic Eye exam: PRESENT: conjunctiva pale, PERRLA. ABSENT: scleral icterus Neck exam: ABSENT: JVD Respiratory exam: PRESENT: Diminished breath sounds. ABSENT: crackles, rales, rhonchi, unlabored, wheezes Cardiovascular exam: PRESENT: Regular rate rhythm -+S1, +S2. ABSENT: diastolic murmur, systolic murmur GI/Abdominal exam: PRESENT: normal bowel sounds, soft. ABSENT: guarding, mass, tenderness Extremities exam: ABSENT: No edema Neurological exam: PRESENT: alert, awake, oriented to person, place and time. Positive dysarthria Skin exam: PRESENT: dry, warm, Cardiovascular exam: PRESENT: +S1, +S2 GI/Abdominal exam: PRESENT: distended, normal bowel sounds, tenderness. ABSENT: guarding, organomegaly Results Laboratory Results: 08/11/20 05:45 08/11/20 05:45 08/10/20 08/11/20 08/11/20 15:35 05:45 05:45 WBC 6.5 RBC 2.13 L Hgb 6.8 L Hct 20.1 L MCV 95 MCH 32.1 MCHC 34.0 RDW 15.9 H Plt Count 528 H Seg Neutrophils % 77.6 Carbonic Acid 1.09 HCO3/H2CO3 Ratio 24:1 ABG pH 7.49 H ABG pCO2 36.2 ABG pO2 65.6 L ABG HCO3 26.7 H ABG O2 Saturation 94.4 ABG Base Excess 3.1 FiO2 4L Sodium 132.6 L Potassium 4.7 Chloride 94 L Carbon Dioxide 26 Anion Gap 13 BUN 58 H Creatinine 7.72 H Est GFR ( Amer) 8 L Glucose 121 H Calcium 7.9 L 08/05/20 08/05/20 08/08/20 20:10 20:10 05:15 Creatine Kinase 39 L 29 L Troponin I 0.050 Impressions: Guidance Fluoroscopy 07/26/20 00:00 IMPRESSION: IMAGE(S) OBTAINED DURING PROCEDURE. Abdomen/Pelvis CT 08/03/20 00:00 IMPRESSION: 1. NASOGASTRIC TUBE, TIP IN THE STOMACH. CONTRAST IN THE STOMACH AND THROUGHOUT THE SMALL BOWEL. DILATED PROXIMAL SMALL BOWEL AND NONDISTENDED DISTAL SMALL BOWEL. PROBABLY PARTIAL SMALL BOWEL OBSTRUCTION. 2. SMALL UMBILICAL HERNIA, CONTAINING A SMALL AMOUNT OF GAS PRESUMED SECONDARY TO RECENT SURGERY. 3. COLONIC DIVERTICULOSIS. NO CT FINDINGS OF ACUTE DIVERTICULITIS. 4. CHRONIC POLYCYSTIC KIDNEY DISEASE. 5. PERITONEAL DIALYSIS CATHETER, DISTAL END IN THE PELVIS. 6. NO OTHER ACUTE OR SIGNIFICANT FINDINGS. KUB X-Ray 08/04/20 00:00 IMPRESSION: Persistent dilated at least proximal small bowel. There is air and stool as well as contrast throughout the colon. Findings are consistent with partial small bowel obstruction. Chest X-Ray 08/07/20 00:00 IMPRESSION: NO ACUTE FINDINGS. Head CT 08/07/20 17:32 IMPRESSION: NO ACUTE INTRACRANIAL FINDINGS. EVIDENCE OF ACUTE STROKE: NO. Brain MRI with MRA 08/08/20 00:00 IMPRESSION: NORMAL MRA OF THE [place]. Head MRI 08/08/20 00:00 IMPRESSION: MINIMAL MICROVASCULAR ISCHEMIC CHANGE. SMALL FOCAL ACUTE LACUNAR INFARCTS IN THE POSTERIOR RIGHT PARIETAL LOBE. EVIDENCE OF ACUTE STROKE: YES. RIGHT MCA. Assessment & Plan - Diagnosis (1) End stage renal disease Is this a current diagnosis for this admission?: Yes Plan: As per discussion with patient above, we will stop hemodialysis treatments per patient's wishes. (2) Acute ischemic right MCA stroke Is this a current diagnosis for this admission?: Yes (3) Hypotension Is this a current diagnosis for this admission?: Yes (4) Hyperkalemia Is this a current diagnosis for this admission?: Yes (5) Anemia in chronic kidney disease (CKD) Qualifiers: Chronic kidney disease stage: on chronic dialysis Qualified Code(s): N18.6 - End stage renal disease; D63.1 - Anemia in chronic kidney disease; Z99.2 - Dependence on renal dialysis Is this a current diagnosis for this admission?: No (6) Hyponatremia Is this a current diagnosis for this admission?: Yes (7) Incarcerated umbilical hernia Is this a current diagnosis for this admission?: Yes - Notes Notes: I will sign off at this point. Discussed with Dr. Killian.
[2020-08-12] MEDS: MORPHINE SULFATE 10 MG/ML INJ IV PRN ×5 (00:56→17:56)
[2020-08-12] MEDS: FLUDROCORTISONE ACETATE 0.1 MG TABLET PO SCH (09:09)
[2020-08-12] MEDS: FLUTICASONE NASAL SPRAY 50 MCG/SPRY 120 SPRAY/16 GM NAREB SCH (09:09)
--- NOTE | 2020-08-12 09:48 | PDOC PROGRESS REPORT ---
Subjective Date:: 08/12/20 Subjective:: As per admitting physician's note KATHY BURRELL is a 70 year old male, with history of end-stage renal disease on peritoneal dialysis (last session last night), Hx Hypercholesterolemia, Hx Hypertension, history of back surgery who has a 1 day complaining of mid abdominal pain around the umbilicus. The patient has a known umbilical hernia that he has been following conservatively. A CT scan abdomen pelvis has been done upon arrival in the emergency room today and this is significant for a strangulated umbilical hernia with infarcted small bowel and gas in the portal vein system. 08/07/2020. No acute events overnight. Patient awake and alert and cooperative with physical examination. Stating that he is avoiding eating or drinking as he has odynophagia due to prolonged NG tube placement, patient was noted to be hypotensive and is stating that when he was trying to get up to do his physical therapy he was feeling lightheaded, denies any chest pain, nausea, vomiting, diarrhea, constipation or any urinary symptoms. 08/08/2020. Assumed care on 08/07/2020. On my first encounter patient was reporting to me that he was having odynophagia due to prolonged NG tube placement and as a result he was not eating much and not taking any fluid, he was also mentioning to me that whenever he tries to stand up or when he tries to get physical therapy he feels lightheaded and dizzy, upon reviewing his vitals I noted that patient has been having soft is BPs and once a while his systolic blood pressure has been in the high 80s and low 90s, I noted the patient has history of hypertension, and is on low-dose beta-blockers, I also noted that patient had been checked for random cortisol and a.m. cortisol which have been WNL. I figured patient could be orthostatic due to low p.o. intake, held his antihypertensives and gave him 500 cc NS and also started him on GI cocktail which includes Reglan in it. Patient was able to tolerate his p.o. intake without any problem, but unfortunately towards the evening patient was noted to be less responsive with slurred speech and code stroke was called. When code stroke was called patient vitals were WNL, a stat CT was negative for any acute stroke, and patient was not deemed suitable for TPA due to recent abdominal s urgery. Stroke protocol was initiated and patient was started on statins and antiplatelets. An ABG showed mild hypoxemia, his fluids were held and he was given 1 dose of IV Lasix. Patient was also given 1 dose of Narcan as he had received 1 dose of IV morphine, with no significant improvement. This morning patient did not appear to be in acute distress but unfortunately neurologically he was unchanged, still drowsy but easily arousable, and having some expressive aphasia, bilateral lower extremity clonus and twitching of bilateral upper extremities and bilateral nystagmus. Yesterday patient had received Reglan in his GI cocktail yesterday, so I gave him IV Benadryl to see if his clonus and twitching was related to Reglan side effects, unfortunately no significant improvement noted, stat MRI/MRI head ordered which came back positive for small focal acute lacunar infarct in the posterior right parietal lobe. Patient and family notified about the results. Patient is stating that he has had similar symptoms 2 years ago in [place] and was diagnosed with TIA. Patient is stating that he was taking statin but it was stopped by his PCP, unfortunately patient is noted not to have been on antiplatelets however he has been receiving his subcutaneous heparin while inpatient. Patient and family has agreed to be transition to short-term rehab if needed. 08/09/2020. Saw patient this morning while waiting to receive hemodialysis in the hemodialysis unit, unfortunately patient has not improved neurologically, overnight patient was not started on dopamine drip as his pressure was consi dered to be within normal limits, patient is still somnolent but easily arousable, has twitching of upper extremities, mild aphasia and bilateral lower extremity clonus more on the right side, upper extremity strength improvement, lower extremity strength has not changed, patient is alert and oriented, denies any fever, chills, nausea, vomiting. 08/10/2020. No acute events overnight. Patient overnight was noted to be hypotensive, started on dopamine drip, patient was maintained in 140s overnight, this morning dopamine drip has been weaned down and currently pressure is in 110s, unfortunately patient still seems a little confused, complaining of dizziness, mild dysarthria, bilateral upper extremity twitching, and lower extremity weakness, patient is p.o. tolerant, having normal bowel and bladder movements. Denies any fever, chills, nausea, vomiting. 08/11/2020. Has been having extensive discussion with patient and family since 07/2020. Patient was made DNR/DNI as per patient and family request on 08/10/2020. Saw patient twice on 08/11/2020, once in the morning when he was by himself and and once when accompanied by his sister who is is only next of kin present in the room. Patient is and does not have any biological children. On both of my encounters patient is alert and oriented x4, only complaining of lower back pain. He has refused blood transfusion and hemodialysis today. He is stating that he does not want any life prolonging measures including pressors, hemodialysis, transfusions, or any medications which would prolong his life. He is stating that he clearly understands his underlying medical conditions and his prognosis and does not wish to continue any of his medications. Patient and family were counseled on CODE STATUS including DNR/DNI and GENETIC PHYSICIAN. He clearly does not want to be intubated or resuscitated, and he does not want to continue his pressors, antibiotics, or any medical intervention to prolong his life. He wishes to be transitioned to comfort measures only. He is stating if after stopping all his medication and any medical intervention he is still around he would like to be transitioned to hospice care either home hospice or inpatient hospice. He also conveyed this patient is to his primary nurse. Please nursing refer to note. 08/12/2020. No acute events overnight. Saw patient this morning, not appear to be in any acute distress, awake and alert, worsening dysarthria, complaining of lower back pain, endorsing healthy appetite. Denies any fever, chills, nausea, vomiting, chest pain, shortness of breath. Reason For Visit: HYPOXIC RESPIRATORY FAILURE, NEEDS DIALYSIS, Physical Exam Vital Signs: Temp Pulse Resp BP Pulse Ox 98.1 F 101 H 20 121/52 L 96 08/12/20 08:07 08/12/20 08:07 08/12/20 08:07 08/12/20 08:07 08/12/20 08:07 Intake & Output 08/11/20 08/12/20 08/13/20 06:59 06:59 06:59 Intake Total 751 0 Balance 751 0 Weight 126 kg 124.3 kg General appearance: PRESENT: no acute distress, well-developed, well-nourished Head exam: PRESENT: atraumatic, normocephalic Respiratory exam: PRESENT: clear to auscultation zander. ABSENT: rales, rhonchi, wheezes GI/Abdominal exam: PRESENT: normal bowel sounds, soft. ABSENT: distended, guarding, mass, organolmegaly, rebound, tenderness Neurological exam: PRESENT: alert, awake, oriented to person, oriented to place, oriented to time, oriented to situation, CN II-XII grossly intact - Dysarthria. Results Laboratory Results: 08/11/20 05:45 08/11/20 05:45 08/05/20 08/05/20 08/08/20 20:10 20:10 05:15 Creatine Kinase 39 L 29 L Troponin I 0.050 Impressions: Guidance Fluoroscopy 07/26/20 00:00 IMPRESSION: IMAGE(S) OBTAINED DURING PROCEDURE. Abdomen/Pelvis CT 08/03/20 00:00 IMPRESSION: 1. NASOGASTRIC TUBE, TIP IN THE STOMACH. CONTRAST IN THE STOMACH AND THROUGHOUT THE SMALL BOWEL. DILATED PROXIMAL SMALL BOWEL AND NONDISTENDED DISTAL SMALL BOWEL. PROBABLY PARTIAL SMALL BOWEL OBSTRUCTION. 2. SMALL UMBILICAL HERNIA, CONTAINING A SMALL AMOUNT OF GAS PRESUMED SECONDARY TO RECENT SURGERY. 3. COLONIC DIVERTICULOSIS. NO CT FINDINGS OF ACUTE DIVERTICULITIS. 4. CHRONIC POLYCYSTIC KIDNEY DISEASE. 5. PERITONEAL DIALYSIS CATHETER, DISTAL END IN THE PELVIS. 6. NO OTHER ACUTE OR SIGNIFICANT FINDINGS. KUB X-Ray 08/04/20 00:00 IMPRESSION: Persistent dilated at least proximal small bowel. There is air and stool as well as contrast throughout the colon. Findings are consistent with partial small bowel obstruction. Chest X-Ray 08/07/20 00:00 IMPRESSION: NO ACUTE FINDINGS. Head CT 08/07/20 17:32 IMPRESSION: NO ACUTE INTRACRANIAL FINDINGS. EVIDENCE OF ACUTE STROKE: NO. Brain MRI with MRA 08/08/20 00:00 IMPRESSION: NORMAL MRA OF THE KLAMATH OF AWAN. Head MRI 08/08/20 00:00 IMPRESSION: MINIMAL MICROVASCULAR ISCHEMIC CHANGE. SMALL FOCAL ACUTE LACUNAR INFARCTS IN THE POSTERIOR RIGHT PARIETAL LOBE. EVIDENCE OF ACUTE STROKE: YES. RIGHT MCA. Assessment and Plan - Diagnosis (1) Comfort measures only status Is this a current diagnosis for this admission?: Yes Plan: Comfort measures only as of 08/11/2020. 08/11/2020. Patient was made DNR/DNI as per patient and family request on 08/10/2020. Saw patient twice today, once in the morning when he was by himself and and once when his sister who is is only next of kin present in the room. Patient is and does not have any biological children. On both of my encounters patient is alert and oriented x4, only complaining of lower back pain. He has refused blood transfusion and hemodialysis today. He is stating that he does not want any life prolonging measures including pressors, hemodialysis, transfusions, or any medications which would prolong his life. He is stating that he clearly understands his underlying medical conditions and his prognosis and does not wish to continue any of his medications. Patient and family were counseled on CODE STATUS including DNR/DNI and GENETIC PHYSICIAN. He clearly does not want to be intubated or resuscitated, and he does not want to continue his pressors, antibiotics, or any medical intervention to prolong his life. He wishes to be transitioned to comfort measures only. He is stating if after stopping all his medication and any medical intervention he is still around he would like to be transitioned to hospice care either home hospice or inpatient hospice. He also conveyed this patient is to his primary nurse. Please nursing refer to note. (2) Orthostatic hypotension Is this a current diagnosis for this admission?: Yes (3) Acute ischemic right MCA stroke Is this a current diagnosis for this admission?: Yes (4) Small bowel obstruction with strangulation or infarction Is this a current diagnosis for this admission?: Yes (5) ESRD on hemodialysis Is this a current diagnosis for this admission?: Yes (6) ESRD on peritoneal dialysis Is this a current diagnosis for this admission?: No (7) Ileus, postoperative Is this a current diagnosis for this admission?: Yes (8) Incarcerated umbilical hernia Is this a current diagnosis for this admission?: Yes (9) Anemia in chronic kidney disease (CKD) Qualifiers: Chronic kidney disease stage: on chronic dialysis Qualified Code(s): N18.6 - End stage renal disease; D63.1 - Anemia in chronic kidney disease; Z99.2 - Dependence on renal dialysis Is this a current diagnosis for this admission?: No (10) Hypertension Qualifiers: Hypertension type: essential hypertension Qualified Code(s): I10 - Essential (primary) hypertension Is this a current diagnosis for this admission?: No (11) Polycystic kidney disease Is this a current diagnosis for this admission?: Yes (12) Anemia in CKD (chronic kidney disease) Qualifiers: Chronic kidney disease stage: on chronic dialysis Qualified Code(s): N18.6 - End stage renal disease; D63.1 - Anemia in chronic kidney disease; Z99.2 - Dependence on renal dialysis Is this a current diagnosis for this admission?: Yes - Plan Summary Summary: 08/03/2020 8:15 PM Critical care visit 40 minutes I assessed the patient and then reviewed the use computer records. I given the patient a liter of fluid earlier today. His blood pressure responded. He admits that he felt better. This was just prior to the CAT scan. He still has a large net negative fluid balance. He has skin tenting and his oral mucosa is extremely dry. He has sunken eye sockets. His lungs are clear. After reviewing all of the data including laboratory studies and imaging I believe the patient is hypovolemic and this is the reason for the tachycardia. In addition, early in his stay he is oliguric. Of late he has been an uric. If you compare the heart rate to the blood pressures his blood pressures have been relatively soft. I believe that the patient's blood pressure and pulse are directly related to his volume status. With the nurse at the bedside we discussed the treatment pl an with the patient. IV fluid The patient will receive a 500 mL bolus and then run the remaining fluid at 150 mL an hour for a total of 2 L of fluid overnight. Hiccups The hiccups have responded to the Thorazine. I was decreasing the Thorazine dose. At this point I will discontinue it as a scheduled medication but leave it available as needed every 12 hours for hiccups. This medication is quite sedating and by removing it the patient may have more energy. Cortisol Random cortisol drawn early in this hospitalization was 99. I have ordered a morning cortisol for tomorrow in addition to his normal laboratory studies. I will see if there is any evidence of adrenal insufficiency. - Time Time Spent with patient: 25-34 minutes Medications reviewed and adjusted accordingly: Yes Anticipated Discharge Disposition: GENETIC PHYSICIAN Anticipated Discharge Timeframe: GENETIC PHYSICIAN
[2020-08-13] MEDS: MORPHINE SULFATE 10 MG/ML INJ IV PRN ×7 (03:36→23:30)
[2020-08-13] MEDS: FLUDROCORTISONE ACETATE 0.1 MG TABLET PO SCH ×2 (10:02→10:10)
[2020-08-13] MEDS: LORAZEPAM INJ 2 MG/1 ML VIAL IV PRN ×4 (10:03→19:44)
[2020-08-13] MEDS: FLUTICASONE NASAL SPRAY 50 MCG/SPRY 120 SPRAY/16 GM NAREB SCH (10:04)
--- NOTE | 2020-08-13 12:11 | PDOC PROGRESS REPORT ---
Subjective Date:: 08/13/20 Subjective:: As per admitting physician's note KATHY BURRELL is a 70 year old male, with history of end-stage renal disease on peritoneal dialysis (last session last night), Hx Hypercholesterolemia, Hx Hypertension, history of back surgery who has a 1 day complaining of mid abdominal pain around the umbilicus. The patient has a known umbilical hernia that he has been following conservatively. A CT scan abdomen pelvis has been done upon arrival in the emergency room today and this is significant for a strangulated umbilical hernia with infarcted small bowel and gas in the portal vein system. 08/07/2020. No acute events overnight. Patient awake and alert and cooperative with physical examination. Stating that he is avoiding eating or drinking as he has odynophagia due to prolonged NG tube placement, patient was noted to be hypotensive and is stating that when he was trying to get up to do his physical therapy he was feeling lightheaded, denies any chest pain, nausea, vomiting, diarrhea, constipation or any urinary symptoms. 08/08/2020. Assumed care on 08/07/2020. On my first encounter patient was reporting to me that he was having odynophagia due to prolonged NG tube placement and as a result he was not eating much and not taking any fluid, he was also mentioning to me that whenever he tries to stand up or when he tries to get physical therapy he feels lightheaded and dizzy, upon reviewing his vitals I noted that patient has been having soft is BPs and once a while his systolic blood pressure has been in the high 80s and low 90s, I noted the patient has history of hypertension, and is on low-dose beta-blockers, I also noted that patient had been checked for random cortisol and a.m. cortisol which have been WNL. I figured patient could be orthostatic due to low p.o. intake, held his antihypertensives and gave him 500 cc NS and also started him on GI cocktail which includes Reglan in it. Patient was able to tolerate his p.o. intake without any problem, but unfortunately towards the evening patient was noted to be less responsive with slurred speech and code stroke was called. When code stroke was called patient vitals were WNL, a stat CT was negative for any acute stroke, and patient was not deemed suitable for TPA due to recent abdominal s urgery. Stroke protocol was initiated and patient was started on statins and antiplatelets. An ABG showed mild hypoxemia, his fluids were held and he was given 1 dose of IV Lasix. Patient was also given 1 dose of Narcan as he had received 1 dose of IV morphine, with no significant improvement. This morning patient did not appear to be in acute distress but unfortunately neurologically he was unchanged, still drowsy but easily arousable, and having some expressive aphasia, bilateral lower extremity clonus and twitching of bilateral upper extremities and bilateral nystagmus. Yesterday patient had received Reglan in his GI cocktail yesterday, so I gave him IV Benadryl to see if his clonus and twitching was related to Reglan side effects, unfortunately no significant improvement noted, stat MRI/MRI head ordered which came back positive for small focal acute lacunar infarct in the posterior right parietal lobe. Patient and family notified about the results. Patient is stating that he has had similar symptoms 2 years ago in [place] and was diagnosed with TIA. Patient is stating that he was taking statin but it was stopped by his PCP, unfortunately patient is noted not to have been on antiplatelets however he has been receiving his subcutaneous heparin while inpatient. Patient and family has agreed to be transition to short-term rehab if needed. 08/09/2020. Saw patient this morning while waiting to receive hemodialysis in the hemodialysis unit, unfortunately patient has not improved neurologically, overnight patient was not started on dopamine drip as his pressure was consi dered to be within normal limits, patient is still somnolent but easily arousable, has twitching of upper extremities, mild aphasia and bilateral lower extremity clonus more on the right side, upper extremity strength improvement, lower extremity strength has not changed, patient is alert and oriented, denies any fever, chills, nausea, vomiting. 08/10/2020. No acute events overnight. Patient overnight was noted to be hypotensive, started on dopamine drip, patient was maintained in 140s overnight, this morning dopamine drip has been weaned down and currently pressure is in 110s, unfortunately patient still seems a little confused, complaining of dizziness, mild dysarthria, bilateral upper extremity twitching, and lower extremity weakness, patient is p.o. tolerant, having normal bowel and bladder movements. Denies any fever, chills, nausea, vomiting. 08/11/2020. Has been having extensive discussion with patient and family since 07/2020. Patient was made DNR/DNI as per patient and family request on 08/10/2020. Saw patient twice on 08/11/2020, once in the morning when he was by himself and and once when accompanied by his sister who is is only next of kin present in the room. Patient is and does not have any biological children. On both of my encounters patient is alert and oriented x4, only complaining of lower back pain. He has refused blood transfusion and hemodialysis today. He is stating that he does not want any life prolonging measures including pressors, hemodialysis, transfusions, or any medications which would prolong his life. He is stating that he clearly understands his underlying medical conditions and his prognosis and does not wish to continue any of his medications. Patient and family were counseled on CODE STATUS including DNR/DNI and [employer] TRA[employer]IC SYSTEMS TECHNICIAN. He clearly does not want to be intubated or resuscitated, and he does not want to continue his pressors, antibiotics, or any medical intervention to prolong his life. He wishes to be transitioned to comfort measures only. He is stating if after stopping all his medication and any medical intervention he is still around he would like to be transitioned to hospice care either home hospice or inpatient hospice. He also conveyed this patient is to his primary nurse. Please nursing refer to note. 08/12/2020. No acute events overnight. Saw patient this morning, not appear to be in any acute distress, awake and alert, worsening dysarthria, complaining of lower back pain, endorsing healthy appetite. Denies any fever, chills, nausea, vomiting, chest pain, shortness of breath. 08/13/2020. No acute events overnight. Saw patient this morning, patient does not respond to verbal or tactile stimuli. Not appear to be in any apparent distress. Reason For Visit: HYPOXIC RESPIRATORY FAILURE, NEEDS DIALYSIS, Physical Exam Vital Signs: Temp Pulse Resp BP Pulse Ox 98.2 F 102 H 21 H 110/64 98 08/13/20 10:00 08/13/20 08:00 08/13/20 08:00 08/13/20 08:00 08/13/20 08:00 Intake & Output 08/12/20 08/13/20 08/14/20 06:59 06:59 06:59 Intake Total 0 476 Output Total 0 Balance 0 476 Weight 124.3 kg 124 kg General appearance: PRESENT: no acute distress, obese, well-developed, well- nourished Respiratory exam: PRESENT: clear to auscultation zander. ABSENT: rales, rhonchi, wheezes Neurological exam: PRESENT: other - Does not respond to tactile or verbal stimuli. Does not appear to be in any apparent distress. Results Laboratory Results: 08/11/20 05:45 08/11/20 05:45 08/05/20 08/05/20 08/08/20 20:10 20:10 05:15 Creatine Kinase 39 L 29 L Troponin I 0.050 Impressions: Guidance Fluoroscopy 07/26/20 00:00 IMPRESSION: IMAGE(S) OBTAINED DURING PROCEDURE. Abdomen/Pelvis CT 08/03/20 00:00 IMPRESSION: 1. NASOGASTRIC TUBE, TIP IN THE STOMACH. CONTRAST IN THE STOMACH AND THROUGHOUT THE SMALL BOWEL. DILATED PROXIMAL SMALL BOWEL AND NONDISTENDED DISTAL SMALL BOWEL. PROBABLY PARTIAL SMALL BOWEL OBSTRUCTION. 2. SMALL UMBILICAL HERNIA, CONTAINING A SMALL AMOUNT OF GAS PRESUMED SECONDARY TO RECENT SURGERY. 3. COLONIC DIVERTICULOSIS. NO CT FINDINGS OF ACUTE DIVERTICULITIS. 4. CHRONIC POLYCYSTIC KIDNEY DISEASE. 5. PERITONEAL DIALYSIS CATHETER, DISTAL END IN THE PELVIS. 6. NO OTHER ACUTE OR SIGNIFICANT FINDINGS. KUB X-Ray 08/04/20 00:00 IMPRESSION: Persistent dilated at least proximal small bowel. There is air and stool as well as contrast throughout the colon. Findings are consistent with partial small bowel obstruction. Chest X-Ray 08/07/20 00:00 IMPRESSION: NO ACUTE FINDINGS. Head CT 08/07/20 17:32 IMPRESSION: NO ACUTE INTRACRANIAL FINDINGS. EVIDENCE OF ACUTE STROKE: NO. Brain MRI with MRA 08/08/20 00:00 IMPRESSION: NORMAL MRA OF THE [place] OF [place]. Head MRI 08/08/20 00:00 IMPRESSION: MINIMAL MICROVASCULAR ISCHEMIC CHANGE. SMALL FOCAL ACUTE LACUNAR INFARCTS IN THE POSTERIOR RIGHT PARIETAL LOBE. EVIDENCE OF ACUTE STROKE: YES. RIGHT MCA. Assessment and Plan - Diagnosis (1) Comfort measures only status Is this a current diagnosis for this admission?: Yes Plan: Comfort measures only as of 08/11/2020. 08/11/2020. Patient was made DNR/DNI as per patient and family request on 08/10/2020. Saw patient twice today, once in the morning when he was by himself and and once when his sister who is is only next of kin present in the room. Patient is and does not have any biological children. On both of my encounters patient is alert and oriented x4, only complaining of lower back pain. He has refused blood transfusion and hemodialysis today. He is stating that he does not want any life prolonging measures including pressors, hemodialysis, transfusions, or any medications which would prolong his life. He is stating that he clearly understands his underlying medical conditions and his prognosis and does not wish to continue any of his medications. Patient and family were counseled on CODE STATUS including DNR/DNI and [employer] TRAFF[employer] SYSTEMS TECHNICIAN. He clearly does not want to be intubated or resuscitated, and he does not want to continue his pressors, antibiotics, or any medical intervention to prolong his life. He wishes to be transitioned to comfort measures only. He is stating if after stopping all his medication and any medical intervention he is still around he would like to be transitioned to hospice care either home hospice or inpatient hospice. He also conveyed this patient is to his primary nurse. Please nursing refer to note. (2) Orthostatic hypotension Is this a current diagnosis for this admission?: Yes (3) Acute ischemic right MCA stroke Is this a current diagnosis for this admission?: Yes (4) Small bowel obstruction with strangulation or infarction Is this a current diagnosis for this admission?: Yes (5) ESRD on hemodialysis Is this a current diagnosis for this admission?: Yes (6) ESRD on peritoneal dialysis Is this a current diagnosis for this admission?: No (7) Ileus, postoperative Is this a current diagnosis for this admission?: Yes (8) Incarcerated umbilical hernia Is this a current diagnosis for this admission?: Yes (9) Anemia in chronic kidney disease (CKD) Qualifiers: Chronic kidney disease stage: on chronic dialysis Qualified Code(s): N18.6 - End stage renal disease; D63.1 - Anemia in chronic kidney disease; Z99.2 - Dependence on renal dialysis Is this a current diagnosis for this admission?: No (10) Hypertension Qualifiers: Hypertension type: essential hypertension Qualified Code(s): I10 - Essential (primary) hypertension Is this a current diagnosis for this admission?: No (11) Polycystic kidney disease Is this a current diagnosis for this admission?: Yes (12) Anemia in CKD (chronic kidney disease) Qualifiers: Chronic kidney disease stage: on chronic dialysis Qualified Code(s): N18.6 - End stage renal disease; D63.1 - Anemia in chronic kidney disease; Z99.2 - Dependence on renal dialysis Is this a current diagnosis for this admission?: Yes - Plan Summary Summary: 08/03/2020 8:15 PM Critical care visit 40 minutes I assessed the patient and then reviewed the use computer records. I given the patient a liter of fluid earlier today. His blood pressure responded. He admits that he felt better. This was just prior to the CAT scan. He still has a large net negative fluid balance. He has skin tenting and his oral mucosa is extremely dry. He has sunken eye sockets. His lungs are clear. After reviewing all of the data including laboratory studies and imaging I believe the patient is hypovolemic and this is the reason for the tachycardia. In addition, early in his stay he is oliguric. Of late he has been an uric. If you compare the heart rate to the blood pressures his blood pressures have been relatively soft. I believe that the patient's blood pressure and pulse are directly related to his volume status. With the nurse at the bedside we discussed the treatment plan with the patient. IV fluid The patient will receive a 500 mL bolus and then run the remaining fluid at 150 mL an hour for a total of 2 L of fluid overnight. Hiccups The hiccups have responded to the Thorazine. I was decreasing the Thorazine dose. At this point I will discontinue it as a scheduled medication but leave it available as needed every 12 hours for hiccups. This medication is quite sedating and by removing it the patient may have more energy. Cortisol Random cortisol drawn early in this hospitalization was 99. I have ordered a morning cortisol for tomorrow in addition to his normal laboratory studies. I will see if there is any evidence of adrenal insufficiency. - Time Time Spent with patient: 15-24 minutes Medications reviewed and adjusted accordingly: Yes Anticipated Discharge Disposition: [employer]S TECHNICIAN Anticipated Discharge Timeframe: [employer] TRA[employer] SYSTEMS TECHNICIAN
[2020-08-14] MEDS: FLUTICASONE NASAL SPRAY 50 MCG/SPRY 120 SPRAY/16 GM NAREB SCH (09:52)
[2020-08-14] MEDS: FLUDROCORTISONE ACETATE 0.1 MG TABLET PO SCH (09:52)
[2020-08-14] MEDS: LORAZEPAM INJ 2 MG/1 ML VIAL IV PRN (12:23)
--- NOTE | 2020-08-14 12:26 | PDOC PROGRESS REPORT ---
Subjective Date:: 08/14/20 Subjective:: As per admitting physician's note KATHY BURRELL is a 70 year old male, with history of end-stage renal disease on peritoneal dialysis (last session last night), Hx Hypercholesterolemia, Hx Hypertension, history of back surgery who has a 1 day complaining of mid abdominal pain around the umbilicus. The patient has a known umbilical hernia that he has been following conservatively. A CT scan abdomen pelvis has been done upon arrival in the emergency room today and this is significant for a strangulated umbilical hernia with infarcted small bowel and gas in the portal vein system. 08/07/2020. No acute events overnight. Patient awake and alert and cooperative with physical examination. Stating that he is avoiding eating or drinking as he has odynophagia due to prolonged NG tube placement, patient was noted to be hypotensive and is stating that when he was trying to get up to do his physical therapy he was feeling lightheaded, denies any chest pain, nausea, vomiting, diarrhea, constipation or any urinary symptoms. 08/08/2020. Assumed care on 08/07/2020. On my first encounter patient was reporting to me that he was having odynophagia due to prolonged NG tube placement and as a result he was not eating much and not taking any fluid, he was also mentioning to me that whenever he tries to stand up or when he tries to get physical therapy he feels lightheaded and dizzy, upon reviewing his vitals I noted that patient has been having soft is BPs and once a while his systolic blood pressure has been in the high 80s and low 90s, I noted the patient has history of hypertension, and is on low-dose beta-blockers, I also noted that patient had been checked for random cortisol and a.m. cortisol which have been WNL. I figured patient could be orthostatic due to low p.o. intake, held his antihypertensives and gave him 500 cc NS and also started him on GI cocktail which includes Reglan in it. Patient was able to tolerate his p.o. intake without any problem, but unfortunately towards the evening patient was noted to be less responsive with slurred speech and code stroke was called. When code stroke was called patient vitals were WNL, a stat CT was negative for any acute stroke, and patient was not deemed suitable for TPA due to recent abdominal s urgery. Stroke protocol was initiated and patient was started on statins and antiplatelets. An ABG showed mild hypoxemia, his fluids were held and he was given 1 dose of IV Lasix. Patient was also given 1 dose of Narcan as he had received 1 dose of IV morphine, with no significant improvement. This morning patient did not appear to be in acute distress but unfortunately neurologically he was unchanged, still drowsy but easily arousable, and having some expressive aphasia, bilateral lower extremity clonus and twitching of bilateral upper extremities and bilateral nystagmus. Yesterday patient had received Reglan in his GI cocktail yesterday, so I gave him IV Benadryl to see if his clonus and twitching was related to Reglan side effects, unfortunately no significant improvement noted, stat MRI/MRI head ordered which came back positive for small focal acute lacunar infarct in the posterior right parietal lobe. Patient and family notified about the results. Patient is stating that he has had similar symptoms 2 years ago in [place] and was diagnosed with TIA. Patient is stating that he was taking statin but it was stopped by his PCP, unfortunately patient is noted not to have been on antiplatelets however he has been receiving his subcutaneous heparin while inpatient. Patient and family has agreed to be transition to short-term rehab if needed. 08/09/2020. Saw patient this morning while waiting to receive hemodialysis in the hemodialysis unit, unfortunately patient has not improved neurologically, overnight patient was not started on dopamine drip as his pressure was consi dered to be within normal limits, patient is still somnolent but easily arousable, has twitching of upper extremities, mild aphasia and bilateral lower extremity clonus more on the right side, upper extremity strength improvement, lower extremity strength has not changed, patient is alert and oriented, denies any fever, chills, nausea, vomiting. 08/10/2020. No acute events overnight. Patient overnight was noted to be hypotensive, started on dopamine drip, patient was maintained in 140s overnight, this morning dopamine drip has been weaned down and currently pressure is in 110s, unfortunately patient still seems a little confused, complaining of dizziness, mild dysarthria, bilateral upper extremity twitching, and lower extremity weakness, patient is p.o. tolerant, having normal bowel and bladder movements. Denies any fever, chills, nausea, vomiting. 08/11/2020. Has been having extensive discussion with patient and family since 07/2020. Patient was made DNR/DNI as per patient and family request on 08/10/2020. Saw patient twice on 08/11/2020, once in the morning when he was by himself and and once when accompanied by his sister who is is only next of kin present in the room. Patient is and does not have any biological children. On both of my encounters patient is alert and oriented x4, only complaining of lower back pain. He has refused blood transfusion and hemodialysis today. He is stating that he does not want any life prolonging measures including pressors, hemodialysis, transfusions, or any medications which would prolong his life. He is stating that he clearly understands his underlying medical conditions and his prognosis and does not wish to continue any of his medications. Patient and family were counseled on CODE STATUS including DNR/DNI and PHYSICS PROFESSOR. He clearly does not want to be intubated or resuscitated, and he does not want to continue his pressors, antibiotics, or any medical intervention to prolong his life. He wishes to be transitioned to comfort measures only. He is stating if after stopping all his medication and any medical intervention he is still around he would like to be transitioned to hospice care either home hospice or inpatient hospice. He also conveyed this patient is to his primary nurse. Please nursing refer to note. 08/12/2020. No acute events overnight. Saw patient this morning, not appear to be in any acute distress, awake and alert, worsening dysarthria, complaining of lower back pain, endorsing healthy appetite. Denies any fever, chills, nausea, vomiting, chest pain, shortness of breath. 08/13/2020. No acute events overnight. Saw patient this morning, patient does not respond to verbal or tactile stimuli. Not appear to be in any apparent distress. 08/14/2020. No acute events overnight. Saw patient twice this morning, once accompanied by 2 of her sisters and wants by himself, does not appear to be in apparent distress, patient is opening his eyes little stimulation does not communicate, does not appear to be in any apparent distress, will continue comfort measures. Reason For Visit: HYPOXIC RESPIRATORY FAILURE, NEEDS DIALYSIS, Physical Exam Vital Signs: Temp Pulse Resp BP Pulse Ox 99.4 F 109 H 20 111/49 L 88 L 08/14/20 10:00 08/14/20 07:59 08/14/20 07:59 08/14/20 07:59 08/14/20 07:59 Intake & Output 08/13/20 08/14/20 08/15/20 06:59 06:59 06:59 Intake Total 476 Output Total 0 0 Balance 476 0 Weight 124 kg 122.3 kg 122.3 kg General appearance: PRESENT: no acute distress, obese, well-developed, well- nourished Head exam: PRESENT: atraumatic, normocephalic Respiratory exam: PRESENT: clear to auscultation zander, rhonchi. ABSENT: rales, wheezes Cardiovascular exam: PRESENT: RRR, tachycardia. ABSENT: diastolic murmur, rubs, systolic murmur GI/Abdominal exam: PRESENT: distended, normal bowel sounds, soft Neurological exam: PRESENT: other - Opens eyes to verbal assimilation. Twitching of bilateral upper extremities. Results Laboratory Results: 08/11/20 05:45 08/11/20 05:45 08/08/20 11:12 Blood Blood Culture - Final NO GROWTH IN 5 DAYS 08/08/20 11:20 Blood Blood Culture - Final NO GROWTH IN 5 DAYS 08/05/20 08/05/20 08/08/20 20:10 20:10 05:15 Creatine Kinase 39 L 29 L Troponin I 0.050 Impressions: Guidance Fluoroscopy 07/26/20 00:00 IMPRESSION: IMAGE(S) OBTAINED DURING PROCEDURE. Abdomen/Pelvis CT 08/03/20 00:00 IMPRESSION: 1. NASOGASTRIC TUBE, TIP IN THE STOMACH. CONTRAST IN THE STOMACH AND THROUGHOUT THE SMALL BOWEL. DILATED PROXIMAL SMALL BOWEL AND NONDISTENDED DISTAL SMALL BOWEL. PROBABLY PARTIAL SMALL BOWEL OBSTRUCTION. 2. SMALL UMBILICAL HERNIA, CONTAINING A SMALL AMOUNT OF GAS PRESUMED SECONDARY TO RECENT SURGERY. 3. COLONIC DIVERTICULOSIS. NO CT FINDINGS OF ACUTE DIVERTICULITIS. 4. CHRONIC POLYCYSTIC KIDNEY DISEASE. 5. PERITONEAL DIALYSIS CATHETER, DISTAL END IN THE PELVIS. 6. NO OTHER ACUTE OR SIGNIFICANT FINDINGS. KUB X-Ray 08/04/20 00:00 IMPRESSION: Persistent dilated at least proximal small bowel. There is air and stool as well as contrast throughout the colon. Findings are consistent with partial small bowel obstruction. Chest X-Ray 08/07/20 00:00 IMPRESSION: NO ACUTE FINDINGS. Head CT 08/07/20 17:32 IMPRESSION: NO ACUTE INTRACRANIAL FINDINGS. EVIDENCE OF ACUTE STROKE: NO. Brain MRI with MRA 08/08/20 00:00 IMPRESSION: NORMAL MRA OF THE [place] OF [place]. Head MRI 08/08/20 00:00 IMPRESSION: MINIMAL MICROVASCULAR ISCHEMIC CHANGE. SMALL FOCAL ACUTE LACUNAR INFARCTS IN THE POSTERIOR RIGHT PARIETAL LOBE. EVIDENCE OF ACUTE STROKE: YES. RIGHT MCA. Assessment and Plan - Diagnosis (1) Comfort measures only status Is this a current diagnosis for this admission?: Yes Plan: Comfort measures only as of 08/11/2020. 08/11/2020. Patient was made DNR/DNI as per patient and family request on 08/10. Saw patient twice today, once in the morning when he was by himself and and once when his sister who is is only next of kin present in the room. Patient is and does not have any biological children. On both of my encounters patient is alert and oriented x4, only complaining of lower back pain. He has refused blood transfusion and hemodialysis today. He is stating that he does not want any life prolonging measures including pressors, hemodialysis, transfusions, or any medications which would prolong his life. He is stating that he clearly understands his underlying medical conditions and his prognosis and does not wish to continue any of his medications. Patient and family were counseled on CODE STATUS including DNR/DNI and PHYSICS PROFESSOR. He clearly does not want to be intubated or resuscitated, and he does not want to continue his pressors, antibiotics, or any medical intervention to prolong his life. He wishes to be transitioned to comfort measures only. He is stating if after stopping all his medication and any medical intervention he is still around he would like to be transitioned to hospice care either home hospice or inpatient hospice. He also conveyed this patient is to his primary nurse. Please nursing refer to note. (2) Orthostatic hypotension Is this a current diagnosis for this admission?: Yes (3) Acute ischemic right MCA stroke Is this a current diagnosis for this admission?: Yes (4) Small bowel obstruction with strangulation or infarction Is this a current diagnosis for this admission?: Yes (5) ESRD on hemodialysis Is this a current diagnosis for this admission?: Yes (6) ESRD on peritoneal dialysis Is this a current diagnosis for this admission?: No (7) Ileus, postoperative Is this a current diagnosis for this admission?: Yes (8) Incarcerated umbilical hernia Is this a current diagnosis for this admission?: Yes (9) Anemia in chronic kidney disease (CKD) Qualifiers: Chronic kidney disease stage: on chronic dialysis Qualified Code(s): N18.6 - End stage renal disease; D63.1 - Anemia in chronic kidney disease; Z99.2 - Dependence on renal dialysis Is this a current diagnosis for this admission?: No (10) Hypertension Qualifiers: Hypertension type: essential hypertension Qualified Code(s): I10 - Essential (primary) hypertension Is this a current diagnosis for this admission?: No (11) Polycystic kidney disease Is this a current diagnosis for this admission?: Yes (12) Anemia in CKD (chronic kidney disease) Qualifiers: Chronic kidney disease stage: on chronic dialysis Qualified Code(s): N18.6 - End stage renal disease; D63.1 - Anemia in chronic kidney disease; Z99.2 - Dependence on renal dialysis Is this a current diagnosis for this admission?: Yes - Plan Summary Summary: 08/03/2020 8:15 PM Critical care visit 40 minutes I assessed the patient and then reviewed the use computer records. I given the patient a liter of fluid earlier today. His blood pressure responded. He admits that he felt better. This was just prior to the CAT scan. He still has a large net negative fluid balance. He has skin tenting and his oral mucosa is extremely dry. He has sunken eye sockets. His lungs are clear. After reviewing all of the data including laboratory studies and imaging I believe the patient is hypovolemic and this is the reason for the tachycardia. In addition, early in his stay he is oliguric. Of late he has been an uric. If you compare the heart rate to the blood pressures his blood pressures have been relatively soft. I believe that the patient's blood pressure and pulse are directly related to his volume status. With the nurse at the bedside we discussed the treatment plan with the patient. IV fluid The patient will receive a 500 mL bolus and then run the remaining fluid at 150 mL an hour for a total of 2 L of fluid overnight. Hiccups The hiccups have responded to the Thorazine. I was decreasing the Thorazine dose. At this point I will discontinue it as a scheduled medication but leave it available as needed every 12 hours for hiccups. This medication is quite sedating and by removing it the patient may have more energy. Cortisol Random cortisol drawn early in this hospitalization was 99. I have ordered a morning cortisol for tomorrow in addition to his normal laboratory studies. I will see if there is any evidence of adrenal insufficiency. - Time Time Spent with patient: 35 or more minutes Medications reviewed and adjusted accordingly: Yes Anticipated Discharge Disposition: PHYSICS PROFESSOR Anticipated Discharge Timeframe: PHYSICS PROFESSOR
[2020-08-15 09:41] VITALS: BP 96/40
[2020-08-15] MEDS: FLUTICASONE NASAL SPRAY 50 MCG/SPRY 120 SPRAY/16 GM NAREB SCH (10:02)
[2020-08-15] MEDS: FLUDROCORTISONE ACETATE 0.1 MG TABLET PO SCH (10:02)
--- NOTE | 2020-08-15 10:44 | PDOC PROGRESS REPORT ---
Subjective Date:: 08/15/20 Subjective:: As per admitting physician's note KATHY BURRELL is a 70 year old male, with history of end-stage renal disease on peritoneal dialysis (last session last night), Hx Hypercholesterolemia, Hx Hypertension, history of back surgery who has a 1 day complaining of mid abdominal pain around the umbilicus. The patient has a known umbilical hernia that he has been following conservatively. A CT scan abdomen pelvis has been done upon arrival in the emergency room today and this is significant for a strangulated umbilical hernia with infarcted small bowel and gas in the portal vein system. 08/07/2020. No acute events overnight. Patient awake and alert and cooperative with physical examination. Stating that he is avoiding eating or drinking as he has odynophagia due to prolonged NG tube placement, patient was noted to be hypotensive and is stating that when he was trying to get up to do his physical therapy he was feeling lightheaded, denies any chest pain, nausea, vomiting, diarrhea, constipation or any urinary symptoms. 08/08/2020. Assumed care on 08/07/2020. On my first encounter patient was reporting to me that he was having odynophagia due to prolonged NG tube placement and as a result he was not eating much and not taking any fluid, he was also mentioning to me that whenever he tries to stand up or when he tries to get physical therapy he feels lightheaded and dizzy, upon reviewing his vitals I noted that patient has been having soft is BPs and once a while his systolic blood pressure has been in the high 80s and low 90s, I noted the patient has history of hypertension, and is on low-dose beta-blockers, I also noted that patient had been checked for random cortisol and a.m. cortisol which have been WNL. I figured patient could be orthostatic due to low p.o. intake, held his antihypertensives and gave him 500 cc NS and also started him on GI cocktail which includes Reglan in it. Patient was able to tolerate his p.o. intake without any problem, but unfortunately towards the evening patient was noted to be less responsive with slurred speech and code stroke was called. When code stroke was called patient vitals were WNL, a stat CT was negative for any acute stroke, and patient was not deemed suitable for TPA due to recent abdominal s urgery. Stroke protocol was initiated and patient was started on statins and antiplatelets. An ABG showed mild hypoxemia, his fluids were held and he was given 1 dose of IV Lasix. Patient was also given 1 dose of Narcan as he had received 1 dose of IV morphine, with no significant improvement. This morning patient did not appear to be in acute distress but unfortunately neurologically he was unchanged, still drowsy but easily arousable, and having some expressive aphasia, bilateral lower extremity clonus and twitching of bilateral upper extremities and bilateral nystagmus. Yesterday patient had received Reglan in his GI cocktail yesterday, so I gave him IV Benadryl to see if his clonus and twitching was related to Reglan side effects, unfortunately no significant improvement noted, stat MRI/MRI head ordered which came back positive for small focal acute lacunar infarct in the posterior right parietal lobe. Patient and family notified about the results. Patient is stating that he has had similar symptoms 2 years ago in [place] and was diagnosed with TIA. Patient is stating that he was taking statin but it was stopped by his PCP, unfortunately patient is noted not to have been on antiplatelets however he has been receiving his subcutaneous heparin while inpatient. Patient and family has agreed to be transition to short-term rehab if needed. 08/09/2020. Saw patient this morning while waiting to receive hemodialysis in the hemodialysis unit, unfortunately patient has not improved neurologically, overnight patient was not started on dopamine drip as his pressure was consi dered to be within normal limits, patient is still somnolent but easily arousable, has twitching of upper extremities, mild aphasia and bilateral lower extremity clonus more on the right side, upper extremity strength improvement, lower extremity strength has not changed, patient is alert and oriented, denies any fever, chills, nausea, vomiting. 08/10/2020. No acute events overnight. Patient overnight was noted to be hypotensive, started on dopamine drip, patient was maintained in 140s overnight, this morning dopamine drip has been weaned down and currently pressure is in 110s, unfortunately patient still seems a little confused, complaining of dizziness, mild dysarthria, bilateral upper extremity twitching, and lower extremity weakness, patient is p.o. tolerant, having normal bowel and bladder movements. Denies any fever, chills, nausea, vomiting. 08/11/2020. Has been having extensive discussion with patient and family since 07/2020. Patient was made DNR/DNI as per patient and family request on 08/10/2020. Saw patient twice on 08/11/2020, once in the morning when he was by himself and and once when accompanied by his sister who is is only next of kin present in the room. Patient is and does not have any biological children. On both of my encounters patient is alert and oriented x4, only complaining of lower back pain. He has refused blood transfusion and hemodialysis today. He is stating that he does not want any life prolonging measures including pressors, hemodialysis, transfusions, or any medications which would prolong his life. He is stating that he clearly understands his underlying medical conditions and his prognosis and does not wish to continue any of his medications. 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 He clearly does not want to be intubated or resuscitated, and he does not want to continue his pressors, antibiotics, or any medical intervention to prolong his life. He wishes to be transitioned to comfort measures only. He is stating if after stopping all his medication and any medical intervention he is still around he would like to be transitioned to hospice care either home hospice or inpatient hospice. He also conveyed this patient is to his primary nurse. Please nursing refer to note. 08/12/2020. No acute events overnight. Saw patient this morning, not appear to be in any acute distress, awake and alert, worsening dysarthria, complaining of lower back pain, endorsing healthy appetite. Denies any fever, chills, nausea, vomiting, chest pain, shortness of breath. 08/13/2020. No acute events overnight. Saw patient this morning, patient does not respond to verbal or tactile stimuli. Not appear to be in any apparent distress. 08/14/2020. No acute events overnight. Saw patient twice this morning, once accompanied by 2 of her sisters and wants by himself, does not appear to be in apparent distress, patient is opening his eyes little stimulation does not communicate, does not appear to be in any apparent distress, will continue comfort measures. 08/15/2020. No acute events overnight. Saw patient this morning, appears to be in no apparent distress, noted to have agonal breathing, does not open his eyes to verbal tactile stimuli. Reason For Visit: HYPOXIC RESPIRATORY FAILURE, NEEDS DIALYSIS, Physical Exam Vital Signs: Temp Pulse Resp BP Pulse Ox 99.9 F 106 H 14 96/40 L 84 L 08/15/20 07:52 08/15/20 07:52 08/15/20 07:52 08/15/20 07:52 08/15/20 07:52 Intake & Output 08/14/20 08/15/20 08/16/20 06:59 06:59 06:59 Output Total 0 0 Balance 0 0 Weight 122.3 kg 122.4 kg General appearance: PRESENT: no acute distress, obese, well-developed, well- nourished Neck exam: ABSENT: carotid bruit, JVD, lymphadenopathy, thyromegaly Respiratory exam: PRESENT: rhonchi. ABSENT: rales, wheezes GI/Abdominal exam: PRESENT: normal bowel sounds, soft. ABSENT: distended, guarding, mass, organolmegaly, rebound, tenderness Neurological exam: PRESENT: other - Does not respond to verbal or tactile stimulation. Results Laboratory Results: 08/11/20 05:45 08/11/20 05:45 08/05/20 08/05/20 08/08/20 20:10 20:10 05:15 Creatine Kinase 39 L 29 L Troponin I 0.050 Impressions: Guidance Fluoroscopy 07/26/20 00:00 IMPRESSION: IMAGE(S) OBTAINED DURING PROCEDURE. Abdomen/Pelvis CT 08/03/20 00:00 IMPRESSION: 1. NASOGASTRIC TUBE, TIP IN THE STOMACH. CONTRAST IN THE STOMACH AND THROUGHOUT THE SMALL BOWEL. DILATED PROXIMAL SMALL BOWEL AND NONDISTENDED DISTAL SMALL BOWEL. PROBABLY PARTIAL SMALL BOWEL OBSTRUCTION. 2. SMALL UMBILICAL HERNIA, CONTAINING A SMALL AMOUNT OF GAS PRESUMED SECONDARY TO RECENT SURGERY. 3. COLONIC DIVERTICULOSIS. NO CT FINDINGS OF ACUTE DIVERTICULITIS. 4. CHRONIC POLYCYSTIC KIDNEY DISEASE. 5. PERITONEAL DIALYSIS CATHETER, DISTAL END IN THE PELVIS. 6. NO OTHER ACUTE OR SIGNIFICANT FINDINGS. KUB X-Ray 08/04/20 00:00 IMPRESSION: Persistent dilated at least proximal small bowel. There is air and stool as well as contrast throughout the colon. Findings are consistent with partial small bowel obstruction. Chest X-Ray 08/07/20 00:00 IMPRESSION: NO ACUTE FINDINGS. Head CT 08/07/20 17:32 IMPRESSION: NO ACUTE INTRACRANIAL FINDINGS. EVIDENCE OF ACUTE STROKE: NO. Brain MRI with MRA 08/08/20 00:00 IMPRESSION: NORMAL MRA OF [place]. Head MRI 08/08/20 00:00 IMPRESSION: MINIMAL MICROVASCULAR ISCHEMIC CHANGE. SMALL FOCAL ACUTE LACUNAR INFARCTS IN THE POSTERIOR RIGHT PARIETAL LOBE. EVIDENCE OF ACUTE STROKE: YES. RIGHT MCA. Assessment and Plan - Diagnosis (1) Comfort measures only status Is this a current diagnosis for this admission?: Yes Plan: Comfort measures only as of 08/11/2020. 08/11/2020. Patient was made DNR/DNI as per patient and family request on 08/10/2020. Saw patient twice today, once in the morning when he was by himself and and once when his sister who is is only next of kin present in the room. Patient is and does not have any biological children. On both of my encounters patient is alert and oriented x4, only complaining of lower back pain. He has refused blood transfusion and hemodialysis today. He is stating that he does not want any life prolonging measures including pressors, hemodialysis, transfusions, or any medications which would prolong his life. He is stating that he clearly understands his underlying medical conditions and his prognosis and does not wish to continue any of his medications. 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 He clearly does not want to be intubated or resuscitated, and he does not want to continue his pressors, antibiotics, or any medical intervention to prolong his life. He wishes to be transitioned to comfort measures only. He is stating if after stopping all his medication and any medical intervention he is still around he would like to be transitioned to hospice care either home hospice or inpatient hospice. He also conveyed this patient is to his primary nurse. Please nursing refer to note. (2) Orthostatic hypotension Is this a current diagnosis for this admission?: Yes (3) Acute ischemic right MCA stroke Is this a current diagnosis for this admission?: Yes (4) Small bowel obstruction with strangulation or infarction Is this a current diagnosis for this admission?: Yes (5) ESRD on hemodialysis Is this a current diagnosis for this admission?: Yes (6) ESRD on peritoneal dialysis Is this a current diagnosis for this admission?: No (7) Ileus, postoperative Is this a current diagnosis for this admission?: Yes (8) Incarcerated umbilical hernia Is this a current diagnosis for this admission?: Yes (9) Anemia in chronic kidney disease (CKD) Qualifiers: Chronic kidney disease stage: on chronic dialysis Qualified Code(s): N18.6 - End stage renal disease; D63.1 - Anemia in chronic kidney disease; Z99.2 - Dependence on renal dialysis Is this a current diagnosis for this admission?: No (10) Hypertension Qualifiers: Hypertension type: essential hypertension Qualified Code(s): I10 - Essenti al (primary) hypertension Is this a current diagnosis for this admission?: No (11) Polycystic kidney disease Is this a current diagnosis for this admission?: Yes (12) Anemia in CKD (chronic kidney disease) Qualifiers: Chronic kidney disease stage: on chronic dialysis Qualified Code(s): N18.6 - End stage renal disease; D63.1 - Anemia in chronic kidney disease; Z99.2 - Dependence on renal dialysis Is this a current diagnosis for this admission?: Yes - Plan Summary Summary: 08/03/2020 8:15 PM Critical care visit 40 minutes I assessed the patient and then reviewed the use computer records. I given the patient a liter of fluid earlier today. His blood pressure responded. He admit s that he felt better. This was just prior to the CAT scan. He still has a large net negative fluid balance. He has skin tenting and his oral mucosa is extremely dry. He has sunken eye sockets. His lungs are clear. After reviewing all of the data including laboratory studies and imaging I believe the patient is hypovolemic and this is the reason for the tachycardia. In addition, early in his stay he is oliguric. Of late he has been an uric. If you compare the heart rate to the blood pressures his blood pressures have been relatively soft. I believe that the patient's blood pressure and pulse are directly related to his volume status. With the nurse at the bedside we discussed the treatment plan with the patient. IV fluid The patient will receive a 500 mL bolus and then run the remaining fluid at 150 mL an hour for a total of 2 L of fluid overnight. Hiccups The hiccups have responded to the Thorazine. I was decreasing the Thorazine dose. At this point I will discontinue it as a scheduled medication but leave it available as needed every 12 hours for hiccups. This medication is quite sedating and by removing it the patient may have more energy. Cortisol Random cortisol drawn early in this hospitalization was 99. I have ordered a morning cortisol for tomorrow in addition to his normal laboratory studies. I will see if there is any evidence of adrenal insufficiency. - Time Time Spent with patient: 15-24 minutes Anticipated Discharge Disposition: rpg developer Anticipated Discharge Timeframe: rpg developer
--- NOTE | 2020-08-15 12:37 | Death Summary ---
Summary Date : 08/15/20 Resuscitation Status: Comfort Measures Only - Final Diagnosis (1) Comfort measures only status Is this a current diagnosis for this admission?: Yes (2) Orthostatic hypotension Is this a current diagnosis for this admission?: Yes (3) Acute ischemic right MCA stroke Is this a current diagnosis for this admission?: Yes (4) Small bowel obstruction with strangulation or infarction Is this a current diagnosis for this admission?: Yes (5) ESRD on hemodialysis Is this a current diagnosis for this admission?: Yes (6) ESRD on peritoneal dialysis Is this a current diagnosis for this admission?: Yes (7) Ileus, postoperative Is this a current diagnosis for this admission?: Yes (8) Incarcerated umbilical hernia Is this a current diagnosis for this admission?: Yes (9) Anemia in chronic kidney disease (CKD) Is this a current diagnosis for this admission?: Yes (10) Hypertension Is this a current diagnosis for this admission?: Yes (11) Polycystic kidney disease Is this a current diagnosis for this admission?: Yes (12) Anemia in CKD (chronic kidney disease) Is this a current diagnosis for this admission?: Yes Hospital Course:: Patient with past medical history of polycystic kidney disease with end-stage renal disease who used to be on peritoneal dialysis, anemia of CKD, hypertension, initially was admitted for incarcerated abdominal hernia and small bowel obstruction under surgery, patient underwent repair of abdominal hernia and small bowel obstruction resolved. Patient was receiving scheduled hemodialysis while inpatient, unfortunately patient was noted to be hypotensive, was placed on dopamine drip and extensive work-up done was negative for any acute findings, patient also had acute ischemic right MCA stroke while being hypotensive, and he developed bilateral lower extremity weakness and twitching, dysarthria, and lateral nystagmus with on and off obtundation. Patient's neurological symptoms were improving, once patient became alert and oriented x4, at some point he decided to start refusing his medical care, initially patient refused hemodialysis stop taking his medication, CODE STATUS was transitioned to DNR/DNI as per patient and family's request. The following day as per his CODE STATUS to be changed to SITE HEAD. Even after extensive extensive encouragement from myself and family members patient is still kept insisting on his CODE STATUS to be changed to SITE HEAD. Patient remains an alert oriented x4 while deciding his CODE STATUS and did not appear to be depressed and denied being depressed. Patient's CODE STATUS was transitioned to SITE HEAD and on 08/15/2020 at 12 PM patient peacefully at [facility]. (1) Orthostatic hypotension (2) Acute ischemic right MCA stroke (3) Small bowel obstruction with strangulation or infarction (4) ESRD on hemodialysis (5) ESRD on peritoneal dialysis (6) Ileus, postoperative (7) Incarcerated umbilical hernia (8) Anemia in chronic kidney disease (CKD) (9) Hypertension (10) Polycystic kidney disease (11) Anemia in CKD (chronic kidney disease)
--- NOTE | 2020-08-15 15:09 | EKG REPORT ---
SEVERITY:- DEFECTIVE ECG - UNDETERMINED RHYTHM: REVIEW = STRAIGHT LINE EKG AT REQUEST OF PROVIDER ? PURPOSE ? TO DOCUMENT ASYSTO LE ?, CLINICAL CORRELATION NEEDED. NO FURTHER ANALYSIS ATTEMPTED FOR THIS ECG - NOT ENOUGH LEADS COULD BE MEASURED : Confirmed by: Gustabo Berumen MD 15-Aug-2020 15:08:43
== END 2020-08-15 14:54 | DRG 353 ==
LOC: ER 08:43 → EH 14:09 → 4N 19:32 → ICU 07-26 09:56 → 5 07-30 19:55 → 3S 08-07 17:40 → 4S 08-13 23:45
PROVIDERS: ADMIT Anesthesiology; ATTEND Internal Medicine
PROC: 0WUF0JZ Supplement Abdominal Wall with Synthetic Substitute, Open Approach (ICD-10-PCS; principal; 2020-07-25 14:45)
PROC: 5A09357 Assistance with Respiratory Ventilation, Less than 24 Consecutive Hours, Continuous Positive Airway Pressure (ICD-10-PCS; 2020-07-26)
PROC: 05JY3ZZ Inspection of Upper Vein, Percutaneous Approach (ICD-10-PCS; 2020-07-26)
PROC: 05H633Z Insertion of Infusion Device into Left Subclavian Vein, Percutaneous Approach (ICD-10-PCS; 2020-07-26)
PROC: 5A1D70Z Performance of Urinary Filtration, Intermittent, Less than 6 Hours Per Day (ICD-10-PCS; 2020-07-26)
PROC: 30233N1 Transfusion of Nonautologous Red Blood Cells into Peripheral Vein, Percutaneous Approach (ICD-10-PCS; 2020-07-27)
PROC: 05HM33Z Insertion of Infusion Device into Right Internal Jugular Vein, Percutaneous Approach (ICD-10-PCS; 2020-07-27)
PROC: 5A1D70Z Performance of Urinary Filtration, Intermittent, Less than 6 Hours Per Day (ICD-10-PCS; 2020-07-28)
PROC: 5A1D70Z Performance of Urinary Filtration, Intermittent, Less than 6 Hours Per Day (ICD-10-PCS; 2020-07-30)
PROC: 5A1D70Z Performance of Urinary Filtration, Intermittent, Less than 6 Hours Per Day (ICD-10-PCS; 2020-08-02)
PROC: 5A1D70Z Performance of Urinary Filtration, Intermittent, Less than 6 Hours Per Day (ICD-10-PCS; 2020-08-04)
PROC: 5A1D70Z Performance of Urinary Filtration, Intermittent, Less than 6 Hours Per Day (ICD-10-PCS; 2020-08-05)
PROC: 5A1D70Z Performance of Urinary Filtration, Intermittent, Less than 6 Hours Per Day (ICD-10-PCS; 2020-08-06)
PROC: 06HY33Z Insertion of Infusion Device into Lower Vein, Percutaneous Approach (ICD-10-PCS; 2020-08-09)
PROC: 5A1D70Z Performance of Urinary Filtration, Intermittent, Less than 6 Hours Per Day (ICD-10-PCS; 2020-08-09)
PROC: B24BZZ4 Ultrasonography of Heart with Aorta, Transesophageal (ICD-10-PCS; 2020-08-10)
DX: K42.0 Umbilical hernia with obstruction, without gangrene (principal); N18.6 End stage renal disease; I63.511 Cerebral infarction due to unspecified occlusion or stenosis of right middle cerebral artery; I12.0 Hypertensive chronic kidney disease with stage 5 chronic kidney disease or end stage renal disease; Q61.3 Polycystic kidney, unspecified; K56.7 Ileus, unspecified; I97.821 Postprocedural cerebrovascular infarction following other surgery; Z51.5 Encounter for palliative care; E78.00 Pure hypercholesterolemia, unspecified; I95.81 Postprocedural hypotension; E87.5 Hyperkalemia; D63.1 Anemia in chronic kidney disease; E66.01 Morbid (severe) obesity due to excess calories; R47.81 Slurred speech; Y83.8 Other surgical procedures as the cause of abnormal reaction of the patient, or of later complication, without mention of misadventure at the time of the procedure; Y92.9 Unspecified place or not applicable; Z66 Do not resuscitate; R25.2 Cramp and spasm; R13.10 Dysphagia, unspecified; R06.6 Hiccough; R09.02 Hypoxemia; Z20.828 Contact with and (suspected) exposure to other viral communicable diseases; Z88.0 Allergy status to penicillin; Z87.891 Personal history of nicotine dependence; Z85.828 Personal history of other malignant neoplasm of skin; Z78.1 Physical restraint status; Z79.82 Long term (current) use of aspirin; Z79.899 Other long term (current) drug therapy; Z99.2 Dependence on renal dialysis
CPT/HCPCS: 00532; 00830; 36415; 36430; 36556; 70450; 70544; 70551; 71045; 74018; 74176; 77001; 80048; 80053; 80061; 80069; 82533; 82550; 82803; 82962; 83605; 83690; 83735; 84100; 84439; 84443; 84481; 84484; 85025; 85027; 86850; 86900; 86901; 86920; 87040; 87070; 87635; 88302; 93005; 93010; 93306; 94002; 94003; 94640; 94660; 94799; 96360; 99140; 99285; 99291; C1713; C1751; C1752; C1758; C1769; C1781; C9113; C9803; J0131; J0330; J0690; J0692; J0744; J1100; J1170; J1200; J1265; J1642; J1644; J1815; J1885; J1940; J2060; J2250; J2270; J2310; J2370; J2405; J2704; J2710; J2997; J3010; J3230; J3490; J7030; J7040; J7060; J7120; P9016; Q5105; S0028